=== PATIENT | male | born 1955 ===

== ENCOUNTER 2016-08-05 16:42 | Inpatient (IN) | payer OTHER ==
[2016-08-05] MEDS ORDERED: Albuterol-Ipratrop 3 mg / 0.5 (3 ml) UD IH STA (17:32)
--- NOTE | 2016-08-05 17:39 | ED PDOC ---
HPI: CCC, URI, Sore Throat Time Seen by Provider: 08/05/16 17:26 Chief Complaint (Nursing): Weakness/Neurological Deficit Chief Complaint (Provider): cough History Per: Patient History/Exam Limitations: no limitations Have you had recent travel within the past 21 days to any of the following countries: [place], [place], [place] or [place]?: No Onset/Duration Of Symptoms: Days (x 1 year) Current Symptoms Are (Timing): Still Present Additional Complaint(s): Daryl Hoskins is a 60 year old male, with no previous medical history, who presents to the ED with complaints of a chronic cough ongoing for one year. Patient states cough is productive of brown sputum and reports to developing a generalized weakness today. Patient denies any chest pain, palpitations fever, shortness of breath, loss of consciousness or headache. Patient smoked 1 pack of cigarets every 3 days. PMD: none provided Past Medical History Reviewed: Historical Data, Nursing Documentation, Vital Signs Vital Signs: Last Vital Signs Temp 100.6 F H 08/05/16 16:45 Pulse 110 H 08/05/16 19:36 Resp 16 08/05/16 16:45 BP 157/91 H 08/05/16 16:45 Pulse Ox 96 08/05/16 19:36 - Medical History PMH: No Chronic Diseases - Family History Family History: States: Unknown Family Hx - Social History Current smoker - smoking cessation education provided: Yes (1 pack every 3 days ) - Home Medications Home Medications: Ambulatory Orders Medication Instructions Recorded No Known Home Med 08/05/16 - Allergies Allergies/Adverse Reactions: Allergies Allergy/AdvReac Type Severity Reaction Status Date / Time No Known Allergies Allergy Verified 08/05/16 16:45 Review of Systems ROS Statement: Except As Marked, All Systems Reviewed And Found Negative Constitutional: Positive for: Weakness (generalized). Negative for: Fever, Chills Cardiovascular: Negative for: Chest Pain Respiratory: Positive for: Cough, Sputum (brown ). Negative for: Shortness of Breath Neurological: Negative for: Headache, Other (LOC) Physical Exam - Reviewed Nursing Documentation Reviewed: Yes Vital Signs Reviewed: Yes - Physical Exam Appears: Positive for: Well, Non-toxic, No Acute Distress Head Exam: Positive for: ATRAUMATIC, NORMAL INSPECTION, NORMOCEPHALIC Skin: Positive for: Normal Color, Warm, Dry Cardiovascular/Chest: Positive for: Regular Rate, Rhythm Respiratory: Positive for: Rhonchi (bilaterally ), Wheezing (expiratory bilaterally ) Gastrointestinal/Abdominal: Positive for: Normal Exam, Bowel Sounds, Soft. Negative for: Tenderness Extremity: Positive for: Normal ROM, Capillary Refill (< 2 seconds ). Negative for: Tenderness, Pedal Edema, Calf Tenderness, Swelling Neurologic/Psych: Positive for: Alert, Oriented - Laboratory Results Result Diagrams: 08/05/16 17:54 08/05/16 17:54 - ECG ECG Rhythm: Positive for: Right Bundle Branch Block Rate: 110 (bpm ) O2 Sat by Pulse Oximetry: 96 (RA) Pulse Ox Interpretation: Normal Medical Decision Making Medical Decision Making: Initial Plan: * EKG * labs * CXR * Duoneb 3 ml * peak flow pre/post treatment * reevaluation 18:54 CXR FINDINGS: LUNGS: Multifocal infiltrates. Right middle lobe infiltrate with air bronchograms. We left lower lobe and upper lobe multifocal infiltrates. PLEURA: No significant pleural effusion identified. No pneumothorax apparent. CARDIOVASCULAR: No radiographic findings to suggest acute or significant cardiovascular disease. OSSEOUS STRUCTURES: No significant abnormalities. VISUALIZED UPPER ABDOMEN: Normal. OTHER FINDINGS: None. IMPRESSION: Extensive bilateral infiltrates primarily affecting right middle lobe, left upper and left lower lobes. Findings likely pneumonia. Follow-up to resolution advised. Scribe Attestation: Documented by Madyson Mendoza, acting as a scribe for Jose Fung MD. Provider Scribe Attestation: All medical record entries made by the Scribe were at my direction and personally dictated by me. I have reviewed the chart and agree that the record accurately reflects my personal performance of the history, physical exam, medical decision making, and the department course for this patient. I have also personally directed, reviewed, and agree with the discharge instructions and disposition. Disposition - Clinical Impression Clinical Impression: Pneumonia, Renal insufficiency, Elevated d-dimer - Patient ED Disposition Is Patient to be Admitted: Yes - Disposition Disposition Time: 20:20 Condition: FAIR - Pt Status Changed To: Hospital Disposition Of: Inpatient - Admit Certification Admit to Inpatient:: After my assessment, the patient will require hospitalization for at least two midnights. This is because of the severity of symptoms shown, intensity of services needed, and/or the medical risk in this patient being treated as an outpatient. - POA Present On Arrival: None
[2016-08-05 17:59] LABS: BASO % 0.1 % (0.0-2.0); HEMATOCRIT 45.2 % (35.0-51.0); LYMPH # 0.4 K/uL (1.0-4.3); MEAN CELL VOLUME 82.6 fl (80.0-94.0); MEAN CORPUSCULAR HEMOGLOBIN 28.3 pg (27.0-31.0); MEAN CORPUSCULAR HGB CONC 34.3 g/dL (33.0-37.0); MONO # 0.2 K/uL (0.0-0.8); MONO % 2.6 % (0.0-10.0); NEUT # 7.8 K/uL (1.8-7.0); NEUT % 92.3 % (50.0-75.0); NRBC % 0.1 % (0.0-0.0); PLATELET COUNT 132 K/uL (130-400); RED CELL DISTRIBUTION WIDTH 14.2 % (11.5-14.5); WHITE BLOOD COUNT 8.4 K/uL (4.8-10.8)
[2016-08-05 18:14] LABS: BILIRUBIN,TOTAL 1.2 mg/dl (0.2-1.3); CALCIUM 9.2 mg/dL (8.4-10.2); TOTAL PROTEIN 8.8 G/DL (6.3-8.2)
[2016-08-05] MEDS ORDERED: Azithromycin 500 MG in Sodium Chloride 0.9% 250 ML IVPB STA (18:14)
[2016-08-05] MEDS ORDERED: Potassium Chloride 20 mEq ER Tab PO ONE ×2 (18:15→18:27)
[2016-08-05] MEDS ORDERED: cefTRIAXone (Rocephin) 1 gm Inj ONE (18:27)
[2016-08-05 18:50] LABS: VENOUS BLOOD GAS BASE EXCESS -1.5 mmol/L (0.0-2.0); VENOUS BLOOD GAS PCO2 44 mmHg (40-60); VENOUS BLOOD PH 7.35 (7.32-7.43)
[2016-08-05] MEDS ORDERED: Sodium Chloride 0.9% 1,000 ML IV STA (18:52)
--- NOTE | 2016-08-05 18:56 | RAD ---
HISTORY: cough COMPARISON: No prior. TECHNIQUE: Chest PA and lateral FINDINGS: LUNGS: Multifocal infiltrates. Right middle lobe infiltrate with air bronchograms. We left lower lobe and upper lobe multifocal infiltrates. PLEURA: No significant pleural effusion identified. No pneumothorax apparent. CARDIOVASCULAR: No radiographic findings to suggest acute or significant cardiovascular disease. OSSEOUS STRUCTURES: No significant abnormalities. VISUALIZED UPPER ABDOMEN: Normal. OTHER FINDINGS: None. IMPRESSION: Extensive bilateral infiltrates primarily affecting right middle lobe, left upper and left lower lobes. Findings likely pneumonia. Follow-up to resolution advised.
[2016-08-05 18:58] LABS: NEUTROPHIL 88 % (42-75); TOTAL CELLS COUNTED 100
--- NOTE | 2016-08-05 20:37 | CP.PCM.HP ---
History of Present Illness - History of Present Illness History of Present Illness: PCP: None Chief Complaint: Dizziness/ weakness/Coughing HPI: 60 years old male with no significance past medical hx resides at a custodial for one month. He was brought to the Ed because of Generalized weakness today with 2 days of dizziness with only mild vertigo but some unreadiness in his gait.He has been coughing for one month but it has gotten worse and is associated with brown sputum. No chest pain on coughing, no SOB and no fever. He Smokes one pack of cigarettes in 3 days with occasional Alcohol use. in the ED his Temp was 100.6F with HR of 123/min. PMH: No chronic diseases PSH: No Surgeries SH: Lives in a Intermediate; Uses Alcohol socially; Smokes one pack in 3 days; no illegal drug use FH: Mother with Diabetes Mellitus and father family with Diabetes Allergies: NKDA Present on Admission - Present on Admission Any Indicators Present on Admission: No History of DVT/PE: No History of Uncontrolled Diabetes: No Urinary Catheter: No Decubitus Ulcer Present: No Review of Systems - Constitutional Constitutional: Weakness. absent: Anorexia, Chills, Fever, Headache, Lethargy - EENT Eyes: absent: Diplopia, Floaters, Photophobia, Requires Corrective Lenses, Sees Flashes Ears: absent: Decreased Hearing, Ear Discharge, Ear Pain, Tinnitus Nose/Mouth/Throat: absent: Epistaxis, Nasal Congestion, Nasal Discharge, Sinus Pain, Sinus Pressure - Cardiovascular Cardiovascular: absent: Chest Pain, Dyspnea, Leg Edema - Respiratory Respiratory: Cough, Wheezing. absent: Dyspnea, Stridor - Gastrointestinal Gastrointestinal: absent: Constipation, Diarrhea, Nausea, Vomiting - Genitourinary Genitourinary: absent: Dysuria, Flank Pain, Hematuria, Freq UTI - Musculoskeletal Musculoskeletal: absent: Arthralgias, Myalgias, Radiating Pain into Limb Additional comments: Unsteady gait. - Integumentary Integumentary: absent: Pruritus, Rash, Skin Ulcer, Sores, Striae, Swelling - Neurological Neurological: Vertigo, Weakness. absent: Confusion, Focal Weakness, Headaches, Memory Loss - Psychiatric Psychiatric: absent: Anxiety, Depression, Panic Attacks - Endocrine Endocrine: absent: Palpitations, Polydipsia, Polyphagia, Polyuria - Hematologic/Lymphatic Hematologic: absent: Easy Bleeding, Easy Bruising Past Patient History - Past Social History Smoking Status: Light Smoker < 10 Cigarettes Daily Chewing Tobacco Use: No Cigar Use: No Alcohol: Social Drugs: Denies Home Situation {Lives}: Homeless - CARDIAC Hx Cardiac Disorders: No - PULMONARY Hx Respiratory Disorders: No - NEUROLOGICAL Hx Neurological Disorder: No - HEENT Hx HEENT Problems: No - RENAL Hx Chronic Kidney Disease: No - ENDOCRINE/METABOLIC Hx Endocrine Disorders: No - HEMATOLOGICAL/ONCOLOGICAL Hx Blood Disorders: No - INTEGUMENTARY Hx Dermatological Problems: No - MUSCULOSKELETAL/RHEUMATOLOGICAL Hx Musculoskeletal Disorders: No - GASTROINTESTINAL Hx Gastrointestinal Disorders: No - GENITOURINARY/GYNECOLOGICAL Hx Genitourinary Disorders: No - PSYCHIATRIC Hx Psychophysiologic Disorder: No Hx Substance Use: No - SURGICAL HISTORY Hx Surgeries: No - ANESTHESIA Hx Anesthesia: No Meds Allergies/Adverse Reactions: Allergies Allergy/AdvReac Type Severity Reaction Status Date / Time No Known Allergies Allergy Verified 08/05/16 16:45 Physical Exam - Constitutional Appears: In Acute Distress - Head Exam Head Exam: ATRAUMATIC, NORMAL INSPECTION, NORMOCEPHALIC - Eye Exam Eye Exam: EOMI, Normal appearance Pupil Exam: NORMAL ACCOMODATION, PERRL - ENT Exam ENT Exam: Mucous Membranes Moist, Normal Exam, Normal External Ear Exam - Neck Exam Neck exam: Positive for: Full Rom, Normal Inspection. Negative for: Lymphadenopathy, Tenderness - Respiratory Exam Additional comments: Inspiratory and expiratory coarse crackles with wheezes on expiration diffuse in both lung thibodeaux - Cardiovascular Exam Cardiovascular Exam: Tachycardia, REGULAR RHYTHM, +S1, +S2 - GI/Abdominal Exam GI & Abdominal Exam: Normal Bowel Sounds, Soft. absent: Mass, Organomegaly, Tenderness - Rectal Exam Rectal Exam: Deferred - Extremities Exam Extremities exam: Positive for: full ROM, normal inspection. Negative for: pedal edema, tenderness - Back Exam Back exam: NORMAL INSPECTION. absent: CVA tenderness (L), CVA tenderness (R) - Neurological Exam Neurological exam: Alert, CN II-XII Intact, Oriented x3, Reflexes Normal - Psychiatric Exam Psychiatric exam: Normal Affect, Normal Mood - Skin Skin Exam: Dry, Intact, Normal Color, Warm Results - Vital Signs Recent Vital Signs: Last Vital Signs Temp 100.6 F H 08/05/16 16:45 Pulse 110 H 08/05/16 20:20 Resp 16 08/05/16 16:45 BP 157/91 H 08/05/16 16:45 Pulse Ox 96 08/05/16 20:20 - Labs Result Diagrams: 08/05/16 17:54 08/05/16 17:54 - EKG Data EKG comments: Sinus Tachycardia with RBBB 110/min - Imaging and Cardiology Chest x-ray Additional comment: Bilateral infiltrates, right middle lobe, left upper and left lower lobes. Assessment & Plan - Assessment and Plan (Free Text) Assessment: #. Multilabar Pneumonia #. Sepsis #. Renal Insufficency #. Hypokalemia #. Transaminitis #. Elevated D Dimer Plan: 60 years old male with no significance past medical hx resides at a custodial for one month. He was brought to the Ed because of Generalized weakness today with 2 days of dizziness with only mild vertigo but some unreadiness in his gait.He has been coughing for one month but it has gotten worse and is associated with brown sputum. No chest pain on coughing, no SOB and no fever. He Smokes one pack of cigarettes in 3 days with occasional Alcohol use. in the ED his Temp was 100.6F with HR of 123/min. #. Multilabar Pneumonia in patient from a custodial. Coughing for weeks. r/o TB - consult Dr Sweeney pulmonary - Airborne isolation/ Sputum for AFB x3 - Sputum for culture - HIV antibodies - Duoneb bronchodilators q6hrs - Azithromycin 500mg Daily - Zosyn 2.275mg Q6hrs renal dose - Vancomycin 1gm IV single dose #. Sepsis with a temperature3 of 100.6F; Heart rate of 123/min and multilabar pneumonia - follow blood and urine cultures - IV fluids - Antibiotics to treat pneumonia #. Renal Insufficiency etiology unclear r/o renal-pulmonary syndrone - consult Dr Kowalski nephrology - IV Fluids - follow renal labs - Follow Abdominal US #. Hypokalemia - Repleted - Follow Electrolytes #. Transaminitis probably due to Alcohol liver disease - Hepatitis profile -Abdominal US evaluate for Fatty liver - Follow liver enzymes #. Elevated D Dimer etiology unclear. CTA chest not done because of the Renal failure. - follow V/Q Scan to rule out Pulmonary Embolism. #. DVT prophylaxis with Heparin #. Code Status: Full - Date & Time Date: 08/05/16 Time: 20:37
[2016-08-05 21:13] LABS: VENOUS BLOOD GAS BASE EXCESS -3.1 mmol/L (0.0-2.0); VENOUS BLOOD GAS PCO2 45 mmHg (40-60); VENOUS BLOOD PH 7.32 (7.32-7.43)
[2016-08-05] MEDS ORDERED: Sodium Chloride 0.9% 1,000 ML IV SCH (21:45)
[2016-08-05] MEDS ORDERED: Potassium Chloride 20 mEq ER Tab PO STA (23:48)
[2016-08-06] MEDS: Albuterol-Ipratrop 3 mg / 0.5 (3 ml) UD INH SCH ×4 (01:01→20:28)
[2016-08-06] MEDS: Sodium Chloride 0.9% 1,000 ML IV SCH ×3 (05:26→18:52)
[2016-08-06 07:04] LABS: HEMATOCRIT 39.3 % (35.0-51.0); LYMPH # 0.4 K/uL (1.0-4.3); LYMPH % 6.1 % (20.0-40.0); MEAN CELL VOLUME 82.7 fl (80.0-94.0); MEAN CORPUSCULAR HEMOGLOBIN 28.1 pg (27.0-31.0); MEAN PLATELET VOLUME 8.5 fl (7.2-11.7); MONO # 0.1 K/uL (0.0-0.8); MONO % 1.9 % (0.0-10.0); NEUT # 5.8 K/uL (1.8-7.0); PLATELET COUNT 124 K/uL (130-400); RED CELL DISTRIBUTION WIDTH 14.1 % (11.5-14.5); WHITE BLOOD COUNT 6.3 K/uL (4.8-10.8)
[2016-08-06 07:39] LABS: ALB/GLOB RATIO 0.9 (1.0-2.1); CALCIUM 7.7 mg/dL (8.4-10.2); POTASSIUM 3.1 MMOL/L (3.6-5.0); TOTAL PROTEIN 6.6 G/DL (6.3-8.2)
--- NOTE | 2016-08-06 08:31 | CARD ---
APPROVED REPORT EKG Measurement Heart [id number] <Conclusion> Sinus tachycardia Possible Left atrial enlargement Right bundle branch block Abnormal ECG
[2016-08-06] MEDS ORDERED: Sodium Chloride 3% for Inhalation 4 ML VIAL.NEB IH PRN (08:34)
[2016-08-06] MEDS: Azithromycin 500 MG in Sodium Chloride 0.9% 250 ML IVPB SCH (08:56)
[2016-08-06] MEDS: Potassium Chloride 20 mEq ER Tab PO ONE ×2 (08:57→09:15)
[2016-08-06 09:18] LABS: RBC URINE 19 /hpf (0-3); URINE BILIRUBIN NEGATIVE (NEGATIVE); URINE BLOOD LARGE (NEGATIVE); URINE COLOR AMBER (YELLOW); URINE GLUCOSE (UA) NEG (Normal); URINE KETONE NEGATIVE (NEGATIVE); URINE LEUKOCYTE ESTERASE NEG Leu/uL (Negative); URINE PROTEIN 100 mg/dL (NEGATIVE); URINE UROBILINOGEN 0.2-1.0 mg/dL (0.2-1.0); WBC CLUMPS OCC /hpf; WBC URINE 17 /hpf (0-5)
--- NOTE | 2016-08-06 09:30 | CP.PCM.CON ---
History of Present Illness - History of Present Illness History of Present Illness: pt seen and examined, full consult is dictated #[id number] 1. renal failure , most likely vane can't r/o vane on ckd r/o ATN, r/o rhabdo 2. pneumnonia 3. sepsis check cpk, urine lytes, osm, cr aso, cristela, hept.b,c, c3,c4, aso ivf 1/2 ns at 780-100 ml/hr check urine and blood c/s, Past Patient History - Past Social History Smoking Status: Current Some Days Smoker - CARDIAC Hx Cardiac Disorders: No - PULMONARY Hx Respiratory Disorders: No - NEUROLOGICAL Hx Neurological Disorder: No - HEENT Hx HEENT Problems: No - RENAL Hx Chronic Kidney Disease: No - ENDOCRINE/METABOLIC Hx Endocrine Disorders: No - HEMATOLOGICAL/ONCOLOGICAL Hx Blood Disorders: No Hx AIDS: No Hx Human Immunodeficiency Virus (HIV): No - INTEGUMENTARY Hx Dermatological Problems: No - MUSCULOSKELETAL/RHEUMATOLOGICAL Hx Musculoskeletal Disorders: No Hx Falls: Yes - GASTROINTESTINAL Hx Gastrointestinal Disorders: No - GENITOURINARY/GYNECOLOGICAL Hx Genitourinary Disorders: No - PSYCHIATRIC Hx Psychophysiologic Disorder: No Hx Substance Use: No - SURGICAL HISTORY Hx Surgeries: No - ANESTHESIA Hx Anesthesia: No Meds Allergies/Adverse Reactions: Allergies Allergy/AdvReac Type Severity Reaction Status Date / Time No Known Allergies Allergy Verified 08/05/16 16:45 - Medications Medications: Current Medications Acetaminophen (Tylenol 325mg Tab) 650 mg PO Q6 PRN PRN Reason: Fever >100.4 F Last Admin: 08/06/16 04:45 Dose: 650 mg Albuterol/Ipratropium (Duoneb 3 Mg/0.5 Mg (3 Ml) Ud) 3 ml INH RQ6 [facility] Last Admin: 08/06/16 08:26 Dose: 3 ml Folic Acid (Folic Acid) 1 mg PO DAILY [facility]ERE Heparin Sodium (Porcine) (Heparin) 5,000 units SC Q8 [facility] PRN Reason: Protocol Last Admin: 08/06/16 02:12 Dose: 5,000 units Azithromycin 500 mg/ Sodium (Chloride) 250 mls @ 250 mls/hr IVPB DAILY [facility] Last Admin: 08/06/16 08:56 Dose: 250 mls/hr Sodium Chloride (Sodium Chloride 0.9%) 1,000 mls @ 1,000 mls/hr IV .Q1H [facility] Stop: 08/06/16 21:33 Last Admin: 08/05/16 22:45 Dose: 1,000 mls/hr Piperacillin Sod/Tazobactam (Sod 2.25 gm/ Sodium Chloride) 100 mls @ 100 mls/ hr IVPB Q6 [facility] Last Admin: 08/06/16 09:03 Dose: 100 mls/hr Sodium Chloride (Sodium Chloride 0.9%) 1,000 mls @ 150 mls/hr IV .Q6H40M [facility] Stop: 08/07/16 05:10 Last Admin: 08/06/16 05:26 Dose: 150 mls/hr Thiamine HCl (Vitamin B1 Tab) 100 mg PO DAILY [facility] Results - Vital Signs Recent Vital Signs: Last Vital Signs Temp 100.2 F H 08/06/16 08:29 Pulse 103 H 08/06/16 08:29 Resp 18 08/06/16 08:29 BP 159/89 H 08/06/16 08:29 Pulse Ox 95 08/06/16 08:29 - Labs Result Diagrams: 08/06/16 05:00 08/06/16 07:23 Labs: Laboratory Results - last 24 hr 08/05/16 08/06/16 08/06/16 21:08 05:00 05:00 WBC 6.3 RBC 4.75 Hgb 13.3 D Hct 39.3 MCV 82.7 MCH 28.1 MCHC 34.0 RDW 14.1 Plt Count 124 L MPV 8.5 Neut % (Auto) 92.0 H Lymph % (Auto) 6.1 L [place] % (Auto) 1.9 Eos % (Auto) 0.0 Baso % (Auto) 0.0 Neut # 5.8 Lymph # 0.4 L [place] # 0.1 Eos # 0.0 Baso # 0.0 pO2 8 L VBG pH 7.32 VBG pCO2 45 VBG HCO3 20.0 VBG Total CO2 24.6 VBG O2 Sat (Calc) 15.7 L VBG Base Excess -3.1 L VBG Potassium 3.1 L Sodium 128.0 L 132 Chloride 93.0 L 99 Glucose 90 Lactate 1.6 FiO2 21.0 Potassium 3.1 L Carbon Dioxide 17 L Anion Gap 19 BUN 78 H Creatinine 5.0 H Est GFR ( Amer) 14 Est GFR (Non-Af Amer) 12 Random Glucose 80 Serum Osmolality Calcium 7.7 L Total Bilirubin 1.0 AST 272 H ALT 112 H Alkaline Phosphatase 29 L Total Protein 6.6 Albumin 3.2 L D Globulin 3.5 Albumin/Globulin Ratio 0.9 L Venous Blood Potassium 3.1 L Urine Color Urine Clarity Urine pH Ur Specific [place] Urine Protein Urine Glucose (UA) Urine Ketones Urine Blood Urine Nitrate Urine Bilirubin Urine Urobilinogen Ur Leukocyte Esterase Urine RBC (Auto) Urine WBC Clumps (Auto) Urine Microscopic WBC Ur Squamous Epith Cells Amorphous Sediment Hyaline Casts 08/06/16 08/06/16 08/06/16 07:23 07:23 08:30 WBC RBC Hgb Hct MCV MCH MCHC RDW Plt Count MPV Neut % (Auto) Lymph % (Auto) [place] % (Auto) Eos % (Auto) Baso % (Auto) Neut # Lymph # [place] # Eos # Baso # pO2 VBG pH VBG pCO2 VBG HCO3 VBG Total CO2 VBG O2 Sat (Calc) VBG Base Excess VBG Potassium Sodium Chloride Glucose Lactate FiO2 Potassium Carbon Dioxide Anion Gap BUN Creatinine 4.6 H Est GFR ( Amer) 16 Est GFR (Non-Af Amer) 13 Random Glucose Serum Osmolality 292 Calcium Total Bilirubin AST ALT Alkaline Phosphatase Total Protein Albumin Globulin Albumin/Globulin Ratio Venous Blood Potassium Urine Color [place] Urine Clarity Cloudy Urine pH 5.0 Ur Specific [place] 1.014 Urine Protein 100 Urine Glucose (UA) Neg Urine Ketones Negative Urine Blood Large Urine Nitrate Negative Urine Bilirubin Negative Urine Urobilinogen 0.2-1.0 Ur Leukocyte Esterase Neg Urine RBC (Auto) 19 H Urine WBC Clumps (Auto) Occ H Urine Microscopic WBC 17 H Ur Squamous Epith Cells < 1 Amorphous Sediment Occ H Hyaline Casts 11-20 H
--- NOTE | 2016-08-06 09:46 | CP.PCM.PN ---
Subjective - Date & Time of Evaluation Date of Evaluation: 08/06/16 Time of Evaluation: 09:00 - Subjective Subjective: Pt is febrile + cough denies CP nor SOB no abd pain no diarrhea Pt noted to be tremulous moves all extremities denies Alcoholism + smoker states that he is not aware of any hx of renal failure just became homeless this month- used to work as a client service representative- has no family Objective - Vital Signs/Intake and Output Vital Signs (last 24 hours): Temp Pulse Resp BP Pulse Ox 100.2 F H 103 H 18 159/89 H 95 08/06/16 08:29 08/06/16 08:29 08/06/16 08:29 08/06/16 08:29 08/06/16 08:29 - Medications Medications: Current Medications Acetaminophen (Tylenol 325mg Tab) 650 mg PO Q6 PRN PRN Reason: Fever >100.4 F Last Admin: 08/06/16 04:45 Dose: 650 mg Albuterol/Ipratropium (Duoneb 3 Mg/0.5 Mg (3 Ml) Ud) 3 ml INH RQ6 [facility] Last Admin: 08/06/16 08:26 Dose: 3 ml Folic Acid (Folic Acid) 1 mg PO DAILY [facility] Heparin Sodium (Porcine) (Heparin) 5,000 units SC Q8 [facility]REE PRN Reason: Protocol Last Admin: 08/06/16 02:12 Dose: 5,000 units Azithromycin 500 mg/ Sodium (Chloride) 250 mls @ 250 mls/hr IVPB DAILY [facility] Last Admin: 08/06/16 08:56 Dose: 250 mls/hr Sodium Chloride (Sodium Chloride 0.9%) 1,000 mls @ 1,000 mls/hr IV .Q1H [facility] Stop: 08/06/16 21:33 Last Admin: 08/05/16 22:45 Dose: 1,000 mls/hr Piperacillin Sod/Tazobactam (Sod 2.25 gm/ Sodium Chloride) 100 mls @ 100 mls/ hr IVPB Q6 [facility]REE Last Admin: 08/06/16 09:03 Dose: 100 mls/hr Sodium Chloride (Sodium Chloride 0.9%) 1,000 mls @ 150 mls/hr IV .Q6H40M [facility] Stop: 08/07/16 05:10 Last Admin: 08/06/16 05:26 Dose: 150 mls/hr Thiamine HCl (Vitamin B1 Tab) 100 mg PO DAILY SHREE - Labs Labs: 08/06/16 05:00 08/06/16 07:23 - Constitutional Appears: Older Than Stated Age, Chronically Ill, Other (tremulous) - Head Exam Head Exam: NORMAL INSPECTION, NORMOCEPHALIC - Eye Exam Eye Exam: EOMI, Normal appearance Pupil Exam: NORMAL ACCOMODATION - ENT Exam ENT Exam: Mucous Membranes Moist, Normal External Ear Exam - Neck Exam Neck Exam: Full ROM. absent: Meningismus - Respiratory Exam Respiratory Exam: Rales, Rhonchi. absent: Respiratory Distress - Cardiovascular Exam Cardiovascular Exam: Tachycardia, REGULAR RHYTHM, +S1, +S2 - GI/Abdominal Exam GI & Abdominal Exam: Distended, Soft, Normal Bowel Sounds. absent: Tenderness - Extremities Exam Extremities Exam: Full ROM, Normal Capillary Refill. absent: Calf Tenderness, Pedal Edema Additional comments: noted bilat knee bruising - Back Exam Back Exam: absent: CVA tenderness (L), CVA tenderness (R), paraspinal tenderness , vertebral tenderness - Neurological Exam Neurological Exam: Alert, Awake, CN II-XII Intact, Oriented x3 Neuro motor strength exam: Left Upper Extremity: 5, Right Upper Extremity: 5, Left Lower Extremity: 5, Right Lower Extremity: 5 Additional comments: no sensory deficit - Psychiatric Exam Psychiatric exam: Normal Affect, Normal Mood - Skin Skin Exam: Dry, Normal Color, Warm Assessment and Plan - Assessment and Plan (Free Text) Assessment: 60 years old male with no significant past medical hx , since July 10, started living in a half-way, was brought to the ED because of Generalized weakness, dizziness. He has been coughing for one month with brown sputum. No chest pain on coughing, no SOB and no fever. He Smokes one pack of cigarettes in 3 days with occasional Alcohol use. In the ED his Temp was 100.6F with HR of 123/ min. CXR showed multifocal Pneumonia. 1. Multifocal Pneumonia - Azithromycin 500mg Daily - Zosyn 2.275mg Q6hrs renal dose - Vancomycin 1gm IV single dose - check Vanco level in am - Sputum c/s, Blood c/s, Legionella, Mycoplasma, AFB , Influenza 2. Sepsis sec to Pneumonia -Pt had fever to 103.2, bands noted on CBC - IV fluids - Antibiotics to treat pneumonia- Zosyn, Azithro, received IV Vanco 3. Acute vs Chronic Renal Failure, unclear etiology, ? sec to Rhabdomyolysis - IVF hydration - consulted Dr Kowalski nephrology - Renal sonogram - CPK level elevated to 10K -monitor I and O 4. Hypokalemia - Repleted - Follow Electrolytes 5. Transaminitis ? sec to ETOH - AST more elevated than ALT - Hepatitis profile - Pt denies alcoholism howevere noted to be tremulous -Abdominal US evaluate for Fatty liver - Hepatitis screen 6. Elevated D Dimer - follow V/Q Scan to rule out Pulmonary Embolism. 7. Tremulousness ? sec to ETOH withdrawal - start Thiamine, Folate - Ativan given will give prn - CT of head - noted bruises on pt's knees ? hx of fall #. DVT prophylaxis with Heparin
--- NOTE | 2016-08-06 09:59 | US ---
HISTORY: Elevated liver enzymes/ renal failure COMPARISON: None. TECHNIQUE: Sonographic evaluation of the abdomen. FINDINGS: LIVER: Measures 16.2 cm. Normal echogenicity of the liver parenchyma. No mass. No intrahepatic bile duct dilatation. GALLBLADDER: There are multiple gallstones. Mild wall thickening. No pericholecystic fluid or positive sonographic Yoder's sign. COMMON BILE DUCT: Measures 5.4 mm. No stones. No dilatation. PANCREAS: Unremarkable as visualized. No mass. No ductal dilatation. RIGHT KIDNEY: Measures 12.3cm. Normal echogenicity. No calculus, mass, or hydronephrosis. There is a probable 4 mm nonobstructing stone in the upper pole. LEFT KIDNEY: Measures 12.6 acm. Normal echogenicity. No mass, or hydronephrosis. There is a 2.5 cm cyst in the lower pole. SPLEEN: Normal in size and contour. No mass. AORTA: No aneurysmal dilatation. IVC: Unremarkable. OTHER FINDINGS: None. IMPRESSION: 1. Cholelithiasis. 2. Suspect 4 mm nonobstructing stone in the upper pole of the right kidney. 3. 2.5 cm cyst in the lower pole of the left kidney.
[2016-08-06 10:01] LABS: NEUTROPHIL 77 % (42-75); TOTAL CELLS COUNTED 100
[2016-08-06 10:03] LABS: GIANT PLATELETS PRESENT; LARGE PLATELETS PRESENT
--- NOTE | 2016-08-06 11:25 | CON ---
DATE: 08/06/2016 The patient is located in room 412, bed 1. REQUESTING PHYSICIAN: Dr. Diana Lockhart. REASON FOR RENAL CONSULTATION: Acute renal failure and for further evaluation. HISTORY OF PRESENT ILLNESS: The patient is a 60-year-old white male with no significant past medical history except a smoker and occasional alcohol use, who presented to the Emergency Room with chief complaint of chronic cough ongoing for a long time, but now it is more like productive associated with brown sputum and generalized weakness and also claims he had several falls in the last few weeks. Denies any chest pain or any palpitation. Denies any fever. Denies any loss of consciousness, denies any headache, dizziness. PAST MEDICAL HISTORY: Denies any high blood pressure. Denies any diabetes. Denies any CVA. Denies any coronary artery disease. PAST SURGICAL HISTORY: Denies. ALLERGIES: No known drug allergies. SOCIAL HISTORY: The patient is a smoker, smokes about 1 pack 2-3 days and occasional alcohol use. The last time he used alcohol was on 's Sophie. Denies any drug abuse. PERSONAL HISTORY: Single, no children. FAMILY HISTORY: Not significant. CURRENT MEDICATIONS: Include as follows: Azithromycin 500 mg daily, DuoNeb inhaler, folic acid 1 mg daily, subcutaneous heparin 5000 q. 8 hours, Zosyn 2.25 grams q. 6 hours, IV fluids, normal saline at 100 mL per hour and thiamine 100 mg p.o. daily. REVIEW OF SYSTEMS: Significant for fever, cough, weakness and multiple falls. All other review of systems are reviewed and are negative. PHYSICAL EXAMINATION: VITAL SIGNS: Blood pressure 159/89, pulse 103, respirations 18, temperature 100.2 and saturation 95%. T-max is 102.9. Height is 6 feet and weight is 190 pounds. GENERAL: The patient is a 60-year-old male, moderately built, moderately nourished with slight tremors. HEENT: Pupils normal, reactive to light and accommodation. Conjunctivae pink. Sclerae anicteric. Tongue is moist. NECK: Trachea is midline. No thyroid enlargement. LUNGS: Symmetric on both sides. Bilateral breath sounds present. No crackles. CARDIOVASCULAR: [place] in the fifth intercostal space midclavicular line. S1 and S2 audible. No murmur or gallop. ABDOMEN: Normal in appearance. Soft, tympanic. No guarding, no rigidity. No hepatosplenomegaly. CENTRAL NERVOUS SYSTEM: The patient is alert, awake, oriented x 3, nonfocal on examination. Cranial nerves II-XII grossly intact. Sensory and motor system is within normal limits. EXTREMITIES: No cyanosis, no clubbing, no edema. The patient has superficial abrasions on both knees. LABORATORY DATA: Include as follows, as of 08/05/2016: WBC 8.4, hemoglobin 15.5 , hematocrit 45.2, platelets 132. Neutrophils 88, bands 3, lymphs 5, monos 4. D -dimer is 8.1. VBG: pH 7.35, pO2 7, pCO2 of 44. Saturation is 96%. Lactic acid 2.3. Sodium 131, potassium is 3, chloride 91, CO2 23, BUN 74, creatinine 4.5, glucose 104, calcium 9.2, total bilirubin 1.2, AST 323 and ALT 128, alkaline phosphatase is 25, albumin is 4.3. The other laboratory data as of : WBC 6.3, hemoglobin 13.3, hematocrit is 39.3, platelets 124, neutrophils 77, bands 13, and lymph is 8, monocytes 2. Sodium 132, potassium 3.1, chloride 99, CO2 17, BUN 98, creatinine 4.6, glucose 292, calcium 7.7, total bilirubin 1.0, AST 272, ALT 112, alkaline phosphatase is 29, total protein 6.6, albumin is 3.2. Urinalysis is edgardo, cloudy, pH 5, specific gravity 1.014, protein 100, glucose negative, ketones negative and blood large, nitrites negative, bilirubin negative, urobilinogen 0.2-1.0, and leukocyte esterase negative, RBC 19, WBC occasional clumps. Squamous epithelial less than 1. WBC 17, hyaline casts 11-20. Chest x-ray as of 08/05/2016, impression is extensive bilateral infiltrates primarily affecting the right middle lobe and left upper lobe and left lower lobe. Findings likely pneumonia. Follow up until resolution is advised. Ultrasound of the abdomen as of 08/06/2016, liver measures 16.2 cm, gallbladder with multiple gallstones, mild wall thickening. No pericholecystic fluid. Positive sonographic Yoder sign. CBD 5.4 mm and pancreas unremarkable. Right kidney 12.3 cm, normal echogenicity. There is probable 4 mm nonobstructing stone in the upper pole of the left kidney 12.6 cm, normal echogenicity, no mass or hydronephrosis. There is 2.5 cm cyst in the lower pole. Impression is cholelithiasis, suspect 4 mm nonobstructing stone in the right upper pole and a 2.5 cm cyst in the left lower pole. SUMMARY: The patient is a 60-year-old male with no significant past medical history except a smoker and occasional alcohol use, was admitted with cough with brown sputum and fever of 102.9 and multiple falls with elevated BUN and creatinine. 1. Nonoliguric, renal failure, most likely acute renal failure. Cannot rule out acute on chronic kidney disease, less likely in view of very high H and H. I expect the patient will be anemic with a creatinine about 4.5 with a GFR about 13 mL per minute. 2. Multilobar pneumonia. 3. Sepsis. 4. Status post fall. PLAN: Continue IV fluids. Continue antibiotics, Zosyn and Zithromax. Check CPK levels and JESSIE, C3, C4, hepatitis B and C serology and ASO titers. Case discussed with Dr. Ortiz on rounds and also with residents this morning. Thank you for allowing me to participate in your patient's care. Repeat BMP in the a.m. and check urine electrolytes, osmolality and urine creatinine to calculate . Edmund Kowalski MD cc: [id number] TT: 08/06/2016 11:25:00 Confirmation # [id number] Dictation # [id number] mally MENDES
[2016-08-06] MEDS ORDERED: Albuterol 0.083% Inhal Sol (2.5 mg/3 mL) UD INH PRN (12:39)
[2016-08-06] MEDS: Metoprolol Succinate 25 mg XL Tab PO SCH (12:49)
--- NOTE | 2016-08-06 12:49 | CP.PCM.CON ---
History of Present Illness - History of Present Illness History of Present Illness: This 60-year-old homeless male presented to the emergency department after an apparent episode of syncope, the details of which are unclear. He was also complaining of cough for the past 1 month which was productive of greenish or brownish sputum. He is a poor historian who sometimes contradicts history given to other physicians. He denies any chest pain or hemoptysis. He seems to deny any shortness of breath at this time. He denies any prior history of pneumonia but does claim to have had asthma in his youth. He denies ever using any inhalers and denies prior hospitalizations. He is a cigarette smoker who smokes a pack every 3-4 days and uses alcohol on occasion. He denies any illicit drug use. On presentation his chest x-ray did reveal multilobar patchy infiltrates in the right middle lobe area as well as the left upper lobe and left lower lobe. A venous blood gas done the emergency room showed an elevated lactate level. There was no leukocytosis on presentation although there were immature forms noted in the peripheral smear with an elevated sedimentation rate of 54. Nephrology has also been called in as there is acute renal failure cause of apparent rhabdomyolysis with creatine kinase of 10,872. He claims to have penicillin allergy when seen by myself, but he denied allergies on admission. Past Patient History - Past Social History Smoking Status: Light Smoker < 10 Cigarettes Daily Chewing Tobacco Use: No Cigar Use: No Alcohol: Occasional Drugs: Denies Home Situation {Lives}: Homeless - CARDIAC Hx Cardiac Disorders: No - PULMONARY Hx Respiratory Disorders: No - NEUROLOGICAL Hx Neurological Disorder: No - HEENT Hx HEENT Problems: No - RENAL Hx Chronic Kidney Disease: No - ENDOCRINE/METABOLIC Hx Endocrine Disorders: No - HEMATOLOGICAL/ONCOLOGICAL Hx Blood Disorders: No Hx AIDS: No Hx Human Immunodeficiency Virus (HIV): No - INTEGUMENTARY Hx Dermatological Problems: No - MUSCULOSKELETAL/RHEUMATOLOGICAL Hx Musculoskeletal Disorders: No Hx Falls: Yes - GASTROINTESTINAL Hx Gastrointestinal Disorders: No - GENITOURINARY/GYNECOLOGICAL Hx Genitourinary Disorders: No - PSYCHIATRIC Hx Psychophysiologic Disorder: No Hx Substance Use: No - SURGICAL HISTORY Hx Surgeries: No - ANESTHESIA Hx Anesthesia: No Meds Allergies/Adverse Reactions: Allergies Allergy/AdvReac Type Severity Reaction Status Date / Time No Known Allergies Allergy Verified 08/05/16 16:45 - Medications Medications: Current Medications Acetaminophen (Tylenol 325mg Tab) 650 mg PO Q6 PRN PRN Reason: Fever >100.4 F Last Admin: 08/06/16 11:55 Dose: 650 mg Albuterol Sulfate (Albuterol 0.083% Inhal Martita (2.5 Mg/3 Ml) Ud) 2.5 mg INH RQ4 PRN PRN Reason: Shortness of Breath Albuterol/Ipratropium (Duoneb 3 Mg/0.5 Mg (3 Ml) Ud) 3 ml INH RQID SHREE Folic Acid (Folic Acid) 1 mg PO DAILY [facility] Last Admin: 08/06/16 09:54 Dose: 1 mg Heparin Sodium (Porcine) (Heparin) 5,000 units SC Q8 SHREE PRN Reason: Protocol Last Admin: 08/06/16 10:00 Dose: 5,000 units Azithromycin 500 mg/ Sodium (Chloride) 250 mls @ 250 mls/hr IVPB DAILY [facility] Last Admin: 08/06/16 08:56 Dose: 250 mls/hr Sodium Chloride (Sodium Chloride 0.9%) 1,000 mls @ 1,000 mls/hr IV .Q1H [facility] Stop: 08/06/16 21:33 Last Admin: 08/05/16 22:45 Dose: 1,000 mls/hr Piperacillin Sod/Tazobactam (Sod 2.25 gm/ Sodium Chloride) 100 mls @ 100 mls/ hr IVPB Q6 [facility] Last Admin: 08/06/16 09:03 Dose: 100 mls/hr Sodium Chloride (Sodium Chloride 0.9%) 1,000 mls @ 150 mls/hr IV .Q6H40M [facility] Stop: 08/07/16 05:10 Last Admin: 08/06/16 05:26 Dose: 150 mls/hr Metoprolol Succinate (Toprol Xl) 25 mg PO DAILY [facility] Thiamine HCl (Vitamin B1 Tab) 100 mg PO DAILY [facility] Last Admin: 08/06/16 11:56 Dose: 100 mg Physical Exam - Additional Findings Additional findings: Awake, alert, somewhat hesitant at times and answering questions. He does have episodic mild twitching-type movements of the eyelids and mouth. His speech is fluent and he has no focal motor weakness evident. There are no palpable abnormal lymph nodes. The pharynx is pink and the mucous membranes are moist. No exudate. Conjunctivae are pink and there is no scleral icterus. Nares are patent bilaterally. No bleeding. Neck is supple and trachea is midline. No neck vein distention or carotid bruit. No dullness on chest percussion. Equal expansion. Breath sounds are diminished bilaterally. Rare dry rales are heard in the lower lobes posteriorly. No areas of bronchial breathing or egophony. Scattered wheezes are heard bilaterally with prolonged expiratory phase. Scattered sonorous rhonchi are heard independent areas. Heart sounds are distant and the rhythm is regular. The abdomen is soft and nontender with normal bowel sounds. No dependent edema. No cyanosis. No calf tenderness. No rash or ecchymosis. There is erythema of both knees with some eschar on the right one. Results - Vital Signs Recent Vital Signs: Last Vital Signs Temp 102.6 F H 08/06/16 12:00 Pulse 108 H 08/06/16 12:00 Resp 18 08/06/16 12:00 BP 167/78 H 08/06/16 12:00 Pulse Ox 95 08/06/16 12:00 - Labs Result Diagrams: 08/06/16 05:00 08/06/16 07:23 Labs: Laboratory Results - last 24 hr 08/05/16 08/06/16 08/06/16 21:08 05:00 05:00 WBC 6.3 RBC 4.75 Hgb 13.3 D Hct 39.3 MCV 82.7 MCH 28.1 MCHC 34.0 RDW 14.1 Plt Count 124 L MPV 8.5 Neut % (Auto) 92.0 H Lymph % (Auto) 6.1 L [place] % (Auto) 1.9 Eos % (Auto) 0.0 Baso % (Auto) 0.0 Neut # 5.8 Lymph # 0.4 L [place] # 0.1 Eos # 0.0 Baso # 0.0 Neutrophils % (Manual) 77 H Band Neutrophils % 13 H* Lymphocytes % (Manual) 8 L Monocytes % (Manual) 2 Platelet Estimate Slightly decreased L Large Platelets Present Giant Platelets Present Anisocytosis (manual) Slight ESR PT INR APTT pO2 8 L VBG pH 7.32 VBG pCO2 45 VBG HCO3 20.0 VBG Total CO2 24.6 VBG O2 Sat (Calc) 15.7 L VBG Base Excess -3.1 L VBG Potassium 3.1 L Sodium 128.0 L 132 Chloride 93.0 L 99 Glucose 90 Lactate 1.6 FiO2 21.0 Potassium 3.1 L Carbon Dioxide 17 L Anion Gap 19 BUN 78 H Creatinine 5.0 H Est GFR ( Amer) 14 Est GFR (Non-Af Amer) 12 Random Glucose 80 Serum Osmolality Calcium 7.7 L Total Bilirubin 1.0 AST 272 H ALT 112 H Alkaline Phosphatase 29 L Total Creatine Kinase Total Protein 6.6 Albumin 3.2 L D Globulin 3.5 Albumin/Globulin Ratio 0.9 L Venous Blood Potassium 3.1 L Urine Color Urine Clarity Urine pH Ur Specific [place] Urine Protein Urine Glucose (UA) Urine Ketones Urine Blood Urine Nitrate Urine Bilirubin Urine Urobilinogen Ur Leukocyte Esterase Urine RBC (Auto) Urine WBC Clumps (Auto) Urine Microscopic WBC Ur Squamous Epith Cells Amorphous Sediment Hyaline Casts 08/06/16 08/06/16 08/06/16 07:23 07:23 07:40 WBC RBC Hgb Hct MCV MCH MCHC RDW Plt Count MPV Neut % (Auto) Lymph % (Auto) [place] % (Auto) Eos % (Auto) Baso % (Auto) Neut # Lymph # [place] # Eos # Baso # Neutrophils % (Manual) Band Neutrophils % Lymphocytes % (Manual) Monocytes % (Manual) Platelet Estimate Large Platelets Giant Platelets Anisocytosis (manual) ESR 54 H PT INR APTT pO2 VBG pH VBG pCO2 VBG HCO3 VBG Total CO2 VBG O2 Sat (Calc) VBG Base Excess VBG Potassium Sodium Chloride Glucose Lactate FiO2 Potassium Carbon Dioxide Anion Gap BUN Creatinine 4.6 H Est GFR ( Amer) 16 Est GFR (Non-Af Amer) 13 Random Glucose Serum Osmolality 292 Calcium Total Bilirubin AST ALT Alkaline Phosphatase Total Creatine Kinase Total Protein Albumin Globulin Albumin/Globulin Ratio Venous Blood Potassium Urine Color Urine Clarity Urine pH Ur Specific [place] Urine Protein Urine Glucose (UA) Urine Ketones Urine Blood Urine Nitrate Urine Bilirubin Urine Urobilinogen Ur Leukocyte Esterase Urine RBC (Auto) Urine WBC Clumps (Auto) Urine Microscopic WBC Ur Squamous Epith Cells Amorphous Sediment Hyaline Casts 08/06/16 08/06/16 08/06/16 07:40 08:30 09:40 WBC RBC Hgb Hct MCV MCH MCHC RDW Plt Count MPV Neut % (Auto) Lymph % (Auto) [place] % (Auto) Eos % (Auto) Baso % (Auto) Neut # Lymph # [place] # Eos # Baso # Neutrophils % (Manual) Band Neutrophils % Lymphocytes % (Manual) Monocytes % (Manual) Platelet Estimate Large Platelets Giant Platelets Anisocytosis (manual) ESR PT 10.6 INR 1.02 APTT 36.0 H pO2 VBG pH VBG pCO2 VBG HCO3 VBG Total CO2 VBG O2 Sat (Calc) VBG Base Excess VBG Potassium Sodium Chloride Glucose Lactate FiO2 Potassium Carbon Dioxide Anion Gap BUN Creatinine Est GFR ( Amer) Est GFR (Non-Af Amer) Random Glucose Serum Osmolality Calcium Total Bilirubin AST ALT Alkaline Phosphatase Total Creatine Kinase 15106 H Total Protein Albumin Globulin Albumin/Globulin Ratio Venous Blood Potassium Urine Color Angelina Urine Clarity Cloudy Urine pH 5.0 Ur Specific [place] 1.014 Urine Protein 100 Urine Glucose (UA) Neg Urine Ketones Negative Urine Blood Large Urine Nitrate Negative Urine Bilirubin Negative Urine Urobilinogen 0.2-1.0 Ur Leukocyte Esterase Neg Urine RBC (Auto) 19 H Urine WBC Clumps (Auto) Occ H Urine Microscopic WBC 17 H Ur Squamous Epith Cells < 1 Amorphous Sediment Occ H Hyaline Casts 11-20 H Assessment & Plan (1) Acute renal failure (ARF) Status: Acute Priority: High (2) Rhabdomyolysis Status: Suspected Priority: High (3) Pneumonia Status: Acute Priority: High - Assessment and Plan (Free Text) Assessment: Bronchopneumonia involving multiple lobes of both lungs, community-acquired. The acute presentation likely does not represent a mycobacterial process. There is no initial indication that he represents an immunocompromised host. He has received Zosyn since being admitted without any allergic phenomenon and I would not change this regimen at the present time. Sputum specimens have been requested and initial ones have been collected and sent to the lab. Mycoplasma and Legionella lab tests have been requested as well. Would follow-up with CT scan, noncontrast, to evaluate for extent of current disease process. - Date & Time Date: 08/06/16 Time: 12:48
[2016-08-07] MEDS: Sodium Chloride 0.9% 1,000 ML IV SCH (02:15)
[2016-08-07 07:08] LABS: BASO % 0.1 % (0.0-2.0); HEMATOCRIT 38.8 % (35.0-51.0); LYMPH # 0.3 K/uL (1.0-4.3); LYMPH % 6.1 % (20.0-40.0); MEAN CELL VOLUME 83.8 fl (80.0-94.0); MEAN CORPUSCULAR HGB CONC 34.6 g/dL (33.0-37.0); MEAN PLATELET VOLUME 8.7 fl (7.2-11.7); MONO # 0.2 K/uL (0.0-0.8); MONO % 3.4 % (0.0-10.0); NEUT # 4.9 K/uL (1.8-7.0); NEUT % 90.4 % (50.0-75.0); PLATELET COUNT 131 K/uL (130-400); RED CELL DISTRIBUTION WIDTH 14.6 % (11.5-14.5); WHITE BLOOD COUNT 5.4 K/uL (4.8-10.8)
[2016-08-07 07:21] LABS: ALB/GLOB RATIO 0.9 (1.0-2.1); CALCIUM 7.6 mg/dL (8.4-10.2); POTASSIUM 3.8 MMOL/L (3.6-5.0); TOTAL PROTEIN 6.6 G/DL (6.3-8.2)
--- NOTE | 2016-08-07 07:23 | CP.PCM.PN ---
Subjective - Date & Time of Evaluation Date of Evaluation: 08/07/16 Time of Evaluation: 11:30 - Subjective Subjective: Patient was seen and evaluated bedside. Tachycardic , febrile Tmax 103, appears confused and lethargic with o2 Sat 92 % on 2 L O2 via NC . With audible wheezing and respiratory distress at rest . WBC 5 K BUN/Cr 80/5.3 TSH 17 CPK 7386 ASt 239 ALT 115 Objective - Vital Signs/Intake and Output Vital Signs (last 24 hours): Temp Pulse Resp BP Pulse Ox 100.7 F H 103 H 18 158/84 H 95 08/07/16 04:57 08/07/16 04:57 08/07/16 04:57 08/07/16 04:57 08/07/16 04:57 Intake and Output: 08/07/16 08/07/16 06:59 18:59 Intake Total 1950 Output Total 425 Balance 1525 - Medications Medications: Current Medications Acetaminophen (Tylenol 325mg Tab) 650 mg PO Q6 PRN PRN Reason: Fever >100.4 F Last Admin: 08/06/16 20:39 Dose: 650 mg Albuterol Sulfate (Albuterol 0.083% Inhal Martita (2.5 Mg/3 Ml) Ud) 2.5 mg INH RQ4 PRN PRN Reason: Shortness of Breath Albuterol/Ipratropium (Duoneb 3 Mg/0.5 Mg (3 Ml) Ud) 3 ml INH RQID [facility] Last Admin: 08/06/16 20:28 Dose: 3 ml Folic Acid (Folic Acid) 1 mg PO DAILY [facility] Last Admin: 08/06/16 09:54 Dose: 1 mg Heparin Sodium (Porcine) (Heparin) 5,000 units SC Q8 [facility] PRN Reason: Protocol Last Admin: 08/07/16 02:00 Dose: 5,000 units Azithromycin 500 mg/ Sodium (Chloride) 250 mls @ 250 mls/hr IVPB DAILY [facility] Last Admin: 08/06/16 08:56 Dose: 250 mls/hr Piperacillin Sod/Tazobactam (Sod 2.25 gm/ Sodium Chloride) 100 mls @ 100 mls/ hr IVPB Q6 [facility] Last Admin: 08/07/16 03:01 Dose: 100 mls/hr Lorazepam (Ativan) 0.5 mg IVP Q4 PRN PRN Reason: Symptoms of alcohol withdrawl Metoprolol Succinate (Toprol Xl) 25 mg PO DAILY [facility] Last Admin: 08/06/16 12:49 Dose: 25 mg Thiamine HCl (Vitamin B1 Tab) 100 mg PO DAILY [facility] Last Admin: 08/06/16 11:56 Dose: 100 mg - Labs Labs: 08/07/16 05:00 08/06/16 07:23 PT 10.6 SECONDS (9.6-11.2) 08/06/16 09:40 INR 1.02 (0.92-1.08) 08/06/16 09:40 APTT 36.0 SECONDS (23.3-32.5) H 08/06/16 09:40 - Constitutional Appears: Confused, Other (,mild respiratory distress with wheezing) - Head Exam Head Exam: ATRAUMATIC, NORMOCEPHALIC - Eye Exam Eye Exam: EOMI, Normal appearance, PERRL Pupil Exam: NORMAL ACCOMODATION - ENT Exam ENT Exam: Mucous Membranes Moist, Normal Exam - Neck Exam Neck Exam: Normal Inspection - Respiratory Exam Respiratory Exam: Accessory Muscle Use, Decreased Breath Sounds (bibasilar ), Rhonchi, Wheezes - Cardiovascular Exam Cardiovascular Exam: Tachycardia, +S1, +S2. absent: JVD - GI/Abdominal Exam GI & Abdominal Exam: Distended, Soft, Normal Bowel Sounds. absent: Guarding, Tenderness, Rebound - Rectal Exam Rectal Exam: Deferred - Extremities Exam Extremities Exam: Normal Capillary Refill, Normal Inspection. absent: Calf Tenderness, Pedal Edema - Neurological Exam Additional comments: confused , lethargic , confused - Skin Skin Exam: Dry, Normal Color, Warm Assessment and Plan - Assessment and Plan (Free Text) Assessment: 60 years old male with no significant past medical hx was brought to the ED because of Generalized weakness, dizziness. He has been coughing for one month with brown sputum. No chest pain on coughing, no SOB and no fever. He Smokes one pack of cigarettes in 3 days with occasional Alcohol use. In the ED his Temp was 100.6F with HR of 123/min. CXR showed multifocal Pneumonia and BMP showed renal failure with elevated BUN/Cr Patient admitted with sepsis ( POA) due to multifocal pneumonia and DYLLAN due to rhabdomyelysis . Pulmonary ID and nephro consulted . He was started on IVF and Iv antibiotics. Today transferred to ICU for close monitoring due to AMS / confusion and respiratory distress. 1. Sepsis sec to Pneumonia Patient still febrile Tmax 103 , procalcitonin 20 CT chest showed Large bilateral alveolar infiltrates as well as small bilateral pleural effusions. Mild mediastinal lymphadenopathy. With respiratory distress and O2 Sat 93 % on 2 l O2 via NC. placed on high flow 30 LPM 40 5 FIO2 Pulmonary and ID consulted Continue Zosyn, Clindamycin and Zithromax HIV and influenza - negative Follow up mycpoplasma and legionella Ag Continue duonebs 2. AMS/ Metabolic encephalopathy most likely AMS multifactorial - due to sepsis, pneumonia, medication induced, renal failure Continue treatment for Pneumonia and sepsis Keep on High flow Aspiration precautions 3. Multifocal Pneumonia Most likely CAP V/Q scan showed no PE Continue Zosyn , Zithromax and Clinda on respiratory isolation to rule out TB. follow up quantiferon and AFB Pulmonary and ID on consult F/u Sputum c/s, Blood c/s, Legionella, Mycoplasma, AFB , Influenza 4. Acute Renal Failure with metabolic acidosis Most likely ATN secondary to Rhabdomyolysis BUN / Cr trending up 80/5.3 Dr Kowalski nephrology consulted Continue IVF with HCO3 f/u Renal sonogram monitor I and O 5. Rhabdomyelysis Continue IVF and monitor renal funtion 4. Hypokalemia Repleted 5. Transaminitis unclear etiology Suspicious for ETOH abuse since AST more elevated than ALT but patient and cousin denied alcoholism Strtaed MVI, folic acid and Thiamine Hepatitis profile- negative Ativan PRN for agitation or seizures Abdominal US to evaluate for Fatty liver 7. Tremulousness ? sec to ETOH withdrawal started Thiamine, Folate Ativan e prn CT head showed no acute pathology 8. DVT prophylaxis Heparin 9. Elevated TSH Check T3 and T4
--- NOTE | 2016-08-07 07:42 | CT ---
PROCEDURE: CT HEAD WITHOUT CONTRAST. HISTORY: tremors COMPARISON: None available. TECHNIQUE: Axial computed tomography images were obtained through the head/brain without intravenous contrast. Radiation dose: Total exam DLP = 1326 mGy-cm. This CT exam was performed using one or more of the following dose reduction techniques: Automated exposure control, adjustment of the mA and/or kV according to patient size, and/or use of iterative reconstruction technique. FINDINGS: HEMORRHAGE: No intracranial hemorrhage. BRAIN: No mass effect or edema. No atrophy or chronic microvascular ischemic changes. VENTRICLES: Unremarkable. No hydrocephalus. CALVARIUM: Unremarkable. PARANASAL SINUSES: Unremarkable as visualized. No significant inflammatory changes. MASTOID AIR CELLS: Unremarkable as visualized. No inflammatory changes. OTHER FINDINGS: None. IMPRESSION: Normal CT of the Head.
[2016-08-07] MEDS: Albuterol-Ipratrop 3 mg / 0.5 (3 ml) UD INH SCH ×4 (08:22→19:40)
[2016-08-07 08:25] LABS: THYROID STIMULATING HORMONE 17.7 mIU/ML (0.46-4.68)
--- NOTE | 2016-08-07 08:36 | NM ---
COMPARISON: TECHNIQUE: Forty-five mCi technetium 99-m Xe-133 Gas. Five mCI technetium 99-m MAA administered intravenously. FINDINGS: VENTILATION COMPONENT: Heterogeneous uptake with extensive clumping of radiopharmaceutical. PERFUSION COMPONENT: Relatively homogeneous profusion with areas of attenuation corresponding to attenuation in the lungs on ventilation scan. IMPRESSION: Lowprobability ventilation perfusion scan for pulmonary embolism. Multiple matched defects.
[2016-08-07] MEDS: Azithromycin 500 MG in Sodium Chloride 0.9% 250 ML IVPB SCH (09:32)
[2016-08-07] MEDS: Metoprolol Succinate 25 mg XL Tab PO SCH (09:33)
--- NOTE | 2016-08-07 11:19 | CP.PCM.PN ---
Subjective - Date & Time of Evaluation Date of Evaluation: 08/07/16 Time of Evaluation: 11:17 - Subjective Subjective: Continues febrile pattern after >36hrs. Claims to feel 'OK', but seems dyspneic at rest. Coughs occasionally, congested. At least one AFB and one routine culture have been sent. Gram stain of sputum shows Gm pos and Gm neg cocci AND bacilli. SpO2 on 3.5LPM NC is 90% at rest. RR 20 BPM, not tachycardic. No dullness on percussion of the anterior chest. Prolonged E phase with sonorous rhonchi and low pitch E wheezes bilaterally. No egophony, few medium lower lobe, dependant rales bilaterally. No cyanosis. Added Clindamycin to current regimen. Continue aerosol therapy. Change O2 to High Flow canula @ 40%/30L. CT chest requested w/o contrast. Objective - Vital Signs/Intake and Output Vital Signs (last 24 hours): Temp Pulse Resp BP Pulse Ox 99.3 F 105 H 20 156/85 H 95 08/07/16 08:13 08/07/16 09:33 08/07/16 08:13 08/07/16 09:33 08/07/16 08:13 Intake and Output: 08/06/16 08/07/16 23:59 11:59 Intake Total 1950 Output Total 425 Balance 1525 - Medications Medications: Current Medications Acetaminophen (Tylenol 325mg Tab) 650 mg PO Q6 PRN PRN Reason: Fever >100.4 F Last Admin: 08/06/16 20:39 Dose: 650 mg Albuterol Sulfate (Albuterol 0.083% Inhal Martita (2.5 Mg/3 Ml) Ud) 2.5 mg INH RQ4 PRN PRN Reason: Shortness of Breath Albuterol/Ipratropium (Duoneb 3 Mg/0.5 Mg (3 Ml) Ud) 3 ml INH RQID [facility] Last Admin: 08/07/16 08:22 Dose: 3 ml Folic Acid (Folic Acid) 1 mg PO DAILY [facility] Last Admin: 08/07/16 09:33 Dose: 1 mg Heparin Sodium (Porcine) (Heparin) 5,000 units SC Q8 SHREE PRN Reason: Protocol Last Admin: 08/07/16 09:34 Dose: 5,000 units Azithromycin 500 mg/ Sodium (Chloride) 250 mls @ 250 mls/hr IVPB DAILY [facility] Last Admin: 08/07/16 09:32 Dose: 250 mls/hr Piperacillin Sod/Tazobactam (Sod 2.25 gm/ Sodium Chloride) 100 mls @ 100 mls/ hr IVPB Q6 [facility] Last Admin: 08/07/16 09:33 Dose: 100 mls/hr Clindamycin Phosphate 300 mg/ (Sodium Chloride) 102 mls @ 102 mls/hr IVPB Q8 [facility] Lorazepam (Ativan) 0.5 mg IVP Q4 PRN PRN Reason: Symptoms of alcohol withdrawl Last Admin: 08/07/16 11:00 Dose: 0.5 mg Metoprolol Succinate (Toprol Xl) 25 mg PO DAILY [facility] Last Admin: 08/07/16 09:33 Dose: 25 mg Saccharomyces Boulardii (Florastor) 250 mg PO BID [facility] Thiamine HCl (Vitamin B1 Tab) 100 mg PO DAILY [facility] Last Admin: 08/07/16 09:33 Dose: 100 mg - Labs Labs: 08/07/16 05:00 08/07/16 05:00 PT 10.6 SECONDS (9.6-11.2) 08/06/16 09:40 INR 1.02 (0.92-1.08) 08/06/16 09:40 APTT 36.0 SECONDS (23.3-32.5) H 08/06/16 09:40 Assessment and Plan (1) Acute renal failure (ARF) Status: Acute (2) Rhabdomyolysis Status: Suspected (3) Pneumonia Status: Acute
[2016-08-07 11:36] LABS: BASOPHIL 1 % (0-2); LARGE PLATELETS PRESENT; METAMYELOCYTE 2 % (0-0); NEUTROPHIL 80 % (42-75); REACTIVE LYMPHOCYTES 1 % (0-0); TOTAL CELLS COUNTED 100
--- NOTE | 2016-08-07 11:38 | CP.PCM.PN ---
Subjective - Date & Time of Evaluation Date of Evaluation: 08/07/16 Time of Evaluation: 11:37 - Subjective Subjective: pt seen and examined, follow up consult is dictated #[id number] 1. vane 2. rhabdo 3. Multilobar pneumonia 4. met.acidosis check abg ivf d5w with 3 (150 meq) amps nahco3 at 100 ml/hr cxr d/w and Dr. Randall icu attending for possible transfer to icu Objective - Vital Signs/Intake and Output Vital Signs (last 24 hours): Temp Pulse Resp BP Pulse Ox 99.3 F 105 H 20 156/85 H 95 08/07/16 08:13 08/07/16 09:33 08/07/16 08:13 08/07/16 09:33 08/07/16 08:13 Intake and Output: 08/07/16 08/07/16 06:59 18:59 Intake Total 1950 Output Total 425 Balance 1525 - Medications Medications: Current Medications Acetaminophen (Tylenol 325mg Tab) 650 mg PO Q6 PRN PRN Reason: Fever >100.4 F Last Admin: 08/06/16 20:39 Dose: 650 mg Albuterol Sulfate (Albuterol 0.083% Inhal Martita (2.5 Mg/3 Ml) Ud) 2.5 mg INH RQ4 PRN PRN Reason: Shortness of Breath Albuterol/Ipratropium (Duoneb 3 Mg/0.5 Mg (3 Ml) Ud) 3 ml INH RQID [facility] Last Admin: 08/07/16 08:22 Dose: 3 ml Folic Acid (Folic Acid) 1 mg PO DAILY [facility] Last Admin: 08/07/16 09:33 Dose: 1 mg Heparin Sodium (Porcine) (Heparin) 5,000 units SC Q8 SHREE PRN Reason: Protocol Last Admin: 08/07/16 09:34 Dose: 5,000 units Azithromycin 500 mg/ Sodium (Chloride) 250 mls @ 250 mls/hr IVPB DAILY [facility] Last Admin: 08/07/16 09:32 Dose: 250 mls/hr Piperacillin Sod/Tazobactam (Sod 2.25 gm/ Sodium Chloride) 100 mls @ 100 mls/ hr IVPB Q6 [facility] Last Admin: 08/07/16 09:33 Dose: 100 mls/hr Clindamycin Phosphate 300 mg/ (Sodium Chloride) 102 mls @ 102 mls/hr IVPB Q8 [facility] Sodium Bicarbonate 150 meq/ (Dextrose) 1,150 mls @ 100 mls/hr IV .[id number] [facility] Stop: 08/08/16 11:35 Lorazepam (Ativan) 0.5 mg IVP Q4 PRN PRN Reason: Symptoms of alcohol withdrawl Last Admin: 08/07/16 11:00 Dose: 0.5 mg Metoprolol Succinate (Toprol Xl) 25 mg PO DAILY [facility] Last Admin: 08/07/16 09:33 Dose: 25 mg Saccharomyces Boulardii (Florastor) 250 mg PO BID [facility] Thiamine HCl (Vitamin B1 Tab) 100 mg PO DAILY [facility] Last Admin: 08/07/16 09:33 Dose: 100 mg - Labs Labs: 08/07/16 05:00 08/07/16 05:00 PT 10.6 SECONDS (9.6-11.2) 08/06/16 09:40 INR 1.02 (0.92-1.08) 08/06/16 09:40 APTT 36.0 SECONDS (23.3-32.5) H 08/06/16 09:40
[2016-08-07 12:41] LABS: ABG ALLEN TEST YES; ARTERIAL BLOOD FLOW 30; ARTERIAL BLOOD GAS HCO3 17.4 mmol/L (21-28); ARTERIAL BLOOD GAS O2 CAPACITY 19.2 mL/dL (16-24); ARTERIAL BLOOD GAS O2 CONTENT 18.5 ML/dL (15-23); ARTERIAL BLOOD GAS PO2 73 mm/Hg (80-100); ARTERIAL BLOOD HGB O2 SAT 93.2 % (95.0-98.0); CARBOXYHEMOGLOBIN 1.7 % (0.5-1.5); HHB 3.4 % (0.0-5.0); METHEMOGLOBIN 1.6 % (0.0-3.0)
--- NOTE | 2016-08-07 13:14 | PN ---
DATE: 08/07/2016 The patient is located in room 412, bed 1. REQUESTED BY: Dr. Frank Thomas. REASON FOR RENAL FOLLOWUP: Acute renal failure and rhabdomyolysis. HISTORY OF PRESENT ILLNESS: The patient is about 60-year-old elderly male with no signific ant past medical history, resides in a group home for 1 month, who was admitted with generalized weaknes s for 2 days, dizziness and also history of multiple falls in the last few weeks and also found to solo ve a fever of 100.6 on admission and tachycardic. His last alcohol use was on s Sophie as per the patient. The patient was found to have elevated BUN and creatinine on admission and also multilo bar pneumonia. The patient is slightly drowsy and slightly tachycardic, less responding to verbal st imuli today compared to yesterday. PHYSICAL EXAMINATION: VITAL SIGNS: Blood pressure 156/85, pulse 105, respirations 24 and temperature 100.7 and his T-max i s 102.9 and height is 6 feet and weight is 190 pounds. GENERAL: The patient is a 60-year-old elderly male in mild to moderate respiratory distress. HEENT: Pupils normal, reactive to light and accommodation. Conjunctivae pink. Sclerae anicteric. Tongue is moist. NECK: Trachea is midline. LUNGS: Symmetric on both sides. Bilateral breath sounds present. Occasional rhonchi present. CARDIOVASCULAR: Redkey in the fifth intercostal space midclavicular line. S1 and S2 audible. No murm ur or gallop. ABDOMEN: Normal in appearance, slightly protuberant, soft, tympanic. No guarding, no rigidity. No suprapubic tenderness. No abdominal bruits. CENTRAL NERVOUS SYSTEM: The patient is drowsy, opens eyes to verbal stimuli. Sensory and motor syst em is grossly within normal limits. EXTREMITIES: No cyanosis, no clubbing, no edema. The patient has ecchymotic area on both knees. CURRENT MEDICATIONS: Include as follows: Albuterol inhaler q. 4 hours, Ativan 0.5 mg IV q. 4 hours p.r.n., azithromycin 500 mg daily, clindamycin 300 mg q. 8 hours and Florastor 250 mg p.o. b.i.d., f olic acid 1 mg daily, subQ heparin 5000 q. 8 hours and Zosyn 2.25 grams q. 6 hours and IV fluids star patricia and just now got a sodium bicarb drip at 150 mEq in D5W at 100 mL per hour and Toprol-XL 25 mg p. o. daily, Tylenol, and thiamine 100 mg daily. LABORATORY DATA: Include as follows: As of 08/07/2016, WBC 5.4, hemoglobin 13.4, hematocrit is 38.8, platelets 131, neutrophils 80, bands 9 and lymph is 4 and ____ is 1 and monos are 3, basophils 1 and metamyelocytes 2 and as of 08/06, PT is 10.6, PTT is 36 and CMP as of 08/07/2016, sodium 136, potassiu m 3.8, chloride 105, CO2 18, anion gap is 13, and BUN is 80, creatinine is 5.3 and glucose is 79, rosenda cium 7.6 and serum ferritin is 1760 and his total bili 1.0. AST 239, ALT 115 and alkaline phosphatas e is 31, total protein is 6.6, albumin is 3.1. B12 is 704 and TSH is 17.7. Vancomycin random level is 7.3 as of 08/06/2016 and his CPK level is 10,872. Urinalysis as of 08/06, edgardo, cloudy, pH 5, spec ific gravity 1.014 and protein is 100, glucose is negative and ketones negative and blood is large, n itrites negative, bilirubin is negative, urobilinogen 0.2-1.0, leukocyte esterase is negative, RBC 19 , WBC occasional clumps, WBC 17, hyaline casts 11-20. Other laboratory data as of 08/06: C3 is 104, C4 is 29.7. Acute hepatitis serology and hepatitis C antibody, IgM is negative, hep B surface antige n is negative, hepatitis B core antibody is negative and hep C antibody is negative. HIV 1 and 2 ant ibody screen was negative and blood culture negative day 1 x 1 and sputum cultures is negative on day 1. Chest x-ray as of 08/05/2016: Extensive bilateral infiltrates, primarily affecting the right mid dle lobe and left upper and left lower lobes. Findings likely pneumonia. Followup to resolution is advised. CT of the head as of 08/06/2016: Normal CT of the head. SUMMARY: The patient is a 60-year-old elderly male with no significant past medical history except s moking and occasional alcohol use, last use was on New Year's Sophie, was admitted with multiple falls a nd weakness and fever and cough and found to have a multilobar pneumonia with increased BUN, creatini ne and increased CPK levels. 1. Renal failure, most likely acute renal failure, cannot rule out acute on chronic. 2. Dehydration. 3. Multilobar pneumonia. 4. Rhabdomyolysis, most likely secondary to multiple falls. PLAN: We will start IV fluids D5W with bicarb 150 mEq at 100 mL per hour and repeat chest x-ray and follow up with ID and continue antibiotics and follow with pulmonary and repeat chest x-ray and ICU e valuation and consider repeat ABG for evaluation of the oxygenation saturation and acid base analysis . Thank you for allowing me to participate in your patient's care and discussed with ICU attending, Dr. Randall, for evaluation. Edmund Kowalski MD cc: [id number] TT: 08/07/2016 13:13:24 Confirmation # [id number] Dictation # [id number] tn
--- NOTE | 2016-08-07 14:04 | CT ---
PROCEDURE: CT Chest without contrast HISTORY: pneumonia COMPARISON: None. TECHNIQUE: Contiguous axial images were obtained through the chest without intravenous contrast enhancement. Sagittal and coronal reconstructions were performed. Radiation dose (DLP): 830 mGy-cm. This CT exam was performed using one or more of the following dose reduction techniques: Automated exposure control, adjustment of the mA and/or kV according to patient size, and/or use of iterative reconstruction technique. FINDINGS: LUNGS: There is a large left upper lobe pneumonia with extensive consolidation. There is a large interstitial component noted more superiorly extending into the apical segment. A large alveolar infiltrate with consolidation of the right middle lobe is present as well. MEDIASTINUM: Unremarkable thoracic aorta. No aneurysm. Normal sized heart. Main pulmonary artery unremarkable. No vascular congestion. Mild mediastinal lymphadenopathy is observed. PLEURA: Small bilateral pleural effusions are observed. BONES: No fracture. No destructive lesion. UPPER ABDOMEN: Grossly unremarkable. OTHER FINDINGS: None. IMPRESSION: Large bilateral alveolar infiltrates as well as small bilateral pleural effusions. Mild mediastinal lymphadenopathy.
[2016-08-07] MEDS: Clindamycin 300 MG in Sodium Chloride 0.9% 100 ML IVPB SCH (16:01)
[2016-08-07] MEDS: Sodium Bicarbonate 8.4% 150 MEQ in Dextrose 5% In Water 1,000 ML IV SCH (16:02)
[2016-08-07] MEDS: Saccharomyces Boulardi 250 mg Cap PO SCH (16:10)
--- NOTE | 2016-08-07 19:24 | PN ---
DATE: 08/07/2016 Patient in ICU, bed 433. Time spent 45 minutes. The patient is seen and evaluated today at bedside, discussed with PMD, pulmonary and renal consult. Events since admission reviewed. A 60-year-old male, currently homeless, chronic smoker with no sig nificant medical history in the past admitted with generalized weakness and lethargy, noted to have b ilateral pneumonia with small moderate effusion and acute renal failure, currently on high flow nasal oxygen. Remains alert, awake, but lethargic, opens eyes on calling the patient's name but slips patrice k to sleep. Denies fever, chills; but cough nonproductive associated with pleuritic pain, reduced ap petite. No abdominal pain, no diarrhea, no dysuria, generalized weakness and body ache prior to admi ssion. ALLERGIES: None documented. CURRENT MEDICATIONS: Tylenol 650 q. 6 p.r.n., albuterol sulfate 2.5 mg via nebulizer q. 4, Atrovent 3 mL q.i.d., Zithromax 500 mg IV daily, clindamycin 300 mg q. 8 hours, Zosyn 2.25 g IV q. 6, folic a olivia 1 mg daily, heparin 5000 subQ q. 8, metoprolol 25 mg daily, sodium bicarbonate 150 mEq in D5W 100 mL per hour, thiamine 100 mg p.o. daily. LABORATORY DATA: WBC 5.4, hemoglobin 13.4, hematocrit 38.8, platelet count 131, neutrophils 90.4, ly mphocytes 6.1, monocytes 3.4. PT 10.6, INR 1.02, PTT 36. ABG: pH 7.30, pCO2 of 32, pO2 of 73, satu ration 96.5 on high flow oxygen for 40% with 3 liters. SMA-7: Sodium 136, potassium 3.8, chloride 1 05, CO2 18, blood urea nitrogen 80, creatinine 5.3, glucose 73, calcium 7.6, total bilirubin 1. Ferr itin is 1760, AST 239, ALT 115, alkaline phosphatase 31, total protein 6.6, albumin 3.1. TSH 17.70. Random vancomycin 7.3, complement C3 104, C4 29.7 serology for hepatitis A, hepatitis B surface anti gen, hepatitis B core antibody negative, hepatitis C antibody negative. HIV testing negative. hyali ne casts 11-20, WBC occasional, RBC 19. IMPRESSION: 1. Septic. 2. Metabolic encephalopathy, sepsis secondary to bilateral extensive pneumonia. 3. Acute renal failure secondary to acute tubular necrosis secondary to sepsis and/or due to elevate d CPK associated rhabdomyolysis, abnormal liver function tests secondary to alcohol and/or due to sep sis, rhabdomyolysis improving on IV hydration. PLAN: Continue to closely monitor respiratory status. The patient is tolerating the oxygenation wel l on current high flow oxygen, intubate as needed. Continue current antibiotics, bronchodilators q. 6 hours, Protonix, gentle IV hydration. Monitor for withdrawal symptoms if any substance abuse histo ry. Continue DVT and gastrointestinal prophylaxis. Jass Randall MD cc: [id number] TT: 08/07/2016 19:23:22 Confirmation # [id number] Dictation # [id number] britany
[2016-08-07] MEDS ORDERED: Moxifloxacin IV 400mg/250ml NS 400 MG/250 ML BAG IVPB STA (20:33)
[2016-08-08] MEDS: Clindamycin 300 MG in Sodium Chloride 0.9% 100 ML IVPB SCH ×2 (00:03→09:15)
[2016-08-08] MEDS: Sodium Bicarbonate 8.4% 150 MEQ in Dextrose 5% In Water 1,000 ML IV SCH ×2 (03:02→16:25)
[2016-08-08 07:06] LABS: HEMATOCRIT 37.7 % (35.0-51.0); MEAN CELL VOLUME 83.2 fl (80.0-94.0); MEAN CORPUSCULAR HEMOGLOBIN 28.6 pg (27.0-31.0); MEAN CORPUSCULAR HGB CONC 34.4 g/dL (33.0-37.0); RED CELL DISTRIBUTION WIDTH 14.5 % (11.5-14.5)
[2016-08-08 07:13] LABS: ALB/GLOB RATIO 0.8 (1.0-2.1); BILIRUBIN,TOTAL 0.8 mg/dl (0.2-1.3); CALCIUM 7.4 mg/dL (8.4-10.2); POTASSIUM 3.4 MMOL/L (3.6-5.0); TOTAL PROTEIN 6.5 G/DL (6.3-8.2)
[2016-08-08] MEDS: Albuterol-Ipratrop 3 mg / 0.5 (3 ml) UD INH SCH ×4 (07:53→19:24)
[2016-08-08] MEDS ORDERED: Potassium Chloride 10 mEq ER Tab PO ONE (08:10)
--- NOTE | 2016-08-08 08:26 | CP.PCM.PN ---
Subjective - Date & Time of Evaluation Date of Evaluation: 08/08/16 Time of Evaluation: 08:15 - Subjective Subjective: Patient was seen and examined bedside. In ICU in respiratory isolation at present. apperas more awake and alert today compared to yesterdya. feeling a little better. On high flow O2 via Nc 30 LPM FIO2 40 % with o2 sat 93 % as chest congestion and coughing spells with minimal sputum expectoration Febrile with Tmax 103 , tachycardic HR 108 BP 123/74 RR 22 WBC 6 k Hgb 13 BUn/Cr 83/5.3 I/O 3375/1075 Objective - Vital Signs/Intake and Output Vital Signs (last 24 hours): Temp Pulse Resp BP Pulse Ox 99.3 F 109 H 30 H 130/79 91 L 08/08/16 07:54 08/08/16 07:54 08/08/16 07:55 08/08/16 07:54 08/08/16 07:54 Intake and Output: 08/08/16 08/08/16 06:59 18:59 Intake Total 2875 Output Total 1075 Balance 1800 - Medications Medications: Current Medications Acetaminophen (Tylenol 325mg Tab) 650 mg PO Q6 PRN PRN Reason: Fever >100.4 F Last Admin: 08/08/16 05:31 Dose: 650 mg Albuterol Sulfate (Albuterol 0.083% Inhal Martita (2.5 Mg/3 Ml) Ud) 2.5 mg INH RQ4 PRN PRN Reason: Shortness of Breath Albuterol/Ipratropium (Duoneb 3 Mg/0.5 Mg (3 Ml) Ud) 3 ml INH RQID [facility] Last Admin: 08/08/16 07:53 Dose: 3 ml Folic Acid (Folic Acid) 1 mg PO DAILY [facility] Last Admin: 08/07/16 09:33 Dose: 1 mg Heparin Sodium (Porcine) (Heparin) 5,000 units SC Q8 [facility]REE PRN Reason: Protocol Last Admin: 08/08/16 01:11 Dose: 5,000 units Piperacillin Sod/Tazobactam (Sod 2.25 gm/ Sodium Chloride) 100 mls @ 100 mls/ hr IVPB Q6 [facility] Last Admin: 08/08/16 04:42 Dose: 100 mls/hr Clindamycin Phosphate 300 mg/ (Sodium Chloride) 102 mls @ 102 mls/hr IVPB Q8 [facility] Last Admin: 08/08/16 00:03 Dose: 102 mls/hr Sodium Bicarbonate 150 meq/ (Dextrose) 1,150 mls @ 100 mls/hr IV .[id number] [facility] Stop: 08/08/16 11:35 Last Admin: 08/08/16 03:02 Dose: 100 mls/hr Moxifloxacin HCl (Avelox Iv 400mg/250ml Ns) 400 mg in 250 mls @ 250 mls/hr IVPB DAILY [facility] Lorazepam (Ativan) 0.5 mg IVP Q4 PRN PRN Reason: Symptoms of alcohol withdrawl Last Admin: 08/07/16 11:00 Dose: 0.5 mg Metoprolol Succinate (Toprol Xl) 25 mg PO DAILY [facility] Last Admin: 08/07/16 09:33 Dose: 25 mg Saccharomyces Boulardii (Florastor) 250 mg PO BID [facility] Last Admin: 08/07/16 16:10 Dose: 250 mg Thiamine HCl (Vitamin B1 Tab) 100 mg PO DAILY [facility] Last Admin: 08/07/16 09:33 Dose: 100 mg - Labs Labs: 08/08/16 06:00 08/08/16 06:00 PT 10.6 SECONDS (9.6-11.2) 08/06/16 09:40 INR 1.02 (0.92-1.08) 08/06/16 09:40 APTT 36.0 SECONDS (23.3-32.5) H 08/06/16 09:40 - Constitutional Appears: Other (on high flow O2 in minimal respiratorty distress ) - Head Exam Head Exam: ATRAUMATIC, NORMAL INSPECTION, NORMOCEPHALIC - Eye Exam Eye Exam: EOMI, PERRL Pupil Exam: NORMAL ACCOMODATION - ENT Exam ENT Exam: Mucous Membranes Moist, Normal Exam - Neck Exam Neck Exam: Full ROM, Normal Inspection - Respiratory Exam Respiratory Exam: Decreased Breath Sounds (bibasilar ). absent: Wheezes Additional comments: Coarse breath sounds bilaterally with rhonchi - Cardiovascular Exam Cardiovascular Exam: Tachycardia. absent: JVD - GI/Abdominal Exam GI & Abdominal Exam: Distended, Soft, Normal Bowel Sounds. absent: Guarding, Tenderness, Rebound - Rectal Exam Rectal Exam: Deferred - Extremities Exam Extremities Exam: Normal Capillary Refill, Normal Inspection. absent: Pedal Edema - Neurological Exam Neurological Exam: Alert, Awake, CN II-XII Intact - Psychiatric Exam Psychiatric exam: Flat Affect - Skin Skin Exam: Dry, Intact, Normal Color, Warm Assessment and Plan - Assessment and Plan (Free Text) Assessment: 60 years old male with no significant past medical hx was brought to the ED because of Generalized weakness, dizziness. He has been coughing for one month with brown sputum. No chest pain on coughing, no SOB and no fever. He Smokes one pack of cigarettes in 3 days with occasional Alcohol use. In the ED his Temp was 100.6F with HR of 123/min. CXR showed multifocal Pneumonia and BMP showed renal failure with elevated BUN/Cr Patient admitted with sepsis ( POA) due to multifocal pneumonia and DYLLAN due to rhabdomyelysis . Pulmonary ID and nephro consulted . He was started on IVF and Iv antibiotics. Was transferred to ICU for close monitoring due to AMS / confusion and respiratory distress.at present still on high flow with o2 sat 92 %, more awake and less confused . 1. Sepsis sec to Pneumonia Patient still febrile Tmax 103 , procalcitonin 20 CT chest showed Large bilateral alveolar infiltrates as well as small bilateral pleural effusions. Mild mediastinal lymphadenopathy. on high flow O2 30 LPM 40 % FIO2 and O2 Sat 92 % Pulmonary and ID consulted Continue Zosyn, Clindamycin and Moxifloxacin . Given 1 dose of Vancomycin 1 G Iv HIV and influenza - negative Follow up mycpoplasma and legionella Ag Continue duonebs 2. AMS/ Metabolic encephalopathy -improving most likely AMS multifactorial - due to sepsis, pneumonia, medication induced, renal failure Continue treatment for Pneumonia and sepsis Keep on High flow Aspiration precautions Hold Ativan 3. Multifocal Pneumonia Most likely CAP V/Q scan showed no PE Continue Zosyn , Moxifloxacin and Clinda. Given 1 dose Vancomycin IV on respiratory isolation to rule out TB. Follow up quantiferon and AFB Pulmonary and ID on consult F/u Sputum c/s, Blood c/s, Legionella, Mycoplasma, AFB , Influenza 4. Acute Renal Failure with metabolic acidosis Most likely ATN secondary to Rhabdomyolysis BUN / Cr trending up 83/5.3 Dr Kowalski nephrology consulted Continue IVF with HCO3 f/u Renal sonogram monitor I and O 5. Rhabdomyelysis Continue IVF and monitor renal funtion 4. Hypokalemia Repleted 5. Transaminitis unclear etiology Suspicious for ETOH abuse since AST more elevated than ALT but patient and cousin denied alcoholism Started MVI, folic acid and Thiamine Hepatitis profile- negative Ativan PRN for agitation or seizures Abdominal US to evaluate for Fatty liver 7. Tremulousness ? sec to ETOH withdrawal was started Thiamine, Folate CT head showed no acute pathology 8. DVT prophylaxis Heparin 9. Elevated TSH Most likely hypothyroidism Check T3 and T4 call endo consult Dr. Smith
[2016-08-08] MEDS ORDERED: Moxifloxacin IV 400mg/250ml NS 400 MG/250 ML BAG IVPB SCH (09:00)
[2016-08-08] MEDS: Saccharomyces Boulardi 250 mg Cap PO SCH ×2 (09:16→16:08)
[2016-08-08] MEDS: Metoprolol Succinate 25 mg XL Tab PO SCH (09:16)
[2016-08-08 09:31] LABS: ABG ALLEN TEST YES; ARTERIAL BLOOD GAS HCO3 23.9 mmol/L (21-28); ARTERIAL BLOOD GAS PO2 60 mm/Hg (80-100)
--- NOTE | 2016-08-08 09:56 | RAD ---
PROCEDURE: CHEST RADIOGRAPH, 1 VIEW HISTORY: r/o pneumonia COMPARISON: 08/05/16 FINDINGS: LUNGS: Minimal improvement in bilateral infiltrates.. PLEURA: No pneumothorax or pleural fluid seen. CARDIOVASCULAR: Normal. OSSEOUS STRUCTURES: No significant abnormalities. VISUALIZED UPPER ABDOMEN: Normal. OTHER FINDINGS: None. IMPRESSION: Minimal improvement in bilateral infiltrates..
--- NOTE | 2016-08-08 11:52 | PN ---
DATE: 08/08/2016 The patient in ICU, bed 433. TIME SPENT: 35 minutes. The patient is seen and evaluated at the bedside. Events since admission reviewed. Past medical, dhillon rgical, social, family history reviewed. A 60-year-old male, homeless, chronic smoker. No significant medical history. Admitted with general ized weakness and lethargy. Noted acute respiratory failure with hypoxemia secondary to bilateral pn eumonia, community-acquired, with small to moderate pleural effusion and acute renal failure with hig h CPK, on IV hydration and high flow nasal oxygen. PHYSICAL EXAMINATION: VITAL SIGNS: Overnight T-max 100.3, normotensive. Telemetry, sinus tachycardia. Saturation 96% on high flow oxygen with 40% FiO2. Intake 3375, output 1075, positive 2300. Weight 190 pounds. HEENT: Pupils reactive. Conjunctivae pink. Sclerae white. NECK: Supple. Trachea central. CHEST: Bilateral breath sounds. Fine crepitations at both bases. HEART: Rhythm regular. S1, S2 rapid. No S3, S4 gallop. No audible murmur. ABDOMEN: Bowel sounds present, soft. Liver, spleen not palpable. Bladder not distended. EXTREMITIES: No clubbing, cyanosis, edema. No palpable cord. Peripheral pulses symmetric, intact. SKIN: Without rash. NEUROLOGIC: Alert, awake, oriented to name, place and time. Moves all 4 extremities. Deep tendon r eflexes 2+, plantar flexor. No cranial nerve deficit. CURRENT MEDICATIONS: Tylenol 650 q. 6 p.r.n., DuoNeb 3 mL via nebulizer q. 4, clindamycin 300 mg IV q. 8 hours, Zosyn 2.25 grams IV q. 6 hours, moxifloxacin 400 mg IV daily, D5W with 150 mEq sodium bic arbonate at 100 mL per hour, thiamine 100 mg p.o. daily, Florastor 250 mg p.o. twice daily, metoprolo l XL 25 mg p.o. daily, levothyroxine 75 mcg daily, heparin 5000 units subQ every 8 hours, folic acid 1 mg p.o. daily. LABORATORY DATA: WBC 6, hemoglobin 13, hematocrit 37.7, platelet count 148. PT 10.6, INR 1.02, PTT 36. ABG: pH 7.40, pCO2 38, pO2 60, saturation 94.7 on FiO2 40, high flow 30 liters. SMA-7: Sodium 139, potassium 3.4, chloride 105, CO2 21, blood urea nitrogen 83, creatinine 5.3, random glucose 137 , calcium 7.4, albumin 2.9. Corrected calcium is normal. Total bilirubin 0.8, AST 199, ALT 105. TS H 17.70. Urinalysis: RBC 19, WBC clumps occasional high, microscopic WBC 17. Urine drug screen neg ative. Immunology C3 104, C4 29.7, normal. Serology: RPR nonreactive. Hepatitis A, B, C are negat [place]. HIV test negative. Microbiology: Blood culture, no growth reported. AFB x 1 negative. Sputu m culture, no growth reported. Chest x-ray: Bilateral infiltrate involving left upper, left lower l obe and right middle lobe. Small bilateral pleural effusion also noted in CT chest. Total CK 2350. IMPRESSION: Sepsis without hypotension, sepsis secondary to bilateral extensive community-acquired p neumonia, septic hypoxic metabolic encephalopathy, acute renal failure secondary to acute tubular nec rosis secondary to sepsis and/or due to myoglobinuria associated with rhabdomyolysis, abnormal liver function tests, improving, secondary to alcohol and/or due to sepsis, hypokalemia, on supplement. PLAN: Continue current high flow oxygen. Increase oxygen supplement to 50%. Maintain saturation ov er 94% and/or pO2 above 70. Antibiotics as recommended by infectious disease consult. DuoNeb 3 mL v ia nebulizer q. 6 hours. Continue deep venous thrombosis and gastrointestinal prophylaxis. Head of bed 30 degrees up. Closely monitor intake and output. Hypothyroidism, pending T3-T4, empirically st arted on levothyroxine supplement. Endocrine evaluation pending. Jass Randall MD cc: [phone] TT: 08/08/2016 11:51:52 Confirmation # [id number] Dictation # [id number] en
[2016-08-08 13:33] LABS: RBC URINE 6 /hpf (0-3); URINE BACTERIA RARE (<OCC); URINE BILIRUBIN NEGATIVE (NEGATIVE); URINE BLOOD MODERATE (NEGATIVE); URINE COLOR YELLOW (YELLOW); URINE GLUCOSE (UA) NEG (Normal); URINE KETONE NEGATIVE (NEGATIVE); URINE LEUKOCYTE ESTERASE NEG Leu/uL (Negative); URINE PROTEIN 30 mg/dL (NEGATIVE); URINE UROBILINOGEN 0.2-1.0 mg/dL (0.2-1.0); WBC URINE 4 /hpf (0-5)
--- NOTE | 2016-08-08 14:15 | CP.PCM.CON ---
History of Present Illness - History of Present Illness History of Present Illness: 60 years old male with no significance past medical hx [facility]. He was brought to the Ed because of Generalized weakness with 2 days of dizziness He has been coughing for one month but it has gotten worse and is associated with brown sputum. No chest pain on coughing, no SOB and no fever. He Smokes one pack of cigarettes in 3 days with occasional Alcohol use. in the ED his Temp was 100.6F with HR of 123/min. Found to have DYLLAN Dr [place] on board other patients from the same jail are also ill with resp illness legionella and AFB pending PMH: No chronic diseases PSH: No Surgeries SH: Lives in a Care Home; Uses Alcohol socially; Smokes one pack in 3 days; no illegal drug use FH: Mother with Diabetes Mellitus and father family with Diabetes Review of Systems - Constitutional Constitutional: As Per HPI, Anorexia, Chills, Fever, Malaise - EENT Eyes: absent: As Per HPI, Blind Spots, Blurred Vision, Change in Vision, Decreased Night Vision, Diplopia, Discharge, Dry Eye, Exophthalmos, Floaters, Irritation, Itchy Eyes, Loss of Peripheral Vision, Pain, Photophobia, Requires Corrective Lenses, Sees Flashes, Spots in Vision, Tunnel Vision, Other Visual Disturbances, Loss of Vision, Other Ears: absent: As Per HPI, Decreased Hearing, Ear Discharge, Ear Pain, Tinnitus, Abnormal Hearing, Disequilibrium, Dizziness, Other Nose/Mouth/Throat: absent: As Per HPI, Epistaxis, Nasal Congestion, Nasal Discharge, Nasal Obstruction, Nasal Trauma, Nose Pain, Post Nasal Drip, Sinus Pain, Sinus Pressure, Bleeding Gums, Change in Voice, Dental Pain, Dry Mouth, Dysphagia, Halitosis, Hoarsness, Lip Swelling, Mouth Lesions, Mouth Pain, Odynophagia, Sore Throat, Throat Swelling, Tongue Swelling, Facial Pain, Neck Pain, Neck Mass, Other - Cardiovascular Cardiovascular: absent: As Per HPI, Acrocyanosis, Chest Pain, Chest Pain at Rest , Chest Pain with Activity, Claudication, Diaphoresis, Dyspnea, Dyspnea on Exertion, Edema, Irregular Heart Rhythm, Pain Radiating to Arm/Neck/Jaw, Leg Edema, Leg Ulcers, Lightheadedness, Orthopnea, Palpitations, Paroxysmal Nocturnal Dyspnea, Pedal Edema, Radiating Pain, Rapid Heart Rate, Slow Heart Rate, Syncope, Other - Respiratory Respiratory: As Per HPI, Cough, Dyspnea. absent: Hemoptysis - Gastrointestinal Gastrointestinal: absent: As Per HPI, Abdominal Pain, Belching, Bloating, Change in Bowel Habits, Change in Stool Character, Coffee Ground Emesis, Constipation, Cramping, Diarrhea, Dyspepsia, Dysphagia, Early Satiety, Excessive Flatus, Fecal Incontinence, Heartburn, Hematemesis, Hematochezia, Loose Stools, Melena, Nausea, Odynophagia, Temesmus, Vomiting, Other - Genitourinary Genitourinary: absent: As Per HPI, Change in Urinary Stream, Difficulty Urinating, Dysuria, Flank Pain, Hematuria, Pyuria, Nocturia, Urinary Incontinence, Urinary Frequency, Urinary Hesitance, Urinary Urgency, Voiding Freq/Small Amts, Freq UTI, Hx Renal/Bladder Calculi, Hx /Renal Surgery, Bladder Distension, Other - Musculoskeletal Musculoskeletal: absent: As Per HPI, Abnormal Gait, Arthralgias, Atrophy, Back Pain, Deformity, Joint Swelling, Limited Range of Motion, Loss of Height, Muscle Cramps, Muscle Weakness, Myalgias, Neck Pain, Numbness, Radiating Pain into Limb, Stiffness, Tingling, Other - Integumentary Integumentary: absent: As Per HPI, Acne, Alopecia, Bleeding Lesions, Change in Hair, Change in Nails, Change in Pigmentation, Changing Lesions, Dry Skin, Erythema, Furuncle, Hirsutism, Lesions, New Lesions, Non-Healing Lesions, Photosensitivity, Pruritus, Rash, Skin Pain, Skin Ulcer, Sores, Striae, Swelling , Unusual Bruising, Wounds, Jaundice, Other - Neurological Neurological: absent: As Per HPI, Abnormal Gait, Abnormal Hearing, Abnormal Movements, Abnormal Speech, Behavioral Changes, Burning Sensations, Confusion, Convulsions, Disequilibrium, Dizziness, Numbness, Focal Weakness, Frequent Falls , Headaches, Lack of Coordination, Loss of Vision, Memory Loss, Paresthesias, Radicular Pain, Restless Legs, Sensory Deficit, Syncope, Tingling, Tremor, Vertigo, Weakness, Other Visual Disturbances, Other - Psychiatric Psychiatric: absent: As Per HPI, Abnormal Sleep Pattern, Anhedonia, Anxiety, Auditory Hallucinations, Behavioral Changes, Change in Appetite, Change in Libido, Confusion, Depression, Difficulty Concentrating, Hallucinations, Homicidal Ideation, Hopelessness, Irritability, Memory Loss, Mood Swings, Panic Attacks, Paranoia, Suicidal Ideation, Visual Hallucinations, Tactile Hallucinations, Other - Endocrine Endocrine: absent: As Per HPI, Change in Body Appearance, Change in Libido, Cold Intolorance, Deepening of Voice, Excessive Sweating, Fatigue, Flushing, Heat Intolorance, Increase in Ring/Shoe/Hat Size, Palpitations, Polydipsia, Polyphagia, Polyuria, Other - Hematologic/Lymphatic Hematologic: absent: As Per HPI, Easy Bleeding, Easy Bruising, Lymphadenopathy, Other Past Patient History - Past Social History Smoking Status: Light Smoker < 10 Cigarettes Daily Chewing Tobacco Use: No Cigar Use: No Alcohol: Occasional Drugs: Denies Home Situation {Lives}: Homeless - CARDIAC Hx Cardiac Disorders: No - PULMONARY Hx Respiratory Disorders: No - NEUROLOGICAL Hx Neurological Disorder: No - HEENT Hx HEENT Problems: No - RENAL Hx Chronic Kidney Disease: No - ENDOCRINE/METABOLIC Hx Endocrine Disorders: No - HEMATOLOGICAL/ONCOLOGICAL Hx Blood Disorders: No Hx AIDS: No Hx Human Immunodeficiency Virus (HIV): No - INTEGUMENTARY Hx Dermatological Problems: No - MUSCULOSKELETAL/RHEUMATOLOGICAL Hx Musculoskeletal Disorders: No Hx Falls: Yes - GASTROINTESTINAL Hx Gastrointestinal Disorders: No - GENITOURINARY/GYNECOLOGICAL Hx Genitourinary Disorders: No - PSYCHIATRIC Hx Psychophysiologic Disorder: No Hx Substance Use: No - SURGICAL HISTORY Hx Surgeries: No - ANESTHESIA Hx Anesthesia: No Meds Allergies/Adverse Reactions: Allergies Allergy/AdvReac Type Severity Reaction Status Date / Time No Known Allergies Allergy Verified 08/05/16 16:45 - Medications Medications: Current Medications Acetaminophen (Tylenol 325mg Tab) 650 mg PO Q6 PRN PRN Reason: Fever >100.4 F Last Admin: 08/08/16 05:31 Dose: 650 mg Albuterol Sulfate (Albuterol 0.083% Inhal Martita (2.5 Mg/3 Ml) Ud) 2.5 mg INH RQ4 PRN PRN Reason: Shortness of Breath Albuterol/Ipratropium (Duoneb 3 Mg/0.5 Mg (3 Ml) Ud) 3 ml INH RQID [facility] Last Admin: 08/08/16 11:57 Dose: 3 ml Folic Acid (Folic Acid) 1 mg PO DAILY [facility] Last Admin: 08/08/16 09:16 Dose: 1 mg Heparin Sodium (Porcine) (Heparin) 5,000 units SC Q8 [facility] PRN Reason: Protocol Last Admin: 08/08/16 09:16 Dose: 5,000 units Piperacillin Sod/Tazobactam (Sod 2.25 gm/ Sodium Chloride) 100 mls @ 100 mls/ hr IVPB Q6 [facility] Last Admin: 08/08/16 09:18 Dose: 100 mls/hr Clindamycin Phosphate 300 mg/ (Sodium Chloride) 102 mls @ 102 mls/hr IVPB Q8 [facility] Last Admin: 08/08/16 09:15 Dose: 102 mls/hr Moxifloxacin HCl (Avelox Iv 400mg/250ml Ns) 400 mg in 250 mls @ 250 mls/hr IVPB DAILY@2200 [facility] Levothyroxine Sodium (Synthroid) 75 mcg PO DAILY@0630 [facility] Metoprolol Succinate (Toprol Xl) 25 mg PO DAILY [facility] Last Admin: 08/08/16 09:16 Dose: 25 mg Saccharomyces Boulardii (Florastor) 250 mg PO BID [facility] Last Admin: 08/08/16 09:16 Dose: 250 mg Thiamine HCl (Vitamin B1 Tab) 100 mg PO DAILY [facility] Last Admin: 08/08/16 09:17 Dose: 100 mg Physical Exam - Constitutional Appears: Non-toxic, Chronically Ill - Head Exam Head Exam: NORMOCEPHALIC - Eye Exam Eye Exam: PERRL. absent: Scleral icterus - ENT Exam ENT Exam: Mucous Membranes Dry - Neck Exam Neck exam: Negative for: Lymphadenopathy, Thyromegaly - Respiratory Exam Respiratory Exam: Decreased Breath Sounds, Rhonchi - Cardiovascular Exam Cardiovascular Exam: Tachycardia, REGULAR RHYTHM, +S1, +S2 - GI/Abdominal Exam GI & Abdominal Exam: Diminished Bowel Sounds, Soft. absent: Tenderness - Rectal Exam Rectal Exam: Deferred - Exam Exam: NORMAL INSPECTION - Extremities Exam Extremities exam: Positive for: pedal pulses present. Negative for: calf tenderness, pedal edema, tenderness - Back Exam Back exam: absent: CVA tenderness (L), CVA tenderness (R) - Neurological Exam Neurological exam: Alert, CN II-XII Intact, Oriented x3, Reflexes Normal - Psychiatric Exam Psychiatric exam: Depressed - Skin Skin Exam: Dry Results - Vital Signs Recent Vital Signs: Last Vital Signs Temp 97.9 F 08/08/16 12:00 Pulse 106 H 08/08/16 12:00 Resp 25 H 08/08/16 12:00 BP 155/122 H 08/08/16 10:00 Pulse Ox 93 L 08/08/16 12:00 - Labs Result Diagrams: 08/08/16 06:00 08/08/16 06:00 Labs: Laboratory Results - last 24 hr 08/06/16 08/07/16 08/07/16 07:40 05:00 09:47 WBC RBC Hgb Hct MCV MCH MCHC RDW Plt Count pCO2 pO2 HCO3 ABG pH ABG Total CO2 ABG O2 Saturation ABG Base Excess Hi Test ABG Potassium A-a O2 Difference Glucose Lactate FiO2 Blood Gas Comments Crit Value Called To Crit Value Called By Crit Value Read Back Blood Gas Notified Time Sodium Potassium Chloride Carbon Dioxide Anion Gap BUN Creatinine Est GFR ( Amer) Est GFR (Non-Af Amer) Random Glucose Calcium Total Bilirubin AST ALT Alkaline Phosphatase Total Creatine Kinase Total Protein Albumin Globulin Albumin/Globulin Ratio Procalcitonin Arterial Blood Potassium Urine Color Urine Clarity Urine pH Ur Specific [place] Urine Protein Urine Glucose (UA) Urine Ketones Urine Blood Urine Nitrate Urine Bilirubin Urine Urobilinogen Ur Leukocyte Esterase Urine RBC (Auto) Urine Microscopic WBC Ur Squamous Epith Cells Amorphous Sediment Urine Bacteria Ur Random Sodium Ur Random Potassium Random Vancomycin Urine Opiates Screen Negative Urine Methadone Screen Negative Ur Barbiturates Screen Negative Ur Phencyclidine Scrn Negative Ur Amphetamines Screen Negative U Benzodiazepines Scrn Negative U Oth Cocaine Metabols Negative U Cannabinoids Screen Negative RPR Nonreactive Anti-Staphylolysin O Negative 08/07/16 08/07/16 08/07/16 10:59 12:55 12:55 WBC RBC Hgb Hct MCV MCH MCHC RDW Plt Count pCO2 pO2 HCO3 ABG pH ABG Total CO2 ABG O2 Saturation ABG Base Excess Hi Test ABG Potassium A-a O2 Difference Glucose Lactate FiO2 Blood Gas Comments Crit Value Called To Crit Value Called By Crit Value Read Back Blood Gas Notified Time Sodium Potassium Chloride Carbon Dioxide Anion Gap BUN Creatinine Est GFR ( Amer) Est GFR (Non-Af Amer) Random Glucose Calcium Total Bilirubin AST ALT Alkaline Phosphatase Total Creatine Kinase Total Protein Albumin Globulin Albumin/Globulin Ratio Procalcitonin 21.67 H Arterial Blood Potassium Urine Color Yellow Urine Clarity Slighty-cloudy Urine pH 5.0 Ur Specific [place] 1.013 Urine Protein 30 Urine Glucose (UA) Neg Urine Ketones Negative Urine Blood Moderate Urine Nitrate Negative Urine Bilirubin Negative Urine Urobilinogen 0.2-1.0 Ur Leukocyte Esterase Neg Urine RBC (Auto) 6 H Urine Microscopic WBC 4 Ur Squamous Epith Cells < 1 Amorphous Sediment Rare H Urine Bacteria Rare Ur Random Sodium 33 Ur Random Potassium 24.0 Random Vancomycin Urine Opiates Screen Urine Methadone Screen Ur Barbiturates Screen Ur Phencyclidine Scrn Ur Amphetamines Screen U Benzodiazepines Scrn U Oth Cocaine Metabols U Cannabinoids Screen RPR Anti-Staphylolysin O 08/08/16 08/08/16 08/08/16 06:00 06:00 06:00 WBC 6.0 RBC 4.53 Hgb 13.0 Hct 37.7 MCV 83.2 MCH 28.6 MCHC 34.4 RDW 14.5 Plt Count 148 pCO2 pO2 HCO3 ABG pH ABG Total CO2 ABG O2 Saturation ABG Base Excess Hi Test ABG Potassium A-a O2 Difference Glucose Lactate FiO2 Blood Gas Comments Crit Value Called To Crit Value Called By Crit Value Read Back Blood Gas Notified Time Sodium 139 Potassium 3.4 L Chloride 105 Carbon Dioxide 21 L Anion Gap 16 BUN 83 H Creatinine 5.3 H Est GFR ( Amer) 13 Est GFR (Non-Af Amer) 11 Random Glucose 137 H Calcium 7.4 L Total Bilirubin 0.8 AST 199 H ALT 105 H Alkaline Phosphatase 28 L Total Creatine Kinase Total Protein 6.5 Albumin 2.9 L Globulin 3.7 Albumin/Globulin Ratio 0.8 L Procalcitonin Arterial Blood Potassium Urine Color Urine Clarity Urine pH Ur Specific [place] Urine Protein Urine Glucose (UA) Urine Ketones Urine Blood Urine Nitrate Urine Bilirubin Urine Urobilinogen Ur Leukocyte Esterase Urine RBC (Auto) Urine Microscopic WBC Ur Squamous Epith Cells Amorphous Sediment Urine Bacteria Ur Random Sodium Ur Random Potassium Random Vancomycin 19.7 Urine Opiates Screen Urine Methadone Screen Ur Barbiturates Screen Ur Phencyclidine Scrn Ur Amphetamines Screen U Benzodiazepines Scrn U Oth Cocaine Metabols U Cannabinoids Screen RPR Anti-Staphylolysin O 08/08/16 08/08/16 06:00 09:30 WBC RBC Hgb Hct MCV MCH MCHC RDW Plt Count pCO2 38 pO2 60 L HCO3 23.9 ABG pH 7.40 ABG Total CO2 24.7 ABG O2 Saturation 94.7 L ABG Base Excess -1.1 Hi Test Yes ABG Potassium 3.1 L A-a O2 Difference 178.0 Glucose 157 H Lactate 1.1 FiO2 40.0 Blood Gas Comments High flow 30l/m,40%fio2 Crit Value Called To Tiffany prince Crit Value Called By 15 Crit Value Read Back Y Blood Gas Notified Time 927 Sodium 137.0 Potassium Chloride 107.0 Carbon Dioxide Anion Gap BUN Creatinine Est GFR ( Amer) Est GFR (Non-Af Amer) Random Glucose Calcium Total Bilirubin AST ALT Alkaline Phosphatase Total Creatine Kinase 2350 H Total Protein Albumin Globulin Albumin/Globulin Ratio Procalcitonin Arterial Blood Potassium 3.1 L Urine Color Urine Clarity Urine pH Ur Specific [place] Urine Protein Urine Glucose (UA) Urine Ketones Urine Blood Urine Nitrate Urine Bilirubin Urine Urobilinogen Ur Leukocyte Esterase Urine RBC (Auto) Urine Microscopic WBC Ur Squamous Epith Cells Amorphous Sediment Urine Bacteria Ur Random Sodium Ur Random Potassium Random Vancomycin Urine Opiates Screen Urine Methadone Screen Ur Barbiturates Screen Ur Phencyclidine Scrn Ur Amphetamines Screen U Benzodiazepines Scrn U Oth Cocaine Metabols U Cannabinoids Screen RPR Anti-Staphylolysin O Assessment & Plan (1) Acute renal failure (ARF) Status: Acute Priority: High (2) Pneumonia Status: Acute Priority: High (3) Renal insufficiency Status: Acute (4) Rhabdomyolysis Status: Suspected Priority: High - Assessment and Plan (Free Text) Assessment: cont iv antibiotics
--- NOTE | 2016-08-08 14:32 | CON ---
DATE: 08/08/2016 In ICU room 433. A 60-year-old male with presenting here with bronchorrhea for over a month and associated generalized body weakness with progressively worsening dizziness and has been evaluated to have a multilobar pne umonia and is being followed closely in the ICU for hemodynamic monitoring, also because of acute rha bdomyolysis as noted and persistent tachycardia as noted thereof. PAST MEDICAL HISTORY: Essentially unremarkable. No medical conditions noted at this time. SOCIAL HISTORY: The patient lives in a snf and admits to nicotine dependence and social use of a lcohol. No other illicit drug use. FAMILY HISTORY: Positive for diabetes with both parents having the above condition and also associat ed hypertension and coronary artery disease. REVIEW OF SYSTEMS: As mentioned above, admits to generalized body weakness with easy fatigability an d tiredness and suboptimal energy level. Also admits to dizziness and lightheadedness, worse in the last 2 days or so prior to admission. Also admits to bifrontal headaches with unsteady gait as noted . No chest pains or palpitations, but admits to pleuritic chest pain with persistent bronchorrhea wi th yellow and brownish sputum as noted. Also denies any shortness of breath at this time. His oral intake is variable with nausea, dyspepsia, and vague upper abdominal pain. Also admits to habitual c onstipation. PHYSICAL EXAMINATION: GENERAL: This is an average built male, in no apparent distress. VITAL SIGNS: Blood pressure of 150/90, pulse of 100 beats per minute, regular, temperature 100, resp irations 20. Height is 6 feet, weight is 190 pounds. HEENT: Head normocephalic. Eyes anicteric with pink conjunctivae. Fundoscopy not possible at this time. Ears, nose and throat otherwise normal. NECK: Supple. Thyroid gland is normal size. No carotid bruits or cervical adenopathy. CARDIOPULMONARY: Some adynamic precordium. S1, S2 is rapid and regular. LUNGS: Showed scattered rhonchi. ABDOMEN: Flat, soft with positive bowel sounds. EXTREMITIES: No peripheral edema. Pulses are +2 bilaterally. LABORATORIES: The chemistry showed a BUN of 83, sodium 139, potassium 3.4, chloride 105, CO2 21, glu cose 137 and creatinine 5.3. His creatine kinase is 7386. The procalcitonin is 21.67. TSH is 17.70 . ASSESSMENT: This is a 60-year-old male with acute multilobar pneumonia and supervening acute rhabdom yolysis with acute renal failure and with possible underlying chronic kidney disease and also now meño luated to have overt hypothyroidism, both clinically and biochemically as noted thereof. This is mos t likely related to underlying autoimmune thyroiditis as noted with no overt palpable thyroid nodules or cervical adenopathy at this time. PLAN OF MANAGEMENT: As discussed with the patient and the staff, we will start him right away on a l ow dose levothyroxine replacement therapy with 75 mcg once daily before breakfast and we will titrate incrementally as indicated to optimize metabolic control. We will obtain a total and free T4 and TS H tomorrow and we will titrate the dose regimen accordingly to optimize metabolic control. Thyroid a ntibodies with thyroid peroxidase antibody and a thyroglobulin antibody will be sent out to confirm a nd/or negate the presence of underlying thyroid autoimmunity. We will follow. Tara Smith MD cc: [id number] TT: 08/08/2016 14:32:03 Confirmation # [id number] Dictation # [id number] en
--- NOTE | 2016-08-08 16:01 | CP.PCM.PN ---
Subjective - Date & Time of Evaluation Date of Evaluation: 08/08/16 Time of Evaluation: 16:01 - Subjective Subjective: pt seen and examined, follow up consult is dictated #[id number] Objective - Vital Signs/Intake and Output Vital Signs (last 24 hours): Temp Pulse Resp BP Pulse Ox 97.9 F 117 H 24 130/73 91 L 08/08/16 12:00 08/08/16 14:00 08/08/16 15:37 08/08/16 14:00 08/08/16 14:00 Intake and Output: 08/08/16 08/08/16 06:59 18:59 Intake Total 2875 440 Output Total 1075 Balance 1800 440 - Medications Medications: Current Medications Acetaminophen (Tylenol 325mg Tab) 650 mg PO Q6 PRN PRN Reason: Fever >100.4 F Last Admin: 08/08/16 05:31 Dose: 650 mg Albuterol Sulfate (Albuterol 0.083% Inhal Martita (2.5 Mg/3 Ml) Ud) 2.5 mg INH RQ4 PRN PRN Reason: Shortness of Breath Albuterol/Ipratropium (Duoneb 3 Mg/0.5 Mg (3 Ml) Ud) 3 ml INH RQID [facility] Last Admin: 08/08/16 15:36 Dose: 3 ml Folic Acid (Folic Acid) 1 mg PO DAILY [facility] Last Admin: 08/08/16 09:16 Dose: 1 mg Heparin Sodium (Porcine) (Heparin) 5,000 units SC Q8 [facility] PRN Reason: Protocol Last Admin: 08/08/16 09:16 Dose: 5,000 units Piperacillin Sod/Tazobactam (Sod 2.25 gm/ Sodium Chloride) 100 mls @ 100 mls/ hr IVPB Q6 [facility] Last Admin: 08/08/16 09:18 Dose: 100 mls/hr Moxifloxacin HCl (Avelox Iv 400mg/250ml Ns) 400 mg in 250 mls @ 250 mls/hr IVPB DAILY@2200 [facility] Sodium Bicarbonate 150 meq/ (Dextrose) 1,150 mls @ 100 mls/hr IV .[id number] [facility] Stop: 08/09/16 14:39 Levothyroxine Sodium (Synthroid) 75 mcg PO DAILY@0630 [facility] Metoprolol Succinate (Toprol Xl) 25 mg PO DAILY [facility] Last Admin: 08/08/16 09:16 Dose: 25 mg Saccharomyces Boulardii (Florastor) 250 mg PO BID [facility] Last Admin: 08/08/16 09:16 Dose: 250 mg Thiamine HCl (Vitamin B1 Tab) 100 mg PO DAILY [facility] Last Admin: 08/08/16 09:17 Dose: 100 mg - Labs Labs: 08/08/16 06:00 08/08/16 06:00 PT 10.6 SECONDS (9.6-11.2) 08/06/16 09:40 INR 1.02 (0.92-1.08) 08/06/16 09:40 APTT 36.0 SECONDS (23.3-32.5) H 08/06/16 09:40
[2016-08-08 17:29] LABS: T4 3.2 ug/dl (5.5-11.0)
[2016-08-08] MEDS: Moxifloxacin IV 400mg/250ml NS 400 MG/250 ML BAG IVPB SCH (21:20)
--- NOTE | 2016-08-08 21:24 | PN ---
DATE: 08/08/2016 The patient is located in room 433, bed 1. REQUESTED BY: Dr. Frank Thomas. REASON FOR RENAL CONSULTATION: Acute renal failure and for further evaluation. HISTORY OF PRESENT ILLNESS: The patient is a 60-year-old elderly male with a history of sm oking who was admitted with the chief complaints of generalized weakness, multiple falls, weakness, f ever and cough. The patient was found to have multilobar pneumonia and also increased BUN and creati nine. The patient's workup is consistent with an elevated CPK level and rhabdomyolysis. The patient 's condition deteriorated yesterday with shortness of breath and altered mental status and the patien t had EPIDEMIOLOGY INTERNSHIP and was subsequently transferred to ICU on high flow oxygen. The patient is feeling much b johann today, not in acute distress, on high flow oxygen. He denies any chest pain. He denies any na usea, vomiting, or diarrhea. No abdominal pain, no nausea, no vomiting, no swelling of the legs. PHYSICAL EXAMINATION: VITAL SIGNS: Blood pressure 137/74, pulse 107, respirations 24 and saturation 96 and temperature is 103. Height 6 feet and weight is 190 pounds. GENERAL: The patient is a 60-year-old elderly male, well-built, well-nourished, not in dis tress. HEENT: Pupils normal, reactive to light and accommodation. Conjunctivae pink. Sclerae anicteric. Tongue is moist. NECK: Trachea midline. LUNGS: Symmetric on both sides. Bilateral rhonchi and occasional basal crackles present. CARDIOVASCULAR: [place] at the fifth intercostal space, midclavicular line. S1 and S2 audible. No murmur, no gallop. ABDOMEN: Normal in appearance, soft, tympanic. No guarding, no rigidity. No hepatosplenomegaly. CENTRAL NERVOUS SYSTEM: The patient is alert, awake, oriented x 2-3. Sensory and motor system is wi thin normal limits. EXTREMITIES: No cyanosis, no clubbing, no edema. CURRENT MEDICATIONS: Include as follows: Albuterol inhaler q.4 hours, moxifloxacin 400 mg IV daily, DuoNeb inhaler, Florastor 250 mg p.o. b.i.d., folic acid 1 mg p.o. daily, subcutaneous heparin 5000 q.8 hours, Zosyn 2.25 grams IV q.6 hours, sodium bicarbonate at 150 mg in 1 liter of D5W at 100 mL pe r hour, Synthroid 75 mcg p.o. daily, Toprol-XL 25 mg p.o. daily, Tylenol and thiamine 100 mg p.o. blane ly. LABORATORY DATA: Include as follows, as of 08/08/2016: WBC 6, hemoglobin 13, hematocrit is 37.7, consuelo telets 148. ABG: pH 7.40 and pCO2 of 38 and pO2 of 60 and bicarbonate is 23.9, saturation 94.7. Hi s other laboratory data as of 08/08/2016: Sodium 139, potassium 3.4, chloride 105, CO2 of 21, BUN 83, creatinine 5.3, glucose is 137, calcium 7.4, total bilirubin 0.8, AST 119 and ALT 105, alkaline phos phatase is 28. CPK level is 2350. Total protein is 6.5. Albumin is 2.9. Thyroxine is 3.2 and tota l T3 of 0.531. Urinalysis as of 08/07/2016: Yellow, slightly cloudy, pH 5, specific 1.013, protein 3 0, glucose negative, ketones negative, blood moderate, nitrates negative, bilirubin negative, urobili nogen 0.2-1.0, leukocyte esterase negative, RBC 6, and WBC 4, and bacteria is 3 and urine osmolality 354, urine sodium is 33, urine potassium is 24. Serum vancomycin level as of 08/08 is 19.7. A urine tox screen was negative. Other reports: Serology, RPR was nonreactive, hepatitis C antibody IgM is negative, hepatitis B surface antigen negative, hepatitis B core antibody IgM is negative, hepatitis C antibody is negative. HIV antibodies, 1 and 2 antibody is negative and mycoplasma pneumoniae IgG i s 2.91 and mycoplasma IgM is and the ASO titers were negative. Other laboratory data as of 07/11: Blood culture x 1 was negative day 3 and sputum Gram-stain is normal flow. Sputum for AFB # 1 was negative for AFB and a blood culture x 2 as of 08/07/2016 x 2 was negative, today 1. Chest x-ra y 08/07/2016 at 12:20 p.m.: Improvement of the bilateral infiltrates. IN SUMMARY: The patient is a 60-year-old elderly male with fever, cough and multiple falls and elevated CPK, increased BUN and creatinine. 1. Nonoliguric acute renal failure, most likely secondary to acute tubular necrosis secondary to sep sis and rhabdomyolysis. 2. Rhabdomyolysis secondary to recurrent falls. 3. Multilobar bilateral pneumonia. Continue IV antibiotic Zosyn 2.25 grams q.6 hours and Avelox will be discontinue as of 08/07/2016. Az ithromycin and clindamycin was also discontinued, clindamycin on 08/07 and azithromycin 08/06. Renal function is serum creatinine and hopefully his serum creatinine starts decreasing gradually. W ill continue IV fluids of D5W with sodium bicarbonate at 100 mL per hour and repeat BMP and CPK level in the a.m. Will follow with you. Thank you for allowing me to participate in your patient's care and will recheck phosphorus levels in a.m. Edmund Kowalski MD cc: [id number] TT: 08/08/2016 21:23:02 Confirmation # [id number] Dictation # [id number]
[2016-08-09] MEDS: Sodium Bicarbonate 8.4% 150 MEQ in Dextrose 5% In Water 1,000 ML IV SCH (03:07)
[2016-08-09 05:20] LABS: HEMATOCRIT 36.4 % (35.0-51.0); MEAN CELL VOLUME 82.9 fl (80.0-94.0); MEAN CORPUSCULAR HEMOGLOBIN 27.9 pg (27.0-31.0); MEAN CORPUSCULAR HGB CONC 33.7 g/dL (33.0-37.0); RED CELL DISTRIBUTION WIDTH 14.8 % (11.5-14.5); WHITE BLOOD COUNT 7.3 K/uL (4.8-10.8)
[2016-08-09 05:43] LABS: ABG ALLEN TEST YES; ARTERIAL BLOOD FLOW 25; ARTERIAL BLOOD GAS HCO3 28.2 mmol/L (21-28); ARTERIAL BLOOD GAS MODE HIGH FLOW LPM; ARTERIAL BLOOD GAS O2 CAPACITY 16.6 mL/dL (16-24); ARTERIAL BLOOD GAS PH 7.43 (7.35-7.45); ARTERIAL BLOOD GAS PO2 69 mm/Hg (80-100); ARTERIAL BLOOD HGB O2 SAT 93.1 % (95.0-98.0); CARBOXYHEMOGLOBIN 1.5 % (0.5-1.5); HHB 3.6 % (0.0-5.0); METHEMOGLOBIN 1.8 % (0.0-3.0)
[2016-08-09] MEDS ORDERED: Levothyroxine 75 MCG TAB PO SCH (06:30)
[2016-08-09 06:53] LABS: ALB/GLOB RATIO 0.7 (1.0-2.1); BILIRUBIN,TOTAL 0.7 mg/dl (0.2-1.3); CALCIUM 7.1 mg/dL (8.4-10.2); POTASSIUM 3.4 MMOL/L (3.6-5.0); TOTAL PROTEIN 6.2 G/DL (6.3-8.2)
[2016-08-09 07:24] LABS: THYROID STIMULATING HORMONE 17.2 mIU/ML (0.46-4.68)
[2016-08-09] MEDS: Albuterol-Ipratrop 3 mg / 0.5 (3 ml) UD INH SCH ×4 (08:00→19:47)
[2016-08-09] MEDS: Metoprolol Succinate 25 mg XL Tab PO SCH (08:40)
[2016-08-09] MEDS: Saccharomyces Boulardi 250 mg Cap PO SCH ×2 (08:41→16:09)
--- NOTE | 2016-08-09 11:34 | CP.PCM.PN ---
Subjective - Date & Time of Evaluation Date of Evaluation: 08/09/16 Time of Evaluation: 08:00 - Subjective Subjective: still with fever from homeless long-term [employer] smears pending Objective - Vital Signs/Intake and Output Vital Signs (last 24 hours): Temp Pulse Resp BP Pulse Ox 100.6 F H 105 H 20 134/75 94 L 08/09/16 08:46 08/09/16 08:40 08/09/16 08:00 08/09/16 08:40 08/09/16 06:00 Intake and Output: 08/09/16 08/09/16 06:59 18:59 Intake Total 1250 Output Total 450 Balance 800 - Medications Medications: Current Medications Acetaminophen (Tylenol 325mg Tab) 650 mg PO Q6 PRN PRN Reason: Fever >100.4 F Last Admin: 08/09/16 08:46 Dose: 650 mg Albuterol Sulfate (Albuterol 0.083% Inhal Martita (2.5 Mg/3 Ml) Ud) 2.5 mg INH RQ4 PRN PRN Reason: Shortness of Breath Albuterol/Ipratropium (Duoneb 3 Mg/0.5 Mg (3 Ml) Ud) 3 ml INH RQID [facility] Last Admin: 08/09/16 08:00 Dose: 3 ml Folic Acid (Folic Acid) 1 mg PO DAILY [facility] Last Admin: 08/09/16 08:40 Dose: 1 mg Heparin Sodium (Porcine) (Heparin) 5,000 units SC Q8 [facility] PRN Reason: Protocol Last Admin: 08/09/16 08:41 Dose: 5,000 units Piperacillin Sod/Tazobactam (Sod 2.25 gm/ Sodium Chloride) 100 mls @ 100 mls/ hr IVPB Q6 [facility] Last Admin: 08/09/16 09:09 Dose: 100 mls/hr Moxifloxacin HCl (Avelox Iv 400mg/250ml Ns) 400 mg in 250 mls @ 250 mls/hr IVPB DAILY@2200 [facility] Last Admin: 08/08/16 21:20 Dose: 250 mls/hr Sodium Chloride (Sodium Chloride 0.9%) 1,000 mls @ 100 mls/hr IV .Q10H [facility] Stop: 08/10/16 11:27 Levothyroxine Sodium (Synthroid) 75 mcg PO DAILY@0630 [facility] Last Admin: 08/09/16 06:43 Dose: 75 mcg Metoprolol Succinate (Toprol Xl) 25 mg PO DAILY [facility] Last Admin: 08/09/16 08:40 Dose: 25 mg Saccharomyces Boulardii (Florastor) 250 mg PO BID [facility] Last Admin: 08/09/16 08:41 Dose: 250 mg Thiamine HCl (Vitamin B1 Tab) 100 mg PO DAILY [facility] Last Admin: 08/09/16 08:43 Dose: 100 mg - Labs Labs: 08/09/16 04:30 08/09/16 04:30 PT 10.6 SECONDS (9.6-11.2) 08/06/16 09:40 INR 1.02 (0.92-1.08) 08/06/16 09:40 APTT 36.0 SECONDS (23.3-32.5) H 08/06/16 09:40 Assessment and Plan (1) Acute renal failure (ARF) Status: Acute (2) Pneumonia Status: Acute (3) Renal insufficiency Status: Acute (4) Rhabdomyolysis Status: Suspected
--- NOTE | 2016-08-09 11:41 | CP.PCM.PN ---
Subjective - Date & Time of Evaluation Date of Evaluation: 08/09/16 Time of Evaluation: 11:41 - Subjective Subjective: Awake and responsive. Transferred to the ICU for closer monitoring. CT chest showed more extensive consolidation bilaterally as well as pleural effusions. He continues to have a febrile pattern despite antibiotic therapy. On high flow nasal oxygen his SpO2 is better, but with 70% O2 supplement. He still has a congested cough with only occasional sputum expectoration. Specimens have been collected and sent to the lab with results pending. On exam there are rhonchi present bilaterally with continued E wheezes. Muscle recruitment is evident without IC retractions, but abdominal paradox is noted. Dependant edema is evident without cyanosis. Urine output still barely above oliguric status, renal is following and HD is still a possibility. He remains in isolation presently pending the AFB smears Objective - Vital Signs/Intake and Output Vital Signs (last 24 hours): Temp Pulse Resp BP Pulse Ox 100.6 F H 105 H 20 134/75 94 L 08/09/16 08:46 08/09/16 08:40 08/09/16 08:00 08/09/16 08:40 08/09/16 06:00 Intake and Output: 08/08/16 08/09/16 23:59 11:59 Intake Total 1700 1050 Output Total 400 450 Balance 1300 600 - Medications Medications: Current Medications Acetaminophen (Tylenol 325mg Tab) 650 mg PO Q6 PRN PRN Reason: Fever >100.4 F Last Admin: 08/09/16 08:46 Dose: 650 mg Albuterol Sulfate (Albuterol 0.083% Inhal Mratita (2.5 Mg/3 Ml) Ud) 2.5 mg INH RQ4 PRN PRN Reason: Shortness of Breath Albuterol/Ipratropium (Duoneb 3 Mg/0.5 Mg (3 Ml) Ud) 3 ml INH RQID [facility] Last Admin: 08/09/16 08:00 Dose: 3 ml Folic Acid (Folic Acid) 1 mg PO DAILY [facility] Last Admin: 08/09/16 08:40 Dose: 1 mg Heparin Sodium (Porcine) (Heparin) 5,000 units SC Q8 [facility] PRN Reason: Protocol Last Admin: 08/09/16 08:41 Dose: 5,000 units Piperacillin Sod/Tazobactam (Sod 2.25 gm/ Sodium Chloride) 100 mls @ 100 mls/ hr IVPB Q6 [facility] Last Admin: 08/09/16 09:09 Dose: 100 mls/hr Moxifloxacin HCl (Avelox Iv 400mg/250ml Ns) 400 mg in 250 mls @ 250 mls/hr IVPB DAILY@2200 [facility] Last Admin: 08/08/16 21:20 Dose: 250 mls/hr Sodium Chloride (Sodium Chloride 0.9%) 1,000 mls @ 100 mls/hr IV .Q10H [facility] Stop: 08/10/16 11:27 Levothyroxine Sodium (Synthroid) 75 mcg PO DAILY@0630 [facility] Last Admin: 08/09/16 06:43 Dose: 75 mcg Metoprolol Succinate (Toprol Xl) 25 mg PO DAILY [facility] Last Admin: 08/09/16 08:40 Dose: 25 mg Saccharomyces Boulardii (Florastor) 250 mg PO BID [facility] Last Admin: 08/09/16 08:41 Dose: 250 mg Thiamine HCl (Vitamin B1 Tab) 100 mg PO DAILY [facility] Last Admin: 08/09/16 08:43 Dose: 100 mg - Labs Labs: 08/09/16 04:30 08/09/16 04:30 PT 10.6 SECONDS (9.6-11.2) 08/06/16 09:40 INR 1.02 (0.92-1.08) 08/06/16 09:40 APTT 36.0 SECONDS (23.3-32.5) H 08/06/16 09:40 Assessment and Plan (1) Acute renal failure (ARF) Status: Acute (2) Rhabdomyolysis Status: Suspected (3) Pneumonia Status: Acute
[2016-08-09] MEDS: Sodium Chloride 0.9% 1,000 ML IV SCH ×2 (12:00→22:00)
--- NOTE | 2016-08-09 14:26 | CP.CCUPN ---
CCU Subjective - Physician Review Events Since Last Encounter (Free Text): 08/09/16 14:26 Alert and awake, feeling better today. CCU Objective - Vital Signs / Intake & Output Vital Signs (Last 4 hours): Vital Signs Temp Pulse Resp BP Pulse Ox 08/09/16 12:00 97.6 F 86 17 132/86 92 L Intake and Output (Last 8hrs): Intake & Output 08/08/16 08/09/16 08/09/16 22:59 06:59 14:59 Intake Total 1700 1050 200 Output Total 400 450 100 Balance 1300 600 100 Intake: IV 1300 300 200 Intake, Piggyback 100 500 Oral 300 250 Output: Urine 400 450 100 Condom 400 450 100 Other: # Bowel Movements 0 0 - Physical Exam Head: Positive for: Atraumatic, Normocephalic Pupils: Positive for: PERRL Extroacular Muscles: Positive for: EOMI Conjunctiva: Positive for: Normal Mouth: Positive for: Moist Mucous Membranes Respiratory/Chest: Positive for: Decreased Breath Sounds Cardiovascular: Positive for: Regular Rate and Rhythm Abdomen: Positive for: Normal Bowel Sounds. Negative for: Tenderness, Distention Neurological: Positive for: GCS=15, CN II-XII Intact, Speech Normal Psychiatric: Positive for: Alert, Oriented x 3 - Medications Active Medications: Active Medications Generic Name Dose Route Start Last Admin Trade Name Freq PRN Reason Stop Dose Admin Acetaminophen 650 mg 08/05/16 21:29 08/09/16 08:46 Tylenol 325mg Tab PO 650 mg Q6 PRN Administration Fever >100.4 F Albuterol Sulfate 2.5 mg 08/06/16 12:39 Albuterol 0.083% Inhal Martita (2.5 Mg/3 Ml) Ud INH RQ4 PRN Shortness of Breath Albuterol/Ipratropium 3 ml 08/06/16 16:00 08/09/16 11:30 Duoneb 3 Mg/0.5 Mg (3 Ml) Ud INH 3 ml RQID SHREE Administration Folic Acid 1 mg 08/06/16 09:00 08/09/16 08:40 Folic Acid PO 1 mg DAILY SHREE Administration Heparin Sodium (Porcine) 5,000 units 08/06/16 01:00 08/09/16 08:41 Heparin SC 5,000 units Q8 SHREE Administration Protocol Piperacillin Sod/Tazobactam 100 mls @ 100 mls/hr 08/06/16 10:00 08/09/16 09: 09 Sod 2.25 gm/ Sodium Chloride IVPB 100 mls/hr Q6 SHREE Administration Moxifloxacin HCl 400 mg in 250 mls @ 250 mls/hr 08/08/16 22:00 08/08/16 21:20 Avelox Iv 400mg/250ml Ns IVPB 250 mls/hr DAILY@2200 SHREE Administration Sodium Chloride 1,000 mls @ 100 mls/hr 08/09/16 11:30 Sodium Chloride 0.9% IV 08/10/16 11:27 .Q10H SHREE Levothyroxine Sodium 100 mcg 08/10/16 06:30 Synthroid PO DAILY@0630 [facility] Metoprolol Succinate 25 mg 08/06/16 12:15 08/09/16 08:40 Toprol Xl PO 25 mg DAILY SHREE Administration Nystatin 1 applic 08/09/16 13:00 Nystop Topical Powder TOP TID SHREE Saccharomyces Boulardii 250 mg 08/07/16 17:00 08/09/16 08:41 Florastor PO 250 mg BID SHREE Administration Thiamine HCl 100 mg 08/06/16 09:00 08/09/16 08:43 Vitamin B1 Tab PO 100 mg DAILY SHREE Administration - Patient Studies Lab Studies: Microbiology Studies 08/07/16 07:40 MRSA Culture (Admit) - Final Naris MRSA NOT DETECTED 08/08/16 16:50 Gram Stain - Final Sputum 08/07/16 16:00 Blood Culture - Preliminary Blood NO GROWTH AFTER 24 HOURS 08/07/16 16:00 Blood Culture - Preliminary Blood NO GROWTH AFTER 24 HOURS 08/06/16 09:00 Gram Stain - Final Sputum Sputum Culture - Final NORMAL ORAL NANCY Lab Studies 08/09/16 08/09/16 08/09/16 Range/Units 05:35 04:30 04:30 WBC (4.8-10.8) K/uL RBC (4.40-5.90) Mil/uL Hgb (12.0-18.0) g/dL Hct (35.0-51.0) % MCV (80.0-94.0) fl MCH (27.0-31.0) pg MCHC (33.0-37.0) g/dL RDW (11.5-14.5) % Plt Count (130-400) K/uL pCO2 44 (35-45) mm/Hg pO2 69 L (80-100) mm/Hg HCO3 28.2 H (21-28) mmol/L ABG pH 7.43 (7.35-7.45) ABG Total CO2 30.6 H (22-28) mmol/L ABG O2 Saturation 96.3 (95-98) % ABG O2 Content 16.0 (15-23) ML/dL ABG Base Excess 4.3 H (-2.0-3.0) mmol/L ABG Hemoglobin 12.2 (11.7-17.4) g/dL ABG Carboxyhemoglobin 1.5 (0.5-1.5) % POC ABG HHb (Measured) 3.6 (0.0-5.0) % ABG Methemoglobin 1.8 (0.0-3.0) % ABG O2 Capacity 16.6 (16-24) mL/dL Hi Test Yes A-a O2 Difference 375.0 mm/Hg Hgb O2 Saturation 93.1 L (95.0-98.0) % Liter Flow 25 Vent Mode High flow lpm FiO2 70.0 % Blood Gas Notified Time 544 Sodium 139 (132-148) mmol/l Potassium 3.4 L (3.6-5.0) MMOL/L Chloride 100 (98-107) mmol/L Carbon Dioxide 27 (22-30) mmol/L Anion Gap 15 (10-20) BUN 94 H (9-20) mg/dl Creatinine 6.6 H (0.8-1.5) mg/dL Est GFR ( Amer) 10 Est GFR (Non-Af Amer) 9 Random Glucose 109 (75-110) mg/dL Calcium 7.1 L (8.4-10.2) mg/dL Total Bilirubin 0.7 (0.2-1.3) mg/dl AST 169 H (17-59) U/L ALT 94 H (21-72) U/L Alkaline Phosphatase 27 L (38-126) U/L Total Creatine Kinase 960 H (55-170) U/L Total Protein 6.2 L (6.3-8.2) G/DL Albumin 2.6 L (3.5-5.0) g/dL Globulin 3.6 (2.2-3.9) gm/dL Albumin/Globulin Ratio 0.7 L (1.0-2.1) Free T4 0.89 (0.78-2.19) ng/dL Thyroxine (T4) (5.5-11.0) ug/dl Total T3 (1.49-2.60) nmol/L TSH 3rd Generation 17.20 H (0.46-4.68) mIU/ML Urine Osmolality (300-1000) mosm/kg Tot Complement (CH50) (31-60) U/mL Hepatitis A IgM Ab (NEGATIVE) Hep Bs Antigen (NEGATIVE) Hep B Core IgM Ab (NEGATIVE) Hepatitis C Antibody (NEGATIVE) Influenza Typ A,B (EIA) (NEGATIVE) Mycoplasma pneumon IgG (<=0.90) Mycoplasma pneumon IgM (<770) U/mL 08/09/16 08/08/16 08/07/16 Range/Units 04:30 16:50 23:24 WBC 7.3 (4.8-10.8) K/uL RBC 4.39 L (4.40-5.90) Mil/uL Hgb 12.2 (12.0-18.0) g/dL Hct 36.4 (35.0-51.0) % MCV 82.9 (80.0-94.0) fl MCH 27.9 (27.0-31.0) pg MCHC 33.7 (33.0-37.0) g/dL RDW 14.8 H (11.5-14.5) % Plt Count 178 (130-400) K/uL pCO2 (35-45) mm/Hg pO2 (80-100) mm/Hg HCO3 (21-28) mmol/L ABG pH (7.35-7.45) ABG Total CO2 (22-28) mmol/L ABG O2 Saturation (95-98) % ABG O2 Content (15-23) ML/dL ABG Base Excess (-2.0-3.0) mmol/L ABG Hemoglobin (11.7-17.4) g/dL ABG Carboxyhemoglobin (0.5-1.5) % POC ABG HHb (Measured) (0.0-5.0) % ABG Methemoglobin (0.0-3.0) % ABG O2 Capacity (16-24) mL/dL Hi Test A-a O2 Difference mm/Hg Hgb O2 Saturation (95.0-98.0) % Liter Flow Vent Mode FiO2 % Blood Gas Notified Time Sodium (132-148) mmol/l Potassium (3.6-5.0) MMOL/L Chloride (98-107) mmol/L Carbon Dioxide (22-30) mmol/L Anion Gap (10-20) BUN (9-20) mg/dl Creatinine (0.8-1.5) mg/dL Est GFR ( Amer) Est GFR (Non-Af Amer) Random Glucose (75-110) mg/dL Calcium (8.4-10.2) mg/dL Total Bilirubin (0.2-1.3) mg/dl AST (17-59) U/L ALT (21-72) U/L Alkaline Phosphatase (38-126) U/L Total Creatine Kinase (55-170) U/L Total Protein (6.3-8.2) G/DL Albumin (3.5-5.0) g/dL Globulin (2.2-3.9) gm/dL Albumin/Globulin Ratio (1.0-2.1) Free T4 (0.78-2.19) ng/dL Thyroxine (T4) 3.20 L (5.5-11.0) ug/dl Total T3 0.531 L (1.49-2.60) nmol/L TSH 3rd Generation (0.46-4.68) mIU/ML Urine Osmolality (300-1000) mosm/kg Tot Complement (CH50) (31-60) U/mL Hepatitis A IgM Ab (NEGATIVE) Hep Bs Antigen (NEGATIVE) Hep B Core IgM Ab (NEGATIVE) Hepatitis C Antibody (NEGATIVE) Influenza Typ A,B (EIA) Negative for flu a/b (NEGATIVE) Mycoplasma pneumon IgG (<=0.90) Mycoplasma pneumon IgM (<770) U/mL 08/07/16 08/07/16 08/06/16 Range/Units 12:55 05:00 09:40 WBC (4.8-10.8) K/uL RBC (4.40-5.90) Mil/uL Hgb (12.0-18.0) g/dL Hct (35.0-51.0) % MCV (80.0-94.0) fl MCH (27.0-31.0) pg MCHC (33.0-37.0) g/dL RDW (11.5-14.5) % Plt Count (130-400) K/uL pCO2 (35-45) mm/Hg pO2 (80-100) mm/Hg HCO3 (21-28) mmol/L ABG pH (7.35-7.45) ABG Total CO2 (22-28) mmol/L ABG O2 Saturation (95-98) % ABG O2 Content (15-23) ML/dL ABG Base Excess (-2.0-3.0) mmol/L ABG Hemoglobin (11.7-17.4) g/dL ABG Carboxyhemoglobin (0.5-1.5) % POC ABG HHb (Measured) (0.0-5.0) % ABG Methemoglobin (0.0-3.0) % ABG O2 Capacity (16-24) mL/dL Hi Test A-a O2 Difference mm/Hg Hgb O2 Saturation (95.0-98.0) % Liter Flow Vent Mode FiO2 % Blood Gas Notified Time Sodium (132-148) mmol/l Potassium (3.6-5.0) MMOL/L Chloride (98-107) mmol/L Carbon Dioxide (22-30) mmol/L Anion Gap (10-20) BUN (9-20) mg/dl Creatinine (0.8-1.5) mg/dL Est GFR ( Amer) Est GFR (Non-Af Amer) Random Glucose (75-110) mg/dL Calcium (8.4-10.2) mg/dL Total Bilirubin (0.2-1.3) mg/dl AST (17-59) U/L ALT (21-72) U/L Alkaline Phosphatase (38-126) U/L Total Creatine Kinase (55-170) U/L Total Protein (6.3-8.2) G/DL Albumin (3.5-5.0) g/dL Globulin (2.2-3.9) gm/dL Albumin/Globulin Ratio (1.0-2.1) Free T4 (0.78-2.19) ng/dL Thyroxine (T4) (5.5-11.0) ug/dl Total T3 (1.49-2.60) nmol/L TSH 3rd Generation (0.46-4.68) mIU/ML Urine Osmolality 354 (300-1000) mosm/kg Tot Complement (CH50) (31-60) U/mL Hepatitis A IgM Ab Negative (NEGATIVE) Hep Bs Antigen Negative (NEGATIVE) Hep B Core IgM Ab Negative (NEGATIVE) Hepatitis C Antibody Negative (NEGATIVE) Influenza Typ A,B (EIA) (NEGATIVE) Mycoplasma pneumon IgG 2.91 H (<=0.90) Mycoplasma pneumon IgM 101 (<770) U/mL 08/06/16 Range/Units 07:40 WBC (4.8-10.8) K/uL RBC (4.40-5.90) Mil/uL Hgb (12.0-18.0) g/dL Hct (35.0-51.0) % MCV (80.0-94.0) fl MCH (27.0-31.0) pg MCHC (33.0-37.0) g/dL RDW (11.5-14.5) % Plt Count (130-400) K/uL pCO2 (35-45) mm/Hg pO2 (80-100) mm/Hg HCO3 (21-28) mmol/L ABG pH (7.35-7.45) ABG Total CO2 (22-28) mmol/L ABG O2 Saturation (95-98) % ABG O2 Content (15-23) ML/dL ABG Base Excess (-2.0-3.0) mmol/L ABG Hemoglobin (11.7-17.4) g/dL ABG Carboxyhemoglobin (0.5-1.5) % POC ABG HHb (Measured) (0.0-5.0) % ABG Methemoglobin (0.0-3.0) % ABG O2 Capacity (16-24) mL/dL Hi Test A-a O2 Difference mm/Hg Hgb O2 Saturation (95.0-98.0) % Liter Flow Vent Mode FiO2 % Blood Gas Notified Time Sodium (132-148) mmol/l Potassium (3.6-5.0) MMOL/L Chloride (98-107) mmol/L Carbon Dioxide (22-30) mmol/L Anion Gap (10-20) BUN (9-20) mg/dl Creatinine (0.8-1.5) mg/dL Est GFR ( Amer) Est GFR (Non-Af Amer) Random Glucose (75-110) mg/dL Calcium (8.4-10.2) mg/dL Total Bilirubin (0.2-1.3) mg/dl AST (17-59) U/L ALT (21-72) U/L Alkaline Phosphatase (38-126) U/L Total Creatine Kinase (55-170) U/L Total Protein (6.3-8.2) G/DL Albumin (3.5-5.0) g/dL Globulin (2.2-3.9) gm/dL Albumin/Globulin Ratio (1.0-2.1) Free T4 (0.78-2.19) ng/dL Thyroxine (T4) (5.5-11.0) ug/dl Total T3 (1.49-2.60) nmol/L TSH 3rd Generation (0.46-4.68) mIU/ML Urine Osmolality (300-1000) mosm/kg Tot Complement (CH50) >60 H (31-60) U/mL Hepatitis A IgM Ab (NEGATIVE) Hep Bs Antigen (NEGATIVE) Hep B Core IgM Ab (NEGATIVE) Hepatitis C Antibody (NEGATIVE) Influenza Typ A,B (EIA) (NEGATIVE) Mycoplasma pneumon IgG (<=0.90) Mycoplasma pneumon IgM (<770) U/mL Laboratory Results - last 24 hr 08/06/16 08/06/16 08/07/16 07:40 09:40 05:00 WBC RBC Hgb Hct MCV MCH MCHC RDW Plt Count pCO2 pO2 HCO3 ABG pH ABG Total CO2 ABG O2 Saturation ABG O2 Content ABG Base Excess ABG Hemoglobin ABG Carboxyhemoglobin POC ABG HHb (Measured) ABG Methemoglobin ABG O2 Capacity Hi Test A-a O2 Difference Hgb O2 Saturation Liter Flow Vent Mode FiO2 Blood Gas Notified Time Sodium Potassium Chloride Carbon Dioxide Anion Gap BUN Creatinine Est GFR ( Amer) Est GFR (Non-Af Amer) Random Glucose Calcium Total Bilirubin AST ALT Alkaline Phosphatase Total Creatine Kinase Total Protein Albumin Globulin Albumin/Globulin Ratio Free T4 Thyroxine (T4) Total T3 TSH 3rd Generation Urine Osmolality Tot Complement (CH50) >60 H Hepatitis A IgM Ab Negative Hep Bs Antigen Negative Hep B Core IgM Ab Negative Hepatitis C Antibody Negative Influenza Typ A,B (EIA) Mycoplasma pneumon IgG 2.91 H Mycoplasma pneumon IgM 101 08/07/16 08/07/16 08/08/16 12:55 23:24 16:50 WBC RBC Hgb Hct MCV MCH MCHC RDW Plt Count pCO2 pO2 HCO3 ABG pH ABG Total CO2 ABG O2 Saturation ABG O2 Content ABG Base Excess ABG Hemoglobin ABG Carboxyhemoglobin POC ABG HHb (Measured) ABG Methemoglobin ABG O2 Capacity Hi Test A-a O2 Difference Hgb O2 Saturation Liter Flow Vent Mode FiO2 Blood Gas Notified Time Sodium Potassium Chloride Carbon Dioxide Anion Gap BUN Creatinine Est GFR ( Amer) Est GFR (Non-Af Amer) Random Glucose Calcium Total Bilirubin AST ALT Alkaline Phosphatase Total Creatine Kinase Total Protein Albumin Globulin Albumin/Globulin Ratio Free T4 Thyroxine (T4) 3.20 L Total T3 0.531 L TSH 3rd Generation Urine Osmolality 354 Tot Complement (CH50) Hepatitis A IgM Ab Hep Bs Antigen Hep B Core IgM Ab Hepatitis C Antibody Influenza Typ A,B (EIA) Negative for flu a/b Mycoplasma pneumon IgG Mycoplasma pneumon IgM 08/09/16 08/09/16 08/09/16 04:30 04:30 04:30 WBC 7.3 RBC 4.39 L Hgb 12.2 Hct 36.4 MCV 82.9 MCH 27.9 MCHC 33.7 RDW 14.8 H Plt Count 178 pCO2 pO2 HCO3 ABG pH ABG Total CO2 ABG O2 Saturation ABG O2 Content ABG Base Excess ABG Hemoglobin ABG Carboxyhemoglobin POC ABG HHb (Measured) ABG Methemoglobin ABG O2 Capacity Hi Test A-a O2 Difference Hgb O2 Saturation Liter Flow Vent Mode FiO2 Blood Gas Notified Time Sodium 139 Potassium 3.4 L Chloride 100 Carbon Dioxide 27 Anion Gap 15 BUN 94 H Creatinine 6.6 H Est GFR ( Amer) 10 Est GFR (Non-Af Amer) 9 Random Glucose 109 Calcium 7.1 L Total Bilirubin 0.7 AST 169 H ALT 94 H Alkaline Phosphatase 27 L Total Creatine Kinase 960 H Total Protein 6.2 L Albumin 2.6 L Globulin 3.6 Albumin/Globulin Ratio 0.7 L Free T4 0.89 Thyroxine (T4) Total T3 TSH 3rd Generation 17.20 H Urine Osmolality Tot Complement (CH50) Hepatitis A IgM Ab Hep Bs Antigen Hep B Core IgM Ab Hepatitis C Antibody Influenza Typ A,B (EIA) Mycoplasma pneumon IgG Mycoplasma pneumon IgM 08/09/16 05:35 WBC RBC Hgb Hct MCV MCH MCHC RDW Plt Count pCO2 44 pO2 69 L HCO3 28.2 H ABG pH 7.43 ABG Total CO2 30.6 H ABG O2 Saturation 96.3 ABG O2 Content 16.0 ABG Base Excess 4.3 H ABG Hemoglobin 12.2 ABG Carboxyhemoglobin 1.5 POC ABG HHb (Measured) 3.6 ABG Methemoglobin 1.8 ABG O2 Capacity 16.6 Hi Test Yes A-a O2 Difference 375.0 Hgb O2 Saturation 93.1 L Liter Flow 25 Vent Mode High flow lpm FiO2 70.0 Blood Gas Notified Time 544 Sodium Potassium Chloride Carbon Dioxide Anion Gap BUN Creatinine Est GFR ( Amer) Est GFR (Non-Af Amer) Random Glucose Calcium Total Bilirubin AST ALT Alkaline Phosphatase Total Creatine Kinase Total Protein Albumin Globulin Albumin/Globulin Ratio Free T4 Thyroxine (T4) Total T3 TSH 3rd Generation Urine Osmolality Tot Complement (CH50) Hepatitis A IgM Ab Hep Bs Antigen Hep B Core IgM Ab Hepatitis C Antibody Influenza Typ A,B (EIA) Mycoplasma pneumon IgG Mycoplasma pneumon IgM Review of Systems - Review of Systems All systems: reviewed and no additional remarkable complaints except - Respiratory Respiratory: Cough Critical Care Progress Note - Nutrition Nutrition: Nutrition Category Date Time Status Renal Diet [DIET] Diets 08/08/16 Lunch Active Assessment/Plan (1) Pneumonia Assessment and plan: 60-year-old male with no significant past medical history. Homeless. Presented with multilobar pneumonia and rhabdomyolysis. Neuro: Alert and oriented 3 Pulm: Acute respiratory failure with hypoxia secondary to multifocal community- acquired pneumonia. Continue antibiotics, DuoNeb's, mucolytic's. Chest PT. CV: Hemodynamically stable Hem: No acute issues Renal: Patient still making urine, borderline oliguric. Acute kidney injury, creatinine worsening. No current indication for dialysis, the patient will be monitored closely. Endo: Hypothyroidism, continue levothyroxine 75 g by mouth. GI: Renal diet ID: Severe sepsis from multilobar community-acquired pneumonia, continue moxifloxacin and Zosyn. DVT proph - heparin subcutaneous GI proph - not currently indicated quijano for strict I/O's during acute illness Code status - full code Crtical Care Time spent 35 minutes Multi-disciplinary rounds were performed with house staff, nursing, speech therapy, respiratory therapy, pharmacy and nutrition with integrated input from the primary team/attending and other consulting services. The documented time is cumulative and includes review of patient data/exams/labs/chart review and examination of the patient on rounds and throughout the day; time is exclusive of any procedures or teaching time. Current Visit: Yes Status: Acute Priority: High
[2016-08-09] MEDS: Acetylcysteine 10% 4 ML IH SCH ×2 (15:25→19:47)
--- NOTE | 2016-08-09 15:56 | PN ---
DATE: 08/09/2016 ROOM: ICU 433 This is a 60-year-old male admitted and being managed with multilobar pneumonia in the ICU and has be en referred for endocrine evaluation because of an incidental finding of hypothyroidism and has been started on levothyroxine replacement therapy. He is tolerating the medication fairly well at this ti sd with no GI and/or cardiac related symptoms. His latest chemistries showed a BUN of 94, sodium 139 , potassium 3.4, chloride 100, CO2 of 27, glucose 109, and creatinine 6.6. He also has advanced azot emia with progressive renal insufficiency and is being followed closely by nephrology as noted thereo ace. His latest thyroid study showed a T4 of 3.20 with a T3 of 0.53 and a free T4 of 0.89 and a TSH of 17.20. So, at this time, we will actually modify once again his levothyroxine and titrate to a higher dose o f 100 mcg daily, once daily in the morning as ordered. We will obtain serial chemistries and supplem ent accordingly as needed. We will also obtain serial thyroid studies and gradually titrate his dose regimen to optimize metabolic control. We will follow. Tara Smith MD cc: [id number] TT: 08/09/2016 15:56:19 Confirmation # [id number] Dictation # [id number]
--- NOTE | 2016-08-09 17:10 | RAD ---
PROCEDURE: CHEST RADIOGRAPH, 1 VIEW HISTORY: respiratory distress on high flow COMPARISON: Comparison is made to the previous study dated 08/07/2016 FINDINGS: LUNGS: Interval mild worsening of airspace consolidation and opacities at the left lung and right lower lobe since the previous exam. PLEURA: No pneumothorax or pleural fluid seen. CARDIOVASCULAR: Normal. OSSEOUS STRUCTURES: No significant abnormalities. VISUALIZED UPPER ABDOMEN: Normal. OTHER FINDINGS: None. IMPRESSION: Interval worsening of hazy opacities at the left lung and right lower lung since the previous study.
--- NOTE | 2016-08-09 17:52 | CP.PCM.PN ---
Subjective - Date & Time of Evaluation Date of Evaluation: 08/09/16 Time of Evaluation: 08:00 - Subjective Subjective: Patient was seen and evaluated bedside.States that feels much better today Appears more awake and alert . No acute issues overnight. Still febrile Tmax 100.6 , tachycardic HR 106 BP 134/75, diaphoretic and tachypneic on high Flow O2 25 LPM FIO2 70 % CXR today showed worsening of RLL infiltrate With chest congestion, cough and minimal sputum expectoration I/O 3180/850 Objective - Vital Signs/Intake and Output Vital Signs (last 24 hours): Temp Pulse Resp BP Pulse Ox 98.7 F 95 H 20 154/82 H 96 08/09/16 15:28 08/09/16 16:00 08/09/16 16:00 08/09/16 16:00 08/09/16 16:00 Intake and Output: 08/09/16 08/09/16 06:59 18:59 Intake Total 1250 200 Output Total 450 100 Balance 800 100 - Medications Medications: Current Medications Acetaminophen (Tylenol 325mg Tab) 650 mg PO Q6 PRN PRN Reason: Fever >100.4 F Last Admin: 08/09/16 08:46 Dose: 650 mg Acetylcysteine (Mucomyst 10% 4ml) 2 ml IH QID [facility] Last Admin: 08/09/16 15:25 Dose: 2 ml Albuterol Sulfate (Albuterol 0.083% Inhal Martita (2.5 Mg/3 Ml) Ud) 2.5 mg INH RQ4 PRN PRN Reason: Shortness of Breath Albuterol/Ipratropium (Duoneb 3 Mg/0.5 Mg (3 Ml) Ud) 3 ml INH RQID [facility] Last Admin: 08/09/16 15:25 Dose: 3 ml Folic Acid (Folic Acid) 1 mg PO DAILY [facility] Last Admin: 08/09/16 08:40 Dose: 1 mg Heparin Sodium (Porcine) (Heparin) 5,000 units SC Q12H [facility] PRN Reason: Protocol Last Admin: 08/09/16 14:04 Dose: Not Given Piperacillin Sod/Tazobactam (Sod 2.25 gm/ Sodium Chloride) 100 mls @ 100 mls/ hr IVPB Q6 [facility] Last Admin: 08/09/16 16:07 Dose: 100 mls/hr Moxifloxacin HCl (Avelox Iv 400mg/250ml Ns) 400 mg in 250 mls @ 250 mls/hr IVPB DAILY@2200 [facility] Last Admin: 08/08/16 21:20 Dose: 250 mls/hr Sodium Chloride (Sodium Chloride 0.9%) 1,000 mls @ 100 mls/hr IV .Q10H [facility] Stop: 08/10/16 11:27 Last Admin: 08/09/16 12:00 Dose: 100 mls/hr Levothyroxine Sodium (Synthroid) 100 mcg PO DAILY@0630 [facility] Metoprolol Succinate (Toprol Xl) 25 mg PO DAILY [facility] Last Admin: 08/09/16 08:40 Dose: 25 mg Nystatin (Nystop Topical Powder) 1 applic TOP TID [facility] Last Admin: 08/09/16 13:40 Dose: 1 applic Saccharomyces Boulardii (Florastor) 250 mg PO BID [facility] Last Admin: 08/09/16 16:09 Dose: 250 mg Thiamine HCl (Vitamin B1 Tab) 100 mg PO DAILY [facility] Last Admin: 08/09/16 08:43 Dose: 100 mg - Labs Labs: 08/09/16 04:30 08/09/16 04:30 PT 10.6 SECONDS (9.6-11.2) 08/06/16 09:40 INR 1.02 (0.92-1.08) 08/06/16 09:40 APTT 36.0 SECONDS (23.3-32.5) H 08/06/16 09:40 - Constitutional Appears: Non-toxic, Other (on high flow O2 via NC tachycardic , diaphoretic, febrile, tachypneic) - Head Exam Head Exam: ATRAUMATIC, NORMAL INSPECTION, NORMOCEPHALIC - Eye Exam Eye Exam: EOMI, Normal appearance, PERRL Pupil Exam: NORMAL ACCOMODATION - ENT Exam ENT Exam: Mucous Membranes Moist, Normal Exam - Neck Exam Neck Exam: Full ROM, Normal Inspection. absent: Lymphadenopathy, Meningismus - Respiratory Exam Respiratory Exam: Decreased Breath Sounds (right lower base with rales), Prolonged Expiratory Phase, Respiratory Distress. absent: Wheezes Additional comments: coarse breath sounds bilaterally - Cardiovascular Exam Cardiovascular Exam: Tachycardia, +S1, +S2. absent: JVD - GI/Abdominal Exam GI & Abdominal Exam: Soft, Normal Bowel Sounds. absent: Distended, Guarding, Tenderness, Rebound - Rectal Exam Rectal Exam: Deferred - Extremities Exam Extremities Exam: Full ROM, Normal Capillary Refill, Normal Inspection. absent : Calf Tenderness, Pedal Edema - Back Exam Back Exam: NORMAL INSPECTION - Neurological Exam Neurological Exam: Alert, Awake, CN II-XII Intact, Oriented x3 - Psychiatric Exam Psychiatric exam: Normal Affect - Skin Skin Exam: Dry, Normal Color, Warm Assessment and Plan - Assessment and Plan (Free Text) Assessment: 60 years old male with no significant past medical hx was brought to the ED because of Generalized weakness, dizziness. He has been coughing for one month with brown sputum. No chest pain on coughing, no SOB and no fever. He Smokes one pack of cigarettes in 3 days with occasional Alcohol use. In the ED his Temp was 100.6F with HR of 123/min. CXR showed multifocal Pneumonia and BMP showed renal failure with elevated BUN/Cr Patient admitted with sepsis ( POA) due to multifocal pneumonia and DYLLAN due to rhabdomyelysis . Pulmonary ID and nephro consulted . He was started on IVF and Iv antibiotics. Was transferred to ICU for close monitoring due to AMS / confusion and respiratory distress.At present still on high flow 25LPM FIO2 70 % with O2 sat 96 %, more awake and less confused . 1. Sepsis sec to Pneumonia Patient still febrile Tmax 100.6 , procalcitonin 20 CT chest showed Large bilateral alveolar infiltrates as well as small bilateral pleural effusions. Mild mediastinal lymphadenopathy. on high flow O2 25 LPM on 70% FIO2 and O2 Sat 96 % Pulmonary and ID consulted Continue Zosyn, Clindamycin and Moxifloxacin . Given 1 dose of Vancomycin 1 G Iv HIV and influenza - negative Follow up mycoplasma and legionella Ag Continue duonebs, acetylcysteine 2. AMS/ Metabolic encephalopathy -improving most likely AMS multifactorial - due to sepsis, pneumonia, medication induced, renal failure Continue treatment for Pneumonia and sepsis Keep on High flow Aspiration precautions Hold Ativan 3. Multifocal Pneumonia with Hypoxemic respiratory failure Most likely CAP V/Q scan showed no PE Continue Zosyn , Moxifloxacin and Clinda. Given 1 dose Vancomycin IV on respiratory isolation to rule out TB. Follow up quantiferon and AFB Pulmonary and ID on consult Cultures negative so far Increased FIo2 requirements due to hypoxemia . On 25 LPM O2 with FIO2 70 % CXR today showed worsening RLL infiltrate 4. Acute Renal Failure with metabolic acidosis Most likely ATN secondary to Rhabdomyolysis [place] function worsening with BUN / Cr trending up 83/5.3-- 94/6.6 today HCO3 improving after D5W with HCO3 infusion started Dr Kowalski nephrology consulted Continue IVF with HCO3 Renal sonogram showed normal size and echogenecity and no obstruction I/O 3180/850 last 24 hours.Continue I/o monitoring patient may need HD if no improvement 5. Rhabdomyelysis CPK trending down Continue IVF and monitor renal funtion 4. Hypokalemia Repleted 5. Transaminitis unclear etiology on the admission was suspicious for ETOH abuse since AST more elevated than ALT but patient and cousin denied alcoholism Started MVI, folic acid and Thiamine Hepatitis profile- negative Abdominal US showed normal liver size and echogenecity Probably LFT elevation secondary to sepsis 7. Tremulousness- resolved patient and cousin denied ETOH abuse Abd Us showed no fatty or cirrhotic liver Continue Thiamine, Folate, MVI CT head showed no acute pathology 8. DVT prophylaxis Heparin 9. Hypothyroidism Endo consulted Started Synthroid 100 mcg
[2016-08-09 18:30] LABS: CORTISOL AM 44.8 ug/dL (4.46-22.7)
--- NOTE | 2016-08-09 19:39 | CP.PCM.PN ---
Subjective - Date & Time of Evaluation Date of Evaluation: 08/09/16 Time of Evaluation: 19:39 - Subjective Subjective: pt seen and examined, follow up consult is dictated #[id number] Objective - Vital Signs/Intake and Output Vital Signs (last 24 hours): Temp Pulse Resp BP Pulse Ox 98.7 F 95 H 20 154/82 H 96 08/09/16 15:28 08/09/16 16:00 08/09/16 16:00 08/09/16 16:00 08/09/16 16:00 Intake and Output: 08/09/16 08/10/16 18:59 06:59 Intake Total 1650 Output Total 601 Balance 1049 - Medications Medications: Current Medications Acetaminophen (Tylenol 325mg Tab) 650 mg PO Q6 PRN PRN Reason: Fever >100.4 F Last Admin: 08/09/16 08:46 Dose: 650 mg Acetylcysteine (Mucomyst 10% 4ml) 2 ml IH QID [facility] Last Admin: 08/09/16 15:25 Dose: 2 ml Albuterol Sulfate (Albuterol 0.083% Inhal Martita (2.5 Mg/3 Ml) Ud) 2.5 mg INH RQ4 PRN PRN Reason: Shortness of Breath Albuterol/Ipratropium (Duoneb 3 Mg/0.5 Mg (3 Ml) Ud) 3 ml INH RQID [facility] Last Admin: 08/09/16 15:25 Dose: 3 ml Folic Acid (Folic Acid) 1 mg PO DAILY [facility] Last Admin: 08/09/16 08:40 Dose: 1 mg Heparin Sodium (Porcine) (Heparin) 5,000 units SC Q12@0900,2100 [facility] PRN Reason: Protocol Piperacillin Sod/Tazobactam (Sod 2.25 gm/ Sodium Chloride) 100 mls @ 100 mls/ hr IVPB Q6 [facility] Last Admin: 08/09/16 16:07 Dose: 100 mls/hr Moxifloxacin HCl (Avelox Iv 400mg/250ml Ns) 400 mg in 250 mls @ 250 mls/hr IVPB DAILY@2200 [facility] Last Admin: 08/08/16 21:20 Dose: 250 mls/hr Sodium Chloride (Sodium Chloride 0.9%) 1,000 mls @ 100 mls/hr IV .Q10H [facility] Stop: 08/10/16 11:27 Last Admin: 08/09/16 12:00 Dose: 100 mls/hr Levothyroxine Sodium (Synthroid) 100 mcg PO DAILY@0630 [facility] Metoprolol Succinate (Toprol Xl) 25 mg PO DAILY [facility] Last Admin: 08/09/16 08:40 Dose: 25 mg Nystatin (Nystop Topical Powder) 1 applic TOP TID [facility] Last Admin: 08/09/16 13:40 Dose: 1 applic Saccharomyces Boulardii (Florastor) 250 mg PO BID [facility] Last Admin: 08/09/16 16:09 Dose: 250 mg Thiamine HCl (Vitamin B1 Tab) 100 mg PO DAILY [facility] Last Admin: 08/09/16 08:43 Dose: 100 mg - Labs Labs: 08/09/16 04:30 08/09/16 04:30 PT 10.6 SECONDS (9.6-11.2) 08/06/16 09:40 INR 1.02 (0.92-1.08) 08/06/16 09:40 APTT 36.0 SECONDS (23.3-32.5) H 08/06/16 09:40
--- NOTE | 2016-08-09 20:15 | PN ---
DATE: 08/09/2016 The patient is located in room 433, bed 1. HISTORY OF PRESENT ILLNESS: The patient is a 60-year-old elderly male with a history of sm oking who was admitted with chief complaints of weakness and multiple falls, associated with a fever, cough, shortness of breath. The patient is being treated for multilobar pneumonia and also acute re nal failure. The patient is not in acute distress. The patient claims he is feeling slightly better , not in acute distress, no chest pain, no palpitation, no nausea, no vomiting, no diarrhea. PHYSICAL EXAMINATION: VITAL SIGNS: As follows: Blood pressure 154/82, pulse 95, respiration 20, temperature 98.7, saturat ion 96%, height 6 feet and weight is 190 pounds. GENERAL: The patient is a 60-year-old elderly male, moderately built, moderately nourished, not in a cute distress. HEENT: Pupils normal, reactive to light and accommodation. Conjunctivae pink. Sclerae anicteric. Tongue is moist. NECK: Trachea midline. LUNGS: Symmetric on both sides. Bilateral breath sounds present. Bilateral rhonchi present. No cr ackles. CARDIOVASCULAR: [place] in the fifth intercostal space half inch middle to midclavicular line. S1 and S2 audible. No murmur or gallop. ABDOMEN: Normal in appearance, soft, tympanic. No guarding, no rigidity. No hepatosplenomegaly. CENTRAL NERVOUS SYSTEM: The patient is alert, awake, oriented x 3, nonfocal on examination. Cranial nerves II-XII grossly intact. Sensory and motor system is within normal limits. EXTREMITIES: No cyanosis, no clubbing, no edema. CURRENT MEDICATIONS: Include as follows: Albuterol inhaler, Avelox 400 mg q. 24 hours, DuoNeb inhal er, Florastor 250 mg p.o. b.i.d., folic acid 1 mg p.o. daily, subcutaneous heparin 5000 subQ q. 8 samaria rs, Mucomyst 10% 4 mL q.i.d., nystatin topical t.i.d., Zosyn 2.25 grams q. 6 hours, IV fluids, normal saline at 100 mL per hour, Synthroid 100 mcg p.o. daily, and Toprol-XL 25 mg p.o. daily, Tylenol, an d thiamine 100 mg p.o. daily. LABORATORY DATA: Include as follows: As of 08/09/2016, WBC 7.3, hemoglobin 12.3, hematocrit is 36. 4, platelet 178. A pH 7.43, pCO2 of 44, pO2 of 69, bicarbonate is 28.2, saturation 93% on high flow 70% FIO2. Sodium 139, potassium 3.4, chloride 100, CO2 of 27, BUN 94, creatinine 6.6, glucose 109, c alcium 7.1, total bilirubin 0.9, AST 169, ALT 97, alkaline phosphatase is 27 and CPK is 960 and total protein 6.2, albumin is 2.6. TSH is 17.2. Serum cortisol level is 44.8. His sputum for AFB x 2 ne gative so far. Chest x-ray as of 08/09/2016: Impression is interval worsening of hazy opacities in the left lung and right lower lung since the previous study. SUMMARY: The patient is a 60-year-old elderly male with recurrent falls and also cough, fever, short ness of breath with increased CPK levels and acute renal failure. 1. Acute renal failure, most likely secondary to acute tubular necrosis secondary to rhabdomyolysis and sepsis. 2. Multilobar pneumonia. 3. Rhabdomyolysis. CPK levels are improving. Continue IV fluids 100 mL per hour. Continue I V antibiotics as per ID recommendations, Avelox and Zosyn. If renal function continues to deteriorat e, this patient may need renal replacement therapy temporary dialysis. We will follow with you. Thank you for allowing me to participate in your patient's care. Edmund Kowalski MD cc: [id number] TT: 08/09/2016 20:14:13 Confirmation # [id number] Dictation # [id number] medardo
[2016-08-09] MEDS: Moxifloxacin IV 400mg/250ml NS 400 MG/250 ML BAG IVPB SCH (22:50)
[2016-08-10 00:19] LABS: T4 3.4 ug/dl (5.5-11.0)
[2016-08-10 05:03] LABS: HEMATOCRIT 35.8 % (35.0-51.0); MEAN CELL VOLUME 83.6 fl (80.0-94.0); MEAN CORPUSCULAR HEMOGLOBIN 28.1 pg (27.0-31.0); MEAN CORPUSCULAR HGB CONC 33.6 g/dL (33.0-37.0); RED CELL DISTRIBUTION WIDTH 14.8 % (11.5-14.5); WHITE BLOOD COUNT 9.5 K/uL (4.8-10.8)
[2016-08-10 05:10] LABS: ALB/GLOB RATIO 0.7 (1.0-2.1); BILIRUBIN,TOTAL 0.8 mg/dl (0.2-1.3); CALCIUM 7.2 mg/dL (8.4-10.2); POTASSIUM 3.7 MMOL/L (3.6-5.0); TOTAL PROTEIN 6.6 G/DL (6.3-8.2)
[2016-08-10] MEDS: Levothyroxine 100 MCG TAB PO SCH (06:26)
[2016-08-10] MEDS: Sodium Chloride 0.9% 1,000 ML IV SCH (07:19)
[2016-08-10] MEDS: Albuterol-Ipratrop 3 mg / 0.5 (3 ml) UD INH SCH ×4 (07:30→19:32)
[2016-08-10] MEDS: Acetylcysteine 10% 4 ML IH SCH ×4 (07:30→19:31)
[2016-08-10] MEDS: Saccharomyces Boulardi 250 mg Cap PO SCH ×2 (08:27→17:09)
[2016-08-10] MEDS: Metoprolol Succinate 25 mg XL Tab PO SCH (08:29)
--- NOTE | 2016-08-10 09:04 | CP.PCM.PN ---
Subjective - Date & Time of Evaluation Date of Evaluation: 08/10/16 Time of Evaluation: 09:03 - Subjective Subjective: pt seen and examined, follow up consult is dictated #[id number] will benefit from HD Objective - Vital Signs/Intake and Output Vital Signs (last 24 hours): Temp Pulse Resp BP Pulse Ox 99.1 F 96 H 14 151/86 H 95 08/10/16 07:25 08/10/16 08:29 08/10/16 07:30 08/10/16 08:29 08/10/16 07:25 Intake and Output: 08/10/16 08/10/16 06:59 18:59 Intake Total 1650 Balance 1650 - Medications Medications: Current Medications Acetaminophen (Tylenol 325mg Tab) 650 mg PO Q6 PRN PRN Reason: Fever >100.4 F Last Admin: 08/09/16 20:04 Dose: 650 mg Acetylcysteine (Mucomyst 10% 4ml) 2 ml IH RQID [facility] Albuterol Sulfate (Albuterol 0.083% Inhal Martita (2.5 Mg/3 Ml) Ud) 2.5 mg INH RQ4 PRN PRN Reason: Shortness of Breath Albuterol/Ipratropium (Duoneb 3 Mg/0.5 Mg (3 Ml) Ud) 3 ml INH RQID [facility] Last Admin: 08/10/16 07:30 Dose: 3 ml Folic Acid (Folic Acid) 1 mg PO DAILY [facility] Last Admin: 08/10/16 08:30 Dose: 1 mg Heparin Sodium (Porcine) (Heparin) 5,000 units SC Q12@0900,2100 [facility] PRN Reason: Protocol Last Admin: 08/10/16 08:32 Dose: Not Given Piperacillin Sod/Tazobactam (Sod 2.25 gm/ Sodium Chloride) 100 mls @ 100 mls/ hr IVPB Q6 [facility] Last Admin: 08/10/16 04:23 Dose: 100 mls/hr Moxifloxacin HCl (Avelox Iv 400mg/250ml Ns) 400 mg in 250 mls @ 250 mls/hr IVPB DAILY@2200 [facility] Last Admin: 08/09/16 22:50 Dose: 250 mls/hr Sodium Chloride (Sodium Chloride 0.9%) 1,000 mls @ 100 mls/hr IV .Q10H [facility] Stop: 08/10/16 11:27 Last Admin: 08/10/16 07:19 Dose: 100 mls/hr Levothyroxine Sodium (Synthroid) 100 mcg PO DAILY@0630 [facility] Last Admin: 08/10/16 06:26 Dose: 100 mcg Metoprolol Succinate (Toprol Xl) 25 mg PO DAILY [facility] Last Admin: 08/10/16 08:29 Dose: 25 mg Nystatin (Nystop Topical Powder) 1 applic TOP TID [facility] Last Admin: 08/10/16 08:29 Dose: 1 applic Saccharomyces Boulardii (Florastor) 250 mg PO BID [facility] Last Admin: 08/10/16 08:27 Dose: 250 mg Thiamine HCl (Vitamin B1 Tab) 100 mg PO DAILY [facility] Last Admin: 08/10/16 08:30 Dose: 100 mg - Labs Labs: 08/10/16 04:30 08/10/16 04:30 PT 10.6 SECONDS (9.6-11.2) 08/06/16 09:40 INR 1.02 (0.92-1.08) 08/06/16 09:40 APTT 36.0 SECONDS (23.3-32.5) H 08/06/16 09:40
--- NOTE | 2016-08-10 09:26 | CP.PCM.PN ---
Subjective - Date & Time of Evaluation Date of Evaluation: 08/10/16 Time of Evaluation: 08:45 - Subjective Subjective: Still febrile- low grade 100.6 Had long talk with pt regarding need for HD- pt now agress plan for temp HD catheter placement by IR then HD still with cough on High Flow oxygen at 70% FiO2 25 liters SOB better no CP no abd pain Objective - Vital Signs/Intake and Output Vital Signs (last 24 hours): Temp Pulse Resp BP Pulse Ox 99.1 F 96 H 14 151/86 H 95 08/10/16 07:25 08/10/16 08:29 08/10/16 07:30 08/10/16 08:29 08/10/16 07:25 Intake and Output: 08/10/16 08/10/16 06:59 18:59 Intake Total 1650 Balance 1650 - Medications Medications: Current Medications Acetaminophen (Tylenol 325mg Tab) 650 mg PO Q6 PRN PRN Reason: Fever >100.4 F Last Admin: 08/09/16 20:04 Dose: 650 mg Acetylcysteine (Mucomyst 10% 4ml) 2 ml IH RQID [facility] Albuterol Sulfate (Albuterol 0.083% Inhal Martita (2.5 Mg/3 Ml) Ud) 2.5 mg INH RQ4 PRN PRN Reason: Shortness of Breath Albuterol/Ipratropium (Duoneb 3 Mg/0.5 Mg (3 Ml) Ud) 3 ml INH RQID [facility] Last Admin: 08/10/16 07:30 Dose: 3 ml Folic Acid (Folic Acid) 1 mg PO DAILY [facility] Last Admin: 08/10/16 08:30 Dose: 1 mg Heparin Sodium (Porcine) (Heparin) 5,000 units SC Q12@0900,2100 [facility] PRN Reason: Protocol Last Admin: 08/10/16 08:32 Dose: Not Given Piperacillin Sod/Tazobactam (Sod 2.25 gm/ Sodium Chloride) 100 mls @ 100 mls/ hr IVPB Q6 [facility] Last Admin: 08/10/16 04:23 Dose: 100 mls/hr Moxifloxacin HCl (Avelox Iv 400mg/250ml Ns) 400 mg in 250 mls @ 250 mls/hr IVPB DAILY@2200 [facility] Last Admin: 08/09/16 22:50 Dose: 250 mls/hr Sodium Chloride (Sodium Chloride 0.9%) 1,000 mls @ 100 mls/hr IV .Q10H [facility] Stop: 08/10/16 11:27 Last Admin: 08/10/16 07:19 Dose: 100 mls/hr Levothyroxine Sodium (Synthroid) 100 mcg PO DAILY@0630 [facility] Last Admin: 08/10/16 06:26 Dose: 100 mcg Metoprolol Succinate (Toprol Xl) 25 mg PO DAILY [facility] Last Admin: 08/10/16 08:29 Dose: 25 mg Nystatin (Nystop Topical Powder) 1 applic TOP TID [facility] Last Admin: 08/10/16 08:29 Dose: 1 applic Saccharomyces Boulardii (Florastor) 250 mg PO BID [facility] Last Admin: 08/10/16 08:27 Dose: 250 mg Thiamine HCl (Vitamin B1 Tab) 100 mg PO DAILY [facility] Last Admin: 08/10/16 08:30 Dose: 100 mg - Labs Labs: 08/10/16 04:30 08/10/16 04:30 PT 10.6 SECONDS (9.6-11.2) 08/06/16 09:40 INR 1.02 (0.92-1.08) 08/06/16 09:40 APTT 36.0 SECONDS (23.3-32.5) H 08/06/16 09:40 - Constitutional Appears: No Acute Distress, Chronically Ill - Head Exam Head Exam: NORMAL INSPECTION, NORMOCEPHALIC - Eye Exam Eye Exam: Normal appearance, PERRL Pupil Exam: NORMAL ACCOMODATION - ENT Exam ENT Exam: Mucous Membranes Moist, Normal External Ear Exam - Neck Exam Neck Exam: Full ROM. absent: Meningismus - Respiratory Exam Respiratory Exam: Rales, Rhonchi. absent: Respiratory Distress Additional comments: On High Flow Oxygen - Cardiovascular Exam Cardiovascular Exam: REGULAR RHYTHM, +S1, +S2 - GI/Abdominal Exam GI & Abdominal Exam: Soft, Normal Bowel Sounds. absent: Tenderness - Extremities Exam Extremities Exam: Full ROM, Normal Capillary Refill. absent: Calf Tenderness - Back Exam Back Exam: Full ROM. absent: CVA tenderness (L), CVA tenderness (R), paraspinal tenderness, vertebral tenderness - Neurological Exam Neurological Exam: Alert, Awake, CN II-XII Intact, Oriented x3 Neuro motor strength exam: Left Upper Extremity: 5, Right Upper Extremity: 5, Left Lower Extremity: 5, Right Lower Extremity: 5 - Psychiatric Exam Psychiatric exam: Normal Affect, Normal Mood - Skin Skin Exam: Dry, Normal Color, Warm Assessment and Plan - Assessment and Plan (Free Text) Assessment: - Assessment and Plan (Free Text) Assessment: 60 years old male with no significant past medical hx was brought to the ED because of Generalized weakness, dizziness. He has been coughing for one month with brown sputum. No chest pain on coughing, no SOB and no fever. He Smokes one pack of cigarettes in 3 days with occasional Alcohol use. In the ED his Temp was 100.6F with HR of 123/min. CXR showed multifocal Pneumonia and BMP showed renal failure. Patient was admitted with sepsis ( POA) due to multifocal pneumonia and DYLLAN due to rhabdomyolysis . Pulmonary ID and nephro consulted . He was started on IVF and IV antibiotics. Was transferred to ICU for close monitoring due to AMS / confusion and respiratory distress. At present still on high flow 25LPM FIO2 70 % , more awake and less confused . 1. Sepsis sec to Pneumonia Patient still febrile Tmax 100.6 , procalcitonin 20 CT chest showed Large bilateral alveolar infiltrates as well as small bilateral pleural effusions. Mild mediastinal lymphadenopathy. on high flow O2 25 LPM on 70% FIO2 and O2 Sat 97 % Pulmonary and ID consulted Continue Zosyn, and Moxifloxacin . Given 1 dose of Vancomycin 1 G Iv and IV Clinda HIV and influenza - negative Follow up legionella Ag Mycoplasm IgM negative Continue duonebs, acetylcysteine 2. AMS/ Metabolic encephalopathy -improving most likely AMS multifactorial - due to sepsis, pneumonia, medication induced, renal failure Continue treatment for Pneumonia and sepsis Keep on High flow Aspiration precautions Hold Ativan 3. Acute Hypoxemic respiratory failure sec to CAP on High Flow Oxygen V/Q scan showed no PE Continue Zosyn , Moxifloxacin/ Given 1 dose Vancomycin IV on respiratory isolation to rule out TB. Follow up quantiferon AFB x 2 negative Pulmonary and ID on consult Cultures negative so far 4. Acute Renal Failure with metabolic acidosis Most likely ATN secondary to Rhabdomyolysis Kidney function worsening with BUN / Cr trending up HCO3 improving after D5W with HCO3 infusion started Dr Kowalski nephrology consulted- discussed case - rec HD Continue IVF with HCO3 Renal sonogram showed normal size and echogenecity and no obstruction I/O 3180/850 last 24 hours.Continue I/o monitoring IR for HD catheter placment will start HD today- pt now agrees to HD 5. Rhabdomyolysis CPK trending down Continue IVF and monitor renal function 4. Hypokalemia Repleted 5. Transaminitis unclear etiology on the admission was suspicious for ETOH abuse since AST more elevated than ALT but patient and cousin denied alcoholism Started MVI, folic acid and Thiamine Hepatitis profile- negative Abdominal US showed normal liver size and echogenecity Probably LFT elevation secondary to sepsis 7. Tremulousness- resolved patient and cousin denied ETOH abuse Abd Us showed no fatty or cirrhotic liver Continue Thiamine, Folate, MVI CT head showed no acute pathology 8. DVT prophylaxis Heparin 9. Hypothyroidism Endo consulted Started Synthroid 100 mcg
--- NOTE | 2016-08-10 09:34 | CP.CCUPN ---
Addendum entered and electronically signed by Angelica Gates MD 08/10/16 14:12 : Patient consented to right IJV catheter placement. Placement performed by IR and patient tolerated well. Plan for dialysis to be performed later today. Original Note: <Angelica Gates - Last Filed: 08/10/16 14:10> CCU Subjective - Physician Review Subjective (Free Text): 08/10/16 09:54 Patient seen and examined at bedside with attending. He reports improvement in breathing, feeling "much better" on high flow O2 @70%, however appears SOB during assessment. He also notes improvement in cough, with little sputum production overnight. Last fever noted yesterday evening of 100.4 at 20:04 and has remained afebrile since then. Discussed need for possible dialysis due to progressive renal dysfunction but patient refuses at this time citing "not wanting to howard into anything." Risks vs benefits discussed extensively, patient demonstrates understanding. He otherwise denies chest pain, abdominal pain, nausea or vomiting. CCU Objective - Vital Signs / Intake & Output Vital Signs (Last 4 hours): Vital Signs Temp Pulse Resp BP Pulse Ox 08/10/16 08:29 96 H 151/86 H 08/10/16 07:30 14 08/10/16 07:25 99.1 F 98 H 22 159/80 H 95 08/10/16 06:00 96 H 16 145/90 95 08/10/16 05:51 15 Intake and Output (Last 8hrs): Intake & Output 08/09/16 08/10/16 08/10/16 22:59 06:59 14:59 Intake Total 1250 1050 Output Total 200 Balance 1050 1050 Intake: IV 800 700 Intake, Piggyback 200 350 Oral 250 Output: Urine 200 Condom 200 Other: # Voids Condom 200 # Bowel Movements 1 - Physical Exam Head: Positive for: Atraumatic, Normocephalic Pupils: Positive for: PERRL Extroacular Muscles: Positive for: EOMI Conjunctiva: Positive for: Normal Mouth: Positive for: Dry, Other (Poor dentition. ) Respiratory/Chest: Positive for: Decreased Breath Sounds, Other (B/L air entry present however sounds are greatly diminished on left lung thibodeaux. Course breath sounds present b/l. ). Negative for: Accessory Muscle Use Cardiovascular: Positive for: Regular Rate and Rhythm, Normal S1, S2 Abdomen: Positive for: Normal Bowel Sounds. Negative for: Tenderness, Distention Upper Extremity: Positive for: Capillary Refill < 2s Lower Extremity: Positive for: Edema (Trace LE edema with no pitting noted. ). Negative for: CALF TENDERNESS Neurological: Positive for: CN II-XII Intact, Speech Normal Skin: Positive for: Warm, Diaphoretic Psychiatric: Positive for: Alert, Oriented x 3 - Medications Active Medications: Active Medications Generic Name Dose Route Start Last Admin Trade Name Freq PRN Reason Stop Dose Admin Acetaminophen 650 mg 08/05/16 21:29 08/09/16 20:04 Tylenol 325mg Tab PO 650 mg Q6 PRN Administration Fever >100.4 F Acetylcysteine 2 ml 08/10/16 12:00 Mucomyst 10% 4ml IH RQID [facility] Albuterol Sulfate 2.5 mg 08/06/16 12:39 Albuterol 0.083% Inhal Martita (2.5 Mg/3 Ml) Ud INH RQ4 PRN Shortness of Breath Albuterol/Ipratropium 3 ml 08/06/16 16:00 08/10/16 07:30 Duoneb 3 Mg/0.5 Mg (3 Ml) Ud INH 3 ml RQID [facility] Administration Folic Acid 1 mg 08/06/16 09:00 08/10/16 08:30 Folic Acid PO 1 mg DAILY [facility] Administration Heparin Sodium (Porcine) 5,000 units 08/09/16 21:00 08/10/16 08:32 Heparin SC Not Given Q12@0900,2100 [facility] Protocol Piperacillin Sod/Tazobactam 100 mls @ 100 mls/hr 08/06/16 10:00 08/10/16 04: 23 Sod 2.25 gm/ Sodium Chloride IVPB 100 mls/hr Q6 [facility] Administration Moxifloxacin HCl 400 mg in 250 mls @ 250 mls/hr 08/08/16 22:00 08/09/16 22:50 Avelox Iv 400mg/250ml Ns IVPB 250 mls/hr DAILY@2200 [facility] Administration Sodium Chloride 1,000 mls @ 100 mls/hr 08/09/16 11:30 08/10/16 07:19 Sodium Chloride 0.9% IV 08/10/16 11:27 100 mls/hr .Q10H [facility] Administration Levothyroxine Sodium 100 mcg 08/10/16 06:30 08/10/16 06:26 Synthroid PO 100 mcg DAILY@0630 [facility] Administration Metoprolol Succinate 25 mg 08/06/16 12:15 08/10/16 08:29 Toprol Xl PO 25 mg DAILY [facility] Administration Nystatin 1 applic 08/09/16 13:00 08/10/16 08:29 Nystop Topical Powder TOP 1 applic TID [facility] Administration Saccharomyces Boulardii 250 mg 08/07/16 17:00 08/10/16 08:27 Florastor PO 250 mg BID [facility] Administration Thiamine HCl 100 mg 08/06/16 09:00 08/10/16 08:30 Vitamin B1 Tab PO 100 mg DAILY [facility] Administration - Patient Studies Lab Studies: Microbiology Studies 08/08/16 16:55 Blood Culture - Preliminary Blood-Venous NO GROWTH AFTER 24 HOURS 08/08/16 16:30 Blood Culture - Preliminary Blood-Venous NO GROWTH AFTER 24 HOURS 08/07/16 16:00 Blood Culture - Preliminary Blood NO GROWTH AFTER 48 HOURS 08/07/16 16:00 Blood Culture - Preliminary Blood NO GROWTH AFTER 48 HOURS 08/08/16 14:30 Mycobacterial Culture - Preliminary Other: Please Indicate 08/07/16 07:40 MRSA Culture (Admit) - Final Naris MRSA NOT DETECTED Lab Studies 08/10/16 08/10/16 08/09/16 Range/Units 04:30 04:30 04:30 WBC 9.5 (4.8-10.8) K/uL RBC 4.29 L (4.40-5.90) Mil/uL Hgb 12.0 (12.0-18.0) g/dL Hct 35.8 (35.0-51.0) % MCV 83.6 (80.0-94.0) fl MCH 28.1 (27.0-31.0) pg MCHC 33.6 (33.0-37.0) g/dL RDW 14.8 H (11.5-14.5) % Plt Count 245 (130-400) K/uL Sodium 141 (132-148) mmol/l Potassium 3.7 (3.6-5.0) MMOL/L Chloride 98 (98-107) mmol/L Carbon Dioxide 26 (22-30) mmol/L Anion Gap 20 (10-20) BUN 102 H* (9-20) mg/dl Creatinine 8.2 H* D (0.8-1.5) mg/dL Est GFR ( Amer) 8 Est GFR (Non-Af Amer) 7 Random Glucose 89 (75-110) mg/dL Calcium 7.2 L (8.4-10.2) mg/dL Total Bilirubin 0.8 (0.2-1.3) mg/dl AST 245 H D (17-59) U/L ALT 116 H D (21-72) U/L Alkaline Phosphatase 38 D (38-126) U/L Total Protein 6.6 (6.3-8.2) G/DL Albumin 2.7 L (3.5-5.0) g/dL Globulin 3.8 (2.2-3.9) gm/dL Albumin/Globulin Ratio 0.7 L (1.0-2.1) Free T4 0.89 (0.78-2.19) ng/dL Thyroxine (T4) (5.5-11.0) ug/dl Cortisol AM Sample (4.46-22.7) ug/dL 08/09/16 Range/Units 04:30 WBC (4.8-10.8) K/uL RBC (4.40-5.90) Mil/uL Hgb (12.0-18.0) g/dL Hct (35.0-51.0) % MCV (80.0-94.0) fl MCH (27.0-31.0) pg MCHC (33.0-37.0) g/dL RDW (11.5-14.5) % Plt Count (130-400) K/uL Sodium (132-148) mmol/l Potassium (3.6-5.0) MMOL/L Chloride (98-107) mmol/L Carbon Dioxide (22-30) mmol/L Anion Gap (10-20) BUN (9-20) mg/dl Creatinine (0.8-1.5) mg/dL Est GFR ( Amer) Est GFR (Non-Af Amer) Random Glucose (75-110) mg/dL Calcium (8.4-10.2) mg/dL Total Bilirubin (0.2-1.3) mg/dl AST (17-59) U/L ALT (21-72) U/L Alkaline Phosphatase (38-126) U/L Total Protein (6.3-8.2) G/DL Albumin (3.5-5.0) g/dL Globulin (2.2-3.9) gm/dL Albumin/Globulin Ratio (1.0-2.1) Free T4 (0.78-2.19) ng/dL Thyroxine (T4) 3.40 L (5.5-11.0) ug/dl Cortisol AM Sample 44.8 H (4.46-22.7) ug/dL Laboratory Results - last 24 hr 08/09/16 08/09/16 08/10/16 04:30 04:30 04:30 WBC 9.5 RBC 4.29 L Hgb 12.0 Hct 35.8 MCV 83.6 MCH 28.1 MCHC 33.6 RDW 14.8 H Plt Count 245 Sodium Potassium Chloride Carbon Dioxide Anion Gap BUN Creatinine Est GFR ( Amer) Est GFR (Non-Af Amer) Random Glucose Calcium Total Bilirubin AST ALT Alkaline Phosphatase Total Protein Albumin Globulin Albumin/Globulin Ratio Free T4 0.89 Thyroxine (T4) 3.40 L Cortisol AM Sample 44.8 H 08/10/16 04:30 WBC RBC Hgb Hct MCV MCH MCHC RDW Plt Count Sodium 141 Potassium 3.7 Chloride 98 Carbon Dioxide 26 Anion Gap 20 BUN 102 H* Creatinine 8.2 H* D Est GFR ( Amer) 8 Est GFR (Non-Af Amer) 7 Random Glucose 89 Calcium 7.2 L Total Bilirubin 0.8 AST 245 H D ALT 116 H D Alkaline Phosphatase 38 D Total Protein 6.6 Albumin 2.7 L Globulin 3.8 Albumin/Globulin Ratio 0.7 L Free T4 Thyroxine (T4) Cortisol AM Sample Review of Systems - Constitutional Constitutional: Fever. absent: Chills - Cardiovascular Cardiovascular: absent: Chest Pain, Leg Edema, Palpitations - Respiratory Respiratory: As Per HPI, Cough (wet sounding, minimally productive), Chest Congestion. absent: Hemoptysis - Gastrointestinal Gastrointestinal: absent: Abdominal Pain, Nausea, Vomiting - Neurological Neurological: Dizziness. absent: Focal Weakness, Headaches Critical Care Progress Note - Nutrition Nutrition: Nutrition Category Date Time Status Renal Diet [DIET] Diets 08/08/16 Lunch Active Assessment/Plan - Assessment and Plan (Free Text) Assessment: 60 y/o homeless male with unremarkable PMH admitted with multilobular pneumonia and rhabdomyolysis. Currently being treated for acute hypoxic acute respiratory failure and acute kidney injury. Plan: Acute respiratory failure with hypoxia secondary to multifocal community acquired pneumonia -CT chest from 08/07/16 identified large left upper lobe pneumonia with extensive consolidation in addition to a large alveolar infiltrate with consolidation of the right middle lobe -CXR from 08/09/16 revealed worsening hazy opacities at the left lung and right lower lung from previous study -Patient currently saturating at 94-95% on high flow oxygen @70% -WBC: 9.5, currently afebrile. Tmax 24h: 100.4 on 08/09/16 @20:04 -AFB smear negative x2 -Pulmonology consulted. Will consider bronchoscopy if fevers continue or CXR worsens. -Continue duonebs QID -On Avelox 400mg IV daily (Started 08/08/16, Current day 3), Zosyn 2.25gm IV Q6h (Started 08/06/16, Current day 5) Acute Kidney Injury -Likely due to acute tubular necrosis secondary to rhabdomyolysis and sepsis -Cr trending upward 5.3 > 6.6 > 8.2 -CK has been improving -Niru cesar I/Os -Patient would benefit from dialysis, however refusing at this time despite discussion of risks vs benefits Rhabdomyolysis -Undetermined etiology (denies trauma or exertional history) -CK levels improving 20277 > 960 -Continue IVF @100cc/hr and follow CK Hypothyroidism -TSH 17.2 on 08/09/16 -Endocrine consulted and levothyroxine titrated up from 75mcg to 100mcg PO daily DVT Prophylaxis -Heparin 5,000 units SC Q12 Advanced Directive -Full code -Patient is sole decision maker <Jass Randall V - Last Filed: 08/10/16 14:45> CCU Subjective - Physician Review Events Since Last Encounter (Free Text): 08/10/16 14:43 patient is seen and evaluated at bedside.case discussed in am rounds with multidisciplinary team . agree with plan of care as detailed in residn'ts note CCU Objective - Vital Signs / Intake & Output Vital Signs (Last 4 hours): Vital Signs Temp Pulse Resp BP Pulse Ox 08/10/16 12:16 100.6 F H 08/10/16 12:00 100.6 F H 92 H 12 141/85 93 L 08/10/16 11:58 98.5 F 95 H 12 125/74 95 08/10/16 11:28 16 08/10/16 10:53 101.2 F H 96 H 22 145/88 93 L Intake and Output (Last 8hrs): Intake & Output 08/09/16 08/10/16 08/10/16 22:59 06:59 14:59 Intake Total 1250 1050 980 Output Total 200 150 Balance 1050 1050 830 Intake: IV 800 700 600 Intake, Piggyback 200 350 100 Oral 250 280 Output: Urine 200 70 Condom 200 70 Stool 80 Other: # Voids Condom 200 # Bowel Movements 1 1 - Medications Active Medications: Active Medications Generic Name Dose Route Start Last Admin Trade Name Freq PRN Reason Stop Dose Admin Acetaminophen 650 mg 08/05/16 21:29 08/10/16 12:16 Tylenol 325mg Tab PO 650 mg Q6 PRN Administration Fever >100.4 F Acetylcysteine 2 ml 08/10/16 12:00 08/10/16 11:28 Mucomyst 10% 4ml IH 2 ml RQID [facility] Administration Albuterol Sulfate 2.5 mg 08/06/16 12:39 Albuterol 0.083% Inhal Martita (2.5 Mg/3 Ml) Ud INH RQ4 PRN Shortness of Breath Albuterol/Ipratropium 3 ml 08/06/16 16:00 08/10/16 11:28 Duoneb 3 Mg/0.5 Mg (3 Ml) Ud INH 3 ml RQID [facility] Administration Folic Acid 1 mg 08/06/16 09:00 08/10/16 08:30 Folic Acid PO 1 mg DAILY [facility] Administration Heparin Sodium (Porcine) 5,000 units 08/09/16 21:00 08/10/16 08:32 Heparin SC Not Given Q12@0900,2100 [facility] Protocol Piperacillin Sod/Tazobactam 100 mls @ 100 mls/hr 08/06/16 10:00 08/10/16 09: 46 Sod 2.25 gm/ Sodium Chloride IVPB 100 mls/hr Q6 [facility] Administration Moxifloxacin HCl 400 mg in 250 mls @ 250 mls/hr 08/08/16 22:00 08/09/16 22:50 Avelox Iv 400mg/250ml Ns IVPB 250 mls/hr DAILY@2200 [facility] Administration Levothyroxine Sodium 100 mcg 08/10/16 06:30 08/10/16 06:26 Synthroid PO 100 mcg DAILY@0630 [facility] Administration Metoprolol Succinate 25 mg 08/06/16 12:15 08/10/16 08:29 Toprol Xl PO 25 mg DAILY [facility] Administration Nystatin 1 applic 08/09/16 13:00 08/10/16 12:16 Nystop Topical Powder TOP 1 applic TID [facility] Administration Saccharomyces Boulardii 250 mg 08/07/16 17:00 08/10/16 08:27 Florastor PO 250 mg BID [facility] Administration Thiamine HCl 100 mg 08/06/16 09:00 08/10/16 08:30 Vitamin B1 Tab PO 100 mg DAILY [facility] Administration - Patient Studies Lab Studies: Microbiology Studies 08/08/16 16:50 Gram Stain - Final Sputum Sputum Culture - Final Yeast Species 08/08/16 16:55 Blood Culture - Preliminary Blood-Venous NO GROWTH AFTER 24 HOURS 08/08/16 16:30 Blood Culture - Preliminary Blood-Venous NO GROWTH AFTER 24 HOURS 08/07/16 16:00 Blood Culture - Preliminary Blood NO GROWTH AFTER 48 HOURS 08/07/16 16:00 Blood Culture - Preliminary Blood NO GROWTH AFTER 48 HOURS 08/08/16 14:30 Mycobacterial Culture - Preliminary Other: Please Indicate Lab Studies 08/10/16 08/10/16 08/09/16 Range/Units 04:30 04:30 04:30 WBC 9.5 (4.8-10.8) K/uL RBC 4.29 L (4.40-5.90) Mil/uL Hgb 12.0 (12.0-18.0) g/dL Hct 35.8 (35.0-51.0) % MCV 83.6 (80.0-94.0) fl MCH 28.1 (27.0-31.0) pg MCHC 33.6 (33.0-37.0) g/dL RDW 14.8 H (11.5-14.5) % Plt Count 245 (130-400) K/uL Sodium 141 (132-148) mmol/l Potassium 3.7 (3.6-5.0) MMOL/L Chloride 98 (98-107) mmol/L Carbon Dioxide 26 (22-30) mmol/L Anion Gap 20 (10-20) BUN 102 H* (9-20) mg/dl Creatinine 8.2 H* D (0.8-1.5) mg/dL Est GFR ( Amer) 8 Est GFR (Non-Af Amer) 7 Random Glucose 89 (75-110) mg/dL Calcium 7.2 L (8.4-10.2) mg/dL Total Bilirubin 0.8 (0.2-1.3) mg/dl AST 245 H D (17-59) U/L ALT 116 H D (21-72) U/L Alkaline Phosphatase 38 D (38-126) U/L Total Protein 6.6 (6.3-8.2) G/DL Albumin 2.7 L (3.5-5.0) g/dL Globulin 3.8 (2.2-3.9) gm/dL Albumin/Globulin Ratio 0.7 L (1.0-2.1) Thyroxine (T4) 3.40 L (5.5-11.0) ug/dl Cortisol AM Sample 44.8 H (4.46-22.7) ug/dL Laboratory Results - last 24 hr 08/09/16 08/10/16 08/10/16 04:30 04:30 04:30 WBC 9.5 RBC 4.29 L Hgb 12.0 Hct 35.8 MCV 83.6 MCH 28.1 MCHC 33.6 RDW 14.8 H Plt Count 245 Sodium 141 Potassium 3.7 Chloride 98 Carbon Dioxide 26 Anion Gap 20 BUN 102 H* Creatinine 8.2 H* D Est GFR ( Amer) 8 Est GFR (Non-Af Amer) 7 Random Glucose 89 Calcium 7.2 L Total Bilirubin 0.8 AST 245 H D ALT 116 H D Alkaline Phosphatase 38 D Total Protein 6.6 Albumin 2.7 L Globulin 3.8 Albumin/Globulin Ratio 0.7 L Thyroxine (T4) 3.40 L Cortisol AM Sample 44.8 H Critical Care Progress Note - Nutrition Nutrition: Nutrition Category Date Time Status Renal Diet [DIET] Diets 08/08/16 Lunch Active
--- NOTE | 2016-08-10 09:38 | CP.PCM.PN ---
Subjective - Date & Time of Evaluation Date of Evaluation: 08/10/16 Time of Evaluation: 09:36 - Subjective Subjective: Seen on AM rounds in the ICU. Continues to have temp spikes overnight, but these have gradually become less elevated. Sputum AFB smears are negative x 2. Still has no elevation of WBC. Portable CXR yesterday showed dense consolidation in the right base and throughout the left lung. On High Flow nasal O2 of 70% the SpO2 is bonly 94%. Seen together with nephrology this morning. Not overtly SOB at rest. + recruitment, no IC retractions. Breath sounds are present bilaterally with prolonged E phase and rhonchi bilaterally. Moderate low-pitched E wheezing heard bilaterally. Dependant fine to medium rales bilaterally. No bronchial breath sounds or egophony. Will repeat procalcitonin today; CBC, ESR and CXR in the AM. If fevers continue, or CXR worsens plan bronchoscopy. Discontinue respiratory isolation. Objective - Vital Signs/Intake and Output Vital Signs (last 24 hours): Temp Pulse Resp BP Pulse Ox 99.1 F 96 H 14 151/86 H 95 08/10/16 07:25 08/10/16 08:29 08/10/16 07:30 08/10/16 08:29 08/10/16 07:25 Intake and Output: 08/09/16 08/10/16 23:59 11:59 Intake Total 1750 1050 Output Total 300 Balance 1450 1050 - Medications Medications: Current Medications Acetaminophen (Tylenol 325mg Tab) 650 mg PO Q6 PRN PRN Reason: Fever >100.4 F Last Admin: 08/09/16 20:04 Dose: 650 mg Acetylcysteine (Mucomyst 10% 4ml) 2 ml IH RQID [facility] Albuterol Sulfate (Albuterol 0.083% Inhal Martita (2.5 Mg/3 Ml) Ud) 2.5 mg INH RQ4 PRN PRN Reason: Shortness of Breath Albuterol/Ipratropium (Duoneb 3 Mg/0.5 Mg (3 Ml) Ud) 3 ml INH RQID [facility] Last Admin: 08/10/16 07:30 Dose: 3 ml Folic Acid (Folic Acid) 1 mg PO DAILY [facility] Last Admin: 08/10/16 08:30 Dose: 1 mg Heparin Sodium (Porcine) (Heparin) 5,000 units SC Q12@0900,2100 [facility] PRN Reason: Protocol Last Admin: 08/10/16 08:32 Dose: Not Given Piperacillin Sod/Tazobactam (Sod 2.25 gm/ Sodium Chloride) 100 mls @ 100 mls/ hr IVPB Q6 [facility] Last Admin: 08/10/16 04:23 Dose: 100 mls/hr Moxifloxacin HCl (Avelox Iv 400mg/250ml Ns) 400 mg in 250 mls @ 250 mls/hr IVPB DAILY@2200 [facility] Last Admin: 08/09/16 22:50 Dose: 250 mls/hr Sodium Chloride (Sodium Chloride 0.9%) 1,000 mls @ 100 mls/hr IV .Q10H [facility] Stop: 08/10/16 11:27 Last Admin: 08/10/16 07:19 Dose: 100 mls/hr Levothyroxine Sodium (Synthroid) 100 mcg PO DAILY@0630 [facility] Last Admin: 08/10/16 06:26 Dose: 100 mcg Metoprolol Succinate (Toprol Xl) 25 mg PO DAILY [facility] Last Admin: 08/10/16 08:29 Dose: 25 mg Nystatin (Nystop Topical Powder) 1 applic TOP TID [facility] Last Admin: 08/10/16 08:29 Dose: 1 applic Saccharomyces Boulardii (Florastor) 250 mg PO BID [facility] Last Admin: 08/10/16 08:27 Dose: 250 mg Thiamine HCl (Vitamin B1 Tab) 100 mg PO DAILY [facility] Last Admin: 08/10/16 08:30 Dose: 100 mg - Labs Labs: 08/10/16 04:30 08/10/16 04:30 PT 10.6 SECONDS (9.6-11.2) 08/06/16 09:40 INR 1.02 (0.92-1.08) 08/06/16 09:40 APTT 36.0 SECONDS (23.3-32.5) H 08/06/16 09:40 Assessment and Plan (1) Acute renal failure (ARF) Status: Acute (2) Rhabdomyolysis Status: Suspected (3) Pneumonia Status: Acute
[2016-08-10] MEDS ORDERED: Lidocaine 1% Inj (20ml) ONE (10:05)
--- NOTE | 2016-08-10 11:04 | PCM.SURG1 ---
Surgeon's Initial Post Op Note - Surgeon's Notes Surgeon: Ole Fried MD Social Psychologist: NONE Type of Anesthesia: Local Pre-Operative Diagnosis: Renal failure Operative Findings: US showed a patent right IJV. Post-Operative Diagnosis: Renal failure Operation Performed: Non-tunneled HD catheter placement right IJV. Tip in SVC. Specimen/Specimens Removed: NONE Estimated Blood Loss: EBL {In ML}: 1 Blood Products Given: N/A Drains Used: No Drains Post-Op Condition: Poor Date of Surgery/Procedure: 08/10/16 Time of Surgery/Procedure: 11:00
--- NOTE | 2016-08-10 13:54 | VASCULAR ---
PROCEDURE: Date of procedure: 08/10/2016 Procedure: Placement of a non tunneled hemodialysis catheter, CPT 68502 Medications: 6cc 1 percent lidocaine Radiation: 2.44 MGy Fluoro time: 24.2 seconds Images saved: 2 HISTORY: Acute renal failure TECHNIQUE: Following informed consent, the patient's right neck was prepped and draped in the usual sterile fashion. Ultrasound showed a patent and compressible right internal jugular vein. After the skin was anesthetized with 1% lidocaine, the internal jugular vein was accessed under direct ultrasound guidance with micropuncture technique and a guidewire was advanced under fluorospocic guidance into the SVC. The venotomy was then dilated to accommodate a non tunneled 15 hemodialysis catheter. An image documenting ultrasound guidance for vascular access was permanently saved. The catheter was tested and has adequate blood return for hemodialysis. The catheter was flushed and loaded with heparin per specified amounts. The catheter was secured to patient's skin. A dressing was applied. Post procedure chest x-ray showed a hemodialysis catheter at the caval atrial junction. IMPRESSION: Placement of a non tunneled 15 centimeter hemodialysis catheter via the right internal jugular vein. The tip of the catheter was confirmed with a postoperative chest x-ray and is at the superior vena cava-cavoatrial junction. The catheter is functional ready for use.
--- NOTE | 2016-08-10 15:31 | PN ---
DATE: 08/10/2016 LOCATION: ICU, 433. This is a 60-year-old male with generalized body weakness and progressive shortness of breath and meño luated to have multilobar pneumonia and is currently receiving IV antibiotics and closer hemodynamic monitoring in the ICU as noted. He also had an incidental finding of overt hypothyroidism, most like ly related to underlying autoimmune thyroiditis. His latest chemistry showed a BUN of 102, sodium 141, potassium 3.7, chloride 98, CO2 26, glucose 89, and creatinine 8.2. He also has advanced renal failure with progressive azotemia as noted thereof. His latest thyroid study showed a T4 of 3.40 with a TSH of 17.20 and a cortisol level of 44.8 mcg/dL . So at this time, will continue the same levothyroxine dosing given at the modified level of 100 mcg o nce daily before breakfast as ordered. Will titrate incrementally as indicated to optimize metabolic control. Will follow and advise accordingly. Tara Smith MD cc: [id number] TT: 08/10/2016 15:30:13 Confirmation # [id number] Dictation # [id number] mn
--- NOTE | 2016-08-10 20:26 | PN ---
DATE: 08/10/2016 The patient is located in room 433, bed 1. REQUESTED BY: Dr. Diana Lockhart. REASON FOR FOLLOWUP: Acute renal failure, multilobar pneumonia and for possible hemodialysis. HISTORY OF PRESENT ILLNESS: The patient is a 60-year-old elderly male with history of smok ing, occasional alcohol use, was admitted with fever, cough, shortness of breath and recurrent falls and found to have elevated CPK levels on admission to the floor and also increased BUN and creatinine . The patient was also found to have multilobar pneumonia which is getting worse and subsequently th e patient was transferred to ICU. The patient was found to have worsening renal function since admis ray to the hospital. The patient was found to have worsening renal function and BUN more than 100, creatinine more than 8, and discussed with the patient for possible need for hemodialysis and ____ he modialysis. The patient initially wanted to think about dialysis and later on patient agreed for trip lysis and underwent a temporary catheter placement by interventional radiologist. The patient was no t in acute distress. Denies any chest pain or palpitation. Denies any abdominal pain. Denies any s welling of the legs. PHYSICAL EXAMINATION: VITAL SIGNS: As follows: Blood pressure this morning 151/86, pulse 96, respirations 19, saturation 9 3% on high flow FIO2 70%, T-max is 100.4. GENERAL: The patient is a 60-year-old elderly male, moderately built, moderately nourished, not in a cute distress. HEENT: Pupils normal, reactive to light and accommodation. Conjunctivae pink. Sclerae anicteric. Tongue is moist. NECK: Trachea is midline. LUNGS: Symmetric on both sides. Bilateral breath sounds present. Bilateral rhonchi present. Occas ional left basal crackles present. CARDIOVASCULAR: [place] in the fifth intercostal space midclavicular line. S1 and S2 audible. No murm ur or gallop. ABDOMEN: Normal in appearance, soft, tympanic. No guarding, no rigidity. No hepatosplenomegaly. CENTRAL NERVOUS SYSTEM: The patient is alert, awake, oriented x 2-3. Sensory and motor system is gr ossly within normal limits. EXTREMITIES: No cyanosis, no clubbing, no edema of lower extremities. The patient has edema of the upper extremities present ____. CURRENT MEDICATIONS: Include as follows: Albuterol inhaler, Avelox 400 mg IV q. 24 hours, DuoNeb in haler, Florastor 250 mg p.o. b.i.d., folic acid 1 mg p.o. daily, subcutaneous heparin 5000 q. 12 hour s, Mucomyst inhaler, nystatin topical applied t.i.d., Zosyn 2.25 grams q. 6 hours, Zosyn 2.25 g q. 6 hours, Synthroid 100 mcg p.o. daily, Toprol-XL 25 mg p.o. daily, Tylenol, thiamine 100 mg p.o. daily . LABORATORY DATA: Includes as follows: As of 08/10/2016, WBC 9.4, hemoglobin 12, hematocrit is 35.8, p latelets 245. ABG as of 08/09/2016, pH 7.43, pCO2 of 44, pO2 69, bicarbonate is 28.2, saturation 93%. His CMP as of 08/10/2016, sodium 141, potassium 3.7, chloride 90, CO2 26, BUN 102, creatinine 8.2. Gl ucose 89 and calcium 7.2, total bilirubin 0.8, AST 240, ALT 116, CPK 38 and total protein 6.6, albumi n is 2.7. Procalcitonin 9.85. TSH is 17.2 and serum cortisol 44.8. Peroxidase antibody is 330 and thyroglobulin antibody 24. Sputum culture positive for yeast. Blood culture as of 07/29/2016, negati ve day 2. AFB sputum x 2 is negative. SUMMARY: The patient is a 60-year-old elderly male with a history of smoking, occasional a lcohol use, who was admitted with cough, shortness of breath, fever and bilateral infiltrates and ___ _ renal function and found to have elevated CPK and renal function is deteriorating since admission. BUN more than 100 and creatinine more than 8.5 with a urine output about 600 mL in 24 hours. 1. Acute renal failure, most likely secondary to acute tubular necrosis secondary to rhabdomyolysis secondary to sepsis. 2. Bilateral pneumonia, etiology is not clear, rule out aspiration pneumonia. 3. Status post rhabdomyolysis. CPK level is improving. PLAN: Discussed with the patient regarding possible need for hemodialysis and now patient agrees for hemodialysis and underwent a Mo catheter placement by interventional radiology this morning and we will schedule for hemodialysis today and tomorrow, and also we will discontinue IV fluids. Yefri nue IV antibiotics as per ID recommendations. Discussed with employment officer, Dr. Sweeney, on rounds and also Dr. Diana Lockhart on rounds, and also collar baster jumpbasting, Dr. Ward, on rounds. For HD today and edward rrow. Thank you for allowing me to participate in your patient's care. Edmund Kowalski MD cc: [id number] TT: 08/10/2016 20:26:03 Confirmation # [id number] Dictation # [id number] rn
[2016-08-10] MEDS: Moxifloxacin IV 400mg/250ml NS 400 MG/250 ML BAG IVPB SCH (21:03)
[2016-08-11] MEDS ORDERED: Sodium Chloride 0.9% 1,000 ML IV SCH ×2 (02:15→02:30)
[2016-08-11 05:33] LABS: BASO % 0.4 % (0.0-2.0); EOS # 0.1 K/uL (0.0-0.7); EOS % 0.8 % (0.0-4.0); HEMATOCRIT 35.2 % (35.0-51.0); LYMPH # 0.5 K/uL (1.0-4.3); LYMPH % 5.7 % (20.0-40.0); MEAN CELL VOLUME 83.3 fl (80.0-94.0); MEAN CORPUSCULAR HEMOGLOBIN 27.8 pg (27.0-31.0); MEAN CORPUSCULAR HGB CONC 33.4 g/dL (33.0-37.0); MEAN PLATELET VOLUME 8.2 fl (7.2-11.7); MONO # 0.4 K/uL (0.0-0.8); MONO % 4.3 % (0.0-10.0); NEUT # 7.8 K/uL (1.8-7.0); NEUT % 88.8 % (50.0-75.0); PLATELET COUNT 307 K/uL (130-400); RED CELL DISTRIBUTION WIDTH 14.8 % (11.5-14.5); WHITE BLOOD COUNT 8.8 K/uL (4.8-10.8)
[2016-08-11] MEDS: Levothyroxine 100 MCG TAB PO SCH (05:39)
[2016-08-11 05:41] LABS: PARTIAL THROMBOPLASTIN TIME 35.1 SECONDS (23.3-32.5)
[2016-08-11 05:43] LABS: ALB/GLOB RATIO 0.7 (1.0-2.1); BILIRUBIN,TOTAL 0.8 mg/dl (0.2-1.3); CALCIUM 7.1 mg/dL (8.4-10.2); POTASSIUM 3.6 MMOL/L (3.6-5.0); TOTAL PROTEIN 6.7 G/DL (6.3-8.2)
[2016-08-11 06:16] LABS: ERYTHROCYTE SEDIMENTATION RATE 100 mm/hr (0-20)
[2016-08-11 06:58] LABS: BASOPHIL 1 % (0-2); EOSINOPHIL 1 % (0-7); MYELOCYTE 1 % (0-0); NEUTROPHIL 85 % (42-75); TOTAL CELLS COUNTED 100
[2016-08-11 07:00] LABS: GIANT PLATELETS PRESENT
[2016-08-11] MEDS: Albuterol-Ipratrop 3 mg / 0.5 (3 ml) UD INH SCH ×4 (07:48→19:16)
[2016-08-11] MEDS: Acetylcysteine 10% 4 ML IH SCH ×4 (08:00→19:16)
--- NOTE | 2016-08-11 08:38 | CP.PCM.PN ---
Subjective - Date & Time of Evaluation Date of Evaluation: 08/11/16 Time of Evaluation: 08:31 - Subjective Subjective: Sitting up in bedside chair. On High Flow O2 at 70%/25L, SpO2 95%. Awake and cooperative with exam. Occasional sputum expectoration, clear as per patient. CXR this AM slightly decreased infiltrates at best. Had HD last night with removal of 2L fluid. Dullness on chest percussion in the LLL posteriorly. Harsh breath sounds with low pitched E wheezes bilaterally. No bronchial breath sounds or egophony.. Few medium rales in the lower lobes laterally. Quantiferon and legionella still pending. Procalcitonin has decreased from 26 to 9. For repeat dialysis today. Continue present antibiotic and nebulizer regimen. Tried calling lab twice for results; no one answered. Objective - Vital Signs/Intake and Output Vital Signs (last 24 hours): Temp Pulse Resp BP Pulse Ox 99 F 84 27 H 145/81 98 08/11/16 08:00 08/11/16 08:00 08/11/16 08:00 08/11/16 08:00 08/11/16 08:00 Intake and Output: 08/10/16 08/11/16 23:59 11:59 Intake Total 1730 1050 Output Total 70 2105 Balance 1660 -1055 - Medications Medications: Current Medications Acetaminophen (Tylenol 325mg Tab) 650 mg PO Q6 PRN PRN Reason: Fever >100.4 F Last Admin: 08/10/16 12:16 Dose: 650 mg Acetylcysteine (Mucomyst 10% 4ml) 2 ml IH RQID [facility] Last Admin: 08/10/16 19:31 Dose: 2 ml Albuterol Sulfate (Albuterol 0.083% Inhal Martita (2.5 Mg/3 Ml) Ud) 2.5 mg INH RQ4 PRN PRN Reason: Shortness of Breath Last Admin: 08/11/16 04:52 Dose: 2.5 mg Albuterol/Ipratropium (Duoneb 3 Mg/0.5 Mg (3 Ml) Ud) 3 ml INH RQID [facility] Last Admin: 08/11/16 07:48 Dose: 3 ml Folic Acid (Folic Acid) 1 mg PO DAILY [facility] Last Admin: 08/10/16 08:30 Dose: 1 mg Heparin Sodium (Porcine) (Heparin) 5,000 units SC Q12@0900,2100 [facility] PRN Reason: Protocol Last Admin: 08/10/16 21:03 Dose: 5,000 units Piperacillin Sod/Tazobactam (Sod 2.25 gm/ Sodium Chloride) 100 mls @ 100 mls/ hr IVPB Q6 [facility] Last Admin: 08/11/16 04:01 Dose: 100 mls/hr Moxifloxacin HCl (Avelox Iv 400mg/250ml Ns) 400 mg in 250 mls @ 250 mls/hr IVPB DAILY@2200 [facility] Last Admin: 08/10/16 21:03 Dose: 250 mls/hr Sodium Chloride (Sodium Chloride 0.9%) 1,000 mls @ 100 mls/hr IV .Q10H [facility] Stop: 08/11/16 12:29 Last Admin: 08/11/16 02:19 Dose: 100 mls/hr Levothyroxine Sodium (Synthroid) 100 mcg PO DAILY@0630 [facility] Last Admin: 08/11/16 05:39 Dose: 100 mcg Metoprolol Succinate (Toprol Xl) 25 mg PO DAILY [facility] Last Admin: 08/10/16 08:29 Dose: 25 mg Nystatin (Nystop Topical Powder) 1 applic TOP TID [facility] Last Admin: 08/10/16 17:09 Dose: 1 applic Saccharomyces Boulardii (Florastor) 250 mg PO BID [facility] Last Admin: 08/10/16 17:09 Dose: 250 mg Thiamine HCl (Vitamin B1 Tab) 100 mg PO DAILY [facility] Last Admin: 08/10/16 08:30 Dose: 100 mg - Labs Labs: 08/11/16 04:30 08/11/16 04:30 PT 12.6 SECONDS (9.6-11.2) H 08/11/16 04:30 INR 1.21 (0.92-1.08) H 08/11/16 04:30 APTT 35.1 SECONDS (23.3-32.5) H 08/11/16 04:30 Assessment and Plan (1) Acute renal failure (ARF) Status: Acute (2) Rhabdomyolysis Status: Suspected (3) Pneumonia Status: Acute
--- NOTE | 2016-08-11 08:43 | CP.PCM.PN ---
Subjective - Date & Time of Evaluation Date of Evaluation: 08/11/16 Time of Evaluation: 12:00 - Subjective Subjective: Patient was seen and examined. Sitting in chair on high flow O2 25 LPM / FIO2 65 %, more awake, alert , feeling better. Still with chest congestion , some coughing spells with minimal expectoration . BP 145/81 HR 84 RR 27 afebrile WBC 8.8 Hgb 11.7 BUN/Cr 78/7.7 Had HD yesterday and today Anuric Objective - Vital Signs/Intake and Output Vital Signs (last 24 hours): Temp Pulse Resp BP Pulse Ox 99 F 84 27 H 145/81 98 08/11/16 08:00 08/11/16 08:00 08/11/16 08:00 08/11/16 08:00 08/11/16 08:00 Intake and Output: 08/11/16 08/11/16 06:59 18:59 Intake Total 1450 100 Output Total 2100 5 Balance -650 95 - Medications Medications: Current Medications Acetaminophen (Tylenol 325mg Tab) 650 mg PO Q6 PRN PRN Reason: Fever >100.4 F Last Admin: 08/10/16 12:16 Dose: 650 mg Acetylcysteine (Mucomyst 10% 4ml) 2 ml IH RQID [facility] Last Admin: 08/10/16 19:31 Dose: 2 ml Albuterol Sulfate (Albuterol 0.083% Inhal Martita (2.5 Mg/3 Ml) Ud) 2.5 mg INH RQ4 PRN PRN Reason: Shortness of Breath Last Admin: 08/11/16 04:52 Dose: 2.5 mg Albuterol/Ipratropium (Duoneb 3 Mg/0.5 Mg (3 Ml) Ud) 3 ml INH RQID [facility] Last Admin: 08/11/16 07:48 Dose: 3 ml Folic Acid (Folic Acid) 1 mg PO DAILY [facility] Last Admin: 08/10/16 08:30 Dose: 1 mg Heparin Sodium (Porcine) (Heparin) 5,000 units SC Q12@0900,2100 [facility] PRN Reason: Protocol Last Admin: 08/10/16 21:03 Dose: 5,000 units Piperacillin Sod/Tazobactam (Sod 2.25 gm/ Sodium Chloride) 100 mls @ 100 mls/ hr IVPB Q6 [facility] Last Admin: 08/11/16 04:01 Dose: 100 mls/hr Moxifloxacin HCl (Avelox Iv 400mg/250ml Ns) 400 mg in 250 mls @ 250 mls/hr IVPB DAILY@2200 [facility] Last Admin: 08/10/16 21:03 Dose: 250 mls/hr Sodium Chloride (Sodium Chloride 0.9%) 1,000 mls @ 100 mls/hr IV .Q10H [facility] Stop: 08/11/16 12:29 Last Admin: 08/11/16 02:19 Dose: 100 mls/hr Levothyroxine Sodium (Synthroid) 100 mcg PO DAILY@0630 [facility] Last Admin: 08/11/16 05:39 Dose: 100 mcg Metoprolol Succinate (Toprol Xl) 25 mg PO DAILY [facility] Last Admin: 08/10/16 08:29 Dose: 25 mg Nystatin (Nystop Topical Powder) 1 applic TOP TID [facility] Last Admin: 08/10/16 17:09 Dose: 1 applic Saccharomyces Boulardii (Florastor) 250 mg PO BID [facility] Last Admin: 08/10/16 17:09 Dose: 250 mg Thiamine HCl (Vitamin B1 Tab) 100 mg PO DAILY [facility] Last Admin: 08/10/16 08:30 Dose: 100 mg - Labs Labs: 08/11/16 04:30 08/11/16 04:30 PT 12.6 SECONDS (9.6-11.2) H 08/11/16 04:30 INR 1.21 (0.92-1.08) H 08/11/16 04:30 APTT 35.1 SECONDS (23.3-32.5) H 08/11/16 04:30 - Constitutional Appears: Non-toxic, No Acute Distress, Other (on high flow with 65 % FIO2 requirement ) - Head Exam Head Exam: ATRAUMATIC, NORMOCEPHALIC - Eye Exam Eye Exam: Normal appearance, PERRL Pupil Exam: NORMAL ACCOMODATION - ENT Exam ENT Exam: Normal Exam - Neck Exam Neck Exam: Normal Inspection - Respiratory Exam Respiratory Exam: Decreased Breath Sounds (to both bases ), Wheezes (scattered expiratory wheezing ), Respiratory Distress Additional comments: coarse breath sounds bilaterally - Cardiovascular Exam Cardiovascular Exam: Tachycardia, +S1, +S2. absent: JVD - GI/Abdominal Exam GI & Abdominal Exam: Soft, Normal Bowel Sounds. absent: Guarding, Tenderness, Rebound - Rectal Exam Rectal Exam: Deferred - Extremities Exam Extremities Exam: Full ROM, Normal Capillary Refill, Normal Inspection. absent : Pedal Edema - Back Exam Back Exam: NORMAL INSPECTION - Neurological Exam Neurological Exam: Alert, Awake, CN II-XII Intact - Psychiatric Exam Psychiatric exam: Normal Affect - Skin Skin Exam: Dry, Intact, Normal Color, Warm Assessment and Plan - Assessment and Plan (Free Text) Assessment: 60 years old male with no significant past medical hx was brought to the ED because of Generalized weakness, dizziness. He has been coughing for one month with brown sputum. No chest pain on coughing, no SOB and no fever. He Smokes one pack of cigarettes in 3 days with occasional Alcohol use. In the ED his Temp was 100.6F with HR of 123/min. CXR showed multifocal Pneumonia and BMP showed renal failure. Patient was admitted with sepsis ( POA) due to multifocal pneumonia and DYLLAN due to rhabdomyolysis . Pulmonary ID and nephro consulted . He was started on IVF and IV antibiotics. Was transferred to ICU for close monitoring due to AMS / confusion and respiratory distress. At present still on high flow 25LPM FIO2 65 % , more awake and less confused . 1. Sepsis sec to Pneumonia- POA improving Afebrile last 24 hours and procalcitonin trending down from [address] chest showed Large bilateral alveolar infiltrates as well as small bilateral pleural effusions. Mild mediastinal lymphadenopathy. Still on high flow O2 25 LPM on 65 % FIO2 Pulmonary and ID on consult Strated and promote ambulation Continue Zosyn, and Moxifloxacin . Given 1 dose of Vancomycin 1 G Iv and IV Clinda HIV and influenza - negative Follow up legionella Ag Mycoplasma IgM negative Continue duonebs, acetylcysteine Sputum cx positive for yeast -- contamination ? 2. AMS/ Metabolic encephalopathy -improving most likely AMS multifactorial - due to sepsis, pneumonia, medication induced, renal failure Continue treatment for Pneumonia and sepsis Keep on High flow Aspiration precautions Hold Ativan 3. Acute Hypoxemic respiratory failure sec to CAP on High Flow Oxygen V/Q scan showed no PE Continue Zosyn , Moxifloxacin/ Given 1 dose Vancomycin IV Respiratory isolation discontinued today since 3 AFB-s were negative Pulmonary and ID on consult Cultures negative so far 4. Acute Renal Failure with metabolic acidosis Most likely ATN secondary to Rhabdomyolysis At present anuric with BUN/Cr 78/7.7 Dr Kowalski nephrology consulted Patient did bot respond to IVF with HCO3 Renal sonogram showed normal size and echogenecity and no obstruction Started HD and received 2 sessions so far ( 1 yesterday and 1 today0 Continue close monitoring HD catheter placed to right upper chest by IR 5. Rhabdomyolysis CPK trending down received IVF on HD for renal failure 4. Hypokalemia Repleted 5. Transaminitis unclear etiology on the admission was suspicious for ETOH abuse since AST more elevated than ALT but patient and cousin denied alcoholism Started MVI, folic acid and Thiamine Hepatitis profile- negative Abdominal US showed normal liver size and echogenecity Probably LFT elevation secondary to sepsis 7. Tremulousness- resolved patient and cousin denied ETOH abuse Abd Us showed no fatty or cirrhotic liver Continue Thiamine, Folate, MVI CT head showed no acute pathology 8. DVT prophylaxis Heparin 9. Hypothyroidism Endo consulted Started Synthroid 100 mcg
[2016-08-11] MEDS: Saccharomyces Boulardi 250 mg Cap PO SCH ×2 (08:51→16:25)
[2016-08-11] MEDS: Metoprolol Succinate 25 mg XL Tab PO SCH (08:52)
--- NOTE | 2016-08-11 09:23 | CP.PCM.PN ---
Subjective - Date & Time of Evaluation Date of Evaluation: 08/11/16 Time of Evaluation: 09:22 - Subjective Subjective: pt seen and examined, follow up consult is dictated #[id number] for hd today Objective - Vital Signs/Intake and Output Vital Signs (last 24 hours): Temp Pulse Resp BP Pulse Ox 99 F 89 27 H 146/83 98 08/11/16 08:00 08/11/16 08:52 08/11/16 08:00 08/11/16 08:52 08/11/16 08:00 Intake and Output: 08/11/16 08/11/16 06:59 18:59 Intake Total 1450 100 Output Total 2100 5 Balance -650 95 - Medications Medications: Current Medications Acetaminophen (Tylenol 325mg Tab) 650 mg PO Q6 PRN PRN Reason: Fever >100.4 F Last Admin: 08/10/16 12:16 Dose: 650 mg Acetylcysteine (Mucomyst 10% 4ml) 2 ml IH RQID [facility] Last Admin: 08/10/16 19:31 Dose: 2 ml Albuterol Sulfate (Albuterol 0.083% Inhal Martita (2.5 Mg/3 Ml) Ud) 2.5 mg INH RQ4 PRN PRN Reason: Shortness of Breath Last Admin: 08/11/16 04:52 Dose: 2.5 mg Albuterol/Ipratropium (Duoneb 3 Mg/0.5 Mg (3 Ml) Ud) 3 ml INH RQID [facility] Last Admin: 08/11/16 07:48 Dose: 3 ml Folic Acid (Folic Acid) 1 mg PO DAILY [facility] Last Admin: 08/11/16 08:51 Dose: 1 mg Heparin Sodium (Porcine) (Heparin) 5,000 units SC Q12@0900,2100 [facility] PRN Reason: Protocol Last Admin: 08/11/16 08:51 Dose: 5,000 units Piperacillin Sod/Tazobactam (Sod 2.25 gm/ Sodium Chloride) 100 mls @ 100 mls/ hr IVPB Q6 [facility] Last Admin: 08/11/16 09:00 Dose: 100 mls/hr Moxifloxacin HCl (Avelox Iv 400mg/250ml Ns) 400 mg in 250 mls @ 250 mls/hr IVPB DAILY@2200 [facility] Last Admin: 08/10/16 21:03 Dose: 250 mls/hr Sodium Chloride (Sodium Chloride 0.9%) 1,000 mls @ 100 mls/hr IV .Q10H [facility] Stop: 08/11/16 12:29 Last Admin: 08/11/16 02:19 Dose: 100 mls/hr Levothyroxine Sodium (Synthroid) 100 mcg PO DAILY@0630 [facility] Last Admin: 08/11/16 05:39 Dose: 100 mcg Metoprolol Succinate (Toprol Xl) 25 mg PO DAILY [facility] Last Admin: 08/11/16 08:52 Dose: 25 mg Nystatin (Nystop Topical Powder) 1 applic TOP TID [facility] Last Admin: 08/11/16 08:52 Dose: 1 applic Saccharomyces Boulardii (Florastor) 250 mg PO BID [facility] Last Admin: 08/11/16 08:51 Dose: 250 mg Thiamine HCl (Vitamin B1 Tab) 100 mg PO DAILY [facility] Last Admin: 08/11/16 08:52 Dose: 100 mg - Labs Labs: 08/11/16 04:30 08/11/16 04:30 PT 12.6 SECONDS (9.6-11.2) H 08/11/16 04:30 INR 1.21 (0.92-1.08) H 08/11/16 04:30 APTT 35.1 SECONDS (23.3-32.5) H 08/11/16 04:30
--- NOTE | 2016-08-11 10:40 | CP.CCUPN ---
<Angelica Gates - Last Filed: 08/11/16 15:21> CCU Subjective - Physician Review Subjective (Free Text): 08/11/16 10:05 Patient seen and examined at bedside with ICU attending. He was able to get out of bed to chair with assistance this morning and reports improvement in breathing, stating "I'm breathing much less shallow." He continues to experience cough, which has been non-productive. O2 sats improving to 96-97% with high flow oxygen decrease from 70% to 65%. Patient received dialysis last night via right IJV catheter and there is an additional dialysis scheduled for today. No fevers documented overnight. He denies headache, dizziness, chest pain , abdominal pain, nausea or vomiting. CCU Objective - Vital Signs / Intake & Output Vital Signs (Last 4 hours): Vital Signs Temp Pulse Resp BP Pulse Ox 08/11/16 10:00 79 24 150/86 99 08/11/16 08:52 89 146/83 08/11/16 08:30 22 08/11/16 08:00 99 F 84 27 H 145/81 98 08/11/16 07:50 18 Intake and Output (Last 8hrs): Intake & Output 08/10/16 08/11/16 08/11/16 22:59 06:59 14:59 Intake Total 1150 950 650 Output Total 0 2100 5 Balance 1150 -1150 645 Intake: IV 800 800 100 Intake, Piggyback 200 100 100 Oral 150 50 450 Output: Urine 0 100 5 Condom 0 5 Urine, Voided 100 Ultrafiltrate 2000 - Physical Exam Head: Positive for: Atraumatic, Normocephalic Pupils: Positive for: PERRL Extroacular Muscles: Positive for: EOMI Conjunctiva: Positive for: Normal Mouth: Positive for: Dry, Other (Poor dentition. ) Neck: Positive for: Other (Right IJV catheter in place. No surrounding erythema. ) Respiratory/Chest: Positive for: Wheezes, Decreased Breath Sounds, Other (B/L air entry present but diminished on left lung thibodeaux. Course breath sounds present b/l. End expiratory wheeze appreciated b/l.). Negative for: Respiratory Distress, Accessory Muscle Use Cardiovascular: Positive for: Regular Rate and Rhythm, Normal S1, S2 Abdomen: Positive for: Normal Bowel Sounds. Negative for: Tenderness, Distention Upper Extremity: Positive for: Capillary Refill < 2s Lower Extremity: Positive for: Edema (2+ LE edema b/l.). Negative for: CALF TENDERNESS Neurological: Positive for: CN II-XII Intact, Speech Normal Skin: Positive for: Warm, Dry Psychiatric: Positive for: Alert, Oriented x 3 - Medications Active Medications: Active Medications Generic Name Dose Route Start Last Admin Trade Name Freq PRN Reason Stop Dose Admin Acetaminophen 650 mg 08/05/16 21:29 08/10/16 12:16 Tylenol 325mg Tab PO 650 mg Q6 PRN Administration Fever >100.4 F Acetylcysteine 2 ml 08/10/16 12:00 08/10/16 19:31 Mucomyst 10% 4ml IH 2 ml RQID [facility] Administration Albuterol Sulfate 2.5 mg 08/06/16 12:39 08/11/16 04:52 Albuterol 0.083% Inhal Martita (2.5 Mg/3 Ml) Ud INH 2.5 mg RQ4 PRN Administration Shortness of Breath Albuterol/Ipratropium 3 ml 08/06/16 16:00 08/11/16 07:48 Duoneb 3 Mg/0.5 Mg (3 Ml) Ud INH 3 ml RQID [facility] Administration Folic Acid 1 mg 08/06/16 09:00 08/11/16 08:51 Folic Acid PO 1 mg DAILY [facility] Administration Heparin Sodium (Porcine) 5,000 units 08/09/16 21:00 08/11/16 08:51 Heparin SC 5,000 units Q12@0900,2100 [facility] Administration Protocol Piperacillin Sod/Tazobactam 100 mls @ 100 mls/hr 08/06/16 10:00 08/11/16 09: 00 Sod 2.25 gm/ Sodium Chloride IVPB 100 mls/hr Q6 [facility] Administration Moxifloxacin HCl 400 mg in 250 mls @ 250 mls/hr 08/08/16 22:00 08/10/16 21:03 Avelox Iv 400mg/250ml Ns IVPB 250 mls/hr DAILY@2200 [facility] Administration Sodium Chloride 1,000 mls @ 100 mls/hr 08/11/16 02:30 08/11/16 02:19 Sodium Chloride 0.9% IV 08/11/16 12:29 100 mls/hr .Q10H [facility] Administration Levothyroxine Sodium 100 mcg 08/10/16 06:30 08/11/16 05:39 Synthroid PO 100 mcg DAILY@0630 [facility] Administration Metoprolol Succinate 25 mg 08/06/16 12:15 08/11/16 08:52 Toprol Xl PO 25 mg DAILY [facility] Administration Nystatin 1 applic 08/09/16 13:00 08/11/16 08:52 Nystop Topical Powder TOP 1 applic TID [facility] Administration Saccharomyces Boulardii 250 mg 08/07/16 17:00 08/11/16 08:51 Florastor PO 250 mg BID [facility] Administration Thiamine HCl 100 mg 08/06/16 09:00 08/11/16 08:52 Vitamin B1 Tab PO 100 mg DAILY [facility] Administration - Patient Studies Lab Studies: Microbiology Studies 08/10/16 13:56 Gram Stain - Final Sputum 08/08/16 16:55 Blood Culture - Preliminary Blood-Venous NO GROWTH AFTER 48 HOURS 08/08/16 16:30 Blood Culture - Preliminary Blood-Venous NO GROWTH AFTER 48 HOURS 08/07/16 16:00 Blood Culture - Preliminary Blood NO GROWTH AFTER 3 DAYS 08/07/16 16:00 Blood Culture - Preliminary Blood NO GROWTH AFTER 3 DAYS 08/08/16 16:50 Gram Stain - Final Sputum Sputum Culture - Final Yeast Species Lab Studies 08/11/16 08/11/16 08/11/16 Range/Units 04:30 04:30 04:30 WBC 8.8 (4.8-10.8) K/uL RBC 4.23 L (4.40-5.90) Mil/uL Hgb 11.7 L (12.0-18.0) g/dL Hct 35.2 (35.0-51.0) % MCV 83.3 (80.0-94.0) fl MCH 27.8 (27.0-31.0) pg MCHC 33.4 (33.0-37.0) g/dL RDW 14.8 H (11.5-14.5) % Plt Count 307 (130-400) K/uL MPV 8.2 (7.2-11.7) fl Neut % (Auto) 88.8 H (50.0-75.0) % Lymph % (Auto) 5.7 L (20.0-40.0) % [place] % (Auto) 4.3 (0.0-10.0) % Eos % (Auto) 0.8 (0.0-4.0) % Baso % (Auto) 0.4 (0.0-2.0) % Neut # 7.8 H (1.8-7.0) K/uL Lymph # 0.5 L (1.0-4.3) K/uL [place] # 0.4 (0.0-0.8) K/uL Eos # 0.1 (0.0-0.7) K/uL Baso # 0.0 (0.0-0.2) K/uL Neutrophils % (Manual) 85 H (42-75) % Band Neutrophils % 3 H (0-2) % Lymphocytes % (Manual) 7 L (20-50) % Monocytes % (Manual) 2 (0-10) % Eosinophils % (Manual) 1 (0-7) % Basophils % (Manual) 1 (0-2) % Myelocytes % 1 H (0-0) % Platelet Estimate Normal (NORMAL) Giant Platelets Present Anisocytosis (manual) Slight Target Cells Moderate ESR 100 H (0-20) mm/hr PT 12.6 H (9.6-11.2) SECONDS INR 1.21 H (0.92-1.08) APTT 35.1 H (23.3-32.5) SECONDS Sodium 140 (132-148) mmol/l Potassium 3.6 (3.6-5.0) MMOL/L Chloride 99 (98-107) mmol/L Carbon Dioxide 26 (22-30) mmol/L Anion Gap 18 (10-20) BUN 78 H (9-20) mg/dl Creatinine 7.7 H* (0.8-1.5) mg/dL Est GFR ( Amer) 9 Est GFR (Non-Af Amer) 7 Random Glucose 96 (75-110) mg/dL Calcium 7.1 L (8.4-10.2) mg/dL Total Bilirubin 0.8 (0.2-1.3) mg/dl AST 245 H (17-59) U/L ALT 139 H (21-72) U/L Alkaline Phosphatase 51 (38-126) U/L Total Protein 6.7 (6.3-8.2) G/DL Albumin 2.8 L (3.5-5.0) g/dL Globulin 3.9 (2.2-3.9) gm/dL Albumin/Globulin Ratio 0.7 L (1.0-2.1) Procalcitonin (0.19-0.49) NG/ML Thyroperoxidase Ab (<9) IU/mL Thyroglobulin Antibody (< OR = 1) IU/mL 08/10/16 08/09/16 Range/Units 09:50 04:30 WBC (4.8-10.8) K/uL RBC (4.40-5.90) Mil/uL Hgb (12.0-18.0) g/dL Hct (35.0-51.0) % MCV (80.0-94.0) fl MCH (27.0-31.0) pg MCHC (33.0-37.0) g/dL RDW (11.5-14.5) % Plt Count (130-400) K/uL MPV (7.2-11.7) fl Neut % (Auto) (50.0-75.0) % Lymph % (Auto) (20.0-40.0) % [place] % (Auto) (0.0-10.0) % Eos % (Auto) (0.0-4.0) % Baso % (Auto) (0.0-2.0) % Neut # (1.8-7.0) K/uL Lymph # (1.0-4.3) K/uL [place] # (0.0-0.8) K/uL Eos # (0.0-0.7) K/uL Baso # (0.0-0.2) K/uL Neutrophils % (Manual) (42-75) % Band Neutrophils % (0-2) % Lymphocytes % (Manual) (20-50) % Monocytes % (Manual) (0-10) % Eosinophils % (Manual) (0-7) % Basophils % (Manual) (0-2) % Myelocytes % (0-0) % Platelet Estimate (NORMAL) Giant Platelets Anisocytosis (manual) Target Cells ESR (0-20) mm/hr PT (9.6-11.2) SECONDS INR (0.92-1.08) APTT (23.3-32.5) SECONDS Sodium (132-148) mmol/l Potassium (3.6-5.0) MMOL/L Chloride (98-107) mmol/L Carbon Dioxide (22-30) mmol/L Anion Gap (10-20) BUN (9-20) mg/dl Creatinine (0.8-1.5) mg/dL Est GFR ( Amer) Est GFR (Non-Af Amer) Random Glucose (75-110) mg/dL Calcium (8.4-10.2) mg/dL Total Bilirubin (0.2-1.3) mg/dl AST (17-59) U/L ALT (21-72) U/L Alkaline Phosphatase (38-126) U/L Total Protein (6.3-8.2) G/DL Albumin (3.5-5.0) g/dL Globulin (2.2-3.9) gm/dL Albumin/Globulin Ratio (1.0-2.1) Procalcitonin 9.85 H (0.19-0.49) NG/ML Thyroperoxidase Ab 330 H (<9) IU/mL Thyroglobulin Antibody 24 H (< OR = 1) IU/mL Laboratory Results - last 24 hr 08/09/16 08/10/16 08/11/16 04:30 09:50 04:30 WBC 8.8 RBC 4.23 L Hgb 11.7 L Hct 35.2 MCV 83.3 MCH 27.8 MCHC 33.4 RDW 14.8 H Plt Count 307 MPV 8.2 Neut % (Auto) 88.8 H Lymph % (Auto) 5.7 L [place] % (Auto) 4.3 Eos % (Auto) 0.8 Baso % (Auto) 0.4 Neut # 7.8 H Lymph # 0.5 L [place] # 0.4 Eos # 0.1 Baso # 0.0 Neutrophils % (Manual) 85 H Band Neutrophils % 3 H Lymphocytes % (Manual) 7 L Monocytes % (Manual) 2 Eosinophils % (Manual) 1 Basophils % (Manual) 1 Myelocytes % 1 H Platelet Estimate Normal Giant Platelets Present Anisocytosis (manual) Slight Target Cells Moderate ESR 100 H PT INR APTT Sodium Potassium Chloride Carbon Dioxide Anion Gap BUN Creatinine Est GFR ( Amer) Est GFR (Non-Af Amer) Random Glucose Calcium Total Bilirubin AST ALT Alkaline Phosphatase Total Protein Albumin Globulin Albumin/Globulin Ratio Procalcitonin 9.85 H Thyroperoxidase Ab 330 H Thyroglobulin Antibody 24 H 08/11/16 08/11/16 04:30 04:30 WBC RBC Hgb Hct MCV MCH MCHC RDW Plt Count MPV Neut % (Auto) Lymph % (Auto) [place] % (Auto) Eos % (Auto) Baso % (Auto) Neut # Lymph # [place] # Eos # Baso # Neutrophils % (Manual) Band Neutrophils % Lymphocytes % (Manual) Monocytes % (Manual) Eosinophils % (Manual) Basophils % (Manual) Myelocytes % Platelet Estimate Giant Platelets Anisocytosis (manual) Target Cells ESR PT 12.6 H INR 1.21 H APTT 35.1 H Sodium 140 Potassium 3.6 Chloride 99 Carbon Dioxide 26 Anion Gap 18 BUN 78 H Creatinine 7.7 H* Est GFR ( Amer) 9 Est GFR (Non-Af Amer) 7 Random Glucose 96 Calcium 7.1 L Total Bilirubin 0.8 AST 245 H ALT 139 H Alkaline Phosphatase 51 Total Protein 6.7 Albumin 2.8 L Globulin 3.9 Albumin/Globulin Ratio 0.7 L Procalcitonin Thyroperoxidase Ab Thyroglobulin Antibody Review of Systems - Constitutional Constitutional: absent: Fever, Chills - Cardiovascular Cardiovascular: absent: Chest Pain, Lightheadedness, Palpitations - Respiratory Respiratory: As Per HPI, Cough (non productive), Wheezing, Chest Congestion. absent: Hemoptysis - Gastrointestinal Gastrointestinal: absent: Abdominal Pain, Nausea, Vomiting - Neurological Neurological: absent: Dizziness, Headaches Critical Care Progress Note - Nutrition Nutrition: Nutrition Category Date Time Status Renal Diet [DIET] Diets 08/08/16 Lunch Active Assessment/Plan - Assessment and Plan (Free Text) Assessment: 60 y/o homeless male with unremarkable PMH admitted with multilobular pneumonia and rhabdomyolysis. Currently being treated for acute hypoxic acute respiratory failure and acute kidney injury. Plan: Acute respiratory failure with hypoxia secondary to multifocal community acquired pneumonia -CT chest from 08/07/16 identified large left upper lobe pneumonia with extensive consolidation in addition to a large alveolar infiltrate with consolidation of the right middle lobe -CXR performed today appears to show improvement of hazy opacities at the left lung and right lower lung compared to previous study -O2 saturation has improved to 96% despite decreasing high flow oxygen (from 25L @70% to 25L @65%) -WBC: 8.8, currently afebrile. Tmax 24h: 100.6 on 5/2/17 @12:16 -AFB smear negative x2 -Procalcitonin has decreased from 21 to 9 -Pending quantiferon and legionella -Pulmonology following -Continue duonebs QID -On Avelox 400mg IV daily (Started 08/08/16, Current day 4), Zosyn 2.25gm IV Q6h (Started 08/06/16, Current day 6) Acute Kidney Injury -Likely due to acute tubular necrosis secondary to rhabdomyolysis and sepsis -Patient had right IJV catheter placement yesterday and was dialyzed, removing 2L of ultrafiltrate -Plan for additional dialysis today -BUN/Cr improved slightly: 102/8.2 > 78/7.7 -CK has been improving. Repeated today, pending result. -Niru cesar I/Os -Nephrology consulted. Rhabdomyolysis -Undetermined etiology (denies trauma or exertional history) -CK levels improving 16313 > 960. Pending repeat result today. -IVF discontinued today as per nephrology recommendations Hypothyroidism -TSH 17.2 on 08/09/16 -Endocrine consulted and levothyroxine titrated up from 75mcg to 100mcg PO daily DVT Prophylaxis -Heparin 5,000 units SC Q12 Advanced Directive -Full code -Patient is sole decision maker <Erik Chicas - Last Filed: 08/11/16 16:04> CCU Subjective - Physician Review Subjective (Free Text): Attestation: Patient seen and examined at the bedside with Resident Dr. Jelani Gates; and I agree with his outline of plans and management documented below as discussed on AM rounds reflecting my review of all applicable clinical data, and participation in the care of the patient throughout the day in ICU; today, August 11, 2016.
--- NOTE | 2016-08-11 12:28 | CP.PCM.PN ---
Subjective - Date & Time of Evaluation Date of Evaluation: 08/11/16 Time of Evaluation: 08:00 - Subjective Subjective: improving on HD OOB to chair all cultures neg cont rx Objective - Vital Signs/Intake and Output Vital Signs (last 24 hours): Temp Pulse Resp BP Pulse Ox 98.4 F 82 28 H 135/86 96 08/11/16 12:00 08/11/16 12:00 08/11/16 12:00 08/11/16 12:00 08/11/16 12:00 Intake and Output: 08/11/16 08/11/16 06:59 18:59 Intake Total 1450 1000 Output Total 2100 5 Balance -650 995 - Medications Medications: Current Medications Acetaminophen (Tylenol 325mg Tab) 650 mg PO Q6 PRN PRN Reason: Fever >100.4 F Last Admin: 08/10/16 12:16 Dose: 650 mg Acetylcysteine (Mucomyst 10% 4ml) 2 ml IH RQID [facility] Last Admin: 08/10/16 19:31 Dose: 2 ml Albuterol Sulfate (Albuterol 0.083% Inhal Martita (2.5 Mg/3 Ml) Ud) 2.5 mg INH RQ4 PRN PRN Reason: Shortness of Breath Last Admin: 08/11/16 04:52 Dose: 2.5 mg Albuterol/Ipratropium (Duoneb 3 Mg/0.5 Mg (3 Ml) Ud) 3 ml INH RQID [facility] Last Admin: 08/11/16 07:48 Dose: 3 ml Folic Acid (Folic Acid) 1 mg PO DAILY [facility] Last Admin: 08/11/16 08:51 Dose: 1 mg Heparin Sodium (Porcine) (Heparin) 5,000 units SC Q12@0900,2100 [facility] PRN Reason: Protocol Last Admin: 08/11/16 08:51 Dose: 5,000 units Piperacillin Sod/Tazobactam (Sod 2.25 gm/ Sodium Chloride) 100 mls @ 100 mls/ hr IVPB Q6 [facility] Last Admin: 08/11/16 09:00 Dose: 100 mls/hr Moxifloxacin HCl (Avelox Iv 400mg/250ml Ns) 400 mg in 250 mls @ 250 mls/hr IVPB DAILY@2200 [facility] Last Admin: 08/10/16 21:03 Dose: 250 mls/hr Sodium Chloride (Sodium Chloride 0.9%) 1,000 mls @ 100 mls/hr IV .Q10H [facility] Stop: 08/11/16 12:29 Last Admin: 08/11/16 02:19 Dose: 100 mls/hr Levothyroxine Sodium (Synthroid) 100 mcg PO DAILY@0630 [facility] Last Admin: 08/11/16 05:39 Dose: 100 mcg Metoprolol Succinate (Toprol Xl) 25 mg PO DAILY [facility] Last Admin: 08/11/16 08:52 Dose: 25 mg Nystatin (Nystop Topical Powder) 1 applic TOP TID [facility] Last Admin: 08/11/16 12:08 Dose: 1 applic Saccharomyces Boulardii (Florastor) 250 mg PO BID [facility] Last Admin: 08/11/16 08:51 Dose: 250 mg Thiamine HCl (Vitamin B1 Tab) 100 mg PO DAILY [facility] Last Admin: 08/11/16 08:52 Dose: 100 mg - Labs Labs: 08/11/16 04:30 08/11/16 04:30 PT 12.6 SECONDS (9.6-11.2) H 08/11/16 04:30 INR 1.21 (0.92-1.08) H 08/11/16 04:30 APTT 35.1 SECONDS (23.3-32.5) H 08/11/16 04:30 - Constitutional Appears: Non-toxic, Chronically Ill - Head Exam Head Exam: NORMOCEPHALIC - Eye Exam Eye Exam: PERRL. absent: Scleral icterus - ENT Exam ENT Exam: Mucous Membranes Dry, Normal External Ear Exam - Neck Exam Neck Exam: absent: Lymphadenopathy - Respiratory Exam Respiratory Exam: Decreased Breath Sounds, Rales, Rhonchi - Cardiovascular Exam Cardiovascular Exam: REGULAR RHYTHM - GI/Abdominal Exam GI & Abdominal Exam: Distended, Soft - Rectal Exam Rectal Exam: Deferred - Exam Exam: NORMAL INSPECTION Assessment and Plan (1) Acute renal failure (ARF) Status: Acute (2) Pneumonia Status: Acute (3) Renal insufficiency Status: Acute (4) Rhabdomyolysis Status: Suspected
--- NOTE | 2016-08-11 14:41 | RAD ---
HISTORY: pneumonia COMPARISON: Comparison chest 08/09/2016 FINDINGS: LUNGS: Patchy infiltrates throughout most of the left lung and right lung base. . Findings could represent multifocal pneumonia however the possibility of concomitant fluid overload/pulmonary edema or CHF not excluded. There may also be of left-sided effusion. PLEURA: No pneumothorax apparent. CARDIOVASCULAR: Cardiomegaly is a OSSEOUS STRUCTURES: No significant abnormalities. VISUALIZED UPPER ABDOMEN: Normal. OTHER FINDINGS: None. IMPRESSION: Patchy infiltrates throughout most of the left lung and right lung base. . Findings could represent multifocal pneumonia however the possibility of concomitant fluid overload/pulmonary edema or CHF not excluded. There may also be of left-sided effusion.
--- NOTE | 2016-08-11 15:34 | PN ---
DATE: 08/11/2016 LOCATION: ICU room 433. SUBJECTIVE: This is a 60-year-old male with recent overt hypothyroidism, both historically and clini inez, and biochemically and currently being managed for multilobar pneumonia in the ICU and is being followed closely for metabolic management. His latest chemistry showed a BUN of 78, sodium 140, pot assium 3.6, chloride 99, CO2 26, glucose 96, and creatinine 7.7. He also has advanced renal insuffic iency with progressive kidney disease as noted. His latest thyroid study showed a T4 of 3.40 with a free T4 of 0.89 and a TSH of 17.20. His cortisol level is 44.8 mcg/dL. So at this time, we will con tinue the same modified levothyroxine replacement therapy given as 100 mcg once daily in the morning as ordered. We will titrate incrementally as indicated to optimize metabolic control. We will follo w and advise accordingly. Tara Smith MD cc: [id number] TT: 08/11/2016 15:33:32 Confirmation # [id number] Dictation # [id number] mally
--- NOTE | 2016-08-11 22:51 | PN ---
DATE: 08/11/2016 LOCATION: The patient is located in room 433 ICU. REQUESTED BY: Dr. Frank Thomas. REASON FOR RENAL CONSULTATION: Acute renal failure, rhabdomyolysis, on hemodialysis. HISTORY OF PRESENT ILLNESS: The patient is a 60-year-old elderly male with a history of sm oking who was admitted with recurrent falls and high CPK level and increased BUN and creatinine, coug h, fever and found to have a multilobar pneumonia. The patient was also found to have worsening jae l function and shortness of breath. Subsequently, transferred to ICU. The patient is feeling better , started on hemodialysis yesterday. The patient is feeling slightly better. The patient underwent hemodialysis last night. Not in acute distress. PHYSICAL EXAMINATION: VITAL SIGNS: As follows: Blood pressure this morning 150/86, pulse 79, respirations 24, temperature 98.4, saturation 99%, height 6 feet, weight is 190 pounds. GENERAL: The patient is a 60-year-old male, moderately built, moderately nourished, not in acute dis tress. HEENT: Pupils normal, reactive to light and accommodation. Conjunctivae pink. Sclerae anicteric. Tongue is moist. NECK: Trachea midline. LUNGS: Symmetric on both sides. Bilateral breath sounds present. Occasional basal crackles present . CARDIOVASCULAR: S1 and S2 audible. No murmur or gallop. ABDOMEN: Normal in appearance, soft, tympanic. No guarding, no rigidity, no hepatosplenomegaly. CENTRAL NERVOUS SYSTEM: The patient is alert, awake, oriented x 2-3. Sensory and motor system is gr ossly within normal limits. EXTREMITIES: No cyanosis, no clubbing, no edema. CURRENT MEDICATIONS: Include as follows: Albuterol, Avelox, DuoNeb inhaler, Florastor, folic acid, subQ heparin, Mucomyst, Nystatin, Zosyn, and Synthroid. LABORATORY DATA: Include as follows: As of : WBC 8.8, hemoglobin 11.7, hematocrit is 35.2 , platelets 307, neutrophils 85, bands 3, monocytes 7, eosinophils 2. PT 12.6, PTT 35.1. Sodium 140 , potassium 3.6, chloride 99, CO2 26, BUN 78, creatinine 7.7, glucose , alkaline phosphatase is 51 and total protein 6.7, albumin is 2.8. Globulin is 3.9. Hepatitis B surface antigen negative. C ore antibody is negative, hep C antibody is negative. HIV screening is negative. Urine for legionel la is not detected. SUMMARY: The patient is a 60-year-old male with history of smoking, was admitted with recurrent fall s, cough, fever, shortness of breath and found to have multilobar pneumonia, increased CPK level and worsening renal function. IMPRESSION: 1. Nonoliguric acute renal failure, most likely secondary to acute tubular necrosis secondary to rha bdomyolysis and sepsis. 2. Multilobar pneumonia. PLAN: Continue IV antibiotics as per ID recommendations. Follow with pulmonary and we will schedule for hemodialysis today and then Tuesday. Case discussed with the video production coordinator, Dr. Chicas, in rounds. W ill follow with you. Thank you for allowing me to participate in your patient's care. Edmund Kowalski MD cc: [phone] TT: 08/11/2016 22:50:16 Confirmation # [id number] Dictation # [id number] medardo
[2016-08-11] MEDS: Moxifloxacin IV 400mg/250ml NS 400 MG/250 ML BAG IVPB SCH (23:22)
[2016-08-12 05:25] LABS: HEMATOCRIT 32.4 % (35.0-51.0); MEAN CELL VOLUME 83.9 fl (80.0-94.0); MEAN CORPUSCULAR HEMOGLOBIN 28.3 pg (27.0-31.0); MEAN CORPUSCULAR HGB CONC 33.8 g/dL (33.0-37.0); WHITE BLOOD COUNT 8.8 K/uL (4.8-10.8)
[2016-08-12 05:41] LABS: CALCIUM 7.3 mg/dL (8.4-10.2); POTASSIUM 3.8 MMOL/L (3.6-5.0)
[2016-08-12] MEDS: Levothyroxine 100 MCG TAB PO SCH (06:33)
[2016-08-12] MEDS: Albuterol-Ipratrop 3 mg / 0.5 (3 ml) UD INH SCH ×4 (07:30→19:41)
[2016-08-12] MEDS: Acetylcysteine 10% 4 ML IH SCH ×4 (07:30→19:41)
[2016-08-12] MEDS: Saccharomyces Boulardi 250 mg Cap PO SCH ×2 (08:41→16:58)
[2016-08-12] MEDS: Metoprolol Succinate 25 mg XL Tab PO SCH (08:42)
--- NOTE | 2016-08-12 10:31 | CP.PCM.PN ---
Subjective - Date & Time of Evaluation Date of Evaluation: 08/12/16 Time of Evaluation: 10:15 - Subjective Subjective: More comfortable. Isolation discontinued yesterday. Has now remained afebrile for >24hrs. No CXR today. SpO2 95% on high flow 65%/25L. No dullness on chest percussion, but he does have bronchial breathing and egophony in the LLL postero-laterally at the base. Some residual low pitched E wheezing with prolonged E phase, but this is also improved from before. Modest dependant edema w/o cyanosis. Has completed two dialysis sessions and is scheduled for another tomorrow. Monitor on current drug regimen. Followup CXR in AM tomorrow. High flow reduced to 20L/60%. May transfer to telemetry. Objective - Vital Signs/Intake and Output Vital Signs (last 24 hours): Temp Pulse Resp BP Pulse Ox 98.1 F 65 19 144/85 97 08/12/16 07:31 08/12/16 08:42 08/12/16 07:31 08/12/16 08:42 08/12/16 07:31 Intake and Output: 08/11/16 08/12/16 23:59 11:59 Intake Total 1600 450 Output Total 2009 Balance 1600 -1560 - Medications Medications: Current Medications Acetaminophen (Tylenol 325mg Tab) 650 mg PO Q6 PRN PRN Reason: Fever >100.4 F Last Admin: 08/10/16 12:16 Dose: 650 mg Acetylcysteine (Mucomyst 10% 4ml) 2 ml IH RQID [facility] Last Admin: 08/12/16 07:30 Dose: 2 ml Albuterol Sulfate (Albuterol 0.083% Inhal Martita (2.5 Mg/3 Ml) Ud) 2.5 mg INH RQ4 PRN PRN Reason: Shortness of Breath Last Admin: 08/11/16 04:52 Dose: 2.5 mg Albuterol/Ipratropium (Duoneb 3 Mg/0.5 Mg (3 Ml) Ud) 3 ml INH RQID [facility] Last Admin: 08/12/16 07:30 Dose: 3 ml Folic Acid (Folic Acid) 1 mg PO DAILY [facility] Last Admin: 08/12/16 08:41 Dose: 1 mg Guaifenesin (Mucinex La) 600 mg PO Q12 [facility] Heparin Sodium (Porcine) (Heparin) 5,000 units SC Q12@0900,2100 [facility] PRN Reason: Protocol Last Admin: 08/12/16 08:41 Dose: 5,000 units Piperacillin Sod/Tazobactam (Sod 2.25 gm/ Sodium Chloride) 100 mls @ 100 mls/ hr IVPB Q6 [facility] Last Admin: 08/12/16 04:17 Dose: 100 mls/hr Moxifloxacin HCl (Avelox Iv 400mg/250ml Ns) 400 mg in 250 mls @ 250 mls/hr IVPB DAILY@2200 [facility] Last Admin: 08/11/16 23:22 Dose: 250 mls/hr Levothyroxine Sodium (Synthroid) 100 mcg PO DAILY@0630 [facility] Last Admin: 08/12/16 06:33 Dose: 100 mcg Metoprolol Succinate (Toprol Xl) 25 mg PO DAILY [facility] Last Admin: 08/12/16 08:42 Dose: 25 mg Nystatin (Nystop Topical Powder) 1 applic TOP TID [facility] Last Admin: 08/12/16 08:42 Dose: 1 applic Saccharomyces Boulardii (Florastor) 250 mg PO BID [facility] Last Admin: 08/12/16 08:41 Dose: 250 mg Thiamine HCl (Vitamin B1 Tab) 100 mg PO DAILY [facility] Last Admin: 08/12/16 08:42 Dose: 100 mg - Labs Labs: 08/12/16 04:25 08/12/16 04:25 PT 12.6 SECONDS (9.6-11.2) H 08/11/16 04:30 INR 1.21 (0.92-1.08) H 08/11/16 04:30 APTT 35.1 SECONDS (23.3-32.5) H 08/11/16 04:30 Assessment and Plan (1) Acute renal failure (ARF) Status: Acute (2) Rhabdomyolysis Status: Suspected (3) Pneumonia Status: Acute
--- NOTE | 2016-08-12 11:28 | CP.CCUPN ---
CCU Subjective - Physician Review Subjective (Free Text): 08/12/16 10:30 Patient seen and examined at bedside. He appears comfortably lying in bed. Patient states he is "coughing, but not like before." Cough has been non- productive. Patient's breathing continues to improve and has tolerated decreasing FiO2 from 65% to 60% with O2 sats steady at 94-95%, however has been unable to ambulate out of bed without assistance. He received dialysis via right IJV last night, which he tolerated well. He has been afebrile and tolerating PO without difficulty. No headache, chest pain, abdominal pain, nausea or vomiting reported. CCU Objective - Vital Signs / Intake & Output Vital Signs (Last 4 hours): Vital Signs Temp Pulse Resp BP Pulse Ox 08/12/16 08:42 65 144/85 08/12/16 07:31 98.1 F 66 19 140/79 97 08/12/16 07:30 25 H Intake and Output (Last 8hrs): Intake & Output 08/11/16 08/12/16 08/12/16 22:59 06:59 14:59 Intake Total 650 450 Output Total 2010 Balance 650 -1560 Intake: IV 0 0 Intake, Piggyback 450 Oral 650 Output: Urine 10 Condom 10 Other 2000 Other: # Bowel Movements 1 - Physical Exam Head: Positive for: Atraumatic, Normocephalic Pupils: Positive for: PERRL Extroacular Muscles: Positive for: EOMI Conjunctiva: Positive for: Normal Mouth: Positive for: Dry, Other (Poor dentition. ) Neck: Positive for: Other (Right IJV catheter in place. No surrounding erythema or drainage.) Respiratory/Chest: Positive for: Wheezes, Decreased Breath Sounds, Other (B/L air entry present but diminished on left lung thibodeaux. Course breath sounds present b/l with high-pitched end expiratory wheeze b/l.). Negative for: Respiratory Distress, Accessory Muscle Use Cardiovascular: Positive for: Regular Rate and Rhythm, Normal S1, S2 Abdomen: Positive for: Normal Bowel Sounds. Negative for: Tenderness, Distention Upper Extremity: Positive for: Capillary Refill < 2s Lower Extremity: Positive for: Edema (1+ LE edema b/l.). Negative for: CALF TENDERNESS Neurological: Positive for: Speech Normal Skin: Positive for: Warm, Dry Psychiatric: Positive for: Alert, Oriented x 3 - Medications Active Medications: Active Medications Generic Name Dose Route Start Last Admin Trade Name Freq PRN Reason Stop Dose Admin Acetaminophen 650 mg 08/05/16 21:29 08/10/16 12:16 Tylenol 325mg Tab PO 650 mg Q6 PRN Administration Fever >100.4 F Acetylcysteine 2 ml 08/10/16 12:00 08/12/16 07:30 Mucomyst 10% 4ml IH 2 ml RQID [facility] Administration Albuterol Sulfate 2.5 mg 08/06/16 12:39 08/11/16 04:52 Albuterol 0.083% Inhal Martita (2.5 Mg/3 Ml) Ud INH 2.5 mg RQ4 PRN Administration Shortness of Breath Albuterol/Ipratropium 3 ml 08/06/16 16:00 08/12/16 07:30 Duoneb 3 Mg/0.5 Mg (3 Ml) Ud INH 3 ml RQID [facility] Administration Folic Acid 1 mg 08/06/16 09:00 08/12/16 08:41 Folic Acid PO 1 mg DAILY [facility] Administration Guaifenesin 600 mg 08/12/16 10:15 Mucinex La PO Q12 [facility] Heparin Sodium (Porcine) 5,000 units 08/09/16 21:00 08/12/16 08:41 Heparin SC 5,000 units Q12@0900,2100 [facility] Administration Protocol Piperacillin Sod/Tazobactam 100 mls @ 100 mls/hr 08/06/16 10:00 08/12/16 04: 17 Sod 2.25 gm/ Sodium Chloride IVPB 100 mls/hr Q6 [facility] Administration Moxifloxacin HCl 400 mg in 250 mls @ 250 mls/hr 08/08/16 22:00 08/11/16 23:22 Avelox Iv 400mg/250ml Ns IVPB 250 mls/hr DAILY@2200 [facility] Administration Levothyroxine Sodium 100 mcg 08/10/16 06:30 08/12/16 06:33 Synthroid PO 100 mcg DAILY@0630 [facility] Administration Metoprolol Succinate 25 mg 08/06/16 12:15 08/12/16 08:42 Toprol Xl PO 25 mg DAILY [facility] Administration Nystatin 1 applic 08/09/16 13:00 08/12/16 08:42 Nystop Topical Powder TOP 1 applic TID [facility] Administration Saccharomyces Boulardii 250 mg 08/07/16 17:00 08/12/16 08:41 Florastor PO 250 mg BID [facility] Administration Thiamine HCl 100 mg 08/06/16 09:00 08/12/16 08:42 Vitamin B1 Tab PO 100 mg DAILY [facility] Administration - Patient Studies Lab Studies: Microbiology Studies 08/08/16 16:55 Blood Culture - Preliminary Blood-Venous NO GROWTH AFTER 3 DAYS 08/08/16 16:30 Blood Culture - Preliminary Blood-Venous NO GROWTH AFTER 3 DAYS 08/07/16 16:00 Blood Culture - Preliminary Blood NO GROWTH AFTER 4 DAYS 08/07/16 16:00 Blood Culture - Preliminary Blood NO GROWTH AFTER 4 DAYS Lab Studies 08/12/16 08/12/16 08/10/16 Range/Units 04:25 04:25 22:53 WBC 8.8 (4.8-10.8) K/uL RBC 3.87 L (4.40-5.90) Mil/uL Hgb 11.0 L (12.0-18.0) g/dL Hct 32.4 L (35.0-51.0) % MCV 83.9 (80.0-94.0) fl MCH 28.3 (27.0-31.0) pg MCHC 33.8 (33.0-37.0) g/dL RDW 15.0 H (11.5-14.5) % Plt Count 345 (130-400) K/uL Sodium 142 (132-148) mmol/l Potassium 3.8 (3.6-5.0) MMOL/L Chloride 101 (98-107) mmol/L Carbon Dioxide 27 (22-30) mmol/L Anion Gap 18 (10-20) BUN 56 H (9-20) mg/dl Creatinine 6.6 H (0.8-1.5) mg/dL Est GFR ( Amer) 10 Est GFR (Non-Af Amer) 9 Random Glucose 99 (75-110) mg/dL Calcium 7.3 L (8.4-10.2) mg/dL Hepatitis A IgM Ab Negative (NEGATIVE) Hep Bs Antigen Negative (NEGATIVE) Hep B Core IgM Ab Negative (NEGATIVE) Hepatitis C Antibody Negative (NEGATIVE) Urine Legionella Ag (Not Detected) TB Test (QFT) Nil IU/mL TB Test Mitogen - Nil IU/mL TB Test TB - Nil IU/mL TB Test (QFT) (Negative) 08/10/16 08/07/16 Range/Units 10:00 06:48 WBC (4.8-10.8) K/uL RBC (4.40-5.90) Mil/uL Hgb (12.0-18.0) g/dL Hct (35.0-51.0) % MCV (80.0-94.0) fl MCH (27.0-31.0) pg MCHC (33.0-37.0) g/dL RDW (11.5-14.5) % Plt Count (130-400) K/uL Sodium (132-148) mmol/l Potassium (3.6-5.0) MMOL/L Chloride (98-107) mmol/L Carbon Dioxide (22-30) mmol/L Anion Gap (10-20) BUN (9-20) mg/dl Creatinine (0.8-1.5) mg/dL Est GFR ( Amer) Est GFR (Non-Af Amer) Random Glucose (75-110) mg/dL Calcium (8.4-10.2) mg/dL Hepatitis A IgM Ab (NEGATIVE) Hep Bs Antigen (NEGATIVE) Hep B Core IgM Ab (NEGATIVE) Hepatitis C Antibody (NEGATIVE) Urine Legionella Ag Not detected (Not Detected) TB Test (QFT) Nil 2.12 IU/mL TB Test Mitogen - Nil 0.29 IU/mL TB Test TB - Nil 0.02 IU/mL TB Test (QFT) Indeterminate H (Negative) Laboratory Results - last 24 hr 08/07/16 08/10/16 08/10/16 06:48 10:00 22:53 WBC RBC Hgb Hct MCV MCH MCHC RDW Plt Count Sodium Potassium Chloride Carbon Dioxide Anion Gap BUN Creatinine Est GFR ( Amer) Est GFR (Non-Af Amer) Random Glucose Calcium Hepatitis A IgM Ab Negative Hep Bs Antigen Negative Hep B Core IgM Ab Negative Hepatitis C Antibody Negative Urine Legionella Ag Not detected TB Test (QFT) Nil 2.12 TB Test Mitogen - Nil 0.29 TB Test TB - Nil 0.02 TB Test (QFT) Indeterminate H 08/12/16 08/12/16 04:25 04:25 WBC 8.8 RBC 3.87 L Hgb 11.0 L Hct 32.4 L MCV 83.9 MCH 28.3 MCHC 33.8 RDW 15.0 H Plt Count 345 Sodium 142 Potassium 3.8 Chloride 101 Carbon Dioxide 27 Anion Gap 18 BUN 56 H Creatinine 6.6 H Est GFR ( Amer) 10 Est GFR (Non-Af Amer) 9 Random Glucose 99 Calcium 7.3 L Hepatitis A IgM Ab Hep Bs Antigen Hep B Core IgM Ab Hepatitis C Antibody Urine Legionella Ag TB Test (QFT) Nil TB Test Mitogen - Nil TB Test TB - Nil TB Test (QFT) Review of Systems - Constitutional Constitutional: absent: Fever, Chills - Cardiovascular Cardiovascular: Edema. absent: Chest Pain, Chest Pain at Rest, Palpitations - Respiratory Respiratory: Cough (non-productive), Wheezing. absent: Hemoptysis, Pain with Coughing - Gastrointestinal Gastrointestinal: absent: Abdominal Pain, Diarrhea, Nausea, Vomiting - Neurological Neurological: absent: Dizziness, Headaches Critical Care Progress Note - Nutrition Nutrition: Nutrition Category Date Time Status Renal Diet [DIET] Diets 08/08/16 Lunch Active Assessment/Plan - Assessment and Plan (Free Text) Assessment: 60 y/o homeless male with unremarkable PMH admitted with multilobular pneumonia and rhabdomyolysis. Currently being treated for acute hypoxic acute respiratory failure and acute kidney injury. Plan: Acute respiratory failure with hypoxia secondary to multifocal community acquired pneumonia -CT chest from 08/07/16 identified large left upper lobe pneumonia with extensive consolidation in addition to a large alveolar infiltrate with consolidation of the right middle lobe -CXR from yesterday appears to show improvement of hazy opacities at the left lung and right lower lung compared to previous study -O2 saturation has is stable at 94-95% with decreasing high flow oxygen (25L @65 % to 60%) -WBC: 8.8, has been afebrile for over 24 hrs (Last fever 100.6 on 08/10/16 @12:16) -AFB smear negative x3 -Procalcitonin has decreased from 21 to 9 -Legionella negative -Quantiferon Gold indeterminate -Pulmonology following -Continue duonebs QID -On Avelox 400mg IV daily (Started 08/08/16, Current day 5), Zosyn 2.25gm IV Q6h (Started 08/06/16, Current day 7) Acute Kidney Injury -Likely due to acute tubular necrosis secondary to rhabdomyolysis and sepsis -Patient had right IJV catheter placement 08/10 and was dialyzed on 08/10 and 08/11, removing 2L of ultrafiltrate each day -Plan for additional dialysis tomorrow (08/13) -BUN/Cr improvin/8.2 > 78/7.7 > 56/6.6 -CK has been improving. Repeated today, pending result -Niru cesar I/Os -Nephrology consulted. Rhabdomyolysis -Undetermined etiology (denies trauma or exertional history) -CK levels improving 05337 > 960. Will repeat. -IVF discontinued yesterday as per nephrology recommendations Hypothyroidism -TSH 17.2 on 08/09/16 -Endocrine consulted. On levothyroxine 100mcg PO daily DVT Prophylaxis -Heparin 5,000 units SC Q12 Advanced Directive -Full code -Patient is sole decision maker
--- NOTE | 2016-08-12 11:44 | CP.PCM.PN ---
Subjective - Date & Time of Evaluation Date of Evaluation: 08/12/16 Time of Evaluation: 11:30 - Subjective Subjective: No fever in good spirits today - sitted on chair still with cough but better on High Flow Oxygen 60% FiO2 20 liters no CP no abd pain Objective - Vital Signs/Intake and Output Vital Signs (last 24 hours): Temp Pulse Resp BP Pulse Ox 98.1 F 65 21 144/85 97 08/12/16 07:31 08/12/16 08:42 08/12/16 09:45 08/12/16 08:42 08/12/16 07:31 Intake and Output: 08/12/16 08/12/16 06:59 18:59 Intake Total 450 Output Total 2009 Balance -1560 - Medications Medications: Current Medications Acetaminophen (Tylenol 325mg Tab) 650 mg PO Q6 PRN PRN Reason: Fever >100.4 F Last Admin: 08/10/16 12:16 Dose: 650 mg Acetylcysteine (Mucomyst 10% 4ml) 2 ml IH RQID [facility] Last Admin: 08/12/16 07:30 Dose: 2 ml Albuterol Sulfate (Albuterol 0.083% Inhal Martita (2.5 Mg/3 Ml) Ud) 2.5 mg INH RQ4 PRN PRN Reason: Shortness of Breath Last Admin: 08/11/16 04:52 Dose: 2.5 mg Albuterol/Ipratropium (Duoneb 3 Mg/0.5 Mg (3 Ml) Ud) 3 ml INH RQID [facility] Last Admin: 08/12/16 07:30 Dose: 3 ml Folic Acid (Folic Acid) 1 mg PO DAILY [facility] Last Admin: 08/12/16 08:41 Dose: 1 mg Guaifenesin (Mucinex La) 600 mg PO Q12 [facility] Heparin Sodium (Porcine) (Heparin) 5,000 units SC Q12@0900,2100 [facility] PRN Reason: Protocol Last Admin: 08/12/16 08:41 Dose: 5,000 units Piperacillin Sod/Tazobactam (Sod 2.25 gm/ Sodium Chloride) 100 mls @ 100 mls/ hr IVPB Q6 [facility] Last Admin: 08/12/16 04:17 Dose: 100 mls/hr Moxifloxacin HCl (Avelox Iv 400mg/250ml Ns) 400 mg in 250 mls @ 250 mls/hr IVPB DAILY@2200 [facility] Last Admin: 08/11/16 23:22 Dose: 250 mls/hr Levothyroxine Sodium (Synthroid) 100 mcg PO DAILY@0630 [facility] Last Admin: 08/12/16 06:33 Dose: 100 mcg Metoprolol Succinate (Toprol Xl) 25 mg PO DAILY [facility] Last Admin: 08/12/16 08:42 Dose: 25 mg Nystatin (Nystop Topical Powder) 1 applic TOP TID [facility] Last Admin: 08/12/16 08:42 Dose: 1 applic Saccharomyces Boulardii (Florastor) 250 mg PO BID [facility] Last Admin: 08/12/16 08:41 Dose: 250 mg Thiamine HCl (Vitamin B1 Tab) 100 mg PO DAILY [facility] Last Admin: 08/12/16 08:42 Dose: 100 mg - Labs Labs: 08/12/16 04:25 08/12/16 04:25 PT 12.6 SECONDS (9.6-11.2) H 08/11/16 04:30 INR 1.21 (0.92-1.08) H 08/11/16 04:30 APTT 35.1 SECONDS (23.3-32.5) H 08/11/16 04:30 - Constitutional Appears: No Acute Distress, Chronically Ill - Head Exam Head Exam: NORMAL INSPECTION, NORMOCEPHALIC - Eye Exam Eye Exam: Normal appearance, PERRL Pupil Exam: NORMAL ACCOMODATION - ENT Exam ENT Exam: Mucous Membranes Moist, Normal External Ear Exam - Neck Exam Neck Exam: Full ROM. absent: Meningismus - Respiratory Exam Respiratory Exam: Rales, Rhonchi. absent: Respiratory Distress Additional comments: On High Flow Oxygen - Cardiovascular Exam Cardiovascular Exam: REGULAR RHYTHM, +S1, +S2 - GI/Abdominal Exam GI & Abdominal Exam: Soft, Normal Bowel Sounds. absent: Tenderness - Extremities Exam Extremities Exam: Full ROM, Normal Capillary Refill. absent: Calf Tenderness - Back Exam Back Exam: Full ROM. absent: CVA tenderness (L), CVA tenderness (R), paraspinal tenderness, vertebral tenderness - Neurological Exam Neurological Exam: Alert, Awake, CN II-XII Intact, Oriented x3 Neuro motor strength exam: Left Upper Extremity: 5, Right Upper Extremity: 5, Left Lower Extremity: 5, Right Lower Extremity: 5 - Psychiatric Exam Psychiatric exam: Normal Affect, Normal Mood - Skin Skin Exam: Dry, Normal Color, Warm Assessment and Plan - Assessment and Plan (Free Text) Assessment: 60 years old male with no significant past medical hx was brought to the ED because of Generalized weakness, dizziness. He has been coughing for one month with brown sputum. No chest pain on coughing, no SOB and no fever. He Smokes one pack of cigarettes in 3 days with occasional Alcohol use. In the ED his Temp was 100.6F with HR of 123/min. CXR showed multifocal Pneumonia and BMP showed renal failure. Patient was admitted with sepsis ( POA) due to multifocal pneumonia and DYLLAN due to rhabdomyolysis . Pulmonary ID and nephro consulted . He was started on IVF and IV antibiotics. Was transferred to ICU for close monitoring due to AMS / confusion and respiratory distress. At present still on high flow Oxyegn but decreased to 20 LPM FIO2 60 % . 1. Sepsis sec to Pneumonia- POA improving Afebrile last 24 hours and procalcitonin trending down from [address] chest showed Large bilateral alveolar infiltrates as well as small bilateral pleural effusions. Mild mediastinal lymphadenopathy. Still on high flow O2 25 LPM on 65 % FIO2 Pulmonary and ID on consult promote ambulation Continue Zosyn, and Moxifloxacin . Given 1 dose of Vancomycin 1 G Iv and IV Clinda HIV and influenza - negative legionella Ag : negative Mycoplasma IgM negative Continue duonebs, acetylcysteine Sputum cx positive for yeast 2. AMS/ Metabolic encephalopathy -improving most likely AMS multifactorial - due to sepsis, pneumonia, medication induced, renal failure Continue treatment for Pneumonia and sepsis Keep on High flow Aspiration precautions Hold Ativan 3. Acute Hypoxemic respiratory failure sec to CAP on High Flow Oxygen V/Q scan showed no PE Continue Zosyn , Moxifloxacin/ Given 1 dose Vancomycin IV Respiratory isolation discontinued today since 3 AFB-s were negative Pulmonary and ID on consult Cultures negative so far 4. Acute Renal Failure with metabolic acidosis Most likely ATN secondary to Rhabdomyolysis Dr Kowalski nephrology consulted Patient did bot respond to IVF with HCO3 Renal sonogram showed normal size and echogenecity and no obstruction Started HD and received 2 sessions so far Continue close monitoring HD catheter placed to right upper chest by IR 5. Rhabdomyolysis CPK trended down received IVF on HD for renal failure 4. Hypokalemia Repleted 5. Transaminitis unclear etiology on the admission was suspicious for ETOH abuse since AST more elevated than ALT but patient and cousin denied alcoholism Started MVI, folic acid and Thiamine Hepatitis profile- negative Abdominal US showed normal liver size and echogenecity Probably LFT elevation secondary to sepsis 7. Tremulousness- resolved patient and cousin denied ETOH abuse Abd Us showed no fatty or cirrhotic liver Continue Thiamine, Folate, MVI CT head showed no acute pathology 8. DVT prophylaxis Heparin 9. Hypothyroidism Endo consulted Started Synthroid 100 mcg
[2016-08-12] MEDS: guaiFENesin 600 mg ER Tab PO SCH ×2 (12:30→21:02)
--- NOTE | 2016-08-12 15:38 | CP.PCM.PN ---
Subjective - Date & Time of Evaluation Date of Evaluation: 08/12/16 Time of Evaluation: 09:00 - Subjective Subjective: awake alert OOB NAD afebrile cuklltures neg Objective - Vital Signs/Intake and Output Vital Signs (last 24 hours): Temp Pulse Resp BP Pulse Ox 98.5 F 74 14 136/75 95 08/12/16 12:00 08/12/16 12:00 08/12/16 12:00 08/12/16 12:00 08/12/16 12:00 Intake and Output: 08/12/16 08/12/16 06:59 18:59 Intake Total 450 Output Total 2009 Balance -1560 - Medications Medications: Current Medications Acetaminophen (Tylenol 325mg Tab) 650 mg PO Q6 PRN PRN Reason: Fever >100.4 F Last Admin: 08/10/16 12:16 Dose: 650 mg Acetylcysteine (Mucomyst 10% 4ml) 2 ml IH RQID [facility] Last Admin: 08/12/16 12:00 Dose: 2 ml Albuterol Sulfate (Albuterol 0.083% Inhal Martita (2.5 Mg/3 Ml) Ud) 2.5 mg INH RQ4 PRN PRN Reason: Shortness of Breath Last Admin: 08/11/16 04:52 Dose: 2.5 mg Albuterol/Ipratropium (Duoneb 3 Mg/0.5 Mg (3 Ml) Ud) 3 ml INH RQID [facility] Last Admin: 08/12/16 12:00 Dose: 3 ml Folic Acid (Folic Acid) 1 mg PO DAILY [facility] Last Admin: 08/12/16 08:41 Dose: 1 mg Guaifenesin (Mucinex La) 600 mg PO Q12 [facility] Heparin Sodium (Porcine) (Heparin) 5,000 units SC Q12@0900,2100 [facility] PRN Reason: Protocol Last Admin: 08/12/16 08:41 Dose: 5,000 units Moxifloxacin HCl (Avelox Iv 400mg/250ml Ns) 400 mg in 250 mls @ 250 mls/hr IVPB DAILY@2200 [facility] Last Admin: 08/11/16 23:22 Dose: 250 mls/hr Piperacillin Sod/Tazobactam Sod (Zosyn 2.25 Gm Iv Premix) 2.25 gm in 50 mls @ 50 mls/hr IVPB Q6 [facility] Levothyroxine Sodium (Synthroid) 100 mcg PO DAILY@0630 [facility] Last Admin: 08/12/16 06:33 Dose: 100 mcg Metoprolol Succinate (Toprol Xl) 25 mg PO DAILY [facility] Last Admin: 08/12/16 08:42 Dose: 25 mg Nystatin (Nystop Topical Powder) 1 applic TOP TID [facility] Last Admin: 08/12/16 08:42 Dose: 1 applic Saccharomyces Boulardii (Florastor) 250 mg PO BID [facility] Last Admin: 08/12/16 08:41 Dose: 250 mg Thiamine HCl (Vitamin B1 Tab) 100 mg PO DAILY [facility] Last Admin: 08/12/16 08:42 Dose: 100 mg - Labs Labs: 08/12/16 04:25 08/12/16 04:25 PT 12.6 SECONDS (9.6-11.2) H 08/11/16 04:30 INR 1.21 (0.92-1.08) H 08/11/16 04:30 APTT 35.1 SECONDS (23.3-32.5) H 08/11/16 04:30 - Constitutional Appears: Non-toxic, Chronically Ill - Head Exam Head Exam: NORMOCEPHALIC - Eye Exam Eye Exam: PERRL. absent: Scleral icterus - ENT Exam ENT Exam: Mucous Membranes Dry - Neck Exam Neck Exam: absent: Lymphadenopathy - Respiratory Exam Respiratory Exam: Decreased Breath Sounds - Cardiovascular Exam Cardiovascular Exam: REGULAR RHYTHM - GI/Abdominal Exam GI & Abdominal Exam: Soft - Rectal Exam Rectal Exam: Deferred - Exam Exam: NORMAL INSPECTION Assessment and Plan (1) Acute renal failure (ARF) Status: Acute (2) Pneumonia Status: Acute (3) Renal insufficiency Status: Acute (4) Rhabdomyolysis Status: Suspected
--- NOTE | 2016-08-12 16:08 | PN ---
DATE: 08/12/2016 LOCATION: ICU room 433. SUBJECTIVE: This is a 60-year-old male with multilobar pneumonia, currently being followed closely f or hypothyroidism which he is tolerating fairly well in terms of the intake of levothyroxine replacem ent therapy. His latest chemistries include a BUN of 56, sodium 142, potassium 3.8, chloride 101, CO 2 27, glucose 99, and creatinine 6.6. His glucose levels are within optimal range at this time. The latest thyroid study showed a T4 of 3.40 with a TSH of 17.20 and a cortisol of 44.8. So at this duncan e, we will continue the same levothyroxine dose of 100 mcg daily as ordered. We will obtain serial c hemistries and supplement accordingly as needed. We will follow. Tara Smith MD cc: [id number] TT: 08/12/2016 16:07:13 Confirmation # [id number] Dictation # [id number] mally
[2016-08-12] MEDS: Piperacill/Tazo 2.25gm in Dex 2.25 GM/50 ML BAG IVPB SCH ×2 (17:00→21:00)
[2016-08-12] MEDS: Moxifloxacin IV 400mg/250ml NS 400 MG/250 ML BAG IVPB SCH (21:01)
[2016-08-13] MEDS: Piperacill/Tazo 2.25gm in Dex 2.25 GM/50 ML BAG IVPB SCH ×2 (04:58→08:59)
[2016-08-13 05:20] LABS: BASO # 0.1 K/uL (0.0-0.2); BASO % 0.6 % (0.0-2.0); EOS # 0.1 K/uL (0.0-0.7); EOS % 0.8 % (0.0-4.0); HEMATOCRIT 32.8 % (35.0-51.0); LYMPH # 1.2 K/uL (1.0-4.3); LYMPH % 11.8 % (20.0-40.0); MEAN CELL VOLUME 84.8 fl (80.0-94.0); MONO # 0.9 K/uL (0.0-0.8); MONO % 8.8 % (0.0-10.0); NEUT # 7.8 K/uL (1.8-7.0); NRBC % 0.2 % (0.0-0.0)
[2016-08-13 05:33] LABS: ALB/GLOB RATIO 0.7 (1.0-2.1); BILIRUBIN,TOTAL 0.9 mg/dl (0.2-1.3); CALCIUM 7.3 mg/dL (8.4-10.2); POTASSIUM 3.8 MMOL/L (3.6-5.0); TOTAL PROTEIN 6.8 G/DL (6.3-8.2)
[2016-08-13] MEDS: Levothyroxine 100 MCG TAB PO SCH (05:50)
[2016-08-13] MEDS: Albuterol-Ipratrop 3 mg / 0.5 (3 ml) UD INH SCH ×4 (07:30→19:46)
[2016-08-13] MEDS: Acetylcysteine 10% 4 ML IH SCH (07:30)
--- NOTE | 2016-08-13 07:59 | CP.PCM.PN ---
Subjective - Date & Time of Evaluation Date of Evaluation: 08/13/16 Time of Evaluation: 07:30 - Subjective Subjective: Patient was seen and examined bedside. Awake , alert and oriented.Feeling better. Still on high flow O2 20 LPM / FIO2 60 % saturating 96% With chest congestion ,minimal cough and sputum production Afebrile BP 159/90 HR 65 RR 19 No acute issues overnight With minimal urine output last 24 hours 200 ml Objective - Vital Signs/Intake and Output Vital Signs (last 24 hours): Temp Pulse Resp BP Pulse Ox 98 F 67 16 164/78 H 93 L 08/13/16 06:00 08/13/16 06:00 08/13/16 06:00 08/13/16 06:00 08/13/16 06:00 Intake and Output: 08/13/16 08/13/16 06:59 18:59 Intake Total 577 Output Total 200 Balance 377 - Medications Medications: Current Medications Acetaminophen (Tylenol 325mg Tab) 650 mg PO Q6 PRN PRN Reason: Fever >100.4 F Last Admin: 08/10/16 12:16 Dose: 650 mg Acetylcysteine (Mucomyst 10% 4ml) 2 ml IH RQID [facility] Last Admin: 08/12/16 19:41 Dose: 2 ml Albuterol Sulfate (Albuterol 0.083% Inhal Martita (2.5 Mg/3 Ml) Ud) 2.5 mg INH RQ4 PRN PRN Reason: Shortness of Breath Last Admin: 08/11/16 04:52 Dose: 2.5 mg Albuterol/Ipratropium (Duoneb 3 Mg/0.5 Mg (3 Ml) Ud) 3 ml INH RQID [facility] Last Admin: 08/12/16 19:41 Dose: 3 ml Folic Acid (Folic Acid) 1 mg PO DAILY [facility] Last Admin: 08/12/16 08:41 Dose: 1 mg Guaifenesin (Mucinex La) 600 mg PO Q12 [facility] Last Admin: 08/12/16 21:02 Dose: 600 mg Heparin Sodium (Porcine) (Heparin) 5,000 units SC Q12@0900,2100 [facility] PRN Reason: Protocol Last Admin: 08/12/16 21:01 Dose: 5,000 units Moxifloxacin HCl (Avelox Iv 400mg/250ml Ns) 400 mg in 250 mls @ 250 mls/hr IVPB DAILY@2200 [facility] Last Admin: 08/12/16 21:01 Dose: 250 mls/hr Piperacillin Sod/Tazobactam Sod (Zosyn 2.25 Gm Iv Premix) 2.25 gm in 50 mls @ 50 mls/hr IVPB Q6 [facility] Last Admin: 08/13/16 04:58 Dose: 50 mls/hr Levothyroxine Sodium (Synthroid) 100 mcg PO DAILY@0630 [facility] Last Admin: 08/13/16 05:50 Dose: 100 mcg Metoprolol Succinate (Toprol Xl) 25 mg PO DAILY [facility] Last Admin: 08/12/16 08:42 Dose: 25 mg Nystatin (Nystop Topical Powder) 1 applic TOP TID [facility] Last Admin: 08/12/16 16:59 Dose: Not Given Saccharomyces Boulardii (Florastor) 250 mg PO BID [facility] Last Admin: 08/12/16 16:58 Dose: 250 mg Thiamine HCl (Vitamin B1 Tab) 100 mg PO DAILY [facility] Last Admin: 08/12/16 08:42 Dose: 100 mg - Labs Labs: 08/13/16 04:25 08/13/16 04:25 PT 12.6 SECONDS (9.6-11.2) H 08/11/16 04:30 INR 1.21 (0.92-1.08) H 08/11/16 04:30 APTT 35.1 SECONDS (23.3-32.5) H 08/11/16 04:30 - Constitutional Appears: Non-toxic, No Acute Distress, Other (on high flow ) - Head Exam Head Exam: ATRAUMATIC, NORMAL INSPECTION, NORMOCEPHALIC - Eye Exam Eye Exam: EOMI, Normal appearance, PERRL Pupil Exam: NORMAL ACCOMODATION - ENT Exam ENT Exam: Mucous Membranes Moist, Normal Exam - Neck Exam Neck Exam: Full ROM, Normal Inspection - Respiratory Exam Respiratory Exam: absent: Wheezes Additional comments: Diffuise coarse breath souns bilaterally with rhonchi - Cardiovascular Exam Cardiovascular Exam: REGULAR RHYTHM, RRR, +S1, +S2. absent: JVD - GI/Abdominal Exam GI & Abdominal Exam: Distended, Soft. absent: Guarding, Tenderness, Rebound - Rectal Exam Rectal Exam: Deferred - Exam Exam: Scrotal Swelling - Extremities Exam Extremities Exam: Normal Capillary Refill, Normal Inspection. absent: Calf Tenderness, Pedal Edema - Back Exam Back Exam: NORMAL INSPECTION - Neurological Exam Neurological Exam: Alert, Awake, CN II-XII Intact, Oriented x3 Additional comments: a little confused - Psychiatric Exam Psychiatric exam: Normal Affect - Skin Skin Exam: Dry, Intact, Normal Color, Warm Assessment and Plan - Assessment and Plan (Free Text) Assessment: 60 years old male with no significant past medical hx was brought to the ED because of Generalized weakness, dizziness. He has been coughing for one month with brown sputum. No chest pain on coughing, no SOB and no fever. He Smokes one pack of cigarettes in 3 days with occasional Alcohol use. In the ED his Temp was 100.6F with HR of 123/min. CXR showed multifocal Pneumonia and BMP showed renal failure. Patient was admitted with sepsis ( POA) due to multifocal pneumonia and DYLLAN due to rhabdomyolysis . Pulmonary ID and nephro consulted . He was started on IVF and IV antibiotics. Was transferred to ICU for close monitoring due to AMS / confusion and respiratory distress. At present still on high flow Oxyegn but decreased to 20 LPM FIO2 60 % . 1. Sepsis sec to Pneumonia- POA improving Afebrile > 48 hours hours and procalcitonin trending down from [address] chest showed Large bilateral alveolar infiltrates as well as small bilateral pleural effusions. Mild mediastinal lymphadenopathy. Still on high flow O2 20 LPM on 60 % FIO2 , O2Sat 96 % CXR today showed worsening LLL pneumonia Pulmonary and ID on consult promote ambulation Continue Zosyn, and Moxifloxacin . Given 1 dose of Vancomycin 1 G Iv and IV Clinda HIV and influenza - negative legionella Ag : negative Mycoplasma IgM negative Continue duonebs, acetylcysteine Sputum cx positive for yeast 2. AMS/ Metabolic encephalopathy -improving most likely AMS multifactorial - due to sepsis, pneumonia, medication induced, renal failure Continue treatment for Pneumonia and sepsis Keep on High flow Aspiration precautions Hold Ativan 3. Acute Hypoxemic respiratory failure sec to CAP on High Flow Oxygen V/Q scan showed no PE Continue Zosyn , Moxifloxacin/ Given 1 dose Vancomycin IV Respiratory isolation discontinued today since 3 AFB-s were negative Pulmonary and ID on consult Cultures negative so far 4. Acute Renal Failure with metabolic acidosis Most likely ATN secondary to Rhabdomyolysis Dr Kowalski nephrology consulted Patient did bot respond to IVF with HCO3 Renal sonogram showed normal size and echogenecity and no obstruction Started HD . For HD today Continue close monitoring HD catheter placed to right upper chest by IR 5. Rhabdomyolysis CPK trended down received IVF on HD for renal failure 4. Hypokalemia Repleted 5. Transaminitis unclear etiology on the admission was suspicious for ETOH abuse since AST more elevated than ALT but patient and cousin denied alcoholism Started MVI, folic acid and Thiamine Hepatitis profile- negative Abdominal US showed normal liver size and echogenecity Probably LFT elevation secondary to sepsis 7. Tremulousness- resolved patient and cousin denied ETOH abuse Abd Us showed no fatty or cirrhotic liver Continue Thiamine, Folate, MVI CT head showed no acute pathology 8. DVT prophylaxis Heparin 9. Hypothyroidism Endo consulted Started Synthroid 100 mcg
[2016-08-13] MEDS: guaiFENesin 600 mg ER Tab PO SCH ×2 (08:43→21:58)
[2016-08-13] MEDS: Metoprolol Succinate 25 mg XL Tab PO SCH (08:43)
[2016-08-13] MEDS: Saccharomyces Boulardi 250 mg Cap PO SCH ×2 (08:43→17:19)
--- NOTE | 2016-08-13 09:20 | CP.PCM.PN ---
Subjective - Date & Time of Evaluation Date of Evaluation: 08/13/16 Time of Evaluation: 09:15 - Subjective Subjective: Still in ICU. Remains afebrile now > 48hrs. Still has occasional cough, essentially non-productive. Less SOB, claims he feels improved as well. CXR this morning shows some mild decrease in the infiltrates. Breath sounds are present bilaterally w/o bronchial breathing heard. Less pronounced E wheezing and prolonged E phase. Continue present medical regimen. For repeat dialysis today. Acetylcysteine discontinued. Transfer out of ICU. Increase activity as tolerated. High flow reduced to 55% oxygen. Objective - Vital Signs/Intake and Output Vital Signs (last 24 hours): Temp Pulse Resp BP Pulse Ox 98 F 70 21 152/95 H 93 L 08/13/16 06:00 08/13/16 08:43 08/13/16 09:10 08/13/16 08:43 08/13/16 06:00 Intake and Output: 08/12/16 08/13/16 23:59 11:59 Intake Total 370 207 Output Total 200 Balance 170 207 - Medications Medications: Current Medications Acetaminophen (Tylenol 325mg Tab) 650 mg PO Q6 PRN PRN Reason: Fever >100.4 F Last Admin: 08/10/16 12:16 Dose: 650 mg Albuterol Sulfate (Albuterol 0.083% Inhal Martita (2.5 Mg/3 Ml) Ud) 2.5 mg INH RQ4 PRN PRN Reason: Shortness of Breath Last Admin: 08/11/16 04:52 Dose: 2.5 mg Albuterol/Ipratropium (Duoneb 3 Mg/0.5 Mg (3 Ml) Ud) 3 ml INH RQID [facility] Last Admin: 08/13/16 07:30 Dose: 3 ml Folic Acid (Folic Acid) 1 mg PO DAILY [facility] Last Admin: 08/13/16 08:43 Dose: 1 mg Guaifenesin (Mucinex La) 600 mg PO Q12 [facility] Last Admin: 08/13/16 08:43 Dose: 600 mg Heparin Sodium (Porcine) (Heparin) 5,000 units SC Q12@0900,2100 [facility] PRN Reason: Protocol Last Admin: 08/12/16 21:01 Dose: 5,000 units Moxifloxacin HCl (Avelox Iv 400mg/250ml Ns) 400 mg in 250 mls @ 250 mls/hr IVPB DAILY@2200 [facility] Last Admin: 08/12/16 21:01 Dose: 250 mls/hr Piperacillin Sod/Tazobactam Sod (Zosyn 2.25 Gm Iv Premix) 2.25 gm in 50 mls @ 50 mls/hr IVPB Q6 [facility] Last Admin: 08/13/16 08:59 Dose: 50 mls/hr Levothyroxine Sodium (Synthroid) 100 mcg PO DAILY@0630 [facility] Last Admin: 08/13/16 05:50 Dose: 100 mcg Metoprolol Succinate (Toprol Xl) 25 mg PO DAILY [facility] Last Admin: 08/13/16 08:43 Dose: 25 mg Nystatin (Nystop Topical Powder) 1 applic TOP TID [facility] Last Admin: 08/13/16 08:43 Dose: 1 applic Saccharomyces Boulardii (Florastor) 250 mg PO BID [facility] Last Admin: 08/13/16 08:43 Dose: 250 mg Thiamine HCl (Vitamin B1 Tab) 100 mg PO DAILY [facility] Last Admin: 08/13/16 08:43 Dose: 100 mg - Labs Labs: 08/13/16 04:25 08/13/16 04:25 PT 12.6 SECONDS (9.6-11.2) H 08/11/16 04:30 INR 1.21 (0.92-1.08) H 08/11/16 04:30 APTT 35.1 SECONDS (23.3-32.5) H 08/11/16 04:30 Assessment and Plan (1) Acute renal failure (ARF) Status: Acute (2) Rhabdomyolysis Status: Suspected (3) Pneumonia Status: Acute
--- NOTE | 2016-08-13 10:58 | CP.CCUPN ---
<Angelica Gates - Last Filed: 08/13/16 14:48> CCU Subjective - Physician Review Subjective (Free Text): 08/13/16 10:52 Patient seen and examined at bedside with attending during morning rounds. He is laying upright in bed comfortably, with no signs of respiratory distress. He has tolerated decreasing FiO2 from 60% to 55% well, with stable O2 Sats. This morning he reports breathing "a lot better than before" and continues to report cough, which has been nonproductive. Interval CXR has slight improvement in infiltrates compared to prior study. Patient has been afebrile and denies headache, chest pain, abdominal pain, nausea or vomiting. CCU Objective - Vital Signs / Intake & Output Vital Signs (Last 4 hours): Vital Signs Temp Pulse Resp BP Pulse Ox 08/13/16 09:15 21 08/13/16 08:43 70 152/95 H 08/13/16 08:00 97.6 F 58 L 17 152/95 H 100 08/13/16 07:30 18 Intake and Output (Last 8hrs): Intake & Output 08/12/16 08/13/16 08/13/16 22:59 06:59 14:59 Intake Total 370 207 Output Total 200 Balance 170 207 Weight 228 lb Intake: IV 10 12 Intake, Piggyback 300 50 Oral 60 145 Output: Urine 200 Urine, Voided 200 Other: # Bowel Movements 1 - Physical Exam Head: Positive for: Atraumatic, Normocephalic Pupils: Positive for: PERRL Extroacular Muscles: Positive for: EOMI Conjunctiva: Positive for: Normal Mouth: Positive for: Dry, Other (Poor dentition. ) Neck: Positive for: Other (Right IJV catheter in place. No surrounding erythema or drainage.) Respiratory/Chest: Positive for: Decreased Breath Sounds, Other (B/L air entry present but diminished on left lung thibodeaux. Course breath sounds present b/l with no wheezes audible today.). Negative for: Respiratory Distress, Accessory Muscle Use Cardiovascular: Positive for: Regular Rate and Rhythm, Normal S1, S2 Abdomen: Positive for: Normal Bowel Sounds. Negative for: Tenderness, Distention Upper Extremity: Positive for: Capillary Refill < 2s Lower Extremity: Positive for: Edema (1+ LE edema b/l.). Negative for: CALF TENDERNESS Neurological: Positive for: Speech Normal Skin: Positive for: Warm, Dry Psychiatric: Positive for: Alert, Oriented x 3 - Medications Active Medications: Active Medications Generic Name Dose Route Start Last Admin Trade Name Freq PRN Reason Stop Dose Admin Acetaminophen 650 mg 08/05/16 21:29 08/10/16 12:16 Tylenol 325mg Tab PO 650 mg Q6 PRN Administration Fever >100.4 F Albuterol Sulfate 2.5 mg 08/06/16 12:39 08/11/16 04:52 Albuterol 0.083% Inhal Martita (2.5 Mg/3 Ml) Ud INH 2.5 mg RQ4 PRN Administration Shortness of Breath Albuterol/Ipratropium 3 ml 08/06/16 16:00 08/13/16 07:30 Duoneb 3 Mg/0.5 Mg (3 Ml) Ud INH 3 ml RQID [facility] Administration Folic Acid 1 mg 08/06/16 09:00 08/13/16 08:43 Folic Acid PO 1 mg DAILY [facility] Administration Guaifenesin 600 mg 08/12/16 10:15 08/13/16 08:43 Mucinex La PO 600 mg Q12 [facility] Administration Heparin Sodium (Porcine) 5,000 units 08/09/16 21:00 08/12/16 21:01 Heparin SC 5,000 units Q12@0900,2100 [facility] Administration Protocol Moxifloxacin HCl 400 mg in 250 mls @ 250 mls/hr 08/08/16 22:00 08/12/16 21:01 Avelox Iv 400mg/250ml Ns IVPB 250 mls/hr DAILY@2200 [facility] Administration Piperacillin Sod/Tazobactam Sod 2.25 gm in 50 mls @ 50 mls/hr 08/12/16 16:00 08/13/16 08:59 Zosyn 2.25 Gm Iv Premix IVPB 50 mls/hr Q6 [facility] Administration Levothyroxine Sodium 100 mcg 08/10/16 06:30 08/13/16 05:50 Synthroid PO 100 mcg DAILY@0630 [facility] Administration Metoprolol Succinate 25 mg 08/06/16 12:15 08/13/16 08:43 Toprol Xl PO 25 mg DAILY [facility] Administration Nystatin 1 applic 08/09/16 13:00 08/13/16 08:43 Nystop Topical Powder TOP 1 applic TID [facility] Administration Saccharomyces Boulardii 250 mg 08/07/16 17:00 08/13/16 08:43 Florastor PO 250 mg BID [facility] Administration Thiamine HCl 100 mg 08/06/16 09:00 08/13/16 08:43 Vitamin B1 Tab PO 100 mg DAILY [facility] Administration - Patient Studies Lab Studies: Microbiology Studies 08/08/16 16:55 Blood Culture - Preliminary Blood-Venous NO GROWTH AFTER 4 DAYS 08/08/16 16:30 Blood Culture - Preliminary Blood-Venous NO GROWTH AFTER 4 DAYS 08/07/16 16:00 Blood Culture - Final Blood NO GROWTH AFTER 5 DAYS Gram Stain - Final TEST NOT PERFORMED 08/07/16 16:00 Blood Culture - Final Blood NO GROWTH AFTER 5 DAYS Gram Stain - Final TEST NOT PERFORMED 08/10/16 13:56 Gram Stain - Final Sputum Sputum Culture - Final Yeast Species Lab Studies 08/13/16 08/13/16 Range/Units 04:25 04:25 WBC 10.0 (4.8-10.8) K/uL RBC 3.86 L (4.40-5.90) Mil/uL Hgb 10.8 L (12.0-18.0) g/dL Hct 32.8 L (35.0-51.0) % MCV 84.8 (80.0-94.0) fl MCH 28.0 (27.0-31.0) pg MCHC 33.0 (33.0-37.0) g/dL RDW 15.0 H (11.5-14.5) % Plt Count 409 H (130-400) K/uL MPV 8.0 (7.2-11.7) fl Neut % (Auto) 78.0 H (50.0-75.0) % Lymph % (Auto) 11.8 L (20.0-40.0) % York % (Auto) 8.8 (0.0-10.0) % Eos % (Auto) 0.8 (0.0-4.0) % Baso % (Auto) 0.6 (0.0-2.0) % Neut # 7.8 H (1.8-7.0) K/uL Lymph # 1.2 (1.0-4.3) K/uL York # 0.9 H (0.0-0.8) K/uL Eos # 0.1 (0.0-0.7) K/uL Baso # 0.1 (0.0-0.2) K/uL Sodium 143 (132-148) mmol/l Potassium 3.8 (3.6-5.0) MMOL/L Chloride 100 (98-107) mmol/L Carbon Dioxide 25 (22-30) mmol/L Anion Gap 21 H (10-20) BUN 72 H (9-20) mg/dl Creatinine 8.6 H* D (0.8-1.5) mg/dL Est GFR ( Amer) 8 Est GFR (Non-Af Amer) 6 Random Glucose 98 (75-110) mg/dL Calcium 7.3 L (8.4-10.2) mg/dL Total Bilirubin 0.9 (0.2-1.3) mg/dl AST 162 H D (17-59) U/L ALT 130 H (21-72) U/L Alkaline Phosphatase 55 (38-126) U/L Total Protein 6.8 (6.3-8.2) G/DL Albumin 2.7 L (3.5-5.0) g/dL Globulin 4.1 H (2.2-3.9) gm/dL Albumin/Globulin Ratio 0.7 L (1.0-2.1) Laboratory Results - last 24 hr 08/13/16 08/13/16 04:25 04:25 WBC 10.0 RBC 3.86 L Hgb 10.8 L Hct 32.8 L MCV 84.8 MCH 28.0 MCHC 33.0 RDW 15.0 H Plt Count 409 H MPV 8.0 Neut % (Auto) 78.0 H Lymph % (Auto) 11.8 L York % (Auto) 8.8 Eos % (Auto) 0.8 Baso % (Auto) 0.6 Neut # 7.8 H Lymph # 1.2 York # 0.9 H Eos # 0.1 Baso # 0.1 Sodium 143 Potassium 3.8 Chloride 100 Carbon Dioxide 25 Anion Gap 21 H BUN 72 H Creatinine 8.6 H* D Est GFR ( Amer) 8 Est GFR (Non-Af Amer) 6 Random Glucose 98 Calcium 7.3 L Total Bilirubin 0.9 AST 162 H D ALT 130 H Alkaline Phosphatase 55 Total Protein 6.8 Albumin 2.7 L Globulin 4.1 H Albumin/Globulin Ratio 0.7 L Review of Systems - Constitutional Constitutional: absent: Fever, Chills - Cardiovascular Cardiovascular: Leg Edema. absent: Chest Pain - Respiratory Respiratory: Cough (non-productive), Chest Congestion. absent: Hemoptysis, Pain with Coughing - Gastrointestinal Gastrointestinal: absent: Abdominal Pain, Nausea, Vomiting Critical Care Progress Note - Nutrition Nutrition: Nutrition Category Date Time Status Renal Diet [DIET] Diets 08/08/16 Lunch Active Assessment/Plan - Assessment and Plan (Free Text) Assessment: 60 y/o homeless male with unremarkable PMH admitted with multilobular pneumonia and rhabdomyolysis. Patient treated for acute hypoxic acute respiratory failure secondary to multilobular pneumonia, which has improved since admission, and acute kidney injury. Plan: Acute respiratory failure with hypoxia secondary to multifocal community acquired pneumonia -CT chest from 08/07/16 identified large left upper lobe pneumonia with extensive consolidation in addition to a large alveolar infiltrate with consolidation of the right middle lobe -CXR today shows slight improvement of hazy opacities at the left lung and right lower lung compared to previous study -Acute respiratory failure resolved. Hypoxia improving and patient is tolerating gradual d/c of high flow O2 -O2 saturation stable at 94-95% with decreasing high flow oxygen (20L @60% to 55 %) -No leukocytosis: WBC: 10.0. Afebrile for over 48hrs (Last fever 100.6 on @12:16) -AFB smear negative x3 -Procalcitonin has decreased from 21 to 9 -Legionella negative -Quantiferon Gold indeterminate -Pulmonology consultation appreciated -Continue duonebs QID -On Avelox 400mg IV daily (Started 08/08/16, Current day 6), Zosyn 2.25gm IV Q6h (Started 08/06/16, Current day 8) Acute Kidney Injury -Likely due to acute tubular necrosis secondary to rhabdomyolysis and sepsis -Nephrology consultation appreciated -Patient had right IJV catheter placement 08/10 and was dialyzed on 08/10 and 08/11, removing 2L of ultrafiltrate each day -Plan for dialysis today -BUN/Cr: 72/8.6 -GFR remains <10. Prognosis regarding improvement in renal function unclear at this time -CK has been improving. Repeat for next day AM. -Niru cesar I/Os Rhabdomyolysis, improving -Undetermined etiology (denies trauma or exertional history) -CK levels improving 92269 > 960. Will follow repeat. -IVF discontinued as per nephrology recommendations Hypothyroidism -TSH 17.2 on 08/09/16 -Endocrine consulted. On levothyroxine 100mcg PO daily DVT Prophylaxis -Heparin 5,000 units SC Q12 [facility] Directive -Full code -Patient is sole decision maker <Erik Chicas - Last Filed: 08/13/16 19:01> CCU Subjective - Physician Review Subjective (Free Text): Attestation: Patient seen and examined at the bedside with Resident Dr. Jelani Gates; and I agree with his outline of plans and management documented below as discussed on AM rounds reflecting my review of all applicable clinical data, and participation in the care of the patient throughout the day in ICU; today, August 13, 2016.
--- NOTE | 2016-08-13 11:09 | RAD ---
HISTORY: pneumonia Single AP portable view chest 08/13/2016 at 0429 hours COMPARISON: Chest radiograph dated 08/11/[address] scan chest dated 08/07/2016 FINDINGS: LUNGS: Re- demonstrated is large-bore right IJ central venous line with tip in the SVC. Dense opacity seen in the left mid to lower lateral lung zone and to a lesser degree left lung base with opacity in the right lower lobe. Findings may represent some combination of atelectasis/infiltrate PLEURA: No significant pleural effusion identified, no pneumothorax apparent. CARDIOVASCULAR: Heart remains enlarged OSSEOUS STRUCTURES: No significant abnormalities. VISUALIZED UPPER ABDOMEN: Normal. OTHER FINDINGS: None. IMPRESSION: Bilateral atelectatic -infiltrate changes.
--- NOTE | 2016-08-13 11:28 | CP.PCM.PN ---
Subjective - Date & Time of Evaluation Date of Evaluation: 08/13/16 Time of Evaluation: 11:28 - Subjective Subjective: pt seen and examined, follow up consult is dictated ##[id number] for hd today Objective - Vital Signs/Intake and Output Vital Signs (last 24 hours): Temp Pulse Resp BP Pulse Ox 97.6 F 70 21 152/95 H 100 08/13/16 08:00 08/13/16 08:43 08/13/16 09:15 08/13/16 08:43 08/13/16 08:00 Intake and Output: 08/13/16 08/13/16 06:59 18:59 Intake Total 577 Output Total 200 Balance 377 - Medications Medications: Current Medications Acetaminophen (Tylenol 325mg Tab) 650 mg PO Q6 PRN PRN Reason: Fever >100.4 F Last Admin: 08/10/16 12:16 Dose: 650 mg Albuterol Sulfate (Albuterol 0.083% Inhal Martita (2.5 Mg/3 Ml) Ud) 2.5 mg INH RQ4 PRN PRN Reason: Shortness of Breath Last Admin: 08/11/16 04:52 Dose: 2.5 mg Albuterol/Ipratropium (Duoneb 3 Mg/0.5 Mg (3 Ml) Ud) 3 ml INH RQID [facility] Last Admin: 08/13/16 07:30 Dose: 3 ml Folic Acid (Folic Acid) 1 mg PO DAILY [facility] Last Admin: 08/13/16 08:43 Dose: 1 mg Guaifenesin (Mucinex La) 600 mg PO Q12 [facility] Last Admin: 08/13/16 08:43 Dose: 600 mg Heparin Sodium (Porcine) (Heparin) 5,000 units SC Q12@0900,2100 [facility] PRN Reason: Protocol Last Admin: 08/12/16 21:01 Dose: 5,000 units Moxifloxacin HCl (Avelox Iv 400mg/250ml Ns) 400 mg in 250 mls @ 250 mls/hr IVPB DAILY@2200 [facility] Last Admin: 08/12/16 21:01 Dose: 250 mls/hr Piperacillin Sod/Tazobactam Sod (Zosyn 2.25 Gm Iv Premix) 2.25 gm in 50 mls @ 50 mls/hr IVPB Q6 [facility] Last Admin: 08/13/16 08:59 Dose: 50 mls/hr Levothyroxine Sodium (Synthroid) 100 mcg PO DAILY@0630 [facility] Last Admin: 08/13/16 05:50 Dose: 100 mcg Metoprolol Succinate (Toprol Xl) 25 mg PO DAILY [facility] Last Admin: 08/13/16 08:43 Dose: 25 mg Nystatin (Nystop Topical Powder) 1 applic TOP TID [facility] Last Admin: 08/13/16 08:43 Dose: 1 applic Saccharomyces Boulardii (Florastor) 250 mg PO BID [facility] Last Admin: 08/13/16 08:43 Dose: 250 mg Thiamine HCl (Vitamin B1 Tab) 100 mg PO DAILY [facility] Last Admin: 08/13/16 08:43 Dose: 100 mg - Labs Labs: 08/13/16 04:25 08/13/16 04:25 PT 12.6 SECONDS (9.6-11.2) H 08/11/16 04:30 INR 1.21 (0.92-1.08) H 08/11/16 04:30 APTT 35.1 SECONDS (23.3-32.5) H 08/11/16 04:30
--- NOTE | 2016-08-13 11:31 | PN ---
DATE: 08/13/2016 LOCATION: ICU room 433. SUBJECTIVE: This is a 60-year-old male with bilobar pneumonia, currently undergoing IV antibiotic ma nagement ____ hemodynamic monitoring and is also being followed closely for endocrine evaluation of h ypothyroidism. His latest chemistries today showed a BUN of ____ potassium 3.9, chloride 100, CO2 25 , glucose 98 and creatinine ____. His thyroid studies have remained hypothyroxinemic as noted. So a t this time, we will continue the same levothyroxine replacement therapy given as 100 mcg daily as or dered. We will titrate incrementally as indicated to optimize metabolic control. We will follow. Tara Smith MD cc: [id number] TT: 08/13/2016 11:31:03 Confirmation # [id number] Dictation # [id number] mally
--- NOTE | 2016-08-13 13:22 | CP.PCM.PN ---
Subjective - Date & Time of Evaluation Date of Evaluation: 08/13/16 Time of Evaluation: 09:00 - Subjective Subjective: Remains afebrile . occasional cough, Less SOB, CXR this morning shows some mild decrease in the infiltrates. Objective - Vital Signs/Intake and Output Vital Signs (last 24 hours): Temp Pulse Resp BP Pulse Ox 97.6 F 70 21 152/95 H 100 08/13/16 08:00 08/13/16 08:43 08/13/16 09:15 08/13/16 08:43 08/13/16 08:00 Intake and Output: 08/13/16 08/13/16 06:59 18:59 Intake Total 577 Output Total 200 Balance 377 - Medications Medications: Current Medications Acetaminophen (Tylenol 325mg Tab) 650 mg PO Q6 PRN PRN Reason: Fever >100.4 F Last Admin: 08/10/16 12:16 Dose: 650 mg Albuterol Sulfate (Albuterol 0.083% Inhal Martita (2.5 Mg/3 Ml) Ud) 2.5 mg INH RQ4 PRN PRN Reason: Shortness of Breath Last Admin: 08/11/16 04:52 Dose: 2.5 mg Albuterol/Ipratropium (Duoneb 3 Mg/0.5 Mg (3 Ml) Ud) 3 ml INH RQID [facility] Last Admin: 08/13/16 07:30 Dose: 3 ml Folic Acid (Folic Acid) 1 mg PO DAILY [facility] Last Admin: 08/13/16 08:43 Dose: 1 mg Guaifenesin (Mucinex La) 600 mg PO Q12 [facility] Last Admin: 08/13/16 08:43 Dose: 600 mg Heparin Sodium (Porcine) (Heparin) 5,000 units SC Q12@0900,2100 [facility] PRN Reason: Protocol Last Admin: 08/12/16 21:01 Dose: 5,000 units Moxifloxacin HCl (Avelox Iv 400mg/250ml Ns) 400 mg in 250 mls @ 250 mls/hr IVPB DAILY@2200 [facility] Last Admin: 08/12/16 21:01 Dose: 250 mls/hr Piperacillin Sod/Tazobactam (Sod 2.25 gm/ Sodium Chloride) 100 mls @ 100 mls/ hr IVPB Q6 [facility] Levothyroxine Sodium (Synthroid) 100 mcg PO DAILY@0630 [facility] Last Admin: 08/13/16 05:50 Dose: 100 mcg Metoprolol Succinate (Toprol Xl) 25 mg PO DAILY [facility] Last Admin: 08/13/16 08:43 Dose: 25 mg Nystatin (Nystop Topical Powder) 1 applic TOP TID [facility] Last Admin: 08/13/16 08:43 Dose: 1 applic Saccharomyces Boulardii (Florastor) 250 mg PO BID [facility] Last Admin: 08/13/16 08:43 Dose: 250 mg Thiamine HCl (Vitamin B1 Tab) 100 mg PO DAILY [facility] Last Admin: 08/13/16 08:43 Dose: 100 mg - Labs Labs: 08/13/16 04:25 08/13/16 04:25 PT 12.6 SECONDS (9.6-11.2) H 08/11/16 04:30 INR 1.21 (0.92-1.08) H 08/11/16 04:30 APTT 35.1 SECONDS (23.3-32.5) H 08/11/16 04:30 - Constitutional Appears: Non-toxic, Chronically Ill - Head Exam Head Exam: NORMOCEPHALIC - Eye Exam Eye Exam: PERRL. absent: Scleral icterus - ENT Exam ENT Exam: Mucous Membranes Dry - Neck Exam Neck Exam: absent: Lymphadenopathy - Respiratory Exam Respiratory Exam: Decreased Breath Sounds, Rhonchi - Cardiovascular Exam Cardiovascular Exam: REGULAR RHYTHM, +S1, +S2 - GI/Abdominal Exam GI & Abdominal Exam: Distended, Soft. absent: Tenderness - Rectal Exam Rectal Exam: Deferred - Exam Exam: NORMAL INSPECTION - Extremities Exam Extremities Exam: absent: Pedal Edema - Back Exam Back Exam: absent: CVA tenderness (L), CVA tenderness (R) - Neurological Exam Neurological Exam: Alert, Awake, Oriented x3 - Psychiatric Exam Psychiatric exam: Depressed - Skin Skin Exam: Dry Assessment and Plan (1) Acute renal failure (ARF) Status: Acute (2) Pneumonia Status: Acute (3) Renal insufficiency Status: Acute (4) Rhabdomyolysis Status: Suspected
[2016-08-13] MEDS: Moxifloxacin IV 400mg/250ml NS 400 MG/250 ML BAG IVPB SCH (21:58)
--- NOTE | 2016-08-14 04:21 | PN ---
DATE: 08/13/2016 The patient is located in room 433, bed 1. REQUESTED BY: Frank Thomas MD REASON FOR RENAL CONSULTATION: Acute renal failure, for continuation of hemodialysis. HISTORY OF PRESENT ILLNESS: The patient is a 60-year-old elderly male with a history of sm oking, occasional alcohol use, who was admitted with cough, shortness of breath, fever, found to have elevated CPK levels, and multiple falls. Subsequently, the patient developed acute renal failure du ring his hospital course and requiring transfer to ICU for respiratory failure, and started on IV ant ibiotics, and also requiring initiation of acute hemodialysis. The patient is feeling better, not in acute distress. Denies any headache, dizziness, and denies any chest pain, palpitation, and denies any fever or cough. PHYSICAL EXAMINATION: VITAL SIGNS: As follows: This morning blood pressure is 152/95, pulse 70, respirations 21, temperat ure 98.8, and height is 6 feet and weight is 228 pounds. GENERAL: The patient is a 60-year-old elderly male, moderately built, moderately nourished, not in a cute distress. HEENT: Pupils normal, reactive to light and accommodation. Conjunctivae pink. Sclerae anicteric. Tongue is moist. NECK: Trachea is midline. LUNGS: Symmetric on both sides. Bilateral breath sounds present. No crackles. CARDIOVASCULAR: [place] in the fifth intercostal space midclavicular line. S1, S2 audible. No murmur or gallop. ABDOMEN: Normal in appearance, soft, tympanic. No guarding, no rigidity, no hepatosplenomegaly. CENTRAL NERVOUS SYSTEM: The patient is alert, awake, oriented x 2-3. Sensory and motor system is wi thin normal limits. EXTREMITIES: No cyanosis, no clubbing, no edema. CURRENT MEDICATIONS: Include as follows: Albuterol inhaler, Avelox 400 mg IV daily, DuoNeb inhaler 4 times daily, Florastor 250 mg p.o. b.i.d., folic acid 1 mg p.o. daily, subcutaneous heparin 5000 q. 8 hours, Mucinex 600 mg p.o. q. 12 hours, Zosyn 2.25 grams IV q, 6 hours, Synthroid 100 mcg daily, m etoprolol XL 25 mg p.o. daily, Tylenol, and thiamine 100 mg daily. LABORATORY DATA: Include as follows: As of 08/13/2016, WBC 10, hemoglobin 10.8, hematocrit is 32.8 , platelets 409. Sodium 143, potassium 3.8, chloride 100, CO2 25, BUN 72, creatinine 8.6, glucose is 98, calcium is 7.3. Total bilirubin 0.9, AST 162, ALT is 130, and alkaline phosphatase 54, total pr otein 6.8, albumin is 2.7. Chest x-ray as of 08/13/2016, bilateral atelectatic and infiltrative changes. SUMMARY: 1. The patient is a 60-year-old elderly male with history of smoking and occasional alcohol abuse, w ho was admitted with fever, cough, shortness of breath, elevated CPK level, multiple falls, and worse tony renal function. 2. Nonoliguric acute renal failure, most likely secondary to acute tubular necrosis secondary to sep sis. 3. Status post rhabdomyolysis. 4. Bilateral pneumonia. PLAN: I will continue antibiotics as per ID recommendations, Zosyn, and Avelox. Continue hemodialys is 3 times a week until renal function improves. His 24-hour urine output is about 200 mL. We will follow with you. Thank you for allowing me to participate in your patient's care, and for acute ATN, we will try to ul trafiltrate as much as the patient can tolerate. Edmund Kowalski MD cc: [id number] TT: 08/14/2016 04:21:28 Confirmation # [id number] Dictation # [id number] vn
[2016-08-14] MEDS: Levothyroxine 100 MCG TAB PO SCH (06:25)
[2016-08-14] MEDS: Albuterol-Ipratrop 3 mg / 0.5 (3 ml) UD INH SCH ×5 (07:20→19:54)
[2016-08-14 08:03] LABS: HEMATOCRIT 32.5 % (35.0-51.0); MEAN CELL VOLUME 83.8 fl (80.0-94.0); MEAN CORPUSCULAR HEMOGLOBIN 28.3 pg (27.0-31.0); MEAN CORPUSCULAR HGB CONC 33.8 g/dL (33.0-37.0); RED CELL DISTRIBUTION WIDTH 14.9 % (11.5-14.5); WHITE BLOOD COUNT 9.6 K/uL (4.8-10.8)
[2016-08-14 08:12] LABS: CALCIUM 7.3 mg/dL (8.4-10.2); POTASSIUM 3.5 MMOL/L (3.6-5.0)
[2016-08-14] MEDS: Saccharomyces Boulardi 250 mg Cap PO SCH ×2 (08:14→17:24)
[2016-08-14] MEDS: guaiFENesin 600 mg ER Tab PO SCH ×2 (08:15→21:25)
[2016-08-14] MEDS: Metoprolol Succinate 25 mg XL Tab PO SCH (08:15)
--- NOTE | 2016-08-14 08:37 | CP.CCUPN ---
CCU Subjective - Physician Review Subjective (Free Text): ANDROID IOS DEVELOPER PROGRESS NOTE Patient examined, interim events reviewed: Awake, alert and responsive, no new complaints, sitting up having AM meal, observed to be dyspneic with exertion and tried on regular flow NC 3 LPM with 91 % SPO2 at best; otherwise has been on HFNC at 55% oxygen and 20 LPM, with SPo2 95%. Underwent HD yesterday with 3000ml removed. He denies any CP, fevers, chills, no palpitations, no nausea and has been tolerating HD well even with removal of extra fluid. Afebrile, but temps mostly 99F, BP 130/70, HR 67, RR 19. ROS: as above, no other pertinent negs or positives on 12 system review from other documentations. PMSFH: All nursing and physician documentation reviewed, no new information noted pertinent to current medical problems. No other distress noted: EXAM- HEENT: no icterus, pupils 3mm but equal and reactive bilat, no nystagmus NECK: no visible JVD, supple, carotids equal upstroke bilat/no bruits CHEST: decreased BS bases, no wheezes audible HEART: regular, distant, S1S2, no murmur audible, no rubs. ABD: soft, no distention, no focal tenderness, no HSM. BS hypoactive, no abdominal bruits or other masses EXT: no leg edema, no peripheral/ digital cyanosis, no calf tenderness or palpable cords, distal pulses intact and symmetrical NEURO: No focal motor deficits SKIN: no rashes LABS: AM labs pending for today: YESTERDAYS as listed below: WBC= 10.0 HGB= 10.8 PLTs= 409K Coags from 08/11/16= all acceptable. Na= 143 K= 3.8 CL= 100 HCO3= 25 BUN/Cr= 72/8.6 BS= 98 CXR: still shows predominant left lung interstitial changes with slight improvement. No new consolidation areas. MAJOR PROBLEMS: 1. Acute hypoxic Resp Failure 2. ZELDA / RML Pneumonia 3. DYLLAN / Rhabdo with progression to Acute Renal Failure requiring AUTOMOBILE RENTAL REPRESENTATIVE 4. Hypothyroidism PLAN: 1. Trials at lowering FiO2 as tolerated. 2. Empiric abx coverage ongoing, with Yeast noted as colonizer. 3. HD schedule as per Nephrology, see no appreciable return of renal function. 4. Synthroid THRT as per Systems Technician. 5. Advise ECHO 6. Stable for transfer to stepdown bed.
--- NOTE | 2016-08-14 09:30 | CP.PCM.PN ---
Subjective - Date & Time of Evaluation Date of Evaluation: 08/14/16 Time of Evaluation: 09:30 - Subjective Subjective: pt seen and examined bedside. Objective - Vital Signs/Intake and Output Vital Signs (last 24 hours): Temp Pulse Resp BP Pulse Ox 98 F 79 19 153/76 H 93 L 08/14/16 08:00 08/14/16 08:15 08/14/16 08:00 08/14/16 08:15 08/14/16 08:00 Intake and Output: 08/14/16 08/14/16 06:59 18:59 Intake Total 600 4 Output Total 0 Balance 600 4 - Medications Medications: Current Medications Acetaminophen (Tylenol 325mg Tab) 650 mg PO Q6 PRN PRN Reason: Fever >100.4 F Last Admin: 08/10/16 12:16 Dose: 650 mg Albuterol Sulfate (Albuterol 0.083% Inhal Martita (2.5 Mg/3 Ml) Ud) 2.5 mg INH RQ4 PRN PRN Reason: Shortness of Breath Last Admin: 08/11/16 04:52 Dose: 2.5 mg Albuterol/Ipratropium (Duoneb 3 Mg/0.5 Mg (3 Ml) Ud) 3 ml INH RQID [facility] Last Admin: 08/14/16 08:23 Dose: 3 ml Folic Acid (Folic Acid) 1 mg PO DAILY [facility] Last Admin: 08/14/16 08:14 Dose: 1 mg Guaifenesin (Mucinex La) 600 mg PO Q12 [facility] Last Admin: 08/14/16 08:15 Dose: 600 mg Heparin Sodium (Porcine) (Heparin) 5,000 units SC Q12@0900,2100 [facility] PRN Reason: Protocol Last Admin: 08/14/16 08:14 Dose: 5,000 units Moxifloxacin HCl (Avelox Iv 400mg/250ml Ns) 400 mg in 250 mls @ 250 mls/hr IVPB DAILY@2200 [facility] Last Admin: 08/13/16 21:58 Dose: 250 mls/hr Piperacillin Sod/Tazobactam (Sod 2.25 gm/ Sodium Chloride) 100 mls @ 100 mls/ hr IVPB Q6 [facility] Last Admin: 08/14/16 09:26 Dose: 100 mls/hr Levothyroxine Sodium (Synthroid) 100 mcg PO DAILY@0630 [facility] Last Admin: 08/14/16 06:25 Dose: 100 mcg Metoprolol Succinate (Toprol Xl) 25 mg PO DAILY [facility] Last Admin: 08/14/16 08:15 Dose: 25 mg Nystatin (Nystop Topical Powder) 1 applic TOP TID [facility] Last Admin: 08/14/16 08:16 Dose: 1 applic Saccharomyces Boulardii (Florastor) 250 mg PO BID [facility] Last Admin: 08/14/16 08:14 Dose: 250 mg Thiamine HCl (Vitamin B1 Tab) 100 mg PO DAILY [facility] Last Admin: 08/14/16 08:15 Dose: 100 mg - Labs Labs: 08/14/16 05:30 08/14/16 05:30 PT 12.6 SECONDS (9.6-11.2) H 08/11/16 04:30 INR 1.21 (0.92-1.08) H 08/11/16 04:30 APTT 35.1 SECONDS (23.3-32.5) H 08/11/16 04:30 Assessment and Plan - Assessment and Plan (Free Text) Plan: 60 years old male with no significant past medical hx was brought to the ED because of Generalized weakness, dizziness. He was coughing for one month with brown sputum. No chest pain on coughing, no SOB and no fever. He Smokes one pack of cigarettes in 3 days with occasional Alcohol use. In the ED his Temp was 100.6F with HR of 123/min. CXR showed multifocal Pneumonia and BMP showed renal failure. Patient was admitted with sepsis ( POA) due to multifocal pneumonia and DYLLAN due to rhabdomyolysis . Pulmonary ID and nephro consulted . He was started on IVF and IV antibiotics. Was transferred to ICU for close monitoring due to AMS / confusion and respiratory distress. Today patient on 3L NC, saturating 91%, with mild discomfort. Discussed with Critical Care team, will continue to trial. Pt was on High Flow NC 55% at 20 lpm yesterday. HD stable. Will evaluate cardiac function for other possible causes of renal failure. 1. Sepsis sec to Pneumonia- POA improving Afebrile > 48 hours hours and procalcitonin trending down from [address] chest showed Large bilateral alveolar infiltrates as well as small bilateral pleural effusions. Mild mediastinal lymphadenopathy. on 3L NC saturating at 91% today CXR yesterday showed worsening LLL pneumonia Pulmonary and ID on consult promote ambulation Continue Zosyn, and Moxifloxacin . Given 1 dose of Vancomycin 1 G Iv and IV Clinda HIV and influenza - negative legionella Ag : negative Mycoplasma IgM negative Continue duonebs, acetylcysteine Sputum cx positive for yeast 2. AMS/ Metabolic encephalopathy -improving most likely AMS multifactorial - due to sepsis, pneumonia, medication induced, renal failure Continue treatment for Pneumonia and sepsis Keep on High flow Aspiration precautions Hold Ativan 3. Acute Hypoxemic respiratory failure sec to CAP on High Flow Oxygen V/Q scan showed no PE Continue Zosyn , Moxifloxacin/ Given 1 dose Vancomycin IV Respiratory isolation discontinued today since 3 AFB-s were negative Pulmonary and ID on consult Cultures negative so far 4. Acute Renal Failure with metabolic acidosis Most likely ATN secondary to Rhabdomyolysis Dr Kowalski nephrology consulted Patient did not respond to IVF with HCO3 Renal sonogram showed normal size and echogenecity and no obstruction HD YESTERDAY -3 Liters Continue close monitoring HD catheter placed to right upper chest by IR ECHO to evaluate cardiac output 5. Rhabdomyolysis CPK trended down received IVF on HD for renal failure 4. Hypokalemia Repleted 5. Transaminitis unclear etiology on the admission was suspicious for ETOH abuse since AST more elevated than ALT but patient and cousin denied alcoholism Started MVI, folic acid and Thiamine Hepatitis profile- negative Abdominal US showed normal liver size and echogenecity Probably LFT elevation secondary to sepsis 7. Tremulousness- resolved patient and cousin denied ETOH abuse Abd Us showed no fatty or cirrhotic liver Continue Thiamine, Folate, MVI CT head showed no acute pathology 8. DVT prophylaxis Heparin 9. Hypothyroidism Endo consulted Started Synthroid 100 mcg
--- NOTE | 2016-08-14 12:28 | CARD ---
APPROVED REPORT EXAM: Two-dimensional and M-mode echocardiogram with Doppler and color Doppler. Other Information Quality : AverageRhythm : NSR Technically limited study due to Portable INDICATION LV Function:SystolicDiastolic 2D DIMENSIONS IVSd1.31 (0.7-1.1cm)LVDd4.28 (3.9-5.9cm) LVOT Diameter2.79 (1.8-2.4cm)PWd0.87 (0.7-1.1cm) IVSs1.12 (0.8-1.2cm)LVDs4.29 (2.5-4.0cm) FS (%) 0.3 %PWs1.07 (0.8-1.2cm) M-Mode DIMENSIONS Left Atrium (MM)2.79 (2.5-4.0cm)Aortic Root3.50 (2.2-3.7cm) Aortic Cusp Exc.1.91 (1.5-2.0cm) Mitral Valve E/A ratio0.0 TDI E/Lateral E'0.0E/Medial E'0.0 LEFT VENTRICLE The left ventricle is normal size. There is normal left ventricular wall thickness. The left ventricular function is normal. The left ventricular ejection fraction is within the normal range. The Ejection Fraction is 45-50%. There is normal LV segmental wall motion. The left ventricular diastolic function is normal. No left ventricle thrombus noted on this study. There is no mass noted in the left ventricle. RIGHT VENTRICLE The right ventricle is normal size. There is normal right ventricular wall thickness. The right ventricular systolic function is normal. ATRIA The left atrium size is normal. The right atrium size is normal. The interatrial septum is intact with no evidence for an atrial septal defect. AORTIC VALVE The aortic valve is normal in structure and function. No aortic regurgitation is present. There is no aortic valvular stenosis. There is no aortic valvular vegetation. MITRAL VALVE The mitral valve is normal in structure and function. There is no evidence of mitral valve prolapse. There is no mitral valve stenosis. There is no mitral valve regurgitation noted. TRICUSPID VALVE The tricuspid valve is normal in structure and function. There is no tricuspid valve regurgitation noted. There is no tricuspid valve prolapse or vegetation. There is no tricuspid valve stenosis. PULMONIC VALVE The pulmonary valve is normal in structure and function. There is no pulmonic valvular regurgitation. There is no pulmonic valvular stenosis. GREAT VESSELS The aortic root is normal in size. The IVC is normal in size and collapses >50% with inspiration. PERICARDIAL EFFUSION The pericardium appears normal. There is no pleural effusion. <Conclusion> The left ventricle is normal size. The left ventricular function is normal. The left ventricular ejection fraction is within the normal range. The Ejection Fraction is 45-50%.
--- NOTE | 2016-08-14 17:56 | CP.PCM.PN ---
Subjective - Date & Time of Evaluation Date of Evaluation: 08/14/16 Time of Evaluation: 16:10 - Subjective Subjective: pt seen and examined, follow up consult is dictated #[id number] Objective - Vital Signs/Intake and Output Vital Signs (last 24 hours): Temp Pulse Resp BP Pulse Ox 98.4 F 69 23 168/82 H 96 08/14/16 15:47 08/14/16 15:47 08/14/16 15:47 08/14/16 15:47 08/14/16 15:47 Intake and Output: 08/14/16 08/14/16 06:59 18:59 Intake Total 600 344 Output Total 0 Balance 600 344 - Medications Medications: Current Medications Acetaminophen (Tylenol 325mg Tab) 650 mg PO Q6 PRN PRN Reason: Fever >100.4 F Last Admin: 08/10/16 12:16 Dose: 650 mg Albuterol Sulfate (Albuterol 0.083% Inhal Martita (2.5 Mg/3 Ml) Ud) 2.5 mg INH RQ4 PRN PRN Reason: Shortness of Breath Last Admin: 08/11/16 04:52 Dose: 2.5 mg Albuterol/Ipratropium (Duoneb 3 Mg/0.5 Mg (3 Ml) Ud) 3 ml INH RQID [facility] Last Admin: 08/14/16 16:22 Dose: 3 ml Folic Acid (Folic Acid) 1 mg PO DAILY [facility] Last Admin: 08/14/16 08:14 Dose: 1 mg Guaifenesin (Mucinex La) 600 mg PO Q12 [facility] Last Admin: 08/14/16 08:15 Dose: 600 mg Heparin Sodium (Porcine) (Heparin) 5,000 units SC Q12@0900,2100 [facility] PRN Reason: Protocol Last Admin: 08/14/16 08:14 Dose: 5,000 units Moxifloxacin HCl (Avelox Iv 400mg/250ml Ns) 400 mg in 250 mls @ 250 mls/hr IVPB DAILY@2200 [facility] Last Admin: 08/13/16 21:58 Dose: 250 mls/hr Piperacillin Sod/Tazobactam (Sod 2.25 gm/ Sodium Chloride) 100 mls @ 100 mls/ hr IVPB Q6 [facility] Last Admin: 08/14/16 16:31 Dose: 100 mls/hr Levothyroxine Sodium (Synthroid) 100 mcg PO DAILY@0630 [facility] Last Admin: 08/14/16 06:25 Dose: 100 mcg Metoprolol Succinate (Toprol Xl) 25 mg PO DAILY [facility] Last Admin: 08/14/16 08:15 Dose: 25 mg Nystatin (Nystop Topical Powder) 1 applic TOP TID [facility] Last Admin: 08/14/16 17:24 Dose: Not Given Saccharomyces Boulardii (Florastor) 250 mg PO BID [facility] Last Admin: 08/14/16 17:24 Dose: 250 mg Thiamine HCl (Vitamin B1 Tab) 100 mg PO DAILY [facility] Last Admin: 08/14/16 08:15 Dose: 100 mg - Labs Labs: 08/14/16 05:30 08/14/16 05:30 PT 12.6 SECONDS (9.6-11.2) H 08/11/16 04:30 INR 1.21 (0.92-1.08) H 08/11/16 04:30 APTT 35.1 SECONDS (23.3-32.5) H 08/11/16 04:30
--- NOTE | 2016-08-14 18:44 | PN ---
DATE: 08/14/2016 The patient is located in room 417, bed 2. REQUESTING PHYSICIAN: Dr. Frank Thmoas. REASON FOR RENAL CONSULTATION: Acute renal failure, on hemodialysis; bilateral pneumonia. HISTORY OF PRESENT ILLNESS: The patient is a 60-year-old elderly male with no significant past medical history except smoking and occasional alcohol use, who was admitted with fever, cough, s hortness of breath and found to have bilateral pneumonia and also with a history of recurrent falls, who was found to have elevated CPK level, increased BUN and creatinine. Subsequently, his hospital [facility] was complicated by worsening pneumonia and shortness of breath and acute renal failure requirin g initiation of the hemodialysis. The patient is now transferred from ICU to the telemetry. The pat iemayela is feeling better, not in acute distress, status post hemodialysis last night. There are no ___ _ at this time. No chest pain, no palpitations, no fever, no cough. Resting comfortably without oxy gen. PHYSICAL EXAMINATION: VITAL SIGNS: Blood pressure 168/82, pulse 69, respirations 23, temperature 98.4, saturation 96%, hei ght 6 feet and weight is 228 pounds. GENERAL: The patient is a 60-year-old elderly male, well built, well nourished, not in acute distres s. HEENT: Pupils normal, reactive to light and accommodation. Conjunctivae pink. Sclerae anicteric. Tongue is moist. NECK: Trachea midline. LUNGS: Symmetric on both sides. Bilateral breath sounds present. Clear on auscultation. CARDIOVASCULAR: [place] in the fifth intercostal space midclavicular line. S1 and S2 audible. No murm ur or gallop. ABDOMEN: Normal in appearance, soft, tympanic. No guarding, no rigidity. No hepatosplenomegaly. CENTRAL NERVOUS SYSTEM: The patient is alert, awake, oriented x 3. Nonfocal on examination. Crania l nerves II through XII grossly intact. Sensory and motor system are within normal limits. EXTREMITIES: No cyanosis, no clubbing, no edema. CURRENT MEDICATIONS: Include albuterol inhaler, Avelox 400 mg daily, DuoNeb inhaler 3 mL q.i.d., Enrique rastor 250 mg p.o. b.i.d., folic acid 1 mg daily, heparin 5000 q. 12 hours, Mucinex 600 mg p.o. q. 12 hours, nystatin powder topical, Zosyn 2.25 grams IV q. 6 hours, levothyroxine 100 mcg p.o. daily, To prol-XL 25 mg p.o. daily, Tylenol, and thiamine 100 mg p.o. daily. LABORATORY DATA: Include WBC 9.6, hemoglobin 11, hematocrit is 32.5, platelets 433. Sodium is 140, potassium 3.5, chloride 100, CO2 26, BUN 57, creatinine 7.7 and glucose is 89, calcium 7.3 and CPK is 96. IN SUMMARY: The patient is a 60-year-old elderly male with a history of smoking and ethano l abuse who was admitted with recurrent falls and found to have elevated CPK levels and bilateral pne umonia and acute renal failure. 1. Acute renal failure, most likely secondary to rhabdomyolysis. 2. Recurrent falls, etiology is not clear, rule out alcohol withdrawals. 3. Bilateral pneumonia. 4. Rhabdomyolysis. Continue antibiotics as per ID recommendation, Avelox and Zosyn. Will continue hemodialysis 3 times a week until renal function improves. We will monitor the BMP daily. Thank you for allowing me to participate in your patient's care. Edmund Kowalski MD cc: [id number] TT: 08/14/2016 18:43:37 Confirmation # [id number] Dictation # [id number] medardo
[2016-08-14] MEDS: Moxifloxacin IV 400mg/250ml NS 400 MG/250 ML BAG IVPB SCH (21:26)
[2016-08-15] MEDS: Levothyroxine 100 MCG TAB PO SCH (05:47)
--- NOTE | 2016-08-15 07:08 | CP.PCM.PN ---
Subjective - Date & Time of Evaluation Date of Evaluation: 08/15/16 Time of Evaluation: 07:08 - Subjective Subjective: patient seen and examined at bedside, continues to be on 3L nasal cannula respiratory support. HD stable. Hemodialysis is MWF. Otherwise no complaints. No acute distress. Objective - Vital Signs/Intake and Output Vital Signs (last 24 hours): Temp Pulse Resp BP Pulse Ox 97.6 F 68 21 172/89 H 94 L 08/15/16 04:39 08/15/16 04:39 08/15/16 04:39 08/15/16 04:39 08/15/16 04:39 EXAM: GEN WDWN alert cooperative HEENT NCAT PERRL EOMI HEART RRR +S1S2, No murmurs appreciated LUNG decreased BS, mild wheezes and crackles R>L. no WRR ABD soft NT ND no organomegaly or masses EXT no edema or cyanosis. well perfused NEURO no focal deficits, awake and alert SKIN warm and dry PSYCH normal mood normal affect - Medications Medications: Current Medications Acetaminophen (Tylenol 325mg Tab) 650 mg PO Q6 PRN PRN Reason: Fever >100.4 F Last Admin: 08/10/16 12:16 Dose: 650 mg Albuterol Sulfate (Albuterol 0.083% Inhal Martita (2.5 Mg/3 Ml) Ud) 2.5 mg INH RQ4 PRN PRN Reason: Shortness of Breath Last Admin: 08/11/16 04:52 Dose: 2.5 mg Albuterol/Ipratropium (Duoneb 3 Mg/0.5 Mg (3 Ml) Ud) 3 ml INH RQID [facility] Last Admin: 08/14/16 19:54 Dose: 3 ml Folic Acid (Folic Acid) 1 mg PO DAILY [facility] Last Admin: 08/14/16 08:14 Dose: 1 mg Guaifenesin (Mucinex La) 600 mg PO Q12 [facility] Last Admin: 08/14/16 21:25 Dose: 600 mg Heparin Sodium (Porcine) (Heparin) 5,000 units SC Q12@0900,2100 [facility] PRN Reason: Protocol Last Admin: 08/14/16 21:25 Dose: 5,000 units Moxifloxacin HCl (Avelox Iv 400mg/250ml Ns) 400 mg in 250 mls @ 250 mls/hr IVPB DAILY@2200 [facility] Last Admin: 08/14/16 21:26 Dose: 250 mls/hr Piperacillin Sod/Tazobactam (Sod 2.25 gm/ Sodium Chloride) 100 mls @ 100 mls/ hr IVPB Q6 [facility] Last Admin: 08/15/16 04:31 Dose: 100 mls/hr Levothyroxine Sodium (Synthroid) 100 mcg PO DAILY@0630 [facility] Last Admin: 08/15/16 05:47 Dose: 100 mcg Metoprolol Succinate (Toprol Xl) 25 mg PO DAILY [facility] Last Admin: 08/14/16 08:15 Dose: 25 mg Nystatin (Nystop Topical Powder) 1 applic TOP TID [facility] Last Admin: 08/14/16 17:24 Dose: Not Given Saccharomyces Boulardii (Florastor) 250 mg PO BID [facility] Last Admin: 08/14/16 17:24 Dose: 250 mg Thiamine HCl (Vitamin B1 Tab) 100 mg PO DAILY [facility] Last Admin: 08/14/16 08:15 Dose: 100 mg - Labs Labs: 08/14/16 05:30 08/14/16 05:30 PT 12.6 SECONDS (9.6-11.2) H 08/11/16 04:30 INR 1.21 (0.92-1.08) H 08/11/16 04:30 APTT 35.1 SECONDS (23.3-32.5) H 08/11/16 04:30 Assessment and Plan - Assessment and Plan (Free Text) Plan: 60 years old male with no significant past medical hx was brought to the ED because of Generalized weakness, dizziness. He was coughing for one month with brown sputum. No chest pain on coughing, no SOB and no fever. He Smokes one pack of cigarettes in 3 days with occasional Alcohol use. In the ED his Temp was 100.6F with HR of 123/min. CXR showed multifocal Pneumonia and BMP showed renal failure. Patient was admitted with sepsis ( POA) due to multifocal pneumonia and DYLLAN due to rhabdomyolysis . Pulmonary ID and nephro consulted . He was started on IVF and IV antibiotics. Was transferred to ICU for close monitoring due to AMS / confusion and respiratory distress. Today patient on 3L NC, saturating 94%, has not yet ambulated. Feeling improved however continues to require O2 support. 1. Sepsis sec to Pneumonia- POA improving Afebrile > 48 hours hours and procalcitonin trending down from [address] chest showed Large bilateral alveolar infiltrates as well as small bilateral pleural effusions. Mild mediastinal lymphadenopathy. on 3L NC saturating at 91% today CXR yesterday showed worsening LLL pneumonia Pulmonary and ID on consult promote ambulation Continue Zosyn, and Moxifloxacin . Given 1 dose of Vancomycin 1 G Iv and IV Clinda HIV and influenza - negative legionella Ag : negative Mycoplasma IgM negative Continue duonebs, acetylcysteine Sputum cx positive for yeast 2. AMS/ Metabolic encephalopathy -improving most likely AMS multifactorial - due to sepsis, pneumonia, medication induced, renal failure Continue treatment for Pneumonia and sepsis Keep on High flow Aspiration precautions Hold Ativan 3. Acute Hypoxemic respiratory failure sec to CAP on High Flow Oxygen V/Q scan showed no PE Continue Zosyn , Moxifloxacin/ Given 1 dose Vancomycin IV Respiratory isolation discontinued today since 3 AFB-s were negative Pulmonary and ID on consult Cultures negative so far 4. Acute Renal Failure with metabolic acidosis Most likely ATN secondary to Rhabdomyolysis Dr Kowalski nephrology consulted Patient did not respond to IVF with HCO3 Renal sonogram showed normal size and echogenecity and no obstruction HD MWF - out 3L on Tuesday Continue close monitoring HD catheter placed to right upper chest by IR ECHO to evaluate cardiac output; normal cardiac function 5. Rhabdomyolysis CPK trended down received IVF on HD for renal failure 4. Hypokalemia Repleted 5. Transaminitis unclear etiology on the admission was suspicious for ETOH abuse since AST more elevated than ALT but patient and cousin denied alcoholism Started MVI, folic acid and Thiamine Hepatitis profile- negative Abdominal US showed normal liver size and echogenecity Probably LFT elevation secondary to sepsis 7. Tremulousness- resolved patient and cousin denied ETOH abuse Abd Us showed no fatty or cirrhotic liver Continue Thiamine, Folate, MVI CT head showed no acute pathology 8. DVT prophylaxis Heparin 9. Hypothyroidism Endo consulted Started Synthroid 100 mcg
[2016-08-15 07:18] LABS: CALCIUM 7.6 mg/dL (8.4-10.2); POTASSIUM 3.9 MMOL/L (3.6-5.0)
[2016-08-15] MEDS: Albuterol-Ipratrop 3 mg / 0.5 (3 ml) UD INH SCH ×4 (07:24→19:28)
[2016-08-15 07:32] LABS: T4 5.44 ug/dl (5.5-11.0)
[2016-08-15 07:46] LABS: THYROID STIMULATING HORMONE 31.7 mIU/ML (0.46-4.68)
[2016-08-15] MEDS: Metoprolol Succinate 25 mg XL Tab PO SCH (09:08)
[2016-08-15] MEDS: Saccharomyces Boulardi 250 mg Cap PO SCH ×2 (09:08→16:48)
[2016-08-15] MEDS: guaiFENesin 600 mg ER Tab PO SCH ×2 (09:09→20:49)
--- NOTE | 2016-08-15 11:36 | RAD ---
HISTORY: pneumonia COMPARISON: 08/13/2016 FINDINGS: LUNGS: Bibasilar volume loss is noted, slightly increased from prior study. There is some minimal improvement however in aeration in the left mid lung field with some persistent alveolar density noted. Vasculature is once again congested. Right CVP is unchanged. PLEURA: Mild increase in bilateral effusions. No pneumothorax. CARDIOVASCULAR: Heart is unchanged. OSSEOUS STRUCTURES: No significant abnormalities. VISUALIZED UPPER ABDOMEN: Normal. OTHER FINDINGS: None. IMPRESSION: CHF and edema with some minor improvement in left mid lung field density. However there appears to be some increase in effusions and atelectasis at the lung bases.
--- NOTE | 2016-08-15 13:16 | CP.PCM.PN ---
Subjective - Date & Time of Evaluation Date of Evaluation: 08/15/16 Time of Evaluation: 08:00 - Subjective Subjective: awake / alert less sob no fever iv rx in progress Objective - Vital Signs/Intake and Output Vital Signs (last 24 hours): Temp Pulse Resp BP Pulse Ox 97.3 F L 68 22 148/79 93 L 08/15/16 11:59 08/15/16 11:59 08/15/16 11:59 08/15/16 11:59 08/15/16 11:59 - Medications Medications: Current Medications Acetaminophen (Tylenol 325mg Tab) 650 mg PO Q6 PRN PRN Reason: Fever >100.4 F Last Admin: 08/10/16 12:16 Dose: 650 mg Albuterol Sulfate (Albuterol 0.083% Inhal Martita (2.5 Mg/3 Ml) Ud) 2.5 mg INH RQ4 PRN PRN Reason: Shortness of Breath Last Admin: 08/11/16 04:52 Dose: 2.5 mg Albuterol/Ipratropium (Duoneb 3 Mg/0.5 Mg (3 Ml) Ud) 3 ml INH RQID [facility] Last Admin: 08/15/16 11:21 Dose: 3 ml Folic Acid (Folic Acid) 1 mg PO DAILY [facility] Last Admin: 08/15/16 09:08 Dose: 1 mg Guaifenesin (Mucinex La) 600 mg PO Q12 [facility] Last Admin: 08/15/16 09:09 Dose: 600 mg Heparin Sodium (Porcine) (Heparin) 5,000 units SC Q12@0900,2100 [facility] PRN Reason: Protocol Last Admin: 08/15/16 09:09 Dose: 5,000 units Moxifloxacin HCl (Avelox Iv 400mg/250ml Ns) 400 mg in 250 mls @ 250 mls/hr IVPB DAILY@2200 [facility] Last Admin: 08/14/16 21:26 Dose: 250 mls/hr Piperacillin Sod/Tazobactam (Sod 2.25 gm/ Sodium Chloride) 100 mls @ 100 mls/ hr IVPB Q6 [facility] Last Admin: 08/15/16 09:11 Dose: 100 mls/hr Levothyroxine Sodium (Synthroid) 100 mcg PO DAILY@0630 [facility] Last Admin: 08/15/16 05:47 Dose: 100 mcg Metoprolol Succinate (Toprol Xl) 25 mg PO DAILY [facility] Last Admin: 08/15/16 09:08 Dose: 25 mg Nystatin (Nystop Topical Powder) 1 applic TOP TID [facility] Last Admin: 08/15/16 09:10 Dose: 1 applic Saccharomyces Boulardii (Florastor) 250 mg PO BID [facility] Last Admin: 08/15/16 09:08 Dose: 250 mg Thiamine HCl (Vitamin B1 Tab) 100 mg PO DAILY [facility] Last Admin: 08/15/16 09:07 Dose: 100 mg - Labs Labs: 08/14/16 05:30 08/15/16 06:10 PT 12.6 SECONDS (9.6-11.2) H 08/11/16 04:30 INR 1.21 (0.92-1.08) H 08/11/16 04:30 APTT 35.1 SECONDS (23.3-32.5) H 08/11/16 04:30 - Constitutional Appears: Non-toxic, Chronically Ill - Head Exam Head Exam: NORMOCEPHALIC - Eye Exam Eye Exam: PERRL. absent: Scleral icterus - ENT Exam ENT Exam: Mucous Membranes Dry, Normal External Ear Exam - Neck Exam Neck Exam: absent: Lymphadenopathy - Respiratory Exam Respiratory Exam: Decreased Breath Sounds, Rhonchi - Cardiovascular Exam Cardiovascular Exam: REGULAR RHYTHM, +S1, +S2 - GI/Abdominal Exam GI & Abdominal Exam: Distended, Soft. absent: Tenderness - Rectal Exam Rectal Exam: Deferred - Exam Exam: NORMAL INSPECTION - Extremities Exam Extremities Exam: absent: Calf Tenderness, Pedal Edema - Back Exam Back Exam: absent: CVA tenderness (L), CVA tenderness (R) - Neurological Exam Neurological Exam: Alert, Awake, Oriented x3 - Psychiatric Exam Psychiatric exam: Normal Mood - Skin Skin Exam: Dry Assessment and Plan (1) Acute renal failure (ARF) Status: Acute (2) Pneumonia Status: Acute (3) Renal insufficiency Status: Acute (4) Rhabdomyolysis Status: Suspected - Assessment and Plan (Free Text) Plan: iv rx renewed complete chart reviewed
--- NOTE | 2016-08-15 13:16 | PN ---
DATE: 08/15/2016 ROOM: 417, bed 2 This is a 61-year-old male with recent evaluation of hypothyroidism, currently tolerating the levothy roxine replacement therapy as given. He is undergoing IV antibiotic management for multilobar pneumo geri as noted. His latest chemistries include a BUN of 74, sodium 141, potassium 3.9, chloride 98, CO2 24, glucose 9 2 and creatinine 9.5. His latest thyroid study showed a T4 of 5.44 with a TSH of 31.70 and a free T4 of 1.35. So at this time, we will titrate his levothyroxine dosing to 125 mcg daily before breakfast . W e will obtain serial chemistries and supplement accordingly as needed. We will follow. Tara Smith MD cc: [id number] TT: 08/15/2016 13:15:47 Confirmation # [id number] Dictation # [id number]
[2016-08-15] MEDS: Moxifloxacin IV 400mg/250ml NS 400 MG/250 ML BAG IVPB SCH (21:01)
[2016-08-16] MEDS: Levothyroxine 125 MCG TAB PO SCH (06:57)
[2016-08-16 07:22] LABS: HEMATOCRIT 29.9 % (35.0-51.0); MEAN CELL VOLUME 84.4 fl (80.0-94.0); MEAN CORPUSCULAR HEMOGLOBIN 28.5 pg (27.0-31.0); MEAN CORPUSCULAR HGB CONC 33.7 g/dL (33.0-37.0); RED CELL DISTRIBUTION WIDTH 14.7 % (11.5-14.5); WHITE BLOOD COUNT 11.4 K/uL (4.8-10.8)
[2016-08-16 07:26] LABS: CALCIUM 7.6 mg/dL (8.4-10.2); POTASSIUM 4.2 MMOL/L (3.6-5.0)
--- NOTE | 2016-08-16 07:31 | CP.PCM.PN ---
Subjective - Date & Time of Evaluation Date of Evaluation: 08/16/16 Time of Evaluation: 07:26 - Subjective Subjective: patient seen and examined bedside. Vitals reviewed, HD stable Hemodialysis today. 4L NC sat 94% Objective - Vital Signs/Intake and Output Vital Signs (last 24 hours): Temp Pulse Resp BP Pulse Ox 97.5 F L 70 22 167/92 H 94 L 08/16/16 04:42 08/16/16 04:42 08/16/16 04:42 08/16/16 04:42 08/16/16 04:42 EXAM: GEN WDWN alert cooperative HEENT NCAT PERRL EOMI HEART RRR +S1S2, No murmurs appreciated LUNG decreased BS, mild wheezes and crackles R>L. no WRR ABD soft NT ND no organomegaly or masses EXT no edema or cyanosis. well perfused NEURO no focal deficits, awake and alert SKIN warm and dry PSYCH normal mood normal affect - Medications Medications: Current Medications Acetaminophen (Tylenol 325mg Tab) 650 mg PO Q6 PRN PRN Reason: Fever >100.4 F Last Admin: 08/10/16 12:16 Dose: 650 mg Albuterol Sulfate (Albuterol 0.083% Inhal Martita (2.5 Mg/3 Ml) Ud) 2.5 mg INH RQ4 PRN PRN Reason: Shortness of Breath Last Admin: 08/11/16 04:52 Dose: 2.5 mg Albuterol/Ipratropium (Duoneb 3 Mg/0.5 Mg (3 Ml) Ud) 3 ml INH RQID [facility] Last Admin: 08/15/16 19:28 Dose: 3 ml Folic Acid (Folic Acid) 1 mg PO DAILY [facility] Last Admin: 08/15/16 09:08 Dose: 1 mg Guaifenesin (Mucinex La) 600 mg PO Q12 [facility] Last Admin: 08/15/16 20:49 Dose: 600 mg Heparin Sodium (Porcine) (Heparin) 5,000 units SC Q12@0900,2100 [facility] PRN Reason: Protocol Last Admin: 08/15/16 20:49 Dose: 5,000 units Moxifloxacin HCl (Avelox Iv 400mg/250ml Ns) 400 mg in 250 mls @ 250 mls/hr IVPB DAILY@2200 [facility] Last Admin: 08/15/16 21:01 Dose: 250 mls/hr Piperacillin Sod/Tazobactam (Sod 2.25 gm/ Sodium Chloride) 100 mls @ 100 mls/ hr IVPB Q6 [facility] Last Admin: 08/16/16 03:42 Dose: 100 mls/hr Levothyroxine Sodium (Synthroid) 125 mcg PO DAILY@0630 [facility] Last Admin: 08/16/16 06:57 Dose: 125 mcg Metoprolol Succinate (Toprol Xl) 25 mg PO DAILY [facility] Last Admin: 08/15/16 09:08 Dose: 25 mg Nystatin (Nystop Topical Powder) 1 applic TOP TID [facility] Last Admin: 08/15/16 16:49 Dose: 1 applic Saccharomyces Boulardii (Florastor) 250 mg PO BID [facility] Last Admin: 08/15/16 16:48 Dose: 250 mg Thiamine HCl (Vitamin B1 Tab) 100 mg PO DAILY [facility] Last Admin: 08/15/16 09:07 Dose: 100 mg - Labs Labs: 08/14/16 05:30 08/15/16 06:10 PT 12.6 SECONDS (9.6-11.2) H 08/11/16 04:30 INR 1.21 (0.92-1.08) H 08/11/16 04:30 APTT 35.1 SECONDS (23.3-32.5) H 08/11/16 04:30 Assessment and Plan - Assessment and Plan (Free Text) Plan: 60 years old male with no significant past medical hx was brought to the ED because of Generalized weakness, dizziness. He was coughing for one month with brown sputum. No chest pain on coughing, no SOB and no fever. He Smokes one pack of cigarettes in 3 days with occasional Alcohol use. In the ED his Temp was 100.6F with HR of 123/min. CXR showed multifocal Pneumonia and BMP showed renal failure. Patient was admitted with sepsis ( POA) due to multifocal pneumonia and DYLLAN due to rhabdomyolysis . Pulmonary ID and nephro consulted . He was started on IVF and IV antibiotics. Was transferred to ICU for close monitoring due to AMS / confusion and respiratory distress. 08/15/16 patient on 3L NC, saturating 94%, has not yet ambulated. Feeling improved however continues to require O2 support. CXR: showed worsening CHF, improved pna, worsening effusions/atelectasis 08/16/16 pt cont on 4L NC SAT 94%, hemodialysis today (MWF). Pt hypertensive, added Norvasc 10 mg po daily. 1. Sepsis sec to Pneumonia- POA improving Afebrile > 48 hours hours and procalcitonin trending down from [address] chest showed Large bilateral alveolar infiltrates as well as small bilateral pleural effusions. Mild mediastinal lymphadenopathy. on 4L NC saturating at 94% Repeat 08/15/16 CXR showed worsening CHF, improved pna, worsening effusions/ atelectasis Pulmonary and ID on consult promote ambulation Continue Zosyn, and Moxifloxacin . Given 1 dose of Vancomycin 1 G Iv and IV Clinda HIV and influenza - negative legionella Ag : negative Mycoplasma IgM negative Continue duonebs, acetylcysteine Sputum cx positive for yeast 2. AMS/ Metabolic encephalopathy -improving most likely AMS multifactorial - due to sepsis, pneumonia, medication induced, renal failure Continue treatment for Pneumonia and sepsis Keep on High flow Aspiration precautions Hold Ativan 3. Acute Hypoxemic respiratory failure sec to CAP on High Flow Oxygen V/Q scan showed no PE Continue Zosyn , Moxifloxacin/ Given 1 dose Vancomycin IV Respiratory isolation discontinued today since 3 AFB-s were negative Pulmonary and ID on consult Cultures negative so far 4. Acute Renal Failure with metabolic acidosis Most likely ATN secondary to Rhabdomyolysis Dr Kowalski nephrology consulted Patient did not respond to IVF with HCO3 Renal sonogram showed normal size and echogenecity and no obstruction HD MWF - out 3L on Tuesday, for HD today Continue close monitoring HD catheter placed to right upper chest by IR ECHO to evaluate cardiac output; normal cardiac function 5. Rhabdomyolysis CPK trended down received IVF on HD for renal failure 4. Hypokalemia Repleted 5. Transaminitis unclear etiology on the admission was suspicious for ETOH abuse since AST more elevated than ALT but patient and cousin denied alcoholism Started MVI, folic acid and Thiamine Hepatitis profile- negative Abdominal US showed normal liver size and echogenecity Probably LFT elevation secondary to sepsis 7. Tremulousness- resolved patient and cousin denied ETOH abuse Abd Us showed no fatty or cirrhotic liver Continue Thiamine, Folate, MVI CT head showed no acute pathology 8. DVT prophylaxis Heparin 9. Hypothyroidism Endo consulted Started Synthroid 100 mcg 10. Hypertension - added Norvasc 10 mg po daily
[2016-08-16] MEDS: Albuterol-Ipratrop 3 mg / 0.5 (3 ml) UD INH SCH ×4 (08:21→20:30)
--- NOTE | 2016-08-16 09:13 | PN ---
DATE: 08/14/2016 In ICU, room 433.. The patient is a 60-year-old male with multilobar pneumonia and also progressive renal insufficiency with end-stage renal disease and is now being followed closely for metabolic management. He is diana ating the modified levothyroxine dose given at 100 mcg daily as ordered. His latest chemistries incl ude a BUN of 57, sodium 130, potassium 3.5, chloride 100, CO2 26, glucose 89 and creatinine 7.7. His latest ____ levels showed a T4 of 8.40 with a TSH of 17.20 and a free T4 of 8.89. ____. We will al so obtain serial thyroid levels and adjust his dose regimen as ____. Tara Smith MD cc: [id number] TT: 08/14/2016 13:42:59 Confirmation # [id number] Dictation # [id number]
[2016-08-16] MEDS: Saccharomyces Boulardi 250 mg Cap PO SCH ×3 (10:40→19:46)
[2016-08-16] MEDS: guaiFENesin 600 mg ER Tab PO SCH ×2 (10:42→21:30)
[2016-08-16] MEDS: Metoprolol Succinate 25 mg XL Tab PO SCH (10:42)
--- NOTE | 2016-08-16 14:03 | CP.PCM.PN ---
Subjective - Date & Time of Evaluation Date of Evaluation: 08/16/16 Time of Evaluation: 14:03 - Subjective Subjective: pt seen and examined, follow up consult is dictated #[id number] uf goal is about 4 lit Objective - Vital Signs/Intake and Output Vital Signs (last 24 hours): Temp Pulse Resp BP Pulse Ox 97.8 F 77 18 177/63 H 94 L 08/16/16 12:22 08/16/16 13:07 08/16/16 12:22 08/16/16 12:26 08/16/16 13:07 - Medications Medications: Current Medications Acetaminophen (Tylenol 325mg Tab) 650 mg PO Q6 PRN PRN Reason: Fever >100.4 F Last Admin: 08/10/16 12:16 Dose: 650 mg Albuterol Sulfate (Albuterol 0.083% Inhal Martita (2.5 Mg/3 Ml) Ud) 2.5 mg INH RQ4 PRN PRN Reason: Shortness of Breath Last Admin: 08/11/16 04:52 Dose: 2.5 mg Albuterol/Ipratropium (Duoneb 3 Mg/0.5 Mg (3 Ml) Ud) 3 ml INH RQID [facility] Last Admin: 08/16/16 11:38 Dose: 3 ml Amlodipine Besylate (Norvasc) 10 mg PO DAILY [facility] Last Admin: 08/16/16 12:26 Dose: 10 mg Folic Acid (Folic Acid) 1 mg PO DAILY [facility] Last Admin: 08/16/16 10:42 Dose: 1 mg Guaifenesin (Mucinex La) 600 mg PO Q12 [facility] Last Admin: 08/16/16 10:42 Dose: 600 mg Heparin Sodium (Porcine) (Heparin) 5,000 units SC Q12@0900,2100 [facility] PRN Reason: Protocol Last Admin: 08/16/16 10:41 Dose: 5,000 units Moxifloxacin HCl (Avelox Iv 400mg/250ml Ns) 400 mg in 250 mls @ 250 mls/hr IVPB DAILY@2200 [facility] Last Admin: 08/15/16 21:01 Dose: 250 mls/hr Piperacillin Sod/Tazobactam (Sod 2.25 gm/ Sodium Chloride) 100 mls @ 100 mls/ hr IVPB Q6 [facility] Last Admin: 08/16/16 10:48 Dose: 100 mls/hr Levothyroxine Sodium (Synthroid) 125 mcg PO DAILY@0630 [facility] Last Admin: 08/16/16 06:57 Dose: 125 mcg Metoprolol Succinate (Toprol Xl) 25 mg PO DAILY [facility] Last Admin: 08/16/16 10:42 Dose: 25 mg Nystatin (Nystop Topical Powder) 1 applic TOP TID [facility] Last Admin: 08/16/16 12:27 Dose: Not Given Saccharomyces Boulardii (Florastor) 250 mg PO BID [facility] Last Admin: 08/16/16 10:40 Dose: 250 mg Thiamine HCl (Vitamin B1 Tab) 100 mg PO DAILY [facility] Last Admin: 08/16/16 10:43 Dose: 100 mg - Labs Labs: 08/16/16 05:40 08/16/16 05:40 PT 12.6 SECONDS (9.6-11.2) H 08/11/16 04:30 INR 1.21 (0.92-1.08) H 08/11/16 04:30 APTT 35.1 SECONDS (23.3-32.5) H 08/11/16 04:30
[2016-08-16] MEDS: Moxifloxacin IV 400mg/250ml NS 400 MG/250 ML BAG IVPB SCH (22:41)
--- NOTE | 2016-08-16 22:45 | PN ---
DATE: 08/16/2016 The patient is located in room 417, bed 2. REQUESTING PHYSICIAN: Frank Thomas MD. REASON FOR RENAL FOLLOWUP: Acute renal failure, rhabdomyolysis, multilobar pneumonia, on hemodialysi s 3 times a week. HISTORY OF PRESENT ILLNESS: The patient is a 61-year-old elderly male with unknown past me dical history was admitted with fever, cough, shortness of breath and multiple falls and history of s moking, was found to have multilobar pneumonia and renal failure and rhabdomyolysis and worsening milan al function requiring initiation of the hemodialysis, admitted and transferred to ICU. The patient i s on hemodialysis 3 times a week for the last 1 week to 10 days. The patient is not in acute distres s. The patient is being dialyzed during my examination this morning at 1:30 p.m. The patient is not in acute distress. UF goal is about 4 liters. No chest pain, no palpitation, no nausea, no vomiting . The patient is sleepy, arousable. PHYSICAL EXAMINATION: VITAL SIGNS: As follows: Blood pressure is 171/81, pulse 77, respirations 20, temperature is 97.4, saturation 94%, height 6 feet and weight is 221 pounds. GENERAL: The patient is a 61-year-old elderly male, moderately built, moderately nourished, not in a cute distress. HEENT: Pupils normal, reactive to light and accommodation. Conjunctivae pink. Sclerae anicteric. Tongue is moist. NECK: Trachea midline. LUNGS: Symmetric on both sides. Bilateral breath sounds present. Occasional basal crackles present . CARDIOVASCULAR: [place] in the fifth intercostal space midclavicular line. S1 and S2 audible. No murm ur or gallop. ABDOMEN: Normal in appearance, soft, tympanic. No guarding, no rigidity. No hepatosplenomegaly. CENTRAL NERVOUS SYSTEM: The patient is sleepy, arousable, following simple commands. EXTREMITIES: No cyanosis, no clubbing. The patient has 1-2+ edema present. CURRENT MEDICATIONS: Include as follows: Albuterol inhaler q. 4 hours, Avelox 400 mg IV daily, DuoN eb inhaler q.i.d., Florastor 250 mg p.o. b.i.d., folic acid 1 mg p.o. daily, subcutaneous heparin 500 0 q. 12 hours, Mucinex 600 mg p.o. q. 12 hours, Norvasc 10 mg daily, nystatin powder topical t.i.d., and Zosyn 2.25 grams q. 6 hours, levothyroxine 125 mcg p.o. daily and Toprol-XL 25 mg p.o. daily, Tyl enol 650 mg p.o. q. 6 hours, thiamine 100 mg p.o. daily. LABORATORY DATA: Include as follows: As of 08/16/2016. WBC 11.4, hemoglobin 10.1, hematocrit is 29.9 , platelets 492. Sodium 142, potassium 4.2, chloride 98, CO2 24, BUN 85, creatinine 11.4 and glucose is 91, calcium 7.6 and free thyroxine is 1.35 and thyroxine is 5.44. TSH is 31.7. Chest x-ray as o f 08/15/2016: Impression CHF and edema with some minor improvement in the left midlung field density; however, there appears to be some increase in effusion and atelectasis in the lung bases. SUMMARY: In summary, the patient is a 61-year-old male with a history of smoking, questionable alcoh ol use, was admitted with fever, cough, shortness of breath and history of falls and found to have el evated CPK level and multilobar pneumonia and increased BUN and creatinine with worsening shortness o f breath and respiratory distress, was transferred to subsequently ICU and requiring initiation of th e hemodialysis ____ fluid overload. 1. Renal failure, most likely secondary to multifactorial, secondary to acute tubular necrosis secon kg to rhabdomyolysis and sepsis. 2. Multilobar pneumonia. 3. Rhabdomyolysis secondary to recurrent falls. 4. Hypertension. 5. Fluid overload. Continue IV antibiotics, Avelox, levofloxacin as per ID recommendations and follow with pulmonary. T he patient underwent hemodialysis today without any complications. UF goal is about 4 liters, restri ct fluids to 1 liter per day. We will follow with you. Thank you for allowing me to participate in your patient's care. Edmund Kowalski MD cc: [phone] TT: 08/16/2016 22:44:25 Confirmation # [id number] Dictation # [id number]
[2016-08-17] MEDS: Levothyroxine 125 MCG TAB PO SCH (05:59)
[2016-08-17 06:54] LABS: BASO # 0.1 K/uL (0.0-0.2); BASO % 0.6 % (0.0-2.0); EOS % 0.3 % (0.0-4.0); LYMPH # 1.5 K/uL (1.0-4.3); LYMPH % 15.1 % (20.0-40.0); MEAN CELL VOLUME 83.9 fl (80.0-94.0); MEAN CORPUSCULAR HGB CONC 33.4 g/dL (33.0-37.0); MEAN PLATELET VOLUME 7.2 fl (7.2-11.7); MONO # 1.1 K/uL (0.0-0.8); NEUT # 7.4 K/uL (1.8-7.0); RED CELL DISTRIBUTION WIDTH 14.7 % (11.5-14.5); WHITE BLOOD COUNT 10.2 K/uL (4.8-10.8)
[2016-08-17 07:11] LABS: CALCIUM 7.8 mg/dL (8.4-10.2)
[2016-08-17] MEDS: Albuterol-Ipratrop 3 mg / 0.5 (3 ml) UD INH SCH ×4 (07:49→21:15)
--- NOTE | 2016-08-17 07:52 | PN ---
DATE: 08/16/2016 ROOM: 417 This is a 61-year-old male with known history of hypothyroidism currently being followed closely for metabolic management. He is also undergoing IV antibiotic management for pneumonia as noted. His la test chemistry includes a BUN of 85, sodium 142, potassium 4.2, chloride 98, CO2 of 24, glucose 91. He has also has a recent improved. So, at this time, we will continue to modify levothyroxine dose 125 given at a high end dose of ____ mcg daily before breakfast as ordered. We will titrate incrementally as indicated to optimize metabo lic control. We will also obtain serial thyroid studies and adjust his dose accordingly. We will fo llow. Tara Smith MD cc: [id number] TT: 08/16/2016 12:11:43 Confirmation # [id number] Dictation # [id number] 08/17/2016 06:52:03
[2016-08-17] MEDS: guaiFENesin 600 mg ER Tab PO SCH ×2 (09:57→21:24)
[2016-08-17] MEDS: Saccharomyces Boulardi 250 mg Cap PO SCH ×2 (09:57→17:11)
[2016-08-17] MEDS: Metoprolol Succinate 25 mg XL Tab PO SCH (09:58)
--- NOTE | 2016-08-17 10:56 | CP.PCM.PN ---
Subjective - Date & Time of Evaluation Date of Evaluation: 08/17/16 Time of Evaluation: 10:00 - Subjective Subjective: No fever occ cough no SOB at present- on 3-4 liters NC no CP no abd pain Objective - Vital Signs/Intake and Output Vital Signs (last 24 hours): Temp Pulse Resp BP Pulse Ox 97.8 F 78 20 155/82 H 93 L 08/17/16 04:48 08/17/16 04:48 08/17/16 04:48 08/17/16 04:48 08/17/16 04:48 - Medications Medications: Current Medications Acetaminophen (Tylenol 325mg Tab) 650 mg PO Q6 PRN PRN Reason: Fever >100.4 F Last Admin: 08/10/16 12:16 Dose: 650 mg Albuterol Sulfate (Albuterol 0.083% Inhal Martita (2.5 Mg/3 Ml) Ud) 2.5 mg INH RQ4 PRN PRN Reason: Shortness of Breath Last Admin: 08/11/16 04:52 Dose: 2.5 mg Albuterol/Ipratropium (Duoneb 3 Mg/0.5 Mg (3 Ml) Ud) 3 ml INH RQID [facility] Last Admin: 08/17/16 07:49 Dose: 3 ml Amlodipine Besylate (Norvasc) 10 mg PO DAILY [facility] Last Admin: 08/17/16 09:58 Dose: 10 mg Folic Acid (Folic Acid) 1 mg PO DAILY [facility] Last Admin: 08/17/16 09:57 Dose: 1 mg Guaifenesin (Mucinex La) 600 mg PO Q12 [facility] Last Admin: 08/17/16 09:57 Dose: 600 mg Heparin Sodium (Porcine) (Heparin) 5,000 units SC Q12@0900,2100 [facility] PRN Reason: Protocol Last Admin: 08/17/16 09:57 Dose: 5,000 units Moxifloxacin HCl (Avelox Iv 400mg/250ml Ns) 400 mg in 250 mls @ 250 mls/hr IVPB DAILY@2200 [facility] Last Admin: 08/16/16 22:41 Dose: 250 mls/hr Piperacillin Sod/Tazobactam (Sod 2.25 gm/ Sodium Chloride) 100 mls @ 100 mls/ hr IVPB Q6 [facility] Last Admin: 08/17/16 03:42 Dose: 100 mls/hr Levothyroxine Sodium (Synthroid) 125 mcg PO DAILY@0630 [facility] Last Admin: 08/17/16 05:59 Dose: 125 mcg Metoprolol Succinate (Toprol Xl) 25 mg PO DAILY [facility] Last Admin: 08/17/16 09:58 Dose: 25 mg Nystatin (Nystop Topical Powder) 1 applic TOP TID [facility] Last Admin: 08/17/16 09:58 Dose: 1 applic Saccharomyces Boulardii (Florastor) 250 mg PO BID [facility] Last Admin: 08/17/16 09:57 Dose: 250 mg Thiamine HCl (Vitamin B1 Tab) 100 mg PO DAILY [facility] Last Admin: 08/16/16 10:43 Dose: 100 mg - Labs Labs: 08/17/16 06:20 08/17/16 06:20 PT 12.6 SECONDS (9.6-11.2) H 08/11/16 04:30 INR 1.21 (0.92-1.08) H 08/11/16 04:30 APTT 35.1 SECONDS (23.3-32.5) H 08/11/16 04:30 - Constitutional Appears: No Acute Distress, Chronically Ill - Head Exam Head Exam: NORMAL INSPECTION, NORMOCEPHALIC - Eye Exam Eye Exam: Normal appearance, PERRL Pupil Exam: NORMAL ACCOMODATION - ENT Exam ENT Exam: Mucous Membranes Moist, Normal External Ear Exam - Neck Exam Neck Exam: Full ROM. absent: Meningismus - Respiratory Exam Respiratory Exam: minimal basilar Rales, Rhonchi. absent: Respiratory Distress Additional comments: On Oxygen per NC - Cardiovascular Exam Cardiovascular Exam: REGULAR RHYTHM, +S1, +S2 - GI/Abdominal Exam GI & Abdominal Exam: Soft, Normal Bowel Sounds. absent: Tenderness - Extremities Exam Extremities Exam: Full ROM, Normal Capillary Refill. absent: Calf Tenderness - Back Exam Back Exam: Full ROM. absent: CVA tenderness (L), CVA tenderness (R), paraspinal tenderness, vertebral tenderness - Neurological Exam Neurological Exam: Alert, Awake, CN II-XII Intact, Oriented x3 Neuro motor strength exam: Left Upper Extremity: 5, Right Upper Extremity: 5, Left Lower Extremity: 5, Right Lower Extremity: 5 - Psychiatric Exam Psychiatric exam: Normal Affect, Normal Mood - Skin Skin Exam: Dry, Normal Color, Warm Assessment and Plan - Assessment and Plan (Free Text) Assessment: 60 years old male with no significant past medical hx was brought to the ED because of Generalized weakness, dizziness. He was coughing for one month with brown sputum. No chest pain on coughing, no SOB and no fever. He Smokes one pack of cigarettes in 3 days with occasional Alcohol use. In the ED his Temp was 100.6F with HR of 123/min. CXR showed multifocal Pneumonia and BMP showed renal failure. Patient was admitted with sepsis ( POA) due to multifocal pneumonia and DYLLAN due to rhabdomyolysis . Pulmonary ID and nephro consulted . He was started on IVF and IV antibiotics. Was transferred to ICU for close monitoring due to AMS / confusion and respiratory distress. Pt now in Telemetry and doing well on 3-4 Oxygen liters per NC 1. Sepsis sec to Pneumonia- POA improving Afebrile and procalcitonin trending down from [address] chest showed Large bilateral alveolar infiltrates as well as small bilateral pleural effusions. Mild mediastinal lymphadenopathy. on 3-4L NC saturating at 93- 98% Repeat 08/17/16 CXR : RML and LML PNA Pulmonary and ID on consult promote ambulation Continue Zosyn, and Moxifloxacin . Given 1 dose of Vancomycin 1 G Iv and IV Clinda HIV and influenza - negative legionella Ag : negative Mycoplasma IgM negative Continue duonebs, acetylcysteine Sputum cx positive for yeast 2. AMS/ Metabolic encephalopathy -improving most likely AMS multifactorial - due to sepsis, pneumonia, medication induced, renal failure Continue treatment for Pneumonia and sepsis Aspiration precautions Hold Ativan 3. Acute Hypoxemic respiratory failure sec to CAP on High Flow Oxygen V/Q scan showed no PE Continue Zosyn , Moxifloxacin/ Given 1 dose Vancomycin IV Respiratory isolation discontinued : 3 AFB-s were negative Pulmonary and ID on consult Cultures negative so far 4. Acute Renal Failure with metabolic acidosis Most likely ATN secondary to Rhabdomyolysis Dr Kowalski nephrology consulted Patient did not respond to IVF with HCO3 Renal sonogram showed normal size and echogenecity and no obstruction HD MWF - out 3L on Tuesday, for HD today Continue close monitoring HD catheter placed to right upper chest by IR ECHO to evaluate cardiac output; normal cardiac function 5. Rhabdomyolysis CPK trended down received IVF on HD for renal failure 4. Hypokalemia Repleted 5. Transaminitis unclear etiology on the admission was suspicious for ETOH abuse since AST more elevated than ALT but patient and cousin denied alcoholism Started MVI, folic acid and Thiamine Hepatitis profile- negative Abdominal US showed normal liver size and echogenecity Probably LFT elevation secondary to sepsis 7. Tremulousness- resolved patient and cousin denied ETOH abuse Abd Us showed no fatty or cirrhotic liver Continue Thiamine, Folate, MVI CT head showed no acute pathology 8. DVT prophylaxis Heparin 9. Hypothyroidism Endo consulted Started Synthroid - now on 125mcg daily 10. Hypertension - cont Norvasc 10 mg po daily and low dose Toprol XL
--- NOTE | 2016-08-17 11:23 | RAD ---
HISTORY: pneumonia COMPARISON: 08/15/2016 TECHNIQUE: Chest PA and lateral FINDINGS: LUNGS: Opacity at right lung base, unchanged. Likely right middle lobe. Infiltrate versus atelectasis. Faint patchy opacity mid left lung common not clearly evident previously. PLEURA: Small left pleural effusion. No definite right pleural effusion. No pneumothorax. CARDIOVASCULAR: Right central venous dialysis catheter unchanged. OSSEOUS STRUCTURES: No significant abnormalities. VISUALIZED UPPER ABDOMEN: Normal. OTHER FINDINGS: None. IMPRESSION: Right middle lobe consolidation. Small left pleural effusion. The patchy opacity mid left lung, likely early infiltrate. No active disease.
--- NOTE | 2016-08-17 15:43 | PN ---
DATE: 08/17/2016 ROOM: 417, bed 2. This is a 61-year-old male with recent evaluation for hypothyroidism, both historically, clinically, and biochemically and is now tolerating fairly well the modified levothyroxine dosing regimen as give n. His latest chemistry showed a BUN of 51, sodium 144, potassium 4.0, chloride 100, CO2 25, glucose 100 and creatinine 8.8. His thyroid study showed a T4 of 5.44 with a free T4 of 1.35 and a TSH of 31.70 . So at this time, we will continue the modified levothyroxine replacement therapy given at a dose of 1 25 mcg once daily in the morning as ordered. We will observe his metabolic response thereof and titr ate his dose regimen accordingly to optimize metabolic control. We are still awaiting the thyroid an tibodies, which will confirm and/or negate the presence of thyroid autoimmunity. We will follow. Tara Smith MD cc: [id number] TT: 08/17/2016 15:42:10 Confirmation # [id number] Dictation # [id number] en
[2016-08-17] MEDS: Moxifloxacin IV 400mg/250ml NS 400 MG/250 ML BAG IVPB SCH (21:25)
[2016-08-18 05:06] LABS: BASO # 0.1 K/uL (0.0-0.2); BASO % 0.8 % (0.0-2.0); EOS % 0.5 % (0.0-4.0); LYMPH # 2.1 K/uL (1.0-4.3); LYMPH % 21.5 % (20.0-40.0); MEAN CORPUSCULAR HEMOGLOBIN 27.2 pg (27.0-31.0); MEAN CORPUSCULAR HGB CONC 32.3 g/dL (33.0-37.0); MEAN PLATELET VOLUME 6.7 fl (7.2-11.7); MONO # 1.2 K/uL (0.0-0.8); MONO % 11.9 % (0.0-10.0); NEUT # 6.5 K/uL (1.8-7.0); NEUT % 65.3 % (50.0-75.0); NRBC % 0.1 % (0.0-0.0); RED CELL DISTRIBUTION WIDTH 14.7 % (11.5-14.5)
[2016-08-18 05:19] LABS: ALB/GLOB RATIO 0.8 (1.0-2.1); CALCIUM 7.8 mg/dL (8.4-10.2); POTASSIUM 4.5 MMOL/L (3.6-5.0)
[2016-08-18 05:42] LABS: THYROID STIMULATING HORMONE 25.7 mIU/ML (0.46-4.68)
[2016-08-18] MEDS: Levothyroxine 125 MCG TAB PO SCH (06:46)
[2016-08-18] MEDS: Albuterol-Ipratrop 3 mg / 0.5 (3 ml) UD INH SCH ×4 (07:57→19:29)
--- NOTE | 2016-08-18 08:01 | CP.PCM.PN ---
Subjective - Date & Time of Evaluation Date of Evaluation: 08/18/16 Time of Evaluation: 08:00 - Subjective Subjective: pt seen and examined, follow up consult is dictated #[id number] for hd today, need to c/w hd until recovered consider perma casth check urine for eosinophils consider to change zosyn due to renal failure/ increasing s.cr ? Objective - Vital Signs/Intake and Output Vital Signs (last 24 hours): Temp Pulse Resp BP Pulse Ox 98 F 86 20 136/69 90 L 08/18/16 04:28 08/18/16 04:28 08/18/16 04:28 08/18/16 04:28 08/18/16 04:28 - Medications Medications: Current Medications Acetaminophen (Tylenol 325mg Tab) 650 mg PO Q6 PRN PRN Reason: Fever >100.4 F Last Admin: 08/10/16 12:16 Dose: 650 mg Albuterol Sulfate (Albuterol 0.083% Inhal Martita (2.5 Mg/3 Ml) Ud) 2.5 mg INH RQ4 PRN PRN Reason: Shortness of Breath Last Admin: 08/11/16 04:52 Dose: 2.5 mg Albuterol/Ipratropium (Duoneb 3 Mg/0.5 Mg (3 Ml) Ud) 3 ml INH RQID [facility] Last Admin: 08/18/16 07:57 Dose: 3 ml Amlodipine Besylate (Norvasc) 10 mg PO DAILY [facility] Last Admin: 08/17/16 09:58 Dose: 10 mg Folic Acid (Folic Acid) 1 mg PO DAILY [facility] Last Admin: 08/17/16 09:57 Dose: 1 mg Guaifenesin (Mucinex La) 600 mg PO Q12 [facility] Last Admin: 08/17/16 21:24 Dose: 600 mg Heparin Sodium (Porcine) (Heparin) 5,000 units SC Q12@0900,2100 [facility] PRN Reason: Protocol Last Admin: 08/17/16 21:24 Dose: 5,000 units Moxifloxacin HCl (Avelox Iv 400mg/250ml Ns) 400 mg in 250 mls @ 250 mls/hr IVPB DAILY@2200 [facility] Last Admin: 08/17/16 21:25 Dose: 250 mls/hr Piperacillin Sod/Tazobactam (Sod 2.25 gm/ Sodium Chloride) 100 mls @ 100 mls/ hr IVPB Q6 [facility] Last Admin: 08/18/16 03:53 Dose: 100 mls/hr Levothyroxine Sodium (Synthroid) 125 mcg PO DAILY@0630 [facility] Last Admin: 08/18/16 06:46 Dose: 125 mcg Metoprolol Succinate (Toprol Xl) 25 mg PO DAILY [facility] Last Admin: 08/17/16 09:58 Dose: 25 mg Nystatin (Nystop Topical Powder) 1 applic TOP TID [facility] Last Admin: 08/17/16 17:12 Dose: 1 applic Saccharomyces Boulardii (Florastor) 250 mg PO BID [facility] Last Admin: 08/17/16 17:11 Dose: 250 mg Thiamine HCl (Vitamin B1 Tab) 100 mg PO DAILY [facility] Last Admin: 08/17/16 10:11 Dose: 100 mg - Labs Labs: 08/18/16 04:45 08/18/16 04:45 PT 12.6 SECONDS (9.6-11.2) H 08/11/16 04:30 INR 1.21 (0.92-1.08) H 08/11/16 04:30 APTT 35.1 SECONDS (23.3-32.5) H 08/11/16 04:30
[2016-08-18] MEDS: Saccharomyces Boulardi 250 mg Cap PO SCH ×2 (10:38→16:49)
[2016-08-18] MEDS: guaiFENesin 600 mg ER Tab PO SCH ×2 (10:39→22:05)
--- NOTE | 2016-08-18 14:40 | CP.PCM.PN ---
Subjective - Date & Time of Evaluation Date of Evaluation: 08/18/16 Time of Evaluation: 13:00 - Subjective Subjective: No fever no SOB occ cough no CP no abd pain Discussed need for Permacath placement- pt agrees Objective - Vital Signs/Intake and Output Vital Signs (last 24 hours): Temp Pulse Resp BP Pulse Ox 98.2 F 82 18 130/63 93 L 08/18/16 08:26 08/18/16 08:26 08/18/16 08:26 08/18/16 08:26 08/18/16 08:26 - Medications Medications: Current Medications Acetaminophen (Tylenol 325mg Tab) 650 mg PO Q6 PRN PRN Reason: Fever >100.4 F Last Admin: 08/10/16 12:16 Dose: 650 mg Albuterol Sulfate (Albuterol 0.083% Inhal Martita (2.5 Mg/3 Ml) Ud) 2.5 mg INH RQ4 PRN PRN Reason: Shortness of Breath Last Admin: 08/11/16 04:52 Dose: 2.5 mg Albuterol/Ipratropium (Duoneb 3 Mg/0.5 Mg (3 Ml) Ud) 3 ml INH RQID [facility] Last Admin: 08/18/16 11:29 Dose: 3 ml Amlodipine Besylate (Norvasc) 10 mg PO DAILY [facility] Last Admin: 08/18/16 10:39 Dose: 10 mg Folic Acid (Folic Acid) 1 mg PO DAILY [facility] Last Admin: 08/18/16 10:39 Dose: 1 mg Guaifenesin (Mucinex La) 600 mg PO Q12 [facility] Last Admin: 08/18/16 10:39 Dose: 600 mg Heparin Sodium (Porcine) (Heparin) 5,000 units SC Q12@0900,2100 [facility] PRN Reason: Protocol Last Admin: 08/18/16 10:39 Dose: 5,000 units Moxifloxacin HCl (Avelox Iv 400mg/250ml Ns) 400 mg in 250 mls @ 250 mls/hr IVPB DAILY@2200 [facility] Last Admin: 08/17/16 21:25 Dose: 250 mls/hr Piperacillin Sod/Tazobactam (Sod 2.25 gm/ Sodium Chloride) 100 mls @ 100 mls/ hr IVPB Q6 [facility] Last Admin: 08/18/16 10:37 Dose: 100 mls/hr Levothyroxine Sodium (Synthroid) 125 mcg PO DAILY@0630 [facility] Last Admin: 08/18/16 06:46 Dose: 125 mcg Metoprolol Succinate (Toprol Xl) 25 mg PO DAILY [facility] Last Admin: 08/17/16 09:58 Dose: 25 mg Nystatin (Nystop Topical Powder) 1 applic TOP TID [facility] Last Admin: 08/17/16 17:12 Dose: 1 applic Saccharomyces Boulardii (Florastor) 250 mg PO BID [facility] Last Admin: 08/18/16 10:38 Dose: 250 mg Thiamine HCl (Vitamin B1 Tab) 100 mg PO DAILY [facility] Last Admin: 08/18/16 10:40 Dose: 100 mg - Labs Labs: 08/18/16 04:45 08/18/16 04:45 PT 12.6 SECONDS (9.6-11.2) H 08/11/16 04:30 INR 1.21 (0.92-1.08) H 08/11/16 04:30 APTT 35.1 SECONDS (23.3-32.5) H 08/11/16 04:30 - Constitutional Appears: No Acute Distress, Chronically Ill - Head Exam Head Exam: NORMAL INSPECTION, NORMOCEPHALIC - Eye Exam Eye Exam: Normal appearance, PERRL Pupil Exam: NORMAL ACCOMODATION - ENT Exam ENT Exam: Mucous Membranes Moist, Normal External Ear Exam - Neck Exam Neck Exam: Full ROM. absent: Meningismus - Respiratory Exam Respiratory Exam: minimal basilar Rales, Rhonchi. absent: Respiratory Distress Additional comments: On Oxygen per NC - Cardiovascular Exam Cardiovascular Exam: REGULAR RHYTHM, +S1, +S2 - GI/Abdominal Exam GI & Abdominal Exam: Soft, Normal Bowel Sounds. absent: Tenderness - Extremities Exam Extremities Exam: Full ROM, Normal Capillary Refill. absent: Calf Tenderness - Back Exam Back Exam: Full ROM. absent: CVA tenderness (L), CVA tenderness (R), paraspinal tenderness, vertebral tenderness - Neurological Exam Neurological Exam: Alert, Awake, CN II-XII Intact, Oriented x3 Neuro motor strength exam: Left Upper Extremity: 5, Right Upper Extremity: 5, Left Lower Extremity: 5, Right Lower Extremity: 5 - Psychiatric Exam Psychiatric exam: Normal Affect, Normal Mood - Skin Skin Exam: Dry, Normal Color, Warm Assessment and Plan - Assessment and Plan (Free Text) Assessment: 60 years old male with no significant past medical hx was brought to the ED because of Generalized weakness, dizziness. He was coughing for one month with brown sputum. No chest pain on coughing, no SOB and no fever. He Smokes one pack of cigarettes in 3 days with occasional Alcohol use. In the ED his Temp was 100.6F with HR of 123/min. CXR showed multifocal Pneumonia and BMP showed renal failure. Patient was admitted with sepsis ( POA) due to multifocal pneumonia and DYLLAN due to rhabdomyolysis . Pulmonary ID and nephro consulted . He was started on IVF and IV antibiotics. Was transferred to ICU for close monitoring due to AMS / confusion and respiratory distress. Pt now in Telemetry and doing well on 3-4 Oxygen liters per NC 1. Sepsis sec to Pneumonia- POA improving Afebrile and procalcitonin trending down from [address] chest showed Large bilateral alveolar infiltrates as well as small bilateral pleural effusions. Mild mediastinal lymphadenopathy. on 3-4L NC saturating at 93- 98% Repeat 08/17/16 CXR : RML and LML PNA Pulmonary and ID on consult promote ambulation on Zosyn, and Moxifloxacin . Given 1 dose of Vancomycin 1 G Iv and IV Clinda ( completed 11 days of IV Zosyn , will d/c ) HIV and influenza - negative legionella Ag : negative Mycoplasma IgM negative Continue duonebs, acetylcysteine Sputum cx positive for yeast 2. AMS/ Metabolic encephalopathy -improving most likely AMS multifactorial - due to sepsis, pneumonia, medication induced, renal failure Continue treatment for Pneumonia and sepsis Aspiration precautions Hold Ativan 3. Acute Hypoxemic respiratory failure sec to CAP on High Flow Oxygen V/Q scan showed no PE Continue Zosyn , Moxifloxacin/ Given 1 dose Vancomycin IV Respiratory isolation discontinued : 3 AFB-s were negative Pulmonary and ID on consult Cultures negative so far 4. Acute Renal Failure with metabolic acidosis Most likely ATN secondary to Rhabdomyolysis Dr Kowalski nephrology consulted Patient did not respond to IVF with HCO3 Renal sonogram showed normal size and echogenecity and no obstruction HD MWF Continue close monitoring ECHO to evaluate cardiac output; normal cardiac function IR for Permacath placement Discussed with Dr Jeff- still unsure if Permanent HD will d/c for Outpt HD and d/c pt to [facility] 5. Rhabdomyolysis CPK trended down received IVF on HD for renal failure 4. Hypokalemia Repleted 5. Transaminitis unclear etiology on the admission was suspicious for ETOH abuse since AST more elevated than ALT but patient and cousin denied alcoholism Started MVI, folic acid and Thiamine Hepatitis profile- negative Abdominal US showed normal liver size and echogenecity Probably LFT elevation secondary to sepsis 7. Tremulousness- resolved patient and cousin denied ETOH abuse Abd Us showed no fatty or cirrhotic liver Continue Thiamine, Folate, MVI CT head showed no acute pathology 8. DVT prophylaxis Heparin 9. Hypothyroidism Endo consulted Started Synthroid - now on 125mcg daily 10. Hypertension - cont Norvasc 10 mg po daily and low dose Toprol XL
[2016-08-18] MEDS: Metoprolol Succinate 25 mg XL Tab PO SCH (16:50)
--- NOTE | 2016-08-18 16:52 | PN ---
DATE: 08/18/2016 ROOM: 417 This is a 61-year-old male with recent evaluation for hypothyroidism both clinically and biochemicall y, related to underlying autoimmune thyroiditis and is now being followed closely for metabolic manag ement. His latest chemistry showed a BUN of 62, sodium 144, potassium 4.5, chloride 99, CO2 of 25, g lucose 88, and creatinine 10.5. His latest thyroid studies showed a T4 of 5.44 with a TSH of 31.70 a nd a free T4 of 1.35. The repeat TSH today is 25.70. So, at this time, we will continue the same modified levothyroxine dose at 125 mcg daily as ordered a s it takes a few weeks for full equilibration to the aforementioned dose modification. We will obtai n serial chemistries and supplement accordingly as needed. We will also obtain serial thyroid studie s and adjust his dose regimen accordingly. We will follow. Tara Smith MD cc: [id number] TT: 08/18/2016 16:51:04 Confirmation # [id number] Dictation # [id number] sn
[2016-08-18] MEDS: Moxifloxacin IV 400mg/250ml NS 400 MG/250 ML BAG IVPB SCH (22:06)
--- NOTE | 2016-08-18 23:52 | PN ---
DATE: 08/18/2016 LOCATION: The patient is located in room 417, bed 2. REQUESTED BY: Dr. Frank Thomas. REASON FOR RENAL CONSULTATION: Acute renal failure and continuation of hemodialysis. HISTORY OF PRESENT ILLNESS: The patient is a 61-year-old elderly male with a history of sm oking, questionable ETOH abuse and questionable hypertension, was admitted with cough, shortness of b reath, fever and multiple falls and found to have elevated CPK level and increased BUN and creatinine . The hospital course was complicated by worsening bilateral infiltrates in the lung and also for in creasing shortness of breath and worsening renal function, requiring initiation of the hemodialysis. The patient is on hemodialysis 3 times a week for the last 1 week. The patient is not in acute dist ress and feeling better. No chest pain, no palpitations, no fever, no cough. The patient claims he is voiding. PHYSICAL EXAMINATION: VITAL SIGNS: This morning as follows: Blood pressure 130/63, pulse 82, respirations 18, temperature 98.2, saturation 93%, height 6 feet and weight is 221 pounds. GENERAL: The patient is a 61-year-old elderly male, moderately built, moderately nourished, not in a cute distress. HEENT: Pupils normal, reactive to light and accommodation. Conjunctivae pink. Sclerae anicteric. Tongue is moist. NECK: Trachea midline. LUNGS: Symmetric on both sides. Bilateral breath sounds present. No crackles. CARDIOVASCULAR: [place] in the fifth intercostal space midclavicular line. S1, S2 audible. No murmur or gallop. ABDOMEN: Normal in appearance, soft, tympanic. No guarding, no rigidity. No hepatosplenomegaly. CENTRAL NERVOUS SYSTEM: The patient is awake, following simple commands. Sensory and motor system i s grossly within normal limits. EXTREMITIES: No cyanosis, no clubbing, no edema. CURRENT MEDICATIONS: Include as follows: Albuterol inhaler, Avelox 400 mg daily, DuoNeb inhaler, Fl orastor 250 mg p.o. b.i.d., folic acid 1 mg daily, subcutaneous heparin 5000 q. 12 hours, Mucinex 60 0 mg p.o. q. 12 hours, Norvasc 10 mg daily, Synthroid 125 mcg daily and Toprol-XL 25 mg p.o. daily, T ylenol, thiamine 100 mg p.o. daily. LABORATORY DATA: Include as follows: As of 08/18/2016. WBC 10, hemoglobin 10.7, hematocrit is 33, platelets 540. Sodium 144, potassium 4.5, chloride 99, CO2 25, BUN 62, creatinine 10.5, and glucose 88, calcium 7.8, total bilirubin 1.0, AST 100, ALT 85, alkaline phosphatase is 55 and total protein 8 , albumin is 3.5. TSH is 25.7. Chest x-ray as of 08/17/2016, right middle lobe consolidation and sm all left pleural effusion and patchy opacities in the mid left lung, likely early infiltrate, no acti ve disease. SUMMARY: The patient is a 61-year-old elderly male with hypertension, hypothyroidism, bilateral infi ltrates, status post fall, elevated CPK, elevated BUN and creatinine, started on hemodialysis. IMPRESSION AND PLAN: 1. Acute renal failure, most likely secondary to acute tubular necrosis secondary to rhabdomyolysis and sepsis. Continue hemodialysis 3 times a week until renal function improves. Will also check uri ne for eosinophils and consider to change Zosyn to some other antibiotic case reports with Zosy n to have increased serum creatinine and worsening renal function. 2. Hypertension. Blood pressure is stable. Continue Coreg and Norvasc and titrate as needed. Cons ider to add hydralazine if need to agent. Case discussed with Dr. Diana Lockhart. Follow up with social service for outpatient hemodialysis, refe rral placement and consider subacute evaluation. The patient needs to continue hemodialysis until re nal function improves. May benefit from Perm-A-Cath placement. Thank you for allowing me to participate in your patient's care. Edmund Kowalski MD cc: [phone] TT: 08/18/2016 23:51:24 Confirmation # [id number] Dictation # [id number] medardo
[2016-08-19] MEDS: Levothyroxine 125 MCG TAB PO SCH (06:35)
[2016-08-19 07:49] LABS: CALCIUM 7.9 mg/dL (8.4-10.2); POTASSIUM 4.1 MMOL/L (3.6-5.0)
[2016-08-19] MEDS: Albuterol-Ipratrop 3 mg / 0.5 (3 ml) UD INH SCH ×4 (08:51→20:01)
--- NOTE | 2016-08-19 08:57 | CP.PCM.PN ---
Subjective - Date & Time of Evaluation Date of Evaluation: 08/19/16 Time of Evaluation: 08:52 - Subjective Subjective: Seen lying in bed this morning, appears comfortable. No cyanosis or dependant edema. Cough with coaching, does not expectorate, but swallows phlegm. SpO2 95% on nasal canula 3LPM. Pharynx pink and moist, no exudate. Neck is supple and trachea midline. No palpable lymphadenopathy. Dullness on percussion of the left base posteriorly. No audible wheezes or bronchial breath sounds. Medium rales (few) at bases, left > right. No leukocytosis, mild anemia, afebrile. No CXR today, patient declines more radiographs. Increase activity as tolerated. No need for continued telemetry. Continue present drug regimen and HD. Objective - Vital Signs/Intake and Output Vital Signs (last 24 hours): Temp Pulse Resp BP Pulse Ox 97.8 F 83 21 141/78 94 L 08/19/16 05:00 08/19/16 05:00 08/19/16 05:00 08/19/16 05:00 08/19/16 05:00 - Medications Medications: Current Medications Acetaminophen (Tylenol 325mg Tab) 650 mg PO Q6 PRN PRN Reason: Fever >100.4 F Last Admin: 08/10/16 12:16 Dose: 650 mg Albuterol Sulfate (Albuterol 0.083% Inhal Martita (2.5 Mg/3 Ml) Ud) 2.5 mg INH RQ4 PRN PRN Reason: Shortness of Breath Last Admin: 08/11/16 04:52 Dose: 2.5 mg Albuterol/Ipratropium (Duoneb 3 Mg/0.5 Mg (3 Ml) Ud) 3 ml INH RQID [facility] Last Admin: 08/18/16 19:29 Dose: 3 ml Amlodipine Besylate (Norvasc) 10 mg PO DAILY [facility] Last Admin: 08/18/16 10:39 Dose: 10 mg Folic Acid (Folic Acid) 1 mg PO DAILY [facility] Last Admin: 08/18/16 10:39 Dose: 1 mg Guaifenesin (Mucinex La) 600 mg PO Q12 [facility] Last Admin: 08/18/16 22:05 Dose: 600 mg Heparin Sodium (Porcine) (Heparin) 5,000 units SC Q12@0900,2100 [facility] PRN Reason: Protocol Last Admin: 08/18/16 22:05 Dose: 5,000 units Moxifloxacin HCl (Avelox Iv 400mg/250ml Ns) 400 mg in 250 mls @ 250 mls/hr IVPB DAILY@2200 [facility] Last Admin: 08/18/16 22:06 Dose: 250 mls/hr Levothyroxine Sodium (Synthroid) 125 mcg PO DAILY@0630 [facility] Last Admin: 08/19/16 06:35 Dose: 125 mcg Metoprolol Succinate (Toprol Xl) 25 mg PO DAILY [facility] Last Admin: 08/18/16 16:50 Dose: Not Given Nystatin (Nystop Topical Powder) 1 applic TOP TID [facility] Last Admin: 08/18/16 16:57 Dose: 1 applic Saccharomyces Boulardii (Florastor) 250 mg PO BID [facility] Last Admin: 08/18/16 16:49 Dose: 250 mg Thiamine HCl (Vitamin B1 Tab) 100 mg PO DAILY [facility] Last Admin: 08/18/16 10:40 Dose: 100 mg - Labs Labs: 08/18/16 04:45 08/19/16 06:30 PT 12.6 SECONDS (9.6-11.2) H 08/11/16 04:30 INR 1.21 (0.92-1.08) H 08/11/16 04:30 APTT 35.1 SECONDS (23.3-32.5) H 08/11/16 04:30 Assessment and Plan (1) Acute renal failure (ARF) Status: Acute (2) Rhabdomyolysis Status: Suspected (3) Pneumonia Status: Acute
[2016-08-19] MEDS: Saccharomyces Boulardi 250 mg Cap PO SCH ×2 (09:01→16:29)
[2016-08-19] MEDS: guaiFENesin 600 mg ER Tab PO SCH ×2 (09:02→21:45)
[2016-08-19] MEDS: Metoprolol Succinate 25 mg XL Tab PO SCH (09:03)
--- NOTE | 2016-08-19 11:12 | CP.PCM.PN ---
Subjective - Date & Time of Evaluation Date of Evaluation: 08/19/16 Time of Evaluation: 11:00 - Subjective Subjective: no fever staes he feels better everyday still with some cough no SOB no CP no abd pain Discussed d/c plan - to [facility] and outpt HD Plan for IR to put in Permacath in am Objective - Vital Signs/Intake and Output Vital Signs (last 24 hours): Temp Pulse Resp BP Pulse Ox 97.6 F 79 20 149/84 96 08/19/16 09:16 08/19/16 09:16 08/19/16 09:16 08/19/16 09:16 08/19/16 09:16 - Medications Medications: Current Medications Acetaminophen (Tylenol 325mg Tab) 650 mg PO Q6 PRN PRN Reason: Fever >100.4 F Last Admin: 08/10/16 12:16 Dose: 650 mg Albuterol Sulfate (Albuterol 0.083% Inhal Martita (2.5 Mg/3 Ml) Ud) 2.5 mg INH RQ4 PRN PRN Reason: Shortness of Breath Last Admin: 08/11/16 04:52 Dose: 2.5 mg Albuterol/Ipratropium (Duoneb 3 Mg/0.5 Mg (3 Ml) Ud) 3 ml INH RQID [facility] Last Admin: 08/19/16 08:51 Dose: 3 ml Amlodipine Besylate (Norvasc) 10 mg PO DAILY [facility] Last Admin: 08/19/16 09:02 Dose: 10 mg Folic Acid (Folic Acid) 1 mg PO DAILY [facility] Last Admin: 08/19/16 09:02 Dose: 1 mg Guaifenesin (Mucinex La) 600 mg PO Q12 [facility] Last Admin: 08/19/16 09:02 Dose: 600 mg Heparin Sodium (Porcine) (Heparin) 5,000 units SC Q12@0900,2100 [facility] PRN Reason: Protocol Last Admin: 08/19/16 09:05 Dose: 5,000 units Moxifloxacin HCl (Avelox Iv 400mg/250ml Ns) 400 mg in 250 mls @ 250 mls/hr IVPB DAILY@2200 [facility] Last Admin: 08/18/16 22:06 Dose: 250 mls/hr Levothyroxine Sodium (Synthroid) 125 mcg PO DAILY@0630 [facility] Last Admin: 08/19/16 06:35 Dose: 125 mcg Metoprolol Succinate (Toprol Xl) 25 mg PO DAILY [facility] Last Admin: 08/19/16 09:03 Dose: 25 mg Nystatin (Nystop Topical Powder) 1 applic TOP TID [facility] Last Admin: 08/19/16 09:03 Dose: 1 applic Saccharomyces Boulardii (Florastor) 250 mg PO BID [facility] Last Admin: 08/19/16 09:01 Dose: 250 mg Thiamine HCl (Vitamin B1 Tab) 100 mg PO DAILY [facility] Last Admin: 08/19/16 09:05 Dose: 100 mg - Labs Labs: 08/18/16 04:45 08/19/16 06:30 PT 12.6 SECONDS (9.6-11.2) H 08/11/16 04:30 INR 1.21 (0.92-1.08) H 08/11/16 04:30 APTT 35.1 SECONDS (23.3-32.5) H 08/11/16 04:30 - Constitutional Appears: No Acute Distress, Chronically Ill - Head Exam Head Exam: NORMAL INSPECTION, NORMOCEPHALIC - Eye Exam Eye Exam: Normal appearance, PERRL Pupil Exam: NORMAL ACCOMODATION - ENT Exam ENT Exam: Mucous Membranes Moist, Normal External Ear Exam - Neck Exam Neck Exam: Full ROM. absent: Meningismus - Respiratory Exam Respiratory Exam: minimal basilar Rales, Rhonchi. absent: Respiratory Distress Additional comments: On Oxygen per NC - Cardiovascular Exam Cardiovascular Exam: REGULAR RHYTHM, +S1, +S2 - GI/Abdominal Exam GI & Abdominal Exam: Soft, Normal Bowel Sounds. absent: Tenderness - Extremities Exam Extremities Exam: Full ROM, Normal Capillary Refill. absent: Calf Tenderness - Back Exam Back Exam: Full ROM. absent: CVA tenderness (L), CVA tenderness (R), paraspinal tenderness, vertebral tenderness - Neurological Exam Neurological Exam: Alert, Awake, CN II-XII Intact, Oriented x3 Neuro motor strength exam: Left Upper Extremity: 5, Right Upper Extremity: 5, Left Lower Extremity: 5, Right Lower Extremity: 5 - Psychiatric Exam Psychiatric exam: Normal Affect, Normal Mood - Skin Skin Exam: Dry, Normal Color, Warm Assessment and Plan - Assessment and Plan (Free Text) Assessment: 60 years old male with no significant past medical hx was brought to the ED because of Generalized weakness, dizziness. He was coughing for one month with brown sputum. No chest pain on coughing, no SOB and no fever. He Smokes one pack of cigarettes in 3 days with occasional Alcohol use. In the ED his Temp was 100.6F with HR of 123/min. CXR showed multifocal Pneumonia and BMP showed renal failure. Patient was admitted with sepsis ( POA) due to multifocal pneumonia and DYLLAN due to rhabdomyolysis . Pulmonary ID and nephro consulted . He was started on IVF and IV antibiotics. Was transferred to ICU for close monitoring due to AMS / confusion and respiratory distress. Pt now in Telemetry and doing well on Oxygen 3 liters per NC 1. Sepsis sec to Pneumonia- POA improving CT chest showed Large bilateral alveolar infiltrates as well as small bilateral pleural effusions. Mild mediastinal lymphadenopathy. on 3-4L NC saturating at 93- 98% Repeat 08/17/16 CXR : RML and LML PNA Pulmonary and ID on consult promote ambulation - PT consulted plan for d/c to [facility] Completed IV Zosyn x 11 days , also received IV Vanco on Avelox HIV and influenza - negative legionella Ag : negative Mycoplasma IgM negative Continue duonebs, acetylcysteine Sputum cx positive for yeast 2. AMS/ Metabolic encephalopathy -improving most likely AMS multifactorial - due to sepsis, pneumonia, medication induced, renal failure Continue treatment for Pneumonia and sepsis Aspiration precautions 3. Acute Hypoxemic respiratory failure sec to CAP on High Flow Oxygen V/Q scan showed no PE Respiratory isolation discontinued : 3 AFB-s were negative Pulmonary and ID on consult Cultures negative so far 4. Acute Renal Failure with metabolic acidosis Most likely ATN secondary to Rhabdomyolysis Dr Kowalski nephrology consulted Patient did not respond to IVF with HCO3 Renal sonogram showed normal size and echogenecity and no obstruction HD [facility] IR for Permacath placement in am , keep NPO Discussed with Dr Jeff- still unsure if Permanent HD will d/c for Outpt HD and d/c pt to [facility] Zosyn d/c - may poss contribute to RF??? as per Nephro 5. Rhabdomyolysis CPK trended down received IVF on HD for renal failure 4. Hypokalemia Repleted 5. Transaminitis unclear etiology on the admission was suspicious for ETOH abuse since AST more elevated than ALT but patient and cousin denied alcoholism Started MVI, folic acid and Thiamine Hepatitis profile- negative Abdominal US showed normal liver size and echogenecity Probably LFT elevation secondary to sepsis 7. Tremulousness- resolved patient and cousin denied ETOH abuse Abd Us showed no fatty or cirrhotic liver Continue Thiamine, Folate, MVI CT head showed no acute pathology 8. DVT prophylaxis Heparin 9. Hypothyroidism Endo consulted Started Synthroid - now on 125mcg daily 10. Hypertension - cont Norvasc 10 mg po daily and low dose Toprol XL
--- NOTE | 2016-08-19 15:57 | PN ---
DATE: 08/19/2016 ROOM: 417. SUBJECTIVE: This is a 61-year-old male with recent evaluation for hypothyroidism, currently tolerati ng the modified dosing regimen as given. He is being managed, also, for multilobar pneumonia with on going IV antibiotics as given. LABORATORY DATA: His latest chemistry showed a BUN of 42, sodium 143, potassium 4.1, chloride 103, C O2 24, glucose 84, and creatinine 8.7. The repeat TSH is 25.70 with a T4 of 5.44. PLAN: So, will continue the higher dose of levothyroxine given as 125 mcg once daily as ordered. Wi ll obtain serial chemistries and supplement accordingly as needed. Will also obtain serial thyroid s tudies and titrate dose regimen accordingly. Will follow and advise accordingly. Tara Smith MD cc: [id number] TT: 08/19/2016 15:56:33 Confirmation # [id number] Dictation # [id number] javier
--- NOTE | 2016-08-19 16:34 | CP.PCM.PN ---
Subjective - Date & Time of Evaluation Date of Evaluation: 08/19/16 Time of Evaluation: 16:33 - Subjective Subjective: pt seen and examined, follow up consult is dictated #[id number] Objective - Vital Signs/Intake and Output Vital Signs (last 24 hours): Temp Pulse Resp BP Pulse Ox 98.3 F 103 H 20 141/78 91 L 08/19/16 16:31 08/19/16 16:31 08/19/16 16:31 08/19/16 16:31 08/19/16 16:31 - Medications Medications: Current Medications Acetaminophen (Tylenol 325mg Tab) 650 mg PO Q6 PRN PRN Reason: Fever >100.4 F Last Admin: 08/10/16 12:16 Dose: 650 mg Albuterol Sulfate (Albuterol 0.083% Inhal Martita (2.5 Mg/3 Ml) Ud) 2.5 mg INH RQ4 PRN PRN Reason: Shortness of Breath Last Admin: 08/11/16 04:52 Dose: 2.5 mg Albuterol/Ipratropium (Duoneb 3 Mg/0.5 Mg (3 Ml) Ud) 3 ml INH RQID [facility] Last Admin: 08/19/16 15:50 Dose: 3 ml Amlodipine Besylate (Norvasc) 10 mg PO DAILY [facility] Last Admin: 08/19/16 09:02 Dose: 10 mg Folic Acid (Folic Acid) 1 mg PO DAILY [facility] Last Admin: 08/19/16 09:02 Dose: 1 mg Guaifenesin (Mucinex La) 600 mg PO Q12 [facility] Last Admin: 08/19/16 09:02 Dose: 600 mg Heparin Sodium (Porcine) (Heparin) 5,000 units SC Q12@0900,2100 [facility] PRN Reason: Protocol Last Admin: 08/19/16 09:05 Dose: 5,000 units Moxifloxacin HCl (Avelox Iv 400mg/250ml Ns) 400 mg in 250 mls @ 250 mls/hr IVPB DAILY@2200 [facility] Last Admin: 08/18/16 22:06 Dose: 250 mls/hr Levothyroxine Sodium (Synthroid) 125 mcg PO DAILY@0630 [facility] Last Admin: 08/19/16 06:35 Dose: 125 mcg Metoprolol Succinate (Toprol Xl) 25 mg PO DAILY [facility] Last Admin: 08/19/16 09:03 Dose: 25 mg Nystatin (Nystop Topical Powder) 1 applic TOP TID [facility] Last Admin: 08/19/16 16:30 Dose: 1 applic Saccharomyces Boulardii (Florastor) 250 mg PO BID [facility] Last Admin: 08/19/16 16:29 Dose: 250 mg Thiamine HCl (Vitamin B1 Tab) 100 mg PO DAILY [facility] Last Admin: 08/19/16 09:05 Dose: 100 mg - Labs Labs: 08/18/16 04:45 08/19/16 06:30 PT 12.6 SECONDS (9.6-11.2) H 08/11/16 04:30 INR 1.21 (0.92-1.08) H 08/11/16 04:30 APTT 35.1 SECONDS (23.3-32.5) H 08/11/16 04:30
[2016-08-19] MEDS: Moxifloxacin IV 400mg/250ml NS 400 MG/250 ML BAG IVPB SCH (22:09)
--- NOTE | 2016-08-19 23:55 | PN ---
DATE: 08/19/2016 The patient is located in room 417, bed 2. REQUESTED BY: Frank Thomas MD REASON FOR FOLLOWUP: Acute renal failure, on hemodialysis, continuation of the hemodialysis. HISTORY OF PRESENT ILLNESS: The patient is a 61-year-old elderly male with a history of sm oking, occasional alcohol use, questionable hypertension and hypothyroidism, was admitted with fever, cough, shortness of breath and multiple falls and elevated CPK level and increased BUN and creatinin e, and his hospital course was complicated by worsening of renal function and shortness of breath req uiring transfer to ICU and the initiation of the hemodialysis. The patient remains dialysis dependen t for the last 10 days. Denies any headache, dizziness. Denies any chest pain, palpitation. The pa tient is following commands appropriately. The patient is out of bed to chair. The patient claims h e is very well, not in distress. PHYSICAL EXAMINATION: VITAL SIGNS: This afternoon, blood pressure 141/78, pulse 93, respirations 20, temperature 98.3, sat uration 94%, height 6 feet and weight is 221 pounds. GENERAL: The patient is a 61-year-old male, well built, well nourished, not in acute distress. HEENT: Pupils normal, reactive to light and accommodation. Conjunctivae pink. Sclerae anicteric. Tongue is moist. NECK: Trachea midline. LUNGS: Symmetric on both sides. Bilateral breath sounds present. Occasional basal crackles present . No wheezing. CARDIOVASCULAR: Durant in the fifth intercostal space midclavicular line. S1 and S2 audible. No murm ur or gallop. ABDOMEN: Normal in appearance, soft, tympanic. No guarding, no rigidity. No hepatosplenomegaly. CENTRAL NERVOUS SYSTEM: The patient is alert, awake, oriented x 2-3. Sensory and motor system is wi thin normal limits. EXTREMITIES: No cyanosis, no clubbing. The patient has 1+ edema in both lower extremities. CURRENT LABORATORY DATA: Include as follows: Albuterol inhaler q. 4 hours p.r.n., moxifloxacin 400 mg daily, DuoNeb 3 mL q.i.d., Florastor 250 mg p.o. b.i.d., folic acid 1 mg daily, subcutaneous hepar in 5000 q. 12 hours, Mucinex 600 mg p.o. q. 12 hours, amlodipine 10 mg daily, levothyroxine 125 mg p. o. daily, metoprolol 25 mg p.o. daily, Tylenol and thiamine 100 mg p.o. daily. Chest x-ray on 2016: Right middle lobe consolidation, small left pleural effusion and patchy opacity in the mid lef t lung and likely early infiltrate, no active disease. SUMMARY: The patient is a 61-year-old elderly male with a history of smoking and occasiona l alcohol use, multiple falls, questionable hypertension and hypothyroidism, was admitted with elevat ed CPK levels and increased BUN and creatinine and bilateral infiltrates requiring transfer to ICU an d also initiation of the renal replacement therapy and hemodialysis for worsening renal function and shortness of breath. 1. Nonoliguric acute renal failure, most likely secondary to acute tubular necrosis secondary to rha bdomyolysis and sepsis. 2. Hypertension. Blood pressure is stable. Continue his current medication, Norvasc and metoprolol . 3. Bilateral pneumonia. Continue on Avelox as per pulmonary. 4. Hypothyroidism. Continue Synthroid and the patient is scheduled for Perm-A-Cath placement tomorr ow and consider to subacute rehab placement until renal function is improved. We will add Lasix 40 m g p.o. b.i.d. and monitor BMP daily. Thank you for allowing me to participate in your patient's care. We will also check a phosphorus and PTH intact level in a.m. Case discussed with Dr. Diana Lockhart in rounds yesterday regarding the moreno ent's care plan and discharge plan. Edmund Kowalski MD cc: [phone] TT: 08/19/2016 23:54:37 Confirmation # [id number] Dictation # [id number] mn
[2016-08-20] MEDS: Levothyroxine 125 MCG TAB PO SCH (06:23)
[2016-08-20] MEDS: Albuterol-Ipratrop 3 mg / 0.5 (3 ml) UD INH SCH ×4 (08:10→18:59)
[2016-08-20] MEDS: Metoprolol Succinate 25 mg XL Tab PO SCH (10:00)
[2016-08-20] MEDS: guaiFENesin 600 mg ER Tab PO SCH ×2 (10:00→21:53)
[2016-08-20] MEDS: Saccharomyces Boulardi 250 mg Cap PO SCH ×2 (10:00→19:08)
--- NOTE | 2016-08-20 10:40 | CP.PCM.PN ---
Subjective - Date & Time of Evaluation Date of Evaluation: 08/20/16 Time of Evaluation: 10:40 - Subjective Subjective: pt seen and examined, follow up consult is dictated #[id number] for hd today Objective - Vital Signs/Intake and Output Vital Signs (last 24 hours): Temp Pulse Resp BP Pulse Ox 97.7 F 84 20 149/84 94 L 08/20/16 07:44 08/20/16 10:00 08/20/16 07:44 08/20/16 10:00 08/20/16 07:44 Intake and Output: 08/20/16 08/20/16 06:59 18:59 Intake Total 1100 Output Total 100 Balance 1000 - Medications Medications: Current Medications Acetaminophen (Tylenol 325mg Tab) 650 mg PO Q6 PRN PRN Reason: Fever >100.4 F Last Admin: 08/10/16 12:16 Dose: 650 mg Albuterol Sulfate (Albuterol 0.083% Inhal Mratita (2.5 Mg/3 Ml) Ud) 2.5 mg INH RQ4 PRN PRN Reason: Shortness of Breath Last Admin: 08/11/16 04:52 Dose: 2.5 mg Albuterol/Ipratropium (Duoneb 3 Mg/0.5 Mg (3 Ml) Ud) 3 ml INH RQID [facility] Last Admin: 08/20/16 08:10 Dose: 3 ml Amlodipine Besylate (Norvasc) 10 mg PO DAILY [facility] Last Admin: 08/20/16 10:00 Dose: Not Given Folic Acid (Folic Acid) 1 mg PO DAILY [facility] Last Admin: 08/20/16 10:00 Dose: Not Given Furosemide (Lasix) 40 mg PO Q12 [facility] Last Admin: 08/20/16 10:00 Dose: Not Given Guaifenesin (Mucinex La) 600 mg PO Q12 [facility] Last Admin: 08/20/16 10:00 Dose: Not Given Heparin Sodium (Porcine) (Heparin) 5,000 units SC Q12@0900,2100 [facility] PRN Reason: Protocol Last Admin: 08/19/16 09:05 Dose: 5,000 units Moxifloxacin HCl (Avelox Iv 400mg/250ml Ns) 400 mg in 250 mls @ 250 mls/hr IVPB DAILY@2200 [facility] Last Admin: 08/19/16 22:09 Dose: 250 mls/hr Levothyroxine Sodium (Synthroid) 125 mcg PO DAILY@0630 [facility] Last Admin: 08/20/16 06:23 Dose: 125 mcg Metoprolol Succinate (Toprol Xl) 25 mg PO DAILY [facility] Last Admin: 08/20/16 10:00 Dose: Not Given Nystatin (Nystop Topical Powder) 1 applic TOP TID [facility] Last Admin: 08/20/16 09:59 Dose: 1 applic Saccharomyces Boulardii (Florastor) 250 mg PO BID [facility] Last Admin: 08/20/16 10:00 Dose: Not Given Thiamine HCl (Vitamin B1 Tab) 100 mg PO DAILY [facility] Last Admin: 08/20/16 10:01 Dose: Not Given - Labs Labs: 08/18/16 04:45 08/19/16 06:30 PT 12.6 SECONDS (9.6-11.2) H 08/11/16 04:30 INR 1.21 (0.92-1.08) H 08/11/16 04:30 APTT 35.1 SECONDS (23.3-32.5) H 08/11/16 04:30
--- NOTE | 2016-08-20 12:46 | CP.PCM.PN ---
Subjective - Date & Time of Evaluation Date of Evaluation: 08/20/16 Time of Evaluation: 13:00 - Subjective Subjective: Patient was seen and examined personally. Sitting in chair in NAD.Feeling hungry. NPO for permacath placement today. Hemodynamically stable, afebrile. No acute issues overnight Feeling better. Denies any CP SOB, cough or sputum production still on 3 L O2 via Nc with O2 Sat 94 % Participated with PT Objective - Vital Signs/Intake and Output Vital Signs (last 24 hours): Temp Pulse Resp BP Pulse Ox 97.8 F 84 20 150/76 95 08/20/16 12:08 08/20/16 12:08 08/20/16 12:08 08/20/16 12:08 08/20/16 12:08 Intake and Output: 08/20/16 08/20/16 06:59 18:59 Intake Total 1100 Output Total 100 Balance 1000 - Medications Medications: Current Medications Acetaminophen (Tylenol 325mg Tab) 650 mg PO Q6 PRN PRN Reason: Fever >100.4 F Last Admin: 08/10/16 12:16 Dose: 650 mg Albuterol Sulfate (Albuterol 0.083% Inhal Martita (2.5 Mg/3 Ml) Ud) 2.5 mg INH RQ4 PRN PRN Reason: Shortness of Breath Last Admin: 08/11/16 04:52 Dose: 2.5 mg Albuterol/Ipratropium (Duoneb 3 Mg/0.5 Mg (3 Ml) Ud) 3 ml INH RQID [facility] Last Admin: 08/20/16 12:03 Dose: Not Given Amlodipine Besylate (Norvasc) 10 mg PO DAILY [facility] Last Admin: 08/20/16 10:00 Dose: Not Given Folic Acid (Folic Acid) 1 mg PO DAILY [facility] Last Admin: 08/20/16 10:00 Dose: Not Given Furosemide (Lasix) 40 mg PO Q12 [facility] Last Admin: 08/20/16 10:00 Dose: Not Given Guaifenesin (Mucinex La) 600 mg PO Q12 [facility] Last Admin: 08/20/16 10:00 Dose: Not Given Heparin Sodium (Porcine) (Heparin) 5,000 units SC Q12@0900,2100 [facility] PRN Reason: Protocol Last Admin: 08/19/16 09:05 Dose: 5,000 units Moxifloxacin HCl (Avelox Iv 400mg/250ml Ns) 400 mg in 250 mls @ 250 mls/hr IVPB DAILY@2200 [facility] Last Admin: 08/19/16 22:09 Dose: 250 mls/hr Levothyroxine Sodium (Synthroid) 125 mcg PO DAILY@0630 [facility] Last Admin: 08/20/16 06:23 Dose: 125 mcg Metoprolol Succinate (Toprol Xl) 25 mg PO DAILY [facility] Last Admin: 08/20/16 10:00 Dose: Not Given Nystatin (Nystop Topical Powder) 1 applic TOP TID [facility] Last Admin: 08/20/16 09:59 Dose: 1 applic Saccharomyces Boulardii (Florastor) 250 mg PO BID [facility] Last Admin: 08/20/16 10:00 Dose: Not Given Thiamine HCl (Vitamin B1 Tab) 100 mg PO DAILY [facility] Last Admin: 08/20/16 10:01 Dose: Not Given - Labs Labs: 08/18/16 04:45 08/19/16 06:30 PT 12.6 SECONDS (9.6-11.2) H 08/11/16 04:30 INR 1.21 (0.92-1.08) H 08/11/16 04:30 APTT 35.1 SECONDS (23.3-32.5) H 08/11/16 04:30 - Constitutional Appears: Non-toxic, No Acute Distress - Head Exam Head Exam: ATRAUMATIC, NORMAL INSPECTION, NORMOCEPHALIC - Eye Exam Eye Exam: EOMI, Normal appearance, PERRL Pupil Exam: NORMAL ACCOMODATION - ENT Exam ENT Exam: Mucous Membranes Moist, Normal Exam - Neck Exam Neck Exam: Full ROM, Normal Inspection. absent: Lymphadenopathy - Respiratory Exam Respiratory Exam: Decreased Breath Sounds (right base ). absent: Rhonchi, Wheezes - Cardiovascular Exam Cardiovascular Exam: REGULAR RHYTHM, RRR, +S1, +S2. absent: JVD - GI/Abdominal Exam GI & Abdominal Exam: Soft, Normal Bowel Sounds. absent: Distended, Guarding, Tenderness, Rebound - Rectal Exam Rectal Exam: Deferred - Extremities Exam Extremities Exam: Full ROM, Normal Capillary Refill, Normal Inspection, Pedal Edema (1 = bilaterally ) - Back Exam Back Exam: NORMAL INSPECTION - Neurological Exam Neurological Exam: Alert, Awake, CN II-XII Intact, Oriented x3 - Psychiatric Exam Psychiatric exam: Normal Affect, Normal Mood - Skin Skin Exam: Dry, Intact, Normal Color, Warm Assessment and Plan - Assessment and Plan (Free Text) Assessment: 60 years old male with no significant past medical hx was brought to the ED because of Generalized weakness, dizziness. He was coughing for one month with brown sputum. No chest pain on coughing, no SOB and no fever. He Smokes one pack of cigarettes in 3 days with occasional Alcohol use. In the ED his Temp was 100.6F with HR of 123/min. CXR showed multifocal Pneumonia and BMP showed renal failure. Patient was admitted with sepsis ( POA) due to multifocal pneumonia and DYLLAN due to rhabdomyolysis . Pulmonary ID and nephro consulted . He was started on IVF and IV antibiotics. Was transferred to ICU for close monitoring due to AMS / confusion and respiratory distress.He was on high flow oxygen due to respiratory failure and at present on 3 l O2 via NC with o2Sat 94 % . On HD for renal failure Patient now in Telemetry and doing well on Oxygen 3 liters per NC. CXR showed stable bilateral infiltrates . Patient to be discharged to [facility] for physical therapy. 1. Sepsis sec to Pneumonia- POA improving CT chest showed Large bilateral alveolar infiltrates as well as small bilateral pleural effusions. Mild mediastinal lymphadenopathy. Was on high flow O2 for respiratory failure and at present saturating 93-94 % on 3 L O2 via NC Repeat 08/17/16 CXR showed stable bilateral infiltrates Pulmonary and ID on consult promote ambulation - PT consulted plan for d/c to [facility] Completed IV Zosyn x 11 days , also received IV Vanco on Avelox HIV and influenza - negative legionella Ag : negative Mycoplasma IgM negative Continue duonebs, acetylcysteine Sputum cx positive for yeast 2. AMS/ Metabolic encephalopathy -improving most likely AMS multifactorial - due to sepsis, pneumonia, medication induced, renal failure 3. Acute Hypoxemic respiratory failure sec to CAP- resolved was on High Flow Oxygen and now on 3 L O2 via NC V/Q scan showed no PE 3 AFB-s were negative Pulmonary and ID on consult 4. Acute Renal Failure with metabolic acidosis Most likely ATN secondary to Rhabdomyolysis Dr Kowalski nephrology consulted Patient did not respond to IVF with HCO3 Renal sonogram showed normal size and echogenecity and no obstruction Continue HD MWF strated on lasix 40 mg IV BID as per nephro s/p permacath placement today by IR Discussed with Dr Jeff- still unsure if Permanent HD will d/c for Outpt HD and d/c pt to [facility] Will d/c to [facility] on Tueady 5. Rhabdomyolysis CPK trended down received IVF on HD for renal failure 4. Hypokalemia Repleted 5. Transaminitis unclear etiology on the admission was suspicious for ETOH abuse since AST more elevated than ALT but patient and cousin denied alcoholism Started MVI, folic acid and Thiamine Hepatitis profile- negative Abdominal US showed normal liver size and echogenecity Probably LFT elevation secondary to sepsis at present trending down 7. Tremulousness- resolved patient and cousin denied ETOH abuse Abd Us showed no fatty or cirrhotic liver Continue Thiamine, Folate, MVI CT head showed no acute pathology 8. DVT prophylaxis Heparin 9. Hypothyroidism Endo consulted Started Synthroid - now on 125mcg daily 10. Hypertension cont Norvasc 10 mg po daily and low dose Toprol XL
--- NOTE | 2016-08-20 13:45 | PN ---
DATE: 08/20/2016 ROOM: 417. SUBJECTIVE: This is a 61-year-old male with recent overt hypothyroidism and has been started on levo thyroxine replacement therapy, which he is tolerating fairly well at this time. He is also undergoin g IV antibiotic management for multilobar pneumonia as noted. His latest chemistry showed a BUN of 4 2, sodium 143, potassium 4.1, chloride 103, CO2 24, glucose 84 and creatinine 8.7. He also has devel oped progressive renal insufficiency and end-stage renal disease and is scheduled for hemodialysis to day as noted. His latest thyroid study showed a TSH of 25.70 and a T4 of 5.44. So at this time, we will continue the levothyroxine, modified to higher dose of 125 mcg daily as ordered. We will titrat e incrementally as indicated to optimize metabolic control. We will follow. Tara Smith MD cc: [id number] TT: 08/20/2016 13:44:16 Confirmation # [id number] Dictation # [id number] jn
--- NOTE | 2016-08-20 13:52 | CP.PCM.PN ---
Subjective - Date & Time of Evaluation Date of Evaluation: 08/20/16 Time of Evaluation: 06:00 - Subjective Subjective: afebrile nad rx in progress Objective - Vital Signs/Intake and Output Vital Signs (last 24 hours): Temp Pulse Resp BP Pulse Ox 97.8 F 84 20 150/76 95 08/20/16 12:08 08/20/16 12:08 08/20/16 12:08 08/20/16 12:08 08/20/16 12:08 Intake and Output: 08/20/16 08/20/16 06:59 18:59 Intake Total 1100 Output Total 100 Balance 1000 - Medications Medications: Current Medications Acetaminophen (Tylenol 325mg Tab) 650 mg PO Q6 PRN PRN Reason: Fever >100.4 F Last Admin: 08/10/16 12:16 Dose: 650 mg Albuterol Sulfate (Albuterol 0.083% Inhal Martita (2.5 Mg/3 Ml) Ud) 2.5 mg INH RQ4 PRN PRN Reason: Shortness of Breath Last Admin: 08/11/16 04:52 Dose: 2.5 mg Albuterol/Ipratropium (Duoneb 3 Mg/0.5 Mg (3 Ml) Ud) 3 ml INH RQID [facility] Last Admin: 08/20/16 12:03 Dose: Not Given Amlodipine Besylate (Norvasc) 10 mg PO DAILY [facility] Last Admin: 08/20/16 10:00 Dose: Not Given Folic Acid (Folic Acid) 1 mg PO DAILY [facility] Last Admin: 08/20/16 10:00 Dose: Not Given Furosemide (Lasix) 40 mg PO Q12 [facility] Last Admin: 08/20/16 10:00 Dose: Not Given Guaifenesin (Mucinex La) 600 mg PO Q12 [facility] Last Admin: 08/20/16 10:00 Dose: Not Given Heparin Sodium (Porcine) (Heparin) 5,000 units SC Q12@0900,2100 [facility] PRN Reason: Protocol Last Admin: 08/19/16 09:05 Dose: 5,000 units Moxifloxacin HCl (Avelox Iv 400mg/250ml Ns) 400 mg in 250 mls @ 250 mls/hr IVPB DAILY@2200 [facility] Last Admin: 08/19/16 22:09 Dose: 250 mls/hr Levothyroxine Sodium (Synthroid) 125 mcg PO DAILY@0630 [facility] Last Admin: 08/20/16 06:23 Dose: 125 mcg Metoprolol Succinate (Toprol Xl) 25 mg PO DAILY [facility] Last Admin: 08/20/16 10:00 Dose: Not Given Nystatin (Nystop Topical Powder) 1 applic TOP TID [facility] Last Admin: 08/20/16 13:30 Dose: Not Given Saccharomyces Boulardii (Florastor) 250 mg PO BID [facility] Last Admin: 08/20/16 10:00 Dose: Not Given Thiamine HCl (Vitamin B1 Tab) 100 mg PO DAILY [facility] Last Admin: 08/20/16 10:01 Dose: Not Given - Labs Labs: 08/18/16 04:45 08/19/16 06:30 PT 12.6 SECONDS (9.6-11.2) H 08/11/16 04:30 INR 1.21 (0.92-1.08) H 08/11/16 04:30 APTT 35.1 SECONDS (23.3-32.5) H 08/11/16 04:30 - Constitutional Appears: Non-toxic, Chronically Ill - Head Exam Head Exam: NORMOCEPHALIC - Eye Exam Eye Exam: PERRL. absent: Scleral icterus - ENT Exam ENT Exam: Mucous Membranes Dry - Neck Exam Neck Exam: absent: Lymphadenopathy - Respiratory Exam Respiratory Exam: Decreased Breath Sounds, Rhonchi - Cardiovascular Exam Cardiovascular Exam: REGULAR RHYTHM, +S1, +S2 - GI/Abdominal Exam GI & Abdominal Exam: Distended, Soft - Rectal Exam Rectal Exam: Deferred - Exam Exam: NORMAL INSPECTION - Extremities Exam Extremities Exam: absent: Pedal Edema - Back Exam Back Exam: absent: CVA tenderness (L), CVA tenderness (R) - Neurological Exam Neurological Exam: Alert, Awake, Oriented x3 Assessment and Plan (1) Acute renal failure (ARF) Status: Acute (2) Pneumonia Status: Acute (3) Renal insufficiency Status: Acute (4) Rhabdomyolysis Status: Suspected - Assessment and Plan (Free Text) Plan: cont iv rx
[2016-08-20] MEDS ORDERED: Midazolam 2 MG/2 ML VIAL ONE (14:40)
--- NOTE | 2016-08-20 15:03 | CP.PCM.PN ---
Subjective - Date & Time of Evaluation Date of Evaluation: 08/20/16 Time of Evaluation: 14:54 - Subjective Subjective: Seated in bedside chair, comfortable. Not wearing his O2 canula. SpO2 remains 92-93% without supplemental oxygen. No cough or shortness of breath. Ambulated around the hallway with PT yesterday. Trace ankle edema w/o cyanosis, calf tenderness or rash. No palpable lymphadenopathy, neck supple, trachea midline. No dullness on chest percussion, fair expansion. Breath sounds are present bilaterally, diminished in the left base. No bronchial breath sounds or wheezes. No egophony. Few medium rales in the left base posteriorly. Has recovered well from the pneumonia. The inciting factor causing the rhabdo is still a little unclear. He denies any illicit drug use or excessive alcohol. He still claims to not have been 'passed out' for any length of time. Permacath insertion planned for today. Can probably switch to PO antibiotic. Objective - Vital Signs/Intake and Output Vital Signs (last 24 hours): Temp Pulse Resp BP Pulse Ox 97.8 F 84 20 150/76 95 08/20/16 12:08 08/20/16 12:08 08/20/16 12:08 08/20/16 12:08 08/20/16 12:08 - Medications Medications: Current Medications Acetaminophen (Tylenol 325mg Tab) 650 mg PO Q6 PRN PRN Reason: Fever >100.4 F Last Admin: 08/10/16 12:16 Dose: 650 mg Albuterol Sulfate (Albuterol 0.083% Inhal Martita (2.5 Mg/3 Ml) Ud) 2.5 mg INH RQ4 PRN PRN Reason: Shortness of Breath Last Admin: 08/11/16 04:52 Dose: 2.5 mg Albuterol/Ipratropium (Duoneb 3 Mg/0.5 Mg (3 Ml) Ud) 3 ml INH RQID [facility] Last Admin: 08/20/16 12:03 Dose: Not Given Amlodipine Besylate (Norvasc) 10 mg PO DAILY [facility] Last Admin: 08/20/16 10:00 Dose: Not Given Folic Acid (Folic Acid) 1 mg PO DAILY [facility] Last Admin: 08/20/16 10:00 Dose: Not Given Furosemide (Lasix) 40 mg PO Q12 [facility] Last Admin: 08/20/16 10:00 Dose: Not Given Guaifenesin (Mucinex La) 600 mg PO Q12 [facility] Last Admin: 08/20/16 10:00 Dose: Not Given Heparin Sodium (Porcine) (Heparin) 5,000 units SC Q12@0900,2100 [facility] PRN Reason: Protocol Last Admin: 08/19/16 09:05 Dose: 5,000 units Moxifloxacin HCl (Avelox Iv 400mg/250ml Ns) 400 mg in 250 mls @ 250 mls/hr IVPB DAILY@2200 [facility] Last Admin: 08/19/16 22:09 Dose: 250 mls/hr Levothyroxine Sodium (Synthroid) 125 mcg PO DAILY@0630 [facility] Last Admin: 08/20/16 06:23 Dose: 125 mcg Metoprolol Succinate (Toprol Xl) 25 mg PO DAILY [facility] Last Admin: 08/20/16 10:00 Dose: Not Given Nystatin (Nystop Topical Powder) 1 applic TOP TID [facility] Last Admin: 08/20/16 13:30 Dose: Not Given Saccharomyces Boulardii (Florastor) 250 mg PO BID [facility] Last Admin: 08/20/16 10:00 Dose: Not Given Thiamine HCl (Vitamin B1 Tab) 100 mg PO DAILY [facility] Last Admin: 08/20/16 10:01 Dose: Not Given - Labs Labs: 08/18/16 04:45 08/19/16 06:30 PT 12.6 SECONDS (9.6-11.2) H 08/11/16 04:30 INR 1.21 (0.92-1.08) H 08/11/16 04:30 APTT 35.1 SECONDS (23.3-32.5) H 08/11/16 04:30 Assessment and Plan (1) Acute renal failure (ARF) Status: Acute (2) Rhabdomyolysis Status: Suspected (3) Pneumonia Status: Acute
[2016-08-20 15:04] LABS: PHOSPHOROUS 9.1 mg/dl (2.5-4.5)
--- NOTE | 2016-08-20 15:10 | PCM.SURG1 ---
Surgeon's Initial Post Op Note - Surgeon's Notes Surgeon: Ole Fried MD Ferryboat Captain: NONE Type of Anesthesia: IV Sedation Pre-Operative Diagnosis: Renal failure Operative Findings: Non-tunneled HD catheter right IJV Post-Operative Diagnosis: Renal failure Operation Performed: Non-tunneled to tunneled HD catheter conversion. Specimen/Specimens Removed: none Estimated Blood Loss: EBL {In ML}: 5 Blood Products Given: N/A Drains Used: No Drains Post-Op Condition: Fair Date of Surgery/Procedure: 08/20/16 Time of Surgery/Procedure: 15:05
[2016-08-20] MEDS ORDERED: HYDROmorphone 0.5 mg/0.5 ml ISec IVP PRN (15:22)
--- NOTE | 2016-08-20 16:11 | RAD ---
PROCEDURE: CHEST RADIOGRAPH, 1 VIEW. Portable upright study 15:00. HISTORY: pneumonia COMPARISON: 08/17/2016. FINDINGS: LUNGS: Persistent bilateral infiltrates. Perceptible differences appear to be due to technique. PLEURA: No pneumothorax or pleural fluid seen. CARDIOVASCULAR: Venous access catheter in stable, satisfactory position. OSSEOUS STRUCTURES: No significant abnormalities. VISUALIZED UPPER ABDOMEN: Normal. OTHER FINDINGS: None. IMPRESSION: Stable bilateral infiltrates.
[2016-08-20] MEDS: Moxifloxacin IV 400mg/250ml NS 400 MG/250 ML BAG IVPB SCH (21:58)
--- NOTE | 2016-08-20 22:54 | CON ---
DATE: 08/20/2016 The patient is located in room 417, bed 2. REQUESTING PHYSICIAN: Dr. Frank Thomas. REASON FOR FOLLOWUP: Acute renal failure, for continuation of hemodialysis. HISTORY OF PRESENT ILLNESS: The patient is a 61-year-old elderly male with a history of sm oking, occasional does abuse ETOH, hypertension and hypothyroidism who was admitted with cough, feve r, mild shortness of breath, acute renal failure and history of falls and found to have elevated CPK level as part of the workup of the renal failure and found to have a CPK level more than 10,000. His hospital course was complicated by worsening infiltrates in bilateral lungs and shortness of breath and worsening renal function requiring initiation of the hemodialysis. The patient remains HD depend ent for the last 2 weeks. The patient is out of bed to chair. No complaints. No shortness of breat h, no chest pain, no palpitations, no fever and no cough. PHYSICAL EXAMINATION: VITAL SIGNS THIS MORNING FOLLOWS: Blood pressure this morning is 149/84, pulse 81, respirations 20 , temperature 97.8, saturation 95%, height 6 feet and weight is 211 pounds. GENERAL: The patient is a 61-year-old elderly male, moderately built, moderately nourished and not in any distress. HEENT: Pupils normal, reactive to light and accommodation. Conjunctivae p ink. Sclerae anicteric. Tongue is moist. NECK: Trachea is midline. LUNGS: Symmetric on both sides . Bilateral breath sounds present. No crackles. CARDIOVASCULAR: Screven in the fifth intercostal spac e midclavicular line. S1 and S2 audible. No murmur or gallop. ABDOMEN: Normal in appearance, soft and . No guarding and no rigidity. No hepatosplenomegaly. CENTRAL NERVOUS SYSTEM: The patient is alert, awake, oriented x 3 and nonfocal on examination. Cr anial nerves II through XII grossly intact. Sensory and motor system is within normal limits. EXTRE MITIES: No cyanosis, no clubbing and no edema. CURRENT MEDICATIONS: Include as follows: Albuterol inhaler, Avelox 400 mg daily, DuoNeb inhaler q.i .d., Florastor 250 mg p.o. b.i.d., folic acid 1 mg daily, subcu heparin 5000 q. 12 hours, Lasix 40 mg p.o. q. 12 hours, Mucinex 600 mg p.o. q. 12, Norvasc 10 mg daily, nystatin topical powder, Synthroid 125 mcg daily, Toprol-XL 25 mg p.o. daily, Tylenol and thiamine 100 mg p.o. daily. LABORATORY DATA: Include as follows: As of 08/19/2016. WBC corrected as of 2016: WBC , hemoglobin 10.7, hematocrit is 33 and platelets 540. As of 08/19/2016: Sodium 143, potassium 4.1, chloride 103, CO2 24, BUN 42, creatinine 8.7, glucose 84, calcium 7.9 and phosphorus is 9.1. SUMMARY: The patient is a 61-year-old male with history of hypertension, hypothyroidism, status post bilateral pneumonia and status post fall, rhabdomyolysis and acute renal failure. 1. Acute renal failure, most likely secondary to acute tubular necrosis secondary to multifactorial rhabdomyolysis and sepsis. 2. Hypertension. Blood pressure is stable. Continue his current medications of Norvasc and Toprol- XL. 3. Pneumonia. Continue Avelox as per ID recommendations. 4. Hypothyroidism. Continue Synthroid 125 mcg p.o. daily. The patient is scheduled for PermCath pl acement today. The patient is to continue hemodialysis 3 times a week until renal function improves. Consider subacute rehab placement and outpatient hemodialysis unit placement until renal function i mproves. Thank you for allowing me to participate in your patient's care. The patient is scheduled for hemodi alysis today and UF goal is 3 to 3.5 liters. Edmund Kowalski MD cc: [id number] TT: 08/20/2016 22:54:05 Confirmation # [id number] Dictation # [id number]
[2016-08-21] MEDS: Levothyroxine 125 MCG TAB PO SCH (06:04)
--- NOTE | 2016-08-21 07:36 | CP.PCM.PN ---
Subjective - Date & Time of Evaluation Date of Evaluation: 08/21/16 Time of Evaluation: 09:30 - Subjective Subjective: Patient was seen and examined bedside. Sitting in chair in NAD. Feeling better. Had HD yesterday and had right chest permacath placement. No acute issues overnight. BP 140/81 o2Sat 94 % in RA Objective - Vital Signs/Intake and Output Vital Signs (last 24 hours): Temp Pulse Resp BP Pulse Ox 97.6 F 83 21 140/81 94 L 08/21/16 05:00 08/21/16 05:00 08/21/16 05:00 08/21/16 05:00 08/21/16 05:00 - Medications Medications: Current Medications Acetaminophen (Tylenol 325mg Tab) 650 mg PO Q6 PRN PRN Reason: Fever >100.4 F Last Admin: 08/10/16 12:16 Dose: 650 mg Albuterol Sulfate (Albuterol 0.083% Inhal Martita (2.5 Mg/3 Ml) Ud) 2.5 mg INH RQ4 PRN PRN Reason: Shortness of Breath Last Admin: 08/11/16 04:52 Dose: 2.5 mg Albuterol/Ipratropium (Duoneb 3 Mg/0.5 Mg (3 Ml) Ud) 3 ml INH RQID [facility] Last Admin: 08/20/16 18:59 Dose: Not Given Amlodipine Besylate (Norvasc) 10 mg PO DAILY [facility] Last Admin: 08/20/16 10:00 Dose: Not Given Folic Acid (Folic Acid) 1 mg PO DAILY [facility] Last Admin: 08/20/16 10:00 Dose: Not Given Furosemide (Lasix) 40 mg PO Q12 [facility] Last Admin: 08/20/16 21:53 Dose: 40 mg Guaifenesin (Mucinex La) 600 mg PO Q12 [facility] Last Admin: 08/20/16 21:53 Dose: 600 mg Heparin Sodium (Porcine) (Heparin) 5,000 units SC Q12@0900,2100 [facility] PRN Reason: Protocol Last Admin: 08/19/16 09:05 Dose: 5,000 units Moxifloxacin HCl (Avelox Iv 400mg/250ml Ns) 400 mg in 250 mls @ 250 mls/hr IVPB DAILY@2200 [facility] Last Admin: 08/20/16 21:58 Dose: 250 mls/hr Levothyroxine Sodium (Synthroid) 125 mcg PO DAILY@0630 [facility] Last Admin: 08/21/16 06:04 Dose: 125 mcg Metoprolol Succinate (Toprol Xl) 25 mg PO DAILY [facility] Last Admin: 08/20/16 10:00 Dose: Not Given Nystatin (Nystop Topical Powder) 1 applic TOP TID [facility] Last Admin: 08/20/16 19:10 Dose: Not Given Saccharomyces Boulardii (Florastor) 250 mg PO BID [facility] Last Admin: 08/20/16 19:08 Dose: 250 mg Sevelamer Carbonate (Renvela) 1.6 gm PO TIDWM [facility] Thiamine HCl (Vitamin B1 Tab) 100 mg PO DAILY [facility] Last Admin: 08/20/16 10:01 Dose: Not Given - Labs Labs: 08/18/16 04:45 08/19/16 06:30 PT 12.6 SECONDS (9.6-11.2) H 08/11/16 04:30 INR 1.21 (0.92-1.08) H 08/11/16 04:30 APTT 35.1 SECONDS (23.3-32.5) H 08/11/16 04:30 - Constitutional Appears: Non-toxic, Older Than Stated Age - Head Exam Head Exam: ATRAUMATIC, NORMAL INSPECTION, NORMOCEPHALIC - Eye Exam Eye Exam: EOMI, Normal appearance, PERRL Pupil Exam: NORMAL ACCOMODATION - ENT Exam ENT Exam: Mucous Membranes Moist, Normal Exam - Neck Exam Neck Exam: Full ROM, Normal Inspection - Respiratory Exam Respiratory Exam: Decreased Breath Sounds (right base ), Clear to Ausculation Bilateral. absent: Accessory Muscle Use, Prolonged Expiratory Phase, Rhonchi, Wheezes, Respiratory Distress Additional comments: right upper chest permacath in place - Cardiovascular Exam Cardiovascular Exam: REGULAR RHYTHM, RRR, +S1, +S2. absent: JVD - GI/Abdominal Exam GI & Abdominal Exam: Soft, Normal Bowel Sounds. absent: Distended, Guarding, Tenderness, Rebound - Rectal Exam Rectal Exam: Deferred - Extremities Exam Extremities Exam: Full ROM, Normal Capillary Refill, Normal Inspection. absent : Pedal Edema - Back Exam Back Exam: NORMAL INSPECTION - Neurological Exam Neurological Exam: Alert, Awake, CN II-XII Intact, Oriented x3 - Psychiatric Exam Psychiatric exam: Normal Affect - Skin Skin Exam: Dry, Pallor, Warm Assessment and Plan - Assessment and Plan (Free Text) Assessment: 60 years old male with no significant past medical hx was brought to the ED because of Generalized weakness, dizziness. He was coughing for one month with brown sputum. No chest pain on coughing, no SOB and no fever. He Smokes one pack of cigarettes in 3 days with occasional Alcohol use. In the ED his Temp was 100.6F with HR of 123/min. CXR showed multifocal Pneumonia and BMP showed renal failure. Patient was admitted with sepsis ( POA) due to multifocal pneumonia and DYLLAN due to rhabdomyolysis . Pulmonary ID and nephro consulted . He was started on IVF and IV antibiotics. Was transferred to ICU for close monitoring due to AMS / confusion and respiratory distress.He was on high flow oxygen due to respiratory failure and at present o saturating 93% in RA On HD for renal failure and last session was yesterday. Permacath placed to right upper chest wall CXR shows stable bilateral infiltrates . Patient to be discharged to [facility] for physical therapy. 1. Sepsis sec to Pneumonia- POA improving CT chest showed Large bilateral alveolar infiltrates as well as small bilateral pleural effusions. Mild mediastinal lymphadenopathy. Was on high flow O2 for respiratory failure and at present saturating 93-94 % in RA Repeat 08/17/16 CXR showed stable bilateral infiltrates Pulmonary and ID on consult promote ambulation - PT consulted plan for d/c to [facility] Completed IV Zosyn x 11 days , also received IV Vanco on Avelox HIV and influenza - negative legionella Ag : negative Mycoplasma IgM negative Continue duonebs, acetylcysteine Sputum cx positive for yeast 2. AMS/ Metabolic encephalopathy -improving most likely AMS multifactorial - due to sepsis, pneumonia, medication induced, renal failure 3. Acute Hypoxemic respiratory failure sec to CAP- resolved was on High Flow Oxygen and now on 3 L O2 via NC V/Q scan showed no PE 3 AFB-s were negative Pulmonary and ID on consult 4. Acute Renal Failure with metabolic acidosis Most likely ATN secondary to Rhabdomyolysis Dr Kowalski nephrology consulted Patient did not respond to IVF with HCO3 Renal sonogram showed normal size and echogenecity and no obstruction Continue HD MWF strated on lasix 40 mg IV BID as per nephro s/p permacath placement to right upper chest by IR Discussed with Dr Jonnalagada- still unsure if Permanent HD will d/c for Outpt HD and d/c pt to [facility] Will d/c to [facility] on Monady 5. Rhabdomyolysis CPK trended down received IVF on HD for renal failure 4. Hypokalemia Repleted 5. Transaminitis unclear etiology on the admission was suspicious for ETOH abuse since AST more elevated than ALT but patient and cousin denied alcoholism Started MVI, folic acid and Thiamine Hepatitis profile- negative Abdominal US showed normal liver size and echogenecity Probably LFT elevation secondary to sepsis at present trending down 7. Tremulousness- resolved patient and cousin denied ETOH abuse Abd Us showed no fatty or cirrhotic liver Continue Thiamine, Folate, MVI CT head showed no acute pathology 8. DVT prophylaxis Heparin 9. Hypothyroidism Endo consulted Started Synthroid - now on 125mcg daily 10. Hypertension cont Norvasc 10 mg po daily and low dose Toprol XL
[2016-08-21] MEDS: Albuterol-Ipratrop 3 mg / 0.5 (3 ml) UD INH SCH ×4 (08:45→19:06)
[2016-08-21] MEDS: Saccharomyces Boulardi 250 mg Cap PO SCH ×2 (09:39→16:33)
[2016-08-21] MEDS: guaiFENesin 600 mg ER Tab PO SCH ×2 (09:42→21:38)
[2016-08-21] MEDS: Sevelamer Carb 0.8 gm/Packet PO SCH ×3 (09:43→16:35)
[2016-08-21] MEDS: Metoprolol Succinate 25 mg XL Tab PO SCH (09:43)
--- NOTE | 2016-08-21 19:00 | PN ---
DATE: 08/21/2016 ROOM: 417. This is a 61-year-old male with recent multilobar pneumonia and currently receiving IV antibiotic man agement and is also being followed closely for metabolic management. He remains clinically euthyroid and biochemically has improving thyroid indices with an initial presentation of hypothyroidism. His latest chemistries include a BUN of 42, sodium 143, potassium 4.1, chloride 103, CO2 of 24, glucose 84 and creatinine 8.7. His latest thyroid study showed a T4 of 5.44 with a TSH of 25.70. So at this time, will continue the modified levothyroxine given as 125 mcg once daily as ordered. Will titrate incrementally as indicated to optimize metabolic control. Will also continue the serial thyroid enrique dies to be obtained accordingly. We will continue the levothyroxine given as 125 mcg once daily as o rdered. Will follow. Tara Smith MD cc: [phone] TT: 08/21/2016 18:59:32 Confirmation # [id number] Dictation # [id number]
[2016-08-21] MEDS: Moxifloxacin IV 400mg/250ml NS 400 MG/250 ML BAG IVPB SCH (21:37)
[2016-08-22] MEDS: Levothyroxine 125 MCG TAB PO SCH (06:35)
--- NOTE | 2016-08-22 07:29 | CP.PCM.PN ---
Subjective - Date & Time of Evaluation Date of Evaluation: 08/22/16 Time of Evaluation: 11:00 - Subjective Subjective: Patient seen and examined. Sitting in bed comfortable in NAD. With some minimal cough and clear sputum production. Feels better. Afebrile. For HD in AM Objective - Vital Signs/Intake and Output Vital Signs (last 24 hours): Temp Pulse Resp BP Pulse Ox 97.7 F 76 18 146/77 94 L 08/22/16 04:50 08/22/16 04:50 08/22/16 04:50 08/22/16 04:50 08/22/16 04:50 Intake and Output: 08/22/16 08/22/16 06:59 18:59 Intake Total 370 Output Total 300 Balance 70 - Medications Medications: Current Medications Acetaminophen (Tylenol 325mg Tab) 650 mg PO Q6 PRN PRN Reason: Fever >100.4 F Last Admin: 08/10/16 12:16 Dose: 650 mg Albuterol Sulfate (Albuterol 0.083% Inhal Martita (2.5 Mg/3 Ml) Ud) 2.5 mg INH RQ4 PRN PRN Reason: Shortness of Breath Last Admin: 08/11/16 04:52 Dose: 2.5 mg Albuterol/Ipratropium (Duoneb 3 Mg/0.5 Mg (3 Ml) Ud) 3 ml INH RQID [facility] Last Admin: 08/21/16 19:06 Dose: 3 ml Amlodipine Besylate (Norvasc) 10 mg PO DAILY [facility] Last Admin: 08/21/16 09:42 Dose: 10 mg Folic Acid (Folic Acid) 1 mg PO DAILY [facility] Last Admin: 08/21/16 09:41 Dose: 1 mg Furosemide (Lasix) 40 mg PO Q12 [facility] Last Admin: 08/21/16 21:38 Dose: 40 mg Guaifenesin (Mucinex La) 600 mg PO Q12 [facility] Last Admin: 08/21/16 21:38 Dose: 600 mg Heparin Sodium (Porcine) (Heparin) 5,000 units SC Q12@0900,2100 [facility] PRN Reason: Protocol Last Admin: 08/19/16 09:05 Dose: 5,000 units Moxifloxacin HCl (Avelox Iv 400mg/250ml Ns) 400 mg in 250 mls @ 250 mls/hr IVPB DAILY@2200 [facility] Last Admin: 08/21/16 21:37 Dose: 250 mls/hr Levothyroxine Sodium (Synthroid) 125 mcg PO DAILY@0630 [facility] Last Admin: 08/22/16 06:35 Dose: 125 mcg Metoprolol Succinate (Toprol Xl) 25 mg PO DAILY [facility] Last Admin: 08/21/16 09:43 Dose: 25 mg Nystatin (Nystop Topical Powder) 1 applic TOP TID [facility] Last Admin: 08/21/16 16:34 Dose: 1 applic Saccharomyces Boulardii (Florastor) 250 mg PO BID [facility] Last Admin: 08/21/16 16:33 Dose: 250 mg Sevelamer Carbonate (Renvela) 1.6 gm PO TIDWM [facility] Last Admin: 08/21/16 16:35 Dose: 1.6 gm Thiamine HCl (Vitamin B1 Tab) 100 mg PO DAILY [facility] Last Admin: 08/21/16 09:42 Dose: 100 mg - Labs Labs: 08/18/16 04:45 08/19/16 06:30 PT 12.6 SECONDS (9.6-11.2) H 08/11/16 04:30 INR 1.21 (0.92-1.08) H 08/11/16 04:30 APTT 35.1 SECONDS (23.3-32.5) H 08/11/16 04:30 - Constitutional Appears: Non-toxic, No Acute Distress - Head Exam Head Exam: ATRAUMATIC, NORMOCEPHALIC - Eye Exam Eye Exam: EOMI, Normal appearance, PERRL Pupil Exam: NORMAL ACCOMODATION - ENT Exam ENT Exam: Mucous Membranes Moist, Normal Exam - Neck Exam Neck Exam: Full ROM, Normal Inspection - Respiratory Exam Respiratory Exam: Decreased Breath Sounds (bibasilar), Clear to Ausculation Bilateral, Rales. absent: Rhonchi, Wheezes, Respiratory Distress - Cardiovascular Exam Cardiovascular Exam: REGULAR RHYTHM, RRR, +S1, +S2. absent: JVD - GI/Abdominal Exam GI & Abdominal Exam: Soft, Normal Bowel Sounds. absent: Distended, Guarding, Tenderness, Rebound - Rectal Exam Rectal Exam: Deferred - Extremities Exam Extremities Exam: Full ROM, Normal Capillary Refill, Normal Inspection. absent : Calf Tenderness, Pedal Edema - Back Exam Back Exam: NORMAL INSPECTION - Neurological Exam Neurological Exam: Alert, Awake, CN II-XII Intact, Oriented x3 - Psychiatric Exam Psychiatric exam: Normal Affect - Skin Skin Exam: Dry, Warm Additional comments: right upper chest permacath Assessment and Plan - Assessment and Plan (Free Text) Assessment: 60 years old male with no significant past medical hx was brought to the ED because of Generalized weakness, dizziness. He was coughing for one month with brown sputum. No chest pain on coughing, no SOB and no fever. He Smokes one pack of cigarettes in 3 days with occasional Alcohol use. In the ED his Temp was 100.6F with HR of 123/min. CXR showed multifocal Pneumonia and BMP showed renal failure. Patient was admitted with sepsis ( POA) due to multifocal pneumonia and DYLLAN due to rhabdomyolysis . Pulmonary ID and nephro consulted . He was started on IVF and IV antibiotics. Was transferred to ICU for close monitoring due to AMS / confusion and respiratory distress.He was on high flow oxygen due to respiratory failure and at present saturating 94% on 2 L O2 via NC On HD for renal failure , MWF. Permacath placed to right upper chest wall CXR shows stable bilateral infiltrates . Received Zosyn 11 days and avelox 14 days.Patient to be discharged to [facility] for physical therapy. 1. Sepsis sec to Pneumonia- POA improving CT chest showed Large bilateral alveolar infiltrates as well as small bilateral pleural effusions. Mild mediastinal lymphadenopathy. Was on high flow O2 for respiratory failure and at present saturating 94 % on 2 L O2 via NC Repeat 08/17/16 CXR showed stable bilateral infiltrates Pulmonary and ID on consult Completed IV Zosyn x 11 days , also received IV Vanco received Avelox for 14 days so will discontinue today HIV and influenza - negative legionella Ag : negative Mycoplasma IgM negative Continue duonebs, acetylcysteine Sputum cx and urine positive for yeast . Start Diflucan Will repeat CXR in AM promote ambulation PT consulted. Will d/c to [facility] in AM 2. AMS/ Metabolic encephalopathy -improving most likely AMS multifactorial - due to sepsis, pneumonia, medication induced, renal failure 3. Acute Hypoxemic respiratory failure sec to CAP- resolved was on High Flow Oxygen and now on 3 L O2 via NC V/Q scan showed no PE 3 AFB-s were negative Pulmonary and ID on consult 4. Acute Renal Failure with metabolic acidosis Most likely ATN secondary to Rhabdomyolysis Dr Kowalski nephrology consulted Patient did not respond to IVF with HCO3 Renal sonogram showed normal size and echogenecity and no obstruction Continue HD MWF on lasix 40 mg IV BID as per nephro s/p permacath placement to right upper chest by IR Discussed with Dr Jeff- still unsure if Permanent HD will d/c for Outpt HD Will d/c to [facility] in AM 5. Rhabdomyolysis CPK trended down received IVF on HD for renal failure 4. Hypokalemia Repleted 5. Transaminitis unclear etiology , improved on the admission was suspicious for ETOH abuse since AST more elevated than ALT but patient and cousin denied alcoholism Started MVI, folic acid and Thiamine Hepatitis profile- negative Abdominal US showed normal liver size and echogenecity Probably LFT elevation secondary to sepsis at present trending down 7. Tremulousness- resolved patient and cousin denied ETOH abuse Abd Us showed no fatty or cirrhotic liver Continue Thiamine, Folate, MVI CT head showed no acute pathology 8. DVT prophylaxis Heparin 9. Hypothyroidism Endo consulted Started Synthroid - 125mcg daily 10. Hypertension cont Norvasc 10 mg po daily ,Toprol XL 25 mg Start Enalapril 5 mg pO QD
[2016-08-22] MEDS: Albuterol-Ipratrop 3 mg / 0.5 (3 ml) UD INH SCH ×4 (08:00→20:06)
[2016-08-22] MEDS: Saccharomyces Boulardi 250 mg Cap PO SCH ×2 (09:08→16:26)
[2016-08-22] MEDS: guaiFENesin 600 mg ER Tab PO SCH ×2 (09:09→20:42)
[2016-08-22] MEDS: Sevelamer Carb 0.8 gm/Packet PO SCH ×3 (09:10→16:26)
[2016-08-22] MEDS: Metoprolol Succinate 25 mg XL Tab PO SCH (09:10)
--- NOTE | 2016-08-22 12:43 | PN ---
DATE: 08/22/2016 ROOM: 417 This is a 61-year-old male with recent overt hypothyroidism, currently tolerating the higher and afsaneh fied dose of the levothyroxine replacement therapy as given. He is also undergoing IV antibiotic man agement for multilobar pneumonia as noted. Moreover, he also has been undergoing hemodialysis for ad vanced azotemia and progressive renal insufficiency with end-stage renal disease. His latest chemistry showed a BUN of 42, sodium 143, potassium 4.1, chloride 103, CO2 24, glucose 84 and creatinine 8.7. So at this time, we will continue the same levothyroxine dose given as Synthroid at 125 mcg once mary y as ordered. We will titrate incrementally as indicated to optimize metabolic control. We will fol low. Tara Smith MD cc: [phone] TT: 08/22/2016 12:43:15 Confirmation # [id number] Dictation # [id number]
--- NOTE | 2016-08-22 13:10 | CP.PCM.PN ---
Subjective - Date & Time of Evaluation Date of Evaluation: 08/22/16 Time of Evaluation: 08:00 - Subjective Subjective: afebrile awake alert nad Objective - Vital Signs/Intake and Output Vital Signs (last 24 hours): Temp Pulse Resp BP Pulse Ox 97.7 F 81 20 154/78 H 97 08/22/16 09:00 08/22/16 09:10 08/22/16 09:00 08/22/16 09:10 08/22/16 09:00 Intake and Output: 08/22/16 08/22/16 06:59 18:59 Intake Total 370 Output Total 300 Balance 70 - Medications Medications: Current Medications Acetaminophen (Tylenol 325mg Tab) 650 mg PO Q6 PRN PRN Reason: Fever >100.4 F Last Admin: 08/10/16 12:16 Dose: 650 mg Albuterol Sulfate (Albuterol 0.083% Inhal Martita (2.5 Mg/3 Ml) Ud) 2.5 mg INH RQ4 PRN PRN Reason: Shortness of Breath Last Admin: 08/11/16 04:52 Dose: 2.5 mg Albuterol/Ipratropium (Duoneb 3 Mg/0.5 Mg (3 Ml) Ud) 3 ml INH RQID [facility] Last Admin: 08/22/16 08:00 Dose: 3 ml Amlodipine Besylate (Norvasc) 10 mg PO DAILY [facility] Last Admin: 08/22/16 09:09 Dose: 10 mg Folic Acid (Folic Acid) 1 mg PO DAILY [facility] Last Admin: 08/22/16 09:08 Dose: 1 mg Furosemide (Lasix) 40 mg PO Q12 [facility] Last Admin: 08/22/16 09:09 Dose: 40 mg Guaifenesin (Mucinex La) 600 mg PO Q12 [facility] Last Admin: 08/22/16 09:09 Dose: 600 mg Heparin Sodium (Porcine) (Heparin) 5,000 units SC Q12@0900,2100 [facility] PRN Reason: Protocol Last Admin: 08/19/16 09:05 Dose: 5,000 units Moxifloxacin HCl (Avelox Iv 400mg/250ml Ns) 400 mg in 250 mls @ 250 mls/hr IVPB DAILY@2200 [facility] Last Admin: 08/21/16 21:37 Dose: 250 mls/hr Levothyroxine Sodium (Synthroid) 125 mcg PO DAILY@0630 [facility] Last Admin: 08/22/16 06:35 Dose: 125 mcg Metoprolol Succinate (Toprol Xl) 25 mg PO DAILY [facility] Last Admin: 08/22/16 09:10 Dose: 25 mg Nystatin (Nystop Topical Powder) 1 applic TOP TID [facility] Last Admin: 08/22/16 12:05 Dose: 1 applic Saccharomyces Boulardii (Florastor) 250 mg PO BID [facility] Last Admin: 08/22/16 09:08 Dose: 250 mg Sevelamer Carbonate (Renvela) 1.6 gm PO TIDWM [facility] Last Admin: 08/22/16 12:06 Dose: 1.6 gm Thiamine HCl (Vitamin B1 Tab) 100 mg PO DAILY [facility] Last Admin: 08/22/16 09:11 Dose: 100 mg - Labs Labs: 08/18/16 04:45 08/19/16 06:30 PT 12.6 SECONDS (9.6-11.2) H 08/11/16 04:30 INR 1.21 (0.92-1.08) H 08/11/16 04:30 APTT 35.1 SECONDS (23.3-32.5) H 08/11/16 04:30 - Constitutional Appears: Non-toxic, Chronically Ill - Head Exam Head Exam: NORMOCEPHALIC - Eye Exam Eye Exam: PERRL. absent: Scleral icterus - ENT Exam ENT Exam: Mucous Membranes Dry - Neck Exam Neck Exam: absent: Lymphadenopathy - Respiratory Exam Respiratory Exam: Decreased Breath Sounds, Rhonchi - Cardiovascular Exam Cardiovascular Exam: REGULAR RHYTHM - GI/Abdominal Exam GI & Abdominal Exam: Distended, Soft - Rectal Exam Rectal Exam: Deferred - Exam Exam: NORMAL INSPECTION - Extremities Exam Extremities Exam: absent: Pedal Edema - Back Exam Back Exam: absent: CVA tenderness (L), CVA tenderness (R) Assessment and Plan (1) Acute renal failure (ARF) Status: Acute (2) Pneumonia Status: Acute (3) Renal insufficiency Status: Acute (4) Rhabdomyolysis Status: Suspected - Assessment and Plan (Free Text) Assessment: cont rx as per orders
[2016-08-22] MEDS: Fluconazole IV 100mg/50 ml NS 50 ML IVPB SCH (14:30)
[2016-08-23] MEDS: Levothyroxine 125 MCG TAB PO SCH (06:25)
[2016-08-23 06:45] LABS: HEMATOCRIT 30.4 % (35.0-51.0); MEAN CELL VOLUME 84.2 fl (80.0-94.0); MEAN CORPUSCULAR HEMOGLOBIN 28.4 pg (27.0-31.0); MEAN CORPUSCULAR HGB CONC 33.7 g/dL (33.0-37.0); RED CELL DISTRIBUTION WIDTH 14.4 % (11.5-14.5); WHITE BLOOD COUNT 7.9 K/uL (4.8-10.8)
[2016-08-23 07:03] LABS: ALB/GLOB RATIO 0.8 (1.0-2.1); CALCIUM 7.9 mg/dL (8.4-10.2); POTASSIUM 4.9 MMOL/L (3.6-5.0); TOTAL PROTEIN 8.3 G/DL (6.3-8.2)
[2016-08-23] MEDS: Albuterol-Ipratrop 3 mg / 0.5 (3 ml) UD INH SCH ×4 (07:41→19:25)
[2016-08-23] MEDS: Saccharomyces Boulardi 250 mg Cap PO SCH ×2 (08:45→17:00)
[2016-08-23] MEDS: guaiFENesin 600 mg ER Tab PO SCH ×2 (08:46→21:18)
[2016-08-23] MEDS: Metoprolol Succinate 25 mg XL Tab PO SCH (08:48)
[2016-08-23] MEDS: Sevelamer Carb 0.8 gm/Packet PO SCH ×3 (08:48→17:00)
--- NOTE | 2016-08-23 10:50 | CP.PCM.PN ---
Subjective - Date & Time of Evaluation Date of Evaluation: 08/23/16 Time of Evaluation: 10:49 - Subjective Subjective: pt seen and examined, follow up consult is dictated #[id number] for hd today follow up social service for out pt hd unit placement for temporary HD Objective - Vital Signs/Intake and Output Vital Signs (last 24 hours): Temp Pulse Resp BP Pulse Ox 98.4 F 76 18 151/75 H 93 L 08/23/16 08:06 08/23/16 09:00 08/23/16 08:06 08/23/16 08:48 08/23/16 08:06 Intake and Output: 08/23/16 08/23/16 06:59 18:59 Intake Total 240 Output Total 200 Balance 40 - Medications Medications: Current Medications Acetaminophen (Tylenol 325mg Tab) 650 mg PO Q6 PRN PRN Reason: Fever >100.4 F Last Admin: 08/10/16 12:16 Dose: 650 mg Albuterol Sulfate (Albuterol 0.083% Inhal Martita (2.5 Mg/3 Ml) Ud) 2.5 mg INH RQ4 PRN PRN Reason: Shortness of Breath Last Admin: 08/11/16 04:52 Dose: 2.5 mg Albuterol/Ipratropium (Duoneb 3 Mg/0.5 Mg (3 Ml) Ud) 3 ml INH RQID [facility] Last Admin: 08/23/16 07:41 Dose: 3 ml Amlodipine Besylate (Norvasc) 10 mg PO DAILY [facility] Last Admin: 08/23/16 08:47 Dose: Not Given Enalapril Maleate (Vasotec) 5 mg PO DAILY [facility] Last Admin: 08/23/16 08:45 Dose: Not Given Folic Acid (Folic Acid) 1 mg PO DAILY [facility] Last Admin: 08/23/16 08:45 Dose: 1 mg Furosemide (Lasix) 40 mg PO Q12 [facility] Last Admin: 08/23/16 08:46 Dose: Not Given Guaifenesin (Mucinex La) 600 mg PO Q12 [facility] Last Admin: 08/23/16 08:46 Dose: 600 mg Heparin Sodium (Porcine) (Heparin) 5,000 units SC Q12@0900,2100 [facility] PRN Reason: Protocol Last Admin: 08/19/16 09:05 Dose: 5,000 units Fluconazole (Diflucan Iv 100 Mg/50 Ml Ns) 50 mls @ 50 mls/hr IVPB DAILY [facility] Last Admin: 08/22/16 14:30 Dose: 50 mls/hr Levothyroxine Sodium (Synthroid) 125 mcg PO DAILY@0630 [facility] Last Admin: 08/23/16 06:25 Dose: 125 mcg Metoprolol Succinate (Toprol Xl) 25 mg PO DAILY [facility] Last Admin: 08/23/16 08:48 Dose: 25 mg Nystatin (Nystop Topical Powder) 1 applic TOP TID [facility] Last Admin: 08/23/16 08:49 Dose: 1 applic Saccharomyces Boulardii (Florastor) 250 mg PO BID [facility] Last Admin: 08/23/16 08:45 Dose: 250 mg Sevelamer Carbonate (Renvela) 1.6 gm PO TIDWM [facility] Last Admin: 08/23/16 08:48 Dose: 1.6 gm Thiamine HCl (Vitamin B1 Tab) 100 mg PO DAILY [facility] Last Admin: 08/23/16 08:45 Dose: 100 mg - Labs Labs: 08/23/16 05:45 08/23/16 05:45 PT 12.6 SECONDS (9.6-11.2) H 08/11/16 04:30 INR 1.21 (0.92-1.08) H 08/11/16 04:30 APTT 35.1 SECONDS (23.3-32.5) H 08/11/16 04:30
--- NOTE | 2016-08-23 11:52 | VASCULAR ---
PROCEDURE: Date of procedure: 08/20/2016 Procedure: 1. Conversion of right non tunneled IJ tunneled hemodialysis catheter to a tunneled HD catheter, CPT 85192 Medications: 8cc 1 percent lidocaine, patient also received IV sedation along with physiologic monitoring by the anesthesiologist Fluoro time: 20.3 seconds Radiation: 2.84 mGy EBL: 5 ml HISTORY: End-stage renal disease, TECHNIQUE: Following informed consent and procedure time-out, the patient was placed supine on the interventional table. The existing right IJ non-tunneled hemodialysis catheter surrounding skin were prepped and draped in the usual sterile fashion. Spot fluoroscopic image showed a right IJ catheter in place. The existing catheter was then removed over a guidewire for a peel-away sheath. A 19 centimeter cuff to tip hemodialysis catheter was then tunneled under the skin and out the venotomy site. The catheter was then advanced through a peel-away sheath to. The catheter was tested and has adequate blood flow for dialysis. The catheter was flushed and locked with heparin per specified amount. The catheter secured to the skin with a 0 silk suture. IMPRESSION: Exchange of right IJ non tunneled hemodialysis catheter for a tunneled hemodialysis catheter via same venous access. The position of a new tunneled hemodialysis catheter is confirmed fluoroscopic image and is within the superior vena cava. The catheter is functional and ready for use.
[2016-08-23] MEDS: Fluconazole IV 100mg/50 ml NS 50 ML IVPB SCH (12:16)
--- NOTE | 2016-08-23 15:11 | PN ---
DATE: 08/23/2016 ROOM: 417 This is a 61-year-old male with recent evaluation for hypothyroidism, currently tolerating the higher and modified dose regimen as given. He is also being managed for multilobar pneumonia and currently on IV antibiotic management as given. His latest chemistry showed a BUN of 75, sodium 140, potassium 4.9, chloride 97, CO2 23, glucose 82 a nd creatinine 12.3. He also has advanced azotemia with end-stage renal disease as noted thereof. Hi s latest thyroid study showed a TSH of 25.70 and a free T4 of 1.37. So at this time, we will continue the same levothyroxine dose of 125 mcg daily as ordered. We will t itrate incrementally as indicated to optimize metabolic control. We will follow. Tara Smith MD cc: [id number] TT: 08/23/2016 15:11:07 Confirmation # [id number] Dictation # [id number] en
--- NOTE | 2016-08-23 15:12 | RAD ---
HISTORY: Pneumonia. COMPARISON: 08/20/2016. TECHNIQUE: Chest PA and lateral FINDINGS: LUNGS: Interval improvement with respect to pulmonary infiltrates with near complete resolution of the left upper lobe infiltrate. PLEURA: Trace bilateral pleural effusions unchanged. CARDIOVASCULAR: No radiographic findings to suggest acute or significant cardiovascular disease. Venous access catheter in stable, satisfactory position. OSSEOUS STRUCTURES: No significant abnormalities. VISUALIZED UPPER ABDOMEN: Normal. OTHER FINDINGS: None. IMPRESSION: Substantial improvement in multifocal bilateral infiltrates. Yes
--- NOTE | 2016-08-23 16:08 | CP.PCM.PN ---
Subjective - Date & Time of Evaluation Date of Evaluation: 08/23/16 Time of Evaluation: 11:00 - Subjective Subjective: No fever feels very much better for hemodialysis today plan for d/c to [facility] in am denies SOB no CP no abd pain Objective - Vital Signs/Intake and Output Vital Signs (last 24 hours): Temp Pulse Resp BP Pulse Ox 97.4 F L 68 20 156/84 H 95 08/23/16 15:32 08/23/16 15:32 08/23/16 15:32 08/23/16 15:32 08/23/16 15:32 Intake and Output: 08/23/16 08/23/16 06:59 18:59 Intake Total 240 Output Total 200 Balance 40 - Medications Medications: Current Medications Acetaminophen (Tylenol 325mg Tab) 650 mg PO Q6 PRN PRN Reason: Fever >100.4 F Last Admin: 08/10/16 12:16 Dose: 650 mg Albuterol Sulfate (Albuterol 0.083% Inhal Martita (2.5 Mg/3 Ml) Ud) 2.5 mg INH RQ4 PRN PRN Reason: Shortness of Breath Last Admin: 08/11/16 04:52 Dose: 2.5 mg Albuterol/Ipratropium (Duoneb 3 Mg/0.5 Mg (3 Ml) Ud) 3 ml INH RQID [facility] Last Admin: 08/23/16 15:23 Dose: 3 ml Amlodipine Besylate (Norvasc) 10 mg PO DAILY [facility] Last Admin: 08/23/16 08:47 Dose: Not Given Enalapril Maleate (Vasotec) 5 mg PO DAILY [facility] Last Admin: 08/23/16 08:45 Dose: Not Given Folic Acid (Folic Acid) 1 mg PO DAILY [facility] Last Admin: 08/23/16 08:45 Dose: 1 mg Furosemide (Lasix) 40 mg PO Q12 [facility] Last Admin: 08/23/16 08:46 Dose: Not Given Guaifenesin (Mucinex La) 600 mg PO Q12 [facility] Last Admin: 08/23/16 08:46 Dose: 600 mg Heparin Sodium (Porcine) (Heparin) 5,000 units SC Q12@0900,2100 [facility] PRN Reason: Protocol Last Admin: 08/19/16 09:05 Dose: 5,000 units Fluconazole (Diflucan Iv 100 Mg/50 Ml Ns) 50 mls @ 50 mls/hr IVPB DAILY [facility] Last Admin: 08/23/16 12:16 Dose: 50 mls/hr Levothyroxine Sodium (Synthroid) 125 mcg PO DAILY@0630 [facility] Last Admin: 08/23/16 06:25 Dose: 125 mcg Metoprolol Succinate (Toprol Xl) 25 mg PO DAILY [facility] Last Admin: 08/23/16 08:48 Dose: 25 mg Nystatin (Nystop Topical Powder) 1 applic TOP TID [facility] Last Admin: 08/23/16 12:23 Dose: 1 applic Saccharomyces Boulardii (Florastor) 250 mg PO BID [facility] Last Admin: 08/23/16 08:45 Dose: 250 mg Sevelamer Carbonate (Renvela) 1.6 gm PO TIDWM [facility] Last Admin: 08/23/16 12:22 Dose: 1.6 gm Thiamine HCl (Vitamin B1 Tab) 100 mg PO DAILY [facility] Last Admin: 08/23/16 08:45 Dose: 100 mg - Labs Labs: 08/23/16 05:45 08/23/16 05:45 PT 12.6 SECONDS (9.6-11.2) H 08/11/16 04:30 INR 1.21 (0.92-1.08) H 08/11/16 04:30 APTT 35.1 SECONDS (23.3-32.5) H 08/11/16 04:30 - Constitutional Appears: No Acute Distress, Chronically Ill - Head Exam Head Exam: NORMAL INSPECTION, NORMOCEPHALIC - Eye Exam Eye Exam: Normal appearance, PERRL Pupil Exam: NORMAL ACCOMODATION - ENT Exam ENT Exam: Mucous Membranes Moist, Normal External Ear Exam - Neck Exam Neck Exam: Full ROM. absent: Meningismus - Respiratory Exam Respiratory Exam: minimal basilar Rales, Rhonchi. absent: Respiratory Distress - Cardiovascular Exam Cardiovascular Exam: REGULAR RHYTHM, +S1, +S2 - GI/Abdominal Exam GI & Abdominal Exam: Soft, Normal Bowel Sounds. absent: Tenderness - Extremities Exam Extremities Exam: Full ROM, Normal Capillary Refill. absent: Calf Tenderness - Back Exam Back Exam: Full ROM. absent: CVA tenderness (L), CVA tenderness (R), paraspinal tenderness, vertebral tenderness - Neurological Exam Neurological Exam: Alert, Awake, CN II-XII Intact, Oriented x3 Neuro motor strength exam: Left Upper Extremity: 5, Right Upper Extremity: 5, Left Lower Extremity: 5, Right Lower Extremity: 5 - Psychiatric Exam Psychiatric exam: Normal Affect, Normal Mood - Skin Skin Exam: Dry, Normal Color, Warm Assessment and Plan - Assessment and Plan (Free Text) Assessment: 60 years old male with no significant past medical hx was brought to the ED because of Generalized weakness, dizziness. He was coughing for one month with brown sputum. No chest pain on coughing, no SOB and no fever. He Smokes one pack of cigarettes in 3 days with occasional Alcohol use. In the ED his Temp was 100.6F with HR of 123/min. CXR showed multifocal Pneumonia and BMP showed renal failure. Patient was admitted with sepsis ( POA) due to multifocal pneumonia and DYLLAN due to rhabdomyolysis . Pulmonary ID and nephro consulted . He was started on IVF and IV antibiotics. Was transferred to ICU for close monitoring due to AMS / confusion and respiratory distress.He was on high flow oxygen due to respiratory failure and at present saturating 94% on 2 L O2 via NC On HD for renal failure , MWF. Permacath placed to right upper chest wall CXR shows stable bilateral infiltrates . Received Zosyn 11 days and avelox 14 days. Patient to be discharged to [facility] for physical therapy in am. 1. Sepsis sec to Pneumonia- POA improving CT chest showed Large bilateral alveolar infiltrates as well as small bilateral pleural effusions. Mild mediastinal lymphadenopathy. Was on high flow O2 for respiratory failure and at present saturating 94 % on 2 L O2 via NC Repeat 08/17/16 CXR showed stable bilateral infiltrates Pulmonary and ID on consult Completed IV Zosyn x 11 days , also received IV Vanco received Avelox for 14 days so will discontinue today HIV and influenza - negative legionella Ag : negative Mycoplasma IgM negative Continue duonebs, acetylcysteine Sputum cx and urine positive for yeast . Started Diflucan promote ambulation PT consulted. Will d/c to [facility] in AM 2. AMS/ Metabolic encephalopathy -improving most likely AMS multifactorial - due to sepsis, pneumonia, medication induced, renal failure 3. Acute Hypoxemic respiratory failure sec to CAP- resolved was on High Flow Oxygen and now on 3 L O2 via NC V/Q scan showed no PE 3 AFB-s were negative Pulmonary and ID on consult 4. Acute Renal Failure with metabolic acidosis Most likely ATN secondary to Rhabdomyolysis Dr Kowalski nephrology consulted Patient did not respond to IVF with HCO3 Renal sonogram showed normal size and echogenecity and no obstruction Continue HD MWF on lasix 40 mg IV BID as per nephro s/p permacath placement to right upper chest by IR Discussed with Dr Jeff- still unsure if Permanent HD will d/c for Outpt HD Will d/c to [facility] in AM 5. Rhabdomyolysis CPK trended down received IVF on HD for renal failure 4. Hypokalemia Repleted 5. Transaminitis unclear etiology , improved on the admission was suspicious for ETOH abuse since AST more elevated than ALT but patient and cousin denied alcoholism Started MVI, folic acid and Thiamine Hepatitis profile- negative Abdominal US showed normal liver size and echogenecity Probably LFT elevation secondary to sepsis at present trending down 7. Tremulousness- resolved patient and cousin denied ETOH abuse Abd Us showed no fatty or cirrhotic liver Continue Thiamine, Folate, MVI CT head showed no acute pathology 8. DVT prophylaxis Heparin 9. Hypothyroidism Endo consulted Started Synthroid - 125mcg daily 10. Hypertension cont Norvasc 10 mg po daily ,Toprol XL 25 mg Start Enalapril 5 mg pO QD
--- NOTE | 2016-08-23 23:15 | PN ---
DATE: 08/23/2016 The patient is located in room 417, bed 2. REQUESTING PHYSICIAN: Dr. Frank Thomas. REASON FOR RENAL CONSULTATION: Acute renal failure, for continuation of the hemodialysis. HISTORY OF PRESENT ILLNESS: The patient is a 61-year-old elderly male with a history of hy pertension and hypothyroidism, smoking and ETOH abuse, was admitted with confusion and fever, cough, shortness of breath and a history of falls and also with elevated BUN and creatinine, increased CPK level and bilateral infiltrates, and his hospital course was complicated by worsening shortness of breath and worsening renal function requiring initiation of the hemodialysis, status post Perm-A-C ath placement on Tuesday. The patient is HD dependent for the last 2 weeks, not in acute distress, fe eling much better. No shortness of breath, no chest pain, no palpitations, no fever, no cough, no na usea, no vomiting, no diarrhea, no edema of the legs. PHYSICAL EXAMINATION: VITAL SIGNS: This morning as follows: Blood pressure 151/75, pulse 96, respirations 18, temperature 98.6, saturation 93%, height 6 feet and weight is 207 pounds. GENERAL: The patient is a 61-year-old male, moderately built, moderately nourished, not in any distr ess. HEENT: Pupils normal, reactive to light and accommodation. Conjunctivae pink. Sclerae anicteric. Tongue is moist. NECK: Trachea is midline. LUNGS: Symmetric on both sides. Bilateral breath sounds present. Clear on auscultation. CARDIOVASCULAR: [place] in the fifth intercostal space midclavicular line. S1 and S2 audible. No murm ur, no gallop. ABDOMEN: Normal in appearance, soft, tympanic. No guarding, no rigidity, no hepatosplenomegaly. CENTRAL NERVOUS SYSTEM: The patient is alert, awake, oriented x 3, nonfocal on examination. Cranial nerves II through XII grossly intact. Sensory and motor system is within normal limits. EXTREMITIES: No cyanosis, no clubbing, no edema. CURRENT MEDICATIONS: Include as follows q.i.d., Diflucan 100 mg IV daily and albuterol inhaler , Florastor 250 mg p.o. b.i.d., folic acid 1 mg p.o. daily, subcutaneous heparin 5000 q. 12 hours, La six 40 mg p.o. q. 12 hours, Mucinex LA 600 mg p.o. q. 12 hours, Norvasc 10 mg p.o. daily, Renvela 800 mg 2 tablets p.o. t.i.d. with meals, Synthroid 125 mcg daily, Toprol-XL 25 mg p.o. daily, Tylenol an d Vasotec 5 mg p.o. daily, thiamine 100 mg p.o. daily. LABORATORY DATA: Include as follows: As of 08/23/2016, WBC 7.9, hemoglobin 10.8, hematocrit is 30.4 , platelets 344. Sodium 140, potassium 4.9, chloride 97, CO2 of 23, BUN 75, creatinine 12.3, glucose 82, calcium 7.9, total bilirubin 0.1, AST 52, ALT 81, alkaline phosphatase is 62, total protein 8.3, albumin is 3.7 and PTH intact level is 133 as of 08/19/2016 and TSH is 25.7 as of 08/18/2016. As of 08/08/2016, sputum culture positive for yeast. As of 08/10/2016, sputum culture positive for yeast. As of 08/19/2016, urine culture positive for yeast. SUMMARY: The patient is a 61-year-old elderly male with hypertension, hypothyroidism, multilobar pne umonia, status post rhabdo and acute renal failure on hemodialysis. 1. Acute renal failure. Renal function is still not improving. The patient needs to continue hemod ialysis 3 times a week until renal function improves. Need to avoid nephrotoxic agents and avoid LIZA inhibitors at this time. 2. Hypertension. Blood pressure is stable. 3. Hypothyroidism. 4. Multilobar pneumonia. Chest x-ray: Repeat x-ray today substantial improvement in the infiltrate s, continue antibiotics as per ID recommendation. Thank you for allowing me to participate in your patient's care. Follow up with social service for o utpatient hemodialysis unit placement for temporary dialysis and discuss with Diana Lockhart in rounds. Edmund Kowalski MD cc: [phone] TT: 08/23/2016 23:15:21 Confirmation # [id number] Dictation # [id number] mn
[2016-08-24] MEDS: Levothyroxine 125 MCG TAB PO SCH (05:54)
[2016-08-24] MEDS: Albuterol-Ipratrop 3 mg / 0.5 (3 ml) UD INH SCH ×2 (07:49→11:09)
[2016-08-24 08:20] VITALS: RESP 20
[2016-08-24] MEDS: Sevelamer Carb 0.8 gm/Packet PO SCH (08:41)
--- NOTE | 2016-08-24 09:18 | CP.PCM.DIS ---
Provider - Provider Date of Admission: 08/05/16 20:18 Attending physician: Frank Thomas Consults: Pulm: Dr Sweeney Nephro: Dr Jeff ID: Dr Attila Edouard : Dr Smith Time Spent in preparation of Discharge (in minutes): 25 Diagnosis - Discharge Diagnosis (1) Acute renal failure (ARF) Status: Acute Priority: High (2) Pneumonia Status: Acute Priority: High (3) Rhabdomyolysis Status: Suspected Priority: High (4) Encephalopathy, metabolic Status: Acute (5) Transaminitis Status: Acute Hospital Course - Lab Results Lab Results: Micro Results 08/08/16 14:30 Other: Please Indicate Mycobacterial Culture - Preliminary 08/19/16 07:02 Urine Urine Culture - Final Yeast Species 08/06/16 12:00 Other: Please Indicate Mycobacterial Culture - Preliminary 08/14/16 14:00 Naris MRSA Culture (Admit) - Final MRSA NOT DETECTED 08/08/16 16:55 Blood-Venous Blood Culture - Final NO GROWTH AFTER 5 DAYS 08/08/16 16:55 Blood-Venous Gram Stain - Final 08/08/16 16:30 Blood-Venous Blood Culture - Final NO GROWTH AFTER 5 DAYS 08/08/16 16:30 Blood-Venous Gram Stain - Final TEST NOT PERFORMED 08/07/16 16:00 Blood Blood Culture - Final NO GROWTH AFTER 5 DAYS 08/07/16 16:00 Blood Gram Stain - Final TEST NOT PERFORMED 08/07/16 16:00 Blood Blood Culture - Final NO GROWTH AFTER 5 DAYS 08/07/16 16:00 Blood Gram Stain - Final TEST NOT PERFORMED 08/10/16 13:56 Sputum Gram Stain - Final 08/10/16 13:56 Sputum Sputum Culture - Final Yeast Species 08/08/16 16:50 Sputum Gram Stain - Final 08/08/16 16:50 Sputum Sputum Culture - Final Yeast Species 08/07/16 07:40 Naris MRSA Culture (Admit) - Final MRSA NOT DETECTED 08/06/16 09:00 Sputum Gram Stain - Final 08/06/16 09:00 Sputum Sputum Culture - Final NORMAL ORAL NANCY Most Recent Lab Values WBC 7.9 K/uL (4.8-10.8) 08/23/16 05:45 RBC 3.60 Mil/uL (4.40-5.90) L 08/23/16 05:45 Hgb 10.2 g/dL (12.0-18.0) L 08/23/16 05:45 Hct 30.4 % (35.0-51.0) L 08/23/16 05:45 MCV 84.2 fl (80.0-94.0) 08/23/16 05:45 MCH 28.4 pg (27.0-31.0) 08/23/16 05:45 MCHC 33.7 g/dL (33.0-37.0) 08/23/16 05:45 RDW 14.4 % (11.5-14.5) 08/23/16 05:45 Plt Count 344 K/uL (130-400) D 08/23/16 05:45 MPV 6.7 fl (7.2-11.7) L 08/18/16 04:45 Neut % (Auto) 65.3 % (50.0-75.0) 08/18/16 04:45 Lymph % (Auto) 21.5 % (20.0-40.0) 08/18/16 04:45 [place] % (Auto) 11.9 % (0.0-10.0) H 08/18/16 04:45 Eos % (Auto) 0.5 % (0.0-4.0) 08/18/16 04:45 Baso % (Auto) 0.8 % (0.0-2.0) 08/18/16 04:45 Neut # 6.5 K/uL (1.8-7.0) 08/18/16 04:45 Lymph # 2.1 K/uL (1.0-4.3) 08/18/16 04:45 [place] # 1.2 K/uL (0.0-0.8) H 08/18/16 04:45 Eos # 0.0 K/uL (0.0-0.7) 08/18/16 04:45 Baso # 0.1 K/uL (0.0-0.2) 08/18/16 04:45 Neutrophils % (Manual) 85 % (42-75) H 08/11/16 04:30 Band Neutrophils % 3 % (0-2) H 08/11/16 04:30 Lymphocytes % (Manual) 7 % (20-50) L 08/11/16 04:30 Reactive Lymphs % 1 % (0-0) H 08/07/16 05:00 Monocytes % (Manual) 2 % (0-10) 08/11/16 04:30 Eosinophils % (Manual) 1 % (0-7) 08/11/16 04:30 Basophils % (Manual) 1 % (0-2) 08/11/16 04:30 Metamyelocytes % 2 % (0-0) H 08/07/16 05:00 Myelocytes % 1 % (0-0) H 08/11/16 04:30 Toxic Granulation Present 08/05/16 17:54 Platelet Estimate Normal (NORMAL) 08/11/16 04:30 Large Platelets Present 08/07/16 05:00 Giant Platelets Present 08/11/16 04:30 Hypochromasia (manual) Slight 08/05/16 17:54 Anisocytosis (manual) Slight 08/11/16 04:30 Microcytosis (manual) Slight 08/05/16 17:54 Target Cells Moderate 08/11/16 04:30 ESR 100 mm/hr (0-20) H 08/11/16 04:30 PT 12.6 SECONDS (9.6-11.2) H 08/11/16 04:30 INR 1.21 (0.92-1.08) H 08/11/16 04:30 APTT 35.1 SECONDS (23.3-32.5) H 08/11/16 04:30 D-Dimer, Quantitative 8.14 mg/L FEU (0-0.50) H 08/05/16 18:30 pCO2 44 mm/Hg (35-45) 08/09/16 05:35 pO2 69 mm/Hg (80-100) L 08/09/16 05:35 HCO3 28.2 mmol/L (21-28) H 08/09/16 05:35 ABG pH 7.43 (7.35-7.45) 08/09/16 05:35 ABG Total CO2 30.6 mmol/L (22-28) H 08/09/16 05:35 ABG O2 Saturation 96.3 % (95-98) 08/09/16 05:35 ABG O2 Content 16.0 ML/dL (15-23) 08/09/16 05:35 ABG Base Excess 4.3 mmol/L (-2.0-3.0) H 08/09/16 05:35 ABG Hemoglobin 12.2 g/dL (11.7-17.4) 08/09/16 05:35 ABG Carboxyhemoglobin 1.5 % (0.5-1.5) 08/09/16 05:35 POC ABG HHb (Measured) 3.6 % (0.0-5.0) 08/09/16 05:35 ABG Methemoglobin 1.8 % (0.0-3.0) 08/09/16 05:35 ABG O2 Capacity 16.6 mL/dL (16-24) 08/09/16 05:35 Hi Test Yes 08/09/16 05:35 ABG Potassium 3.1 mmol/L (3.6-5.2) L 08/08/16 09:30 VBG pH 7.32 (7.32-7.43) 08/05/16 21:08 VBG pCO2 45 mmHg (40-60) 08/05/16 21:08 VBG HCO3 20.0 mmol/L 08/05/16 21:08 VBG Total CO2 24.6 mmol/L (22-28) 08/05/16 21:08 VBG O2 Sat (Calc) 15.7 % (40-65) L 08/05/16 21:08 VBG Base Excess -3.1 mmol/L (0.0-2.0) L 08/05/16 21:08 VBG Potassium 3.1 mmol/L (3.6-5.2) L 08/05/16 21:08 A-a O2 Difference 375.0 mm/Hg 08/09/16 05:35 Hgb O2 Saturation 93.1 % (95.0-98.0) L 08/09/16 05:35 Sodium 137.0 mmol/L (132-148) 08/08/16 09:30 Chloride 107.0 mmol/L (98-107) 08/08/16 09:30 Glucose 157 mg/dL (75-110) H 08/08/16 09:30 Lactate 1.1 mmol/L (0.7-2.1) 08/08/16 09:30 Liter Flow 25 08/09/16 05:35 Vent Mode High flow lpm 08/09/16 05:35 FiO2 70.0 % 05/01/17 05:35 Blood Gas Comments High flow 30l/m,40%fio2 08/08/16 09:30 Crit Value Called To Tiffany prince 08/08/16 09:30 Crit Value Called By 08/08/16 09:30 Crit Value Read Back Y 08/08/16 09:30 Blood Gas Notified Time 544 08/09/16 05:35 Sodium 140 mmol/l (132-148) 08/23/16 05:45 Potassium 4.9 MMOL/L (3.6-5.0) 08/23/16 05:45 Chloride 97 mmol/L (98-107) L 08/23/16 05:45 Carbon Dioxide 23 mmol/L (22-30) 08/23/16 05:45 Anion Gap 25 (10-20) H 08/23/16 05:45 BUN 75 mg/dl (9-20) H 08/23/16 05:45 Creatinine 12.3 mg/dL (0.8-1.5) H* D 08/23/16 05:45 Est GFR ( Amer) 5 08/23/16 05:45 Est GFR (Non-Af Amer) 4 08/23/16 05:45 Random Glucose 82 mg/dL (75-110) 08/23/16 05:45 Serum Osmolality 292 mosm/kg (272-300) 08/06/16 07:23 Calcium 7.9 mg/dL (8.4-10.2) L 08/23/16 05:45 Phosphorus 9.1 mg/dl (2.5-4.5) H 08/19/16 06:30 Ferritin 1760.0 ng/mL 08/07/16 05:00 Total Bilirubin 1.0 mg/dl (0.2-1.3) 08/23/16 05:45 AST 52 U/L (17-59) 08/23/16 05:45 ALT 81 U/L (21-72) H 08/23/16 05:45 Alkaline Phosphatase 62 U/L (38-126) 08/23/16 05:45 Total Creatine Kinase 96 U/L (55-170) 08/14/16 05:30 Total Protein 8.3 G/DL (6.3-8.2) H 08/23/16 05:45 Albumin 3.7 g/dL (3.5-5.0) 08/23/16 05:45 Globulin 4.6 gm/dL (2.2-3.9) H 08/23/16 05:45 Albumin/Globulin Ratio 0.8 (1.0-2.1) L 08/23/16 05:45 Vitamin B12 704 pg/mL (239-931) 08/07/16 05:00 Procalcitonin 9.85 NG/ML (0.19-0.49) H 08/10/16 09:50 Free T4 1.35 ng/dL (0.78-2.19) 08/15/16 06:10 Thyroxine (T4) 5.44 ug/dl (5.5-11.0) L 08/15/16 06:10 Total T3 0.531 nmol/L (1.49-2.60) L 08/08/16 16:50 TSH 3rd Generation 25.70 mIU/ML (0.46-4.68) H 08/18/16 04:45 PTH Intact Whole Molec 133 pg/mL (14-64) H 08/19/16 14:00 Cortisol AM Sample 44.8 ug/dL (4.46-22.7) H 08/09/16 04:30 Arterial Blood Potassium 3.1 mmol/L (3.6-5.2) L 08/08/16 09:30 Venous Blood Potassium 3.1 mmol/L (3.6-5.2) L 08/05/16 21:08 Urine Color Yellow (YELLOW) 08/07/16 12:55 Urine Clarity Slighty-cloudy (Clear) 08/07/16 12:55 Urine pH 5.0 (5.0-8.0) 08/07/16 12:55 Ur Specific Fletcher 1.013 (1.003-1.030) 08/07/16 12:55 Urine Protein 30 mg/dL (NEGATIVE) 08/07/16 12:55 Urine Glucose (UA) Neg mg/dL (Normal) 08/07/16 12:55 Urine Ketones Negative mg/dL (NEGATIVE) 08/07/16 12:55 Urine Blood Moderate (NEGATIVE) 08/07/16 12:55 Urine Nitrate Negative (NEGATIVE) 08/07/16 12:55 Urine Bilirubin Negative (NEGATIVE) 08/07/16 12:55 Urine Urobilinogen 0.2-1.0 mg/dL (0.2-1.0) 08/07/16 12:55 Ur Leukocyte Esterase Neg Anastasiya/uL (Negative) 08/07/16 12:55 Urine RBC (Auto) 6 /hpf (0-3) H 08/07/16 12:55 Urine WBC Clumps (Auto) Occ /hpf (NONE) H 08/06/16 08:30 Urine Microscopic WBC 4 /hpf (0-5) 08/07/16 12:55 Ur Squamous Epith Cells < 1 /hpf (0-5) 08/07/16 12:55 Amorphous Sediment Rare /ul (<OCC) H 08/07/16 12:55 Urine Bacteria Rare (<OCC) 08/07/16 12:55 Hyaline Casts 11-20 /hpf (0-2) H 08/06/16 08:30 Urine Eosinophils Negative (NEGATIVE) 08/18/16 07:02 Urine Osmolality 354 mosm/kg (300-1000) 08/07/16 12:55 Ur Random Sodium 33 meq/L 08/07/16 12:55 Ur Random Potassium 24.0 mmol/L 08/07/16 12:55 Random Vancomycin 19.7 ug/mL 08/08/16 06:00 Urine Opiates Screen Negative (NEGATIVE) 08/07/16 09:47 Urine Methadone Screen Negative (NEGATIVE) 08/07/16 09:47 Ur Barbiturates Screen Negative (NEGATIVE) 08/07/16 09:47 Ur Phencyclidine Scrn Negative (NEGATIVE) 08/07/16 09:47 Ur Amphetamines Screen Negative (NEGATIVE) 08/07/16 09:47 U Benzodiazepines Scrn Negative (NEGATIVE) 08/07/16 09:47 U Oth Cocaine Metabols Negative (NEGATIVE) 08/07/16 09:47 U Cannabinoids Screen Negative (NEGATIVE) 08/07/16 09:47 Thyroperoxidase Ab 330 IU/mL (<9) H 08/09/16 04:30 Thyroglobulin Antibody 24 IU/mL (< OR = 1) H 08/09/16 04:30 Complement C3 104.0 mg/dL (88.0-165.0) 08/06/16 07:40 Complement C4 29.7 mg/dL (14.0-44.0) 08/06/16 07:40 Tot Complement (CH50) >60 U/mL (31-60) H 08/06/16 07:40 RPR Nonreactive (NONREACTIVE) 08/07/16 05:00 Hepatitis A IgM Ab Negative (NEGATIVE) 08/10/16 22:53 Hep Bs Antigen Negative (NEGATIVE) 08/10/16 22:53 Hep B Core IgM Ab Negative (NEGATIVE) 08/10/16 22:53 Hepatitis C Antibody Negative (NEGATIVE) 08/10/16 22:53 HIV 1&2 Antibody Screen Negative (NEGATIVE) 08/06/16 05:00 Influenza Typ A,B (EIA) Negative for flu a/b (NEGATIVE) 08/07/16 23:24 Urine Legionella Ag Not detected (Not Detected) 08/07/16 06:48 Mycoplasma pneumon IgG 2.91 (<=0.90) H 08/06/16 09:40 Mycoplasma pneumon IgM 101 U/mL (<770) 08/06/16 09:40 Anti-Staphylolysin O Negative (NEGATIVE) 08/06/16 07:40 TB Test (QFT) Nil 2.12 IU/mL 08/10/16 10:00 TB Test Mitogen - Nil 0.29 IU/mL 08/10/16 10:00 TB Test TB - Nil 0.02 IU/mL 08/10/16 10:00 TB Test (QFT) Indeterminate (Negative) H 08/10/16 10:00 - Hospital Course Hospital Course: 60 years old male with no significant past medical hx was brought to the ED because of Generalized weakness, dizziness. He was coughing for one month with brown sputum. No chest pain on coughing, no SOB and no fever. He Smokes one pack of cigarettes in 3 days with occasional Alcohol use. In the ED his Temp was 100.6F with HR of 123/min. CXR showed multifocal Pneumonia and BMP showed renal failure. Patient was admitted with sepsis ( POA) due to multifocal pneumonia and DYLLAN due to rhabdomyolysis . Pulmonary ID and nephro consulted . He was started on IVF and IV antibiotics. Was transferred to ICU for close monitoring due to AMS / confusion and respiratory distress.He was on high flow oxygen due to respiratory failure and at present saturating 94% on 2 L O2 via NC . He was started on HD for renal failure , MWF. Permacath placed to right upper chest wall CXR shows stable bilateral infiltrates . Received Zosyn 11 days and avelox 14 days. Patient to be discharged to [facility] for physical therapy. 1. Sepsis sec to Pneumonia- POA improving CT chest showed Large bilateral alveolar infiltrates as well as small bilateral pleural effusions. Mild mediastinal lymphadenopathy. Was on high flow O2 for respiratory failure and at present saturating 94 % on 2 L O2 via NC Pulmonary and ID on consult Completed IV Zosyn x 11 days , also received IV Vanco received Avelox for 14 days HIV and influenza - negative legionella Ag : negative Mycoplasma IgM negative Duonebs, acetylcysteine Sputum cx and urine positive for yeast . Started Diflucan promote ambulation PT consulted. Will d/c to [facility] 2. AMS/ Metabolic encephalopathy -improving most likely AMS multifactorial - due to sepsis, pneumonia, medication induced, renal failure 3. Acute Hypoxemic respiratory failure sec to CAP- resolved was on High Flow Oxygen and now on 3 L O2 via NC V/Q scan showed no PE 3 AFB-s were negative Pulmonary and ID on consulted 4. Acute Renal Failure with metabolic acidosis Most likely ATN secondary to Rhabdomyolysis Dr Kowalksi nephrology consulted Patient did not respond to IVF with HCO3 Renal sonogram showed normal size and echogenecity and no obstruction Continue HD MWF on lasix 40 mg BID as per nephro s/p permacath placement to right upper chest by IR Discussed with Dr Jeff- still unsure if Permanent HD will d/c to [facility] for PT , arrangement made for Outpt HD 3x per wk 5. Rhabdomyolysis CPK trended down received IVF on HD for renal failure 4. Hypokalemia Repleted 5. Transaminitis unclear etiology , improved on the admission was suspicious for ETOH abuse since AST more elevated than ALT but patient and cousin denied alcoholism Started MVI, folic acid and Thiamine Hepatitis profile- negative Abdominal US showed normal liver size and echogenecity Probably LFT elevation secondary to sepsis at present trended down to normal 7. Tremulousness- resolved patient and cousin denied ETOH abuse Abd Us showed no fatty or cirrhotic liver Continue Thiamine, Folate, MVI CT head showed no acute pathology 8. DVT prophylaxis Heparin 9. Hypothyroidism Endo consulted Started Synthroid - 125mcg daily 10. Hypertension cont Norvasc 10 mg po daily ,Toprol XL 25 mg Enalapril 5 mg pO QD Discharge Exam - Head Exam Head Exam: ATRAUMATIC, NORMAL INSPECTION, NORMOCEPHALIC - Eye Exam Eye Exam: EOMI, Normal appearance Pupil Exam: NORMAL ACCOMODATION - ENT Exam ENT Exam: Mucous Membranes Moist, Normal External Ear Exam - Neck Exam Neck exam: Full Rom - Respiratory Exam Respiratory Exam: Rhonchi, NORMAL BREATHING PATTERN. absent: Respiratory Distress - Cardiovascular Exam Cardiovascular Exam: REGULAR RHYTHM, +S1, +S2 - GI/Abdominal Exam GI & Abdominal Exam: Normal Bowel Sounds, Soft. absent: Tenderness - Extremities Exam Extremities exam: full ROM, normal capillary refill, pedal pulses present - Back Exam Back exam: FULL ROM, NORMAL INSPECTION. absent: CVA tenderness (L), CVA tenderness (R), paraspinal tenderness, vertebral tenderness - Neurological Exam Neurological exam: Alert, CN II-XII Intact, Oriented x3, Reflexes Normal - Psychiatric Exam Psychiatric exam: Normal Affect, Normal Mood - Skin Skin Exam: Dry, Normal Color, Warm Discharge Plan - Discharge Medications Prescriptions: Fluconazole IV 100mg/50 ml NS [Diflucan IV 100 mg/50 ml NS] 100 mg IV DAILY 7 Days - Follow Up Plan Condition: GOOD Disposition: TRANSF TO SNF Instructions: Acute Kidney Injury (DC), Bacterial Pneumonia (DC) Additional Instructions: cont TIW Hemodialysis appt [facility] 1-2 w[address] ff up with Dr Jeff in 1 wk
--- NOTE | 2016-08-24 09:30 | CP.PCM.PN ---
Subjective - Date & Time of Evaluation Date of Evaluation: 08/24/16 Time of Evaluation: 09:29 - Subjective Subjective: pt seen and examined, follow up consult is dictated #[id number] Objective - Vital Signs/Intake and Output Vital Signs (last 24 hours): Temp Pulse Resp BP Pulse Ox 98 F 79 20 160/80 H 95 08/24/16 08:19 08/24/16 08:19 08/24/16 08:19 08/24/16 08:19 08/24/16 08:19 - Medications Medications: Current Medications Acetaminophen (Tylenol 325mg Tab) 650 mg PO Q6 PRN PRN Reason: Fever >100.4 F Last Admin: 08/10/16 12:16 Dose: 650 mg Albuterol Sulfate (Albuterol 0.083% Inhal Martita (2.5 Mg/3 Ml) Ud) 2.5 mg INH RQ4 PRN PRN Reason: Shortness of Breath Last Admin: 08/11/16 04:52 Dose: 2.5 mg Albuterol/Ipratropium (Duoneb 3 Mg/0.5 Mg (3 Ml) Ud) 3 ml INH RQID [facility] Last Admin: 08/24/16 07:49 Dose: 3 ml Amlodipine Besylate (Norvasc) 10 mg PO DAILY [facility] Last Admin: 08/23/16 08:47 Dose: Not Given Enalapril Maleate (Vasotec) 5 mg PO DAILY [facility] Last Admin: 08/23/16 08:45 Dose: Not Given Folic Acid (Folic Acid) 1 mg PO DAILY [facility] Last Admin: 08/23/16 08:45 Dose: 1 mg Furosemide (Lasix) 40 mg PO Q12 [facility] Last Admin: 08/23/16 21:18 Dose: 40 mg Guaifenesin (Mucinex La) 600 mg PO Q12 [facility] Last Admin: 08/23/16 21:18 Dose: 600 mg Heparin Sodium (Porcine) (Heparin) 5,000 units SC Q12@0900,2100 [facility] PRN Reason: Protocol Last Admin: 08/19/16 09:05 Dose: 5,000 units Fluconazole (Diflucan Iv 100 Mg/50 Ml Ns) 50 mls @ 50 mls/hr IVPB DAILY [facility] Last Admin: 08/23/16 12:16 Dose: 50 mls/hr Levothyroxine Sodium (Synthroid) 125 mcg PO DAILY@0630 [facility] Last Admin: 08/24/16 05:54 Dose: 125 mcg Metoprolol Succinate (Toprol Xl) 25 mg PO DAILY [facility] Last Admin: 08/23/16 08:48 Dose: 25 mg Nystatin (Nystop Topical Powder) 1 applic TOP TID [facility] Last Admin: 08/23/16 17:00 Dose: 1 applic Saccharomyces Boulardii (Florastor) 250 mg PO BID [facility] Last Admin: 08/23/16 17:00 Dose: Not Given Sevelamer Carbonate (Renvela) 1.6 gm PO TIDWM [facility] Last Admin: 08/23/16 17:00 Dose: Not Given Thiamine HCl (Vitamin B1 Tab) 100 mg PO DAILY [facility] Last Admin: 08/23/16 08:45 Dose: 100 mg - Labs Labs: 08/23/16 05:45 08/23/16 05:45 PT 12.6 SECONDS (9.6-11.2) H 08/11/16 04:30 INR 1.21 (0.92-1.08) H 08/11/16 04:30 APTT 35.1 SECONDS (23.3-32.5) H 08/11/16 04:30
[2016-08-24] MEDS: Fluconazole IV 100mg/50 ml NS 50 ML IVPB SCH (09:40)
[2016-08-24] MEDS: Saccharomyces Boulardi 250 mg Cap PO SCH (09:41)
[2016-08-24] MEDS: guaiFENesin 600 mg ER Tab PO SCH (09:41)
[2016-08-24] MEDS: Metoprolol Succinate 25 mg XL Tab PO SCH (09:42)
[2016-08-24 12:28] VITALS: BP 158/83; PULSE 85; TEMP 97.8; O2SAT 96
--- NOTE | 2016-08-24 16:18 | PN ---
DATE: 08/24/2016 ROOM: 417 SUBJECTIVE: This is a 61-year-old male with recent multilobar pneumonia and received IV antibiotic m anagement and has also been evaluated to have hypothyroidism and is being followed closely for metabo lic management. His latest thyroid study showed a TSH of 25.70 as noted, which is already improving as compared to the initial abnormal thyroid studies. He is now clinically euthyroid and biochemicall y should expect improvement of the TSH over the next 4-6 weeks with the levothyroxine replacement the rapy. Would continue the same levothyroxine dose of 125 mcg once daily in the morning as ordered. Milagros garcia will follow with his medical doctor for outpatient medical and thyroid evaluation and management. Tara Smith MD cc: [id number] TT: 08/24/2016 16:17:09 Confirmation # [id number] Dictation # [id number]
--- NOTE | 2016-08-25 08:30 | PN ---
DATE: 08/24/2016 LOCATION: The patient is located in room 417, bed 2. REQUESTED BY: Dr. Frank Thomas. REASON FOR FOLLOWUP: Acute renal failure and for continuation of the hemodialysis. SUBJECTIVE: The patient is a 61-year-old elderly male with a past medical history signific ant for hypertension, , smoking. He smoker and ETOH abuse, status post falls, multiple. CPK levels, increased BUN and creatinine. Seen with cough, shortness of breath. Multilobar pneumon ia. He is requiring initiation of the hemodialysis. The patient is on hemodialysis 3 times a week s nikhil last 2 weeks. No significant improvement in renal function. The patient is feeling much better now and denies any shortness of breath. Denies any cough. Denies any nausea, vomiting. Denies any fever. Denies any swelling of the legs. The patient is scheduled for possible transfer to subacute rehabilitation today now. PHYSICAL EXAMINATION: VITAL SIGNS: As follows: Blood pressure this morning 160/80, pulse 79, respirations 20, temperature 97.8, saturation 96%, height 6 feet and weight is 207 pounds. GENERAL: The patient is a 61-year-old elderly male, well-built, well-nourished, not in acute distres s. HEENT: Pupils normal, reactive to light. Conjunctivae are pink. anicteric. Tongue is moist, midline. LUNGS: Symmetric on both sides. Bilateral breath sounds present. Clear on auscultation. CARDIOVASCULAR: [place]ckley in the fifth intercostal space midclavicular line. S1 and S2 audible. No murm ur, no gallop. ABDOMEN: Normal in appearance, soft, tympanic. No guarding, no rigidity. No hepatosplenomegaly. CENTRAL NERVOUS SYSTEM: The patient is alert, awake, oriented x 3. Nonfocal on examination. Crania l nerves II through XII grossly intact. Sensory and motor system is within normal limits. EXTREMITIES: No cyanosis, no clubbing, no edema. CURRENT MEDICATIONS: Include as follows: Albuterol inhaler, Diflucan 100 mg daily, and DuoNeb inhal er 3 mL four times a day, Florastor 250 mg p.o. b.i.d., folic acid 1 mg daily, subcutaneous heparin 5 000 q. 12 hours, Lasix 40 mg q. 12 hours, Mucinex 600 mg p.o. q. 12 hours, Norvasc 10 mg daily, Renve la 800 mg two tablets p.o. t.i.d. and Synthroid 125 mcg p.o. daily, and Toprol-XL 25 mg p.o. daily, T ylenol 650 mg p.o. q. 6 hours p.r.n., and Vasotec 5 mg p.o. daily, thiamine 100 mg p.o. daily. LABORATORY DATA: As of 08/23/2016, WBC 7.9, hemoglobin 10.8, hematocrit is 30.4, and platelets 344. Sodium 140, potassium 4.8, chloride 97, CO2 22, BUN 25, creatinine , glucose 82, calcium 7.9, t otal protein 8.3, albumin is 3.7, globulin 4.6. No new labs available. SUMMARY: The patient is a 61-year-old elderly male with hypertension, hypothyroidism, status post rh abdomyolysis and multilobar pneumonia, acute renal failure. IMPRESSION AND PLAN: 1. Acute renal failure, most likely secondary to acute tubular necrosis secondary to rhabdomyolysis and sepsis. The patient system. Continue hemodialysis 3 times a week, Tuesday, Tuesday and Tuesday. 2. Hypertension. Blood pressure is stable. Continue his current medication, Norvasc. 3. Hypothyroidism. Continue Synthroid 125 mcg p.o. daily. 4. Status post rhabdomyolysis. 5. Multilobar pneumonia, which is improving. Continue to documentation. The patient is roz ng some transferred to subacute rehabilitation. If renal function does not improve, the patie nt may need further workup for renal failure and need and maybe kidney biopsy if in a few weeks. I discussed with on rounds this morning. Thank you for allowing me to participate in your patient's care. Edmund Kowalski MD cc: [phone] TT: 08/25/2016 00:16:55 Confirmation # [id number] Dictation # [id number] mn
== END 2016-08-24 13:41 | disposition home or self-care (01) | DRG 584 ==
LOC: H.ER 16:42 → H.ERHOLD 20:18 → H.TEL 22:19 → H.ICU/CCU 08-07 13:33 → H.TEL 08-14 13:48
PROVIDERS: ADMIT Internal Medicine; ATTEND Internal Medicine
PROC: 05HM33Z Insertion of Infusion Device into Right Internal Jugular Vein, Percutaneous Approach (ICD-10-PCS; 2016-08-10)
PROC: B513ZZA Fluoroscopy of Right Jugular Veins, Guidance (ICD-10-PCS; 2016-08-10)
PROC: 05HM33Z Insertion of Infusion Device into Right Internal Jugular Vein, Percutaneous Approach (ICD-10-PCS; 2016-08-20)
PROC: B513ZZA Fluoroscopy of Right Jugular Veins, Guidance (ICD-10-PCS; 2016-08-20)
PROC: 5A1D60Z (ICD-10-PCS; principal; 2016-08-20 14:00)
DX: A41.9 Sepsis, unspecified organism (principal); J18.0 Bronchopneumonia, unspecified organism; J96.01 Acute respiratory failure with hypoxia; N17.0 Acute kidney failure with tubular necrosis; G93.41 Metabolic encephalopathy; J90 Pleural effusion, not elsewhere classified; J11.08 Influenza due to unidentified influenza virus with specified pneumonia; M62.82 Rhabdomyolysis; N18.6 End stage renal disease; I12.0 Hypertensive chronic kidney disease with stage 5 chronic kidney disease or end stage renal disease; E87.6 Hypokalemia; R65.20 Severe sepsis without septic shock; E86.0 Dehydration; Z99.2 Dependence on renal dialysis; Z59.0 Homelessness; R74.0 Nonspecific elevation of levels of transaminase and lactic acid dehydrogenase [LDH]; E03.9 Hypothyroidism, unspecified; D64.9 Anemia, unspecified; E06.3 Autoimmune thyroiditis; F17.210 Nicotine dependence, cigarettes, uncomplicated

== ENCOUNTER 2016-09-03 22:36 | Emergency (ER) | payer OTHER ==
[2016-09-03 22:44] VITALS: BP 137/78; PULSE 112; RESP 18; TEMP 97.7; O2SAT 98
--- NOTE | 2016-09-03 23:44 | ED PDOC ---
HPI: Abdomen Time Seen by Provider: 09/03/16 22:53 Chief Complaint (Nursing): GI Problem History Per: Patient (had single episode of vomiting after eating mashed potatoes from a local [employer]. She has no pain now and is not complaining of nausea or vomiting. ) History/Exam Limitations: no limitations Onset/Duration Of Symptoms: Sudden Onset Outside of [place] travel?: No Current Symptoms Are (Timing): Gone Now Past Medical History Reviewed: Historical Data, Nursing Documentation, Vital Signs Vital Signs: Last Vital Signs Temp 97.7 F 09/03/16 22:41 Pulse 112 H 09/03/16 22:41 Resp 18 09/03/16 22:41 BP 137/78 09/03/16 22:41 Pulse Ox 98 09/03/16 22:41 - Medical History PMH: Pneumonia, End Stage Renal Disease, Chronic Kidney Disease Denies: HIV - Family History Family History: States: Unknown Family Hx - Living Arrangements Living Arrangements: Alone - Home Medications Home Medications: Ambulatory Orders Medication Instructions Recorded Albuterol/Ipratropium [Duoneb 3 3 ml INH RQID 08/23/16 mg/0.5 mg (3 ml) UD] Enalapril Maleate [Vasotec] 5 mg PO DAILY tab 08/23/16 Fluconazole IV 100mg/50 ml NS 100 mg IV DAILY 7 Days 08/23/16 [Diflucan IV 100 mg/50 ml NS] Folic Acid 1 mg PO DAILY tab 08/23/16 Furosemide [Lasix] 40 mg PO Q12 tab 08/23/16 Heparin 5,000 units SC Q12@0900,2100 vial 08/23/16 Levothyroxine [Synthroid] 125 mcg PO DAILY@0630 tab 08/23/16 Metoprolol Succinate [Toprol XL] 25 mg PO DAILY tab 08/23/16 Nystatin [Nystop Topical Powder] 1 applic TOP TID bottle 08/23/16 Sevelamer Carbonate [Renvela] 1.6 gm PO TIDWM packet 08/23/16 amLODIPine [Norvasc] 10 mg PO DAILY tab 08/23/16 - Allergies Allergies/Adverse Reactions: Allergies Allergy/AdvReac Type Severity Reaction Status Date / Time No Known Allergies Allergy Verified 09/03/16 22:40 Review of Systems ROS Statement: Except As Marked, All Systems Reviewed And Found Negative Physical Exam - Reviewed Nursing Documentation Reviewed: Yes Vital Signs Reviewed: Yes - Physical Exam Appears: Positive for: Well, Non-toxic, No Acute Distress Head Exam: Positive for: ATRAUMATIC, NORMAL INSPECTION, NORMOCEPHALIC Skin: Positive for: Normal Color, Warm, DRY Eye Exam: Positive for: EOMI, Normal appearance, PERRL ENT: Positive for: Normal ENT Inspection Neck: Positive for: Normal, Painless ROM Cardiovascular/Chest: Positive for: Regular Rate, Rhythm Respiratory: Positive for: CNT, Normal Breath Sounds Gastrointestinal/Abdominal: Positive for: Normal Exam, Bowel Sounds, Soft Back: Positive for: Normal Inspection Extremity: Positive for: Normal ROM Neurologic/Psych: Positive for: Alert, Oriented - ECG O2 Sat by Pulse Oximetry: 98 Disposition - Clinical Impression Clinical Impression: Acute vomiting - Patient ED Disposition Is Patient to be Admitted: No Doctor Will See Patient In The: Office Counseled Patient/Family Regarding: Diagnosis, Need For Followup - Disposition Referrals: [facility] [Outside] [facility] [Outside] [facility] [Outside] Disposition: Routine/Home Disposition Time: 23:30 Condition: STABLE Instructions: Acute Nausea and Vomiting (ED) - POA Present On Arrival: None
== END 2016-09-04 | disposition home or self-care (01) ==
LOC: H.ER 22:36
DX: R11.10 Vomiting, unspecified (principal)